=== PATIENT | female | born 1945 | race Caucasian/White ===

== ENCOUNTER 2016-12-27 14:18 | Inpatient (IN) | payer MEDICARE, MEDICAID ==
[~2016-12-27] VITALS: Ht 154.9 cm; Wt 100.0 kg
[2016-12-27 15:18] LABS: BASO % 0.3 % (0.0-1.0); EOS % 0.3 % (0.0-3.0); LYMPH # 0.9 10^3/uL (1.5-4.5); LYMPH % 8.1 % (24.0-44.0); MEAN CORPUSCULAR HGB CONC 29.2 g/dl (32.0-36.5); MEAN CORPUSCULAR VOLUME 82.2 fl (80.0-96.0); MONO # 0.7 10^3/uL (0.0-0.8); MONO % 6.1 % (0.0-5.0); NEUTROPHILS # 9.1 10^3/uL (1.8-7.7); NEUTROPHILS % 83.2 % (36.0-66.0); PLATELET COUNT, AUTOMATED 240 10^3/uL (150-450); RED CELL DISTRIBUTION WIDTH 17.3 % (11.5-14.5); WHITE BLOOD COUNT 10.9 10^3/uL (4.0-10.0)
[2016-12-27 15:44] LABS: ANION GAP 7 MEQ/L (8-16); BLOOD UREA NITROGEN 13 MG/DL (7-18); CALCIUM LEVEL 7.9 MG/DL (8.8-10.2); CARBON DIOXIDE LEVEL 33 MEQ/L (21-32); CHLORIDE LEVEL 103 MEQ/L (98-107); CREATININE FOR GFR 0.52 MG/DL (0.55-1.02); GLOMERULAR FILTRATION RATE > 60.0 (>39); GLUCOSE, FASTING 96 MG/DL (83-110); SODIUM LEVEL 143 MEQ/L (136-145)
[2016-12-27] MEDS ORDERED: XARE20TA PO (16:03)
[2016-12-27] MEDS ORDERED: NEXI40CA PO (16:03)
[2016-12-27] MEDS ORDERED: IPRASOL4 INH (16:03)
[2016-12-27] MEDS ORDERED: SERT-138 PO (16:03)
[2016-12-27] MEDS ORDERED: VENTAER INH (16:03)
[2016-12-27] MEDS ORDERED: PREG100CA PO (16:03)
[2016-12-27] MEDS ORDERED: PRED10TA2 PO (16:03)
[2016-12-27] MEDS ORDERED: METO5TA PO (16:03)
[2016-12-27] MEDS ORDERED: COMBAER6 INH (16:03)
[2016-12-27] MEDS ORDERED: CARV12.5 PO (16:03)
[2016-12-27] MEDS ORDERED: POTA20TA PO (16:03)
[2016-12-27] MEDS ORDERED: SYNT100T PO (16:03)
[2016-12-27] MEDS ORDERED: SIMV20TA2 PO (16:03)
[2016-12-27] MEDS ORDERED: FURO40TA2 PO (16:03)
[2016-12-27] MEDS ORDERED: VITA100C2 PO (16:03)
[2016-12-27] MEDS ORDERED: ASCO10003 PO (16:03)
--- NOTE | 2016-12-27 16:53 | REP ---
Chest one-view HISTORY: COPD. Comparison: None Increased density is present in the lower lobes consistent with bibasilar atelectasis or infiltrates. The cardiac silhouette is enlarged. The pulmonary vasculature is normal in appearance. A cardiac pacemaker is present. The pulmonary vasculature is normal in appearance. Impression: 1. Bibasilar atelectasis or infiltrates. 2. Cardiomegaly. Signed by Sal Marino MD 12/27/2016 04:44 P
[2016-12-27] MEDS: IPRATROPIUM 0.5MG/ALBUTEROL 2.5MG INH SOL UD 3ML (DUONEB)(J7620) INH SCH (18:36)
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
[2016-12-27] MEDS ORDERED: ISOVUE-370 76% 100ML VIAL (Q9967) As Ordered ONE (18:52)
[2016-12-27 19:00] VITALS: BP 144/92
--- NOTE | 2016-12-27 20:10 | REPUSA ---
CT of the right lower tibia and fibula with contrast Clinical statement: Pain. Necrotizing fasciitis. Technique: Multiple axial CT images were obtained with 5 mm cuts through the right tibia and fibula w ith administration of contrast. Coronal and sagittal reconstructions were also obtained. No comparison is available. Findings: The osseous structures do not demonstrate any fractures or dislocations. No destructive oss eous lesions are noted. The joint spaces are well-maintained. There is a large wound in the medial as pect of the lower leg, measuring 2.9 x 1.0 x 4.3 cm. Mild surrounding soft tissue density is noted. N o loculated fluid collection is identified. Impression: 1. Large open wound in the medial aspect of the ankle. Mild surrounding soft tissue density is noted, without significant inflammation or edema. Early cellulitis cannot be excluded. No evidence of absce ss. 2. No discrete osseous abnormality. 3. CT is suboptimal for evaluation of necrotizing fasciitis. If there is continued clinical concern, MRI would be recommended.
--- NOTE | 2016-12-27 20:10 | PHACANCOPD ---
PHARMACY VANCOMYCIN DOSING Pt Demographics Demographics Patient Age:71 , Weight: , Gender: female Adjusted Body Weight Date: 12/27/16, Adjusted Body Weight: [67.145] Kg Events Past 24 Hours Events Past 24 Hours: YES: Pending Diagnostics Vancomycin Vancomycin indication: MRSA COVERAGE Vancomycin Target Ranges: 15-20 mcg/ml Vancomycin Load Y/N: Yes Load Dose Date Time Vancomycin Load Dose: 1500mg Date: 12/27/16 Time:2100 Vancomycin Dose Date: 12/27/16. Current Vancomycin Dose: [1g IV Q12H] Intermittent Dosing?: No Labs Labs Item Value Date Time White Blood Count 10.9 10^3/uL H 12/27/16 1508 Erythrocyte Sedimentation Rate 29 mm/hr 12/27/16 1832 Creatinine 0.52 MG/DL L 12/27/16 1508 C-Reactive Protein, Quantitative 0.71 MG/DL H 12/27/16 1508 Micro Microbiology 12/27/16 Blood Culture, Received Pending 12/27/16 Blood Culture, Received Pending 12/27/16 Wound Culture, Received Pending Creatinine Clearance Date:12/27/16. Estimated Creatinine Clearance: [~40ml/min]. Pending Labs Vancomycin trough scheduled 12/29/16 @0800 Assessment and Plan Maintaining Current Dose?: Yes Reason for dose change: No Dose Change Pharmacist Note Pharmacist Note Date: 12/27/16. Pharmacist note: Day #1 empiric vancomycin tx initiated with a 1500mg loading dose, followed by a maintenance regimen of 1g IV Q12H for MRSA coverage for the treatment of possible necrotizing fasciitis - aiming for a goal trough of 15-20mcg/ml. The patient is s/p 10 days of cefdinir for her right leg open wound. WBC is currently slightly elevated at 10.9, and the patient is afebrile. CXR today showed bibasilar atelectasis or infiltrates. The patient has a PMH of COPD for which she is steroid dependent. No PMH of vanco use here at [facility], and MRSA hx is unknown at this time. Blood and wound cultures are pending. A vancomycin trough has been scheduled for 12/29/16 @0800. We will continue to monitor and adjust dosing if needed. [facility] Dec 27, 2016 20:10
[2016-12-27] MEDS: ASCORBIC ACID 500 MG TAB PO SCH (20:46)
[2016-12-27] MEDS: SERTRALINE 100 MG TAB PO SCH (20:46)
[2016-12-27] MEDS: MEROPENEM INJ 1 GM in D5W MINI-BAG PLUS 100 ML IV SCH (20:46)
[2016-12-27] MEDS: SIMVASTATIN 20 MG TAB PO SCH (20:46)
[2016-12-27] MEDS: PREGABALIN 100 MG CAP (LYRICA) PO SCH (20:46)
[2016-12-27] MEDS: CARVedilol 12.5 MG TAB PO SCH (20:47)
[2016-12-27] MEDS: VANCOMYCIN HCL 1,000 MG, VIAL MATE ADAPTER 1 EACH in D5W 250 ML IV SCH (21:32)
[2016-12-27] MEDS ORDERED: VANCOMYCIN HCL 500 MG in D5W MINI-BAG PLUS 100 ML IV ONE (22:00)
[2016-12-27] MEDS: IPRATROPIUM 0.5MG/ALBUTEROL 2.5MG INH SOL UD 3ML (DUONEB)(J7620) INH PRN (22:40)
[2016-12-28] VITALS (7 sets, daily range): BP systolic 105–146; BP diastolic 62–88
[2016-12-28] MEDS: MEROPENEM INJ 1 GM in D5W MINI-BAG PLUS 100 ML IV SCH ×3 (04:22→20:18)
[2016-12-28] MEDS: IPRATROPIUM 0.5MG/ALBUTEROL 2.5MG INH SOL UD 3ML (DUONEB)(J7620) INH PRN (04:27)
--- NOTE | 2016-12-28 05:29 | ECGEPIP ---
Stationary ECG Study [facility] - ED Test Date: 2016-12-27 Pat Name: DEMETRIUS MORGAN Department: Room: [place] [address] Gender: F Lead Generator: shon : 1945 Requested By: Rashaun Davis Order Number: [id number] Reading MD: Rashaun Up Measurements Intervals [place] Rate: 71 P: HI: 0 QRS: 257 QRSD: 164 T: 61 QT: 477 QTc: 520 Interpretive Statements ELECTRONIC VENTRICULAR PACEMAKER NO PRIORS Electronically Signed On 12-28-2016 5:29:03 EDT by Rashaun Up
[2016-12-28] MEDS: LEVOTHYROXINE 100MCG TABLET (0.1MG) PO SCH (06:05)
[2016-12-28] MEDS: ACETAMINOPHEN TAB 650MG DOSE (2X325MG) PO PRN (06:07)
[2016-12-28 06:47] LABS: BASO % 0.4 % (0.0-1.0); EOS # 0.1 10^3/uL (0.0-0.50); IMMATURE GRANULOCYTE % 1.2 % (0-0); LYMPH # 1.3 10^3/uL (1.5-4.5); LYMPH % 12.9 % (24.0-44.0); MEAN CORPUSCULAR HEMOGLOBIN 23.7 pg (27.0-33.0); MEAN CORPUSCULAR HGB CONC 28.9 g/dl (32.0-36.5); MONO # 1.2 10^3/uL (0.0-0.8); NEUTROPHILS # 7.5 10^3/uL (1.8-7.7); NEUTROPHILS % 72.5 % (36.0-66.0); PLATELET COUNT, AUTOMATED 206 10^3/uL (150-450); RED CELL DISTRIBUTION WIDTH 17.2 % (11.5-14.5); WHITE BLOOD COUNT 10.3 10^3/uL (4.0-10.0)
[2016-12-28] MEDS: IPRATROPIUM 0.5MG/ALBUTEROL 2.5MG INH SOL UD 3ML (DUONEB)(J7620) INH SCH ×4 (07:18→19:11)
[2016-12-28 07:21] LABS: ALBUMIN 2.6 GM/DL (3.2-5.2); ALKALINE PHOSPHATASE 86 U/L (45-117); ALT/SGPT 12 U/L (12-78); ANION GAP 4 MEQ/L (8-16); AST/SGOT 9 U/L (15-37); BILIRUBIN,TOTAL 0.5 MG/DL (0.2-1.0); BLOOD UREA NITROGEN 11 MG/DL (7-18); CALCIUM LEVEL 8.2 MG/DL (8.8-10.2); CARBON DIOXIDE LEVEL 37 MEQ/L (21-32); CHLORIDE LEVEL 101 MEQ/L (98-107); CREATININE FOR GFR 0.59 MG/DL (0.55-1.02); GLOMERULAR FILTRATION RATE > 60.0 (>39); GLUCOSE, FASTING 88 MG/DL (83-110); MAGNESIUM LEVEL 2.2 MG/DL (1.8-2.4); POTASSIUM SERUM 3.7 MEQ/L (3.5-5.1); SODIUM LEVEL 142 MEQ/L (136-145); TOTAL PROTEIN 5.5 GM/DL (6.4-8.2)
[2016-12-28] MEDS: PANTOPRAZOLE 40MG TAB (PROTONIX) PO SCH (07:44)
[2016-12-28] MEDS: CARVedilol 12.5 MG TAB PO SCH ×2 (07:44→20:19)
[2016-12-28] MEDS: PREGABALIN 100 MG CAP (LYRICA) PO SCH ×3 (07:44→20:19)
[2016-12-28] MEDS: predniSONE 10 MG TAB PO SCH (07:44)
[2016-12-28] MEDS: FUROSEMIDE 40 MG TAB PO SCH (07:45)
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
[2016-12-28] MEDS: RIVAROXABAN 20 MG TAB (XARELTO) PO SCH (08:48)
[2016-12-28] MEDS: VANCOMYCIN HCL 1,000 MG, VIAL MATE ADAPTER 1 EACH in D5W 250 ML IV SCH ×2 (09:42→21:30)
[2016-12-28] MEDS ORDERED: NS 1,000 ML IV SCH (13:00)
[2016-12-28] MEDS ORDERED: PROPOFOL 200 MG/20 ML VIAL As Ordered ONE (14:59)
[2016-12-28] MEDS ORDERED: MIDAZOLAM INJ 2 MG/2 ML VIAL (J2250) As Ordered ONE (14:59)
[2016-12-28] MEDS ORDERED: fentaNYL 100 MCG/2 ML INJECTION (J3010) As Ordered ONE (14:59)
[2016-12-28] MEDS ORDERED: NORCO, ANEXSIA 5/325MG TABLET (HYDROcodone/ACETAMINOPHEN) As Ordered ONE (15:44)
[2016-12-28] MEDS ORDERED: fentaNYL 100 MCG/2 ML INJECTION (J3010) IV PRN (15:45)
[2016-12-28] MEDS ORDERED: LR 1,000 ML IV SCH (15:45)
[2016-12-28] MEDS ORDERED: ONDANSETRON 4MG/2ML VIAL (J2405) IV PRN (15:45)
[2016-12-28] MEDS ORDERED: NORCO, ANEXSIA 5/325MG TABLET (HYDROcodone/ACETAMINOPHEN) PO PRN (15:45)
--- NOTE | 2016-12-28 18:30 | IPNPDOC ---
Text Note Date of Service The patient was seen on 12/28/16. NOTE Subjective: complains of pain in the region of the wound and also in the other leg, no fever or chills, no chest pain or sob, no cough or phlegm , no nausea or vomiting or abdominal pain Physical Exam: -Vitals as below. - General: Lying in bed, No acute distress, Speaking in full sentences, AAOx3 - HEENT: NC, AT, PERRLA, EOMI - CVS: RRR, +S1S2 - Lungs: Fair air entry bilaterally, Clear to auscultation, No wheezing / rales / rhonchi - Abdomen: Soft, Non-distended, Non-tender - Extremities: + PPx4, 1+ pitting edema bilaterally, No calf tenderness - Neuro: No focal motor or sensory deficit - Skin: Right leg with necrotic open wound, draining clear fluid, no significant erythema around wound, tenderness noted diffusely around wound Plan Right leg open wound after a traumatic injury with necrotic tissues. - had traumatic event 2 weeks ago - will go for wound debridement in OR today and possibly wound vac application after it. - also wound on the lower leg in similar position though less severe closed with necrotic skin. - Mild leukocytosis - blood cultures pending and wound cultures staph aureus - continue Merpenem and Vancomcyin Atrial fibrillation - s/p Ablation and PM placement - c/w Carvedilol and Xarelto COPD - Oxygen dependent at 4 liters - c/w Prednisone 10 - c/w Duoneb Chronic Respiratory failure with hypoxia -continue home oxygen JOJO -continue home BIPAP 02/18 HTN - c/w Carvedilol and Furosemide and Metolazone DLP - c/w Simvastatin Hypothyroidism - c/w Levothyroxine Depression - c/w Sertraline Hx of Diverticulosis Barretts Esophagus / Hiatal Hernia / GERD - Will start Protonix Morbid obesity -complicating care. DVT prophylaxis - c/w Xarelto VS,Fishbone, I+O VS, Fishbone, I+O Laboratory Tests 12/28/16 06:29 Red Blood Count 4.05, Mean Corpuscular Volume 82.0, Mean Corpuscular Hemoglobin 23.7 L, Mean Corpuscular Hemoglobin Concent 28.9 L, Red Cell Distribution Width 17.2 H, Neutrophils (%) (Auto) 72.5 H, Lymphocytes (%) (Auto) 12.9 L, Monocytes (%) (Auto) 12.0 H, Eosinophils (%) (Auto) 1.0, Basophils (%) (Auto) 0.4, Neutrophils # (Auto) 7.5, Lymphocytes # (Auto) 1.3 L, Monocytes # (Auto) 1.2 H, Eosinophils # (Auto) 0.1, Basophils # (Auto) 0.0, Calcium Level 8.2 L, Aspartate Amino Transf (AST/SGOT) 9 L, Alanine Aminotransferase (ALT/SGPT) 12, Alkaline Phosphatase 86, Total Bilirubin 0.5, Total Protein 5.5 L, Albumin 2.6 L Vital Signs Date Time Temp Pulse Resp B/P (MAP) Pulse Ox O2 Delivery O2 Flow Rate FiO2 12/28/16 17:45 97.2 70 20 113/62 (79) 98 NIPPV (BIPAP/CPAP) 12/28/16 16:15 4.0 I&O- Last 24 Hours up to 6 AM 12/29/16 06:00 Intake Total 1070 ml Output Total 1650 ml Balance -580 ml RAPHAEL COX MD Dec 28, 2016 18:30
[2016-12-28] MEDS: ASCORBIC ACID 500 MG TAB PO SCH (20:19)
[2016-12-28] MEDS: SIMVASTATIN 20 MG TAB PO SCH (20:19)
[2016-12-28] MEDS: SERTRALINE 100 MG TAB PO SCH (20:19)
[2016-12-28] MEDS: PERCOCET 5MG/325MG TAB PO PRN (21:32)
[2016-12-29] VITALS: BP 113/67
[2016-12-29] MEDS: MEROPENEM INJ 1 GM in D5W MINI-BAG PLUS 100 ML IV SCH ×3 (04:23→20:29)
[2016-12-29] MEDS: IPRATROPIUM 0.5MG/ALBUTEROL 2.5MG INH SOL UD 3ML (DUONEB)(J7620) INH PRN ×2 (04:25→10:46)
[2016-12-29] MEDS: LEVOTHYROXINE 100MCG TABLET (0.1MG) PO SCH (06:00)
[2016-12-29] MEDS: IPRATROPIUM 0.5MG/ALBUTEROL 2.5MG INH SOL UD 3ML (DUONEB)(J7620) INH SCH ×4 (07:14→19:40)
[2016-12-29 08:00] VITALS: BP 138/84
[2016-12-29 08:11] LABS: BASO % 0.3 % (0.0-1.0); EOS # 0.2 10^3/uL (0.0-0.50); EOS % 2.2 % (0.0-3.0); IMMATURE GRANULOCYTE % 1.3 % (0-0); LYMPH # 1.3 10^3/uL (1.5-4.5); LYMPH % 14.3 % (24.0-44.0); MEAN CORPUSCULAR HEMOGLOBIN 24.2 pg (27.0-33.0); MEAN CORPUSCULAR HGB CONC 29.4 g/dl (32.0-36.5); MEAN CORPUSCULAR VOLUME 82.3 fl (80.0-96.0); MONO # 0.9 10^3/uL (0.0-0.8); MONO % 10.1 % (0.0-5.0); NEUTROPHILS # 6.7 10^3/uL (1.8-7.7); NEUTROPHILS % 71.8 % (36.0-66.0); PLATELET COUNT, AUTOMATED 223 10^3/uL (150-450); WHITE BLOOD COUNT 9.3 10^3/uL (4.0-10.0)
[2016-12-29] MEDS: FUROSEMIDE 40 MG TAB PO SCH (08:27)
[2016-12-29] MEDS: PREGABALIN 100 MG CAP (LYRICA) PO SCH ×3 (08:27→21:44)
[2016-12-29] MEDS: RIVAROXABAN 20 MG TAB (XARELTO) PO SCH (08:27)
[2016-12-29] MEDS: PANTOPRAZOLE 40MG TAB (PROTONIX) PO SCH (08:27)
[2016-12-29] MEDS: predniSONE 10 MG TAB PO SCH (08:27)
[2016-12-29] MEDS: CARVedilol 12.5 MG TAB PO SCH ×2 (08:28→21:45)
[2016-12-29] MEDS: VANCOMYCIN HCL 1,000 MG, VIAL MATE ADAPTER 1 EACH in D5W 250 ML IV SCH ×2 (08:28→21:45)
[2016-12-29 08:41] LABS: ALBUMIN 2.8 GM/DL (3.2-5.2); ALBUMIN/GLOBULIN RATIO 0.93 (1.00-1.93); ALKALINE PHOSPHATASE 92 U/L (45-117); ALT/SGPT 12 U/L (12-78); ANION GAP 5 MEQ/L (8-16); AST/SGOT 9 U/L (15-37); BILIRUBIN,TOTAL 0.4 MG/DL (0.2-1.0); BLOOD UREA NITROGEN 10 MG/DL (7-18); CALCIUM LEVEL 8.2 MG/DL (8.8-10.2); CARBON DIOXIDE LEVEL 36 MEQ/L (21-32); CHLORIDE LEVEL 101 MEQ/L (98-107); CREATININE FOR GFR 0.51 MG/DL (0.55-1.02); GLOMERULAR FILTRATION RATE > 60.0 (>39); GLUCOSE, FASTING 95 MG/DL (83-110); MAGNESIUM LEVEL 2.3 MG/DL (1.8-2.4); POTASSIUM SERUM 4.3 MEQ/L (3.5-5.1); SODIUM LEVEL 142 MEQ/L (136-145); TOTAL PROTEIN 5.8 GM/DL (6.4-8.2)
[2016-12-29 11:00] VITALS: BP 114/62
[2016-12-29 14:00] VITALS: BP 126/67
--- NOTE | 2016-12-29 15:07 | IPNPDOC ---
Text Note Date of Service The patient was seen on 12/29/16. NOTE Subjective: complains of pain in the region of the wound and also in the other leg, no fever or chills, no chest pain or sob, no cough or phlegm , no nausea or vomiting or abdominal pain Physical Exam: -Vitals as below. - General: Lying in bed, No acute distress, Speaking in full sentences, AAOx3 - HEENT: NC, AT, PERRLA, EOMI - CVS: RRR, +S1S2 - Lungs: Fair air entry bilaterally, Clear to auscultation, No wheezing / rales / rhonchi - Abdomen: Soft, Non-distended, Non-tender - Extremities: + PPx4, 1+ pitting edema bilaterally, No calf tenderness - Neuro: No focal motor or sensory deficit - Skin: Right leg with open wound with clean base after debridement. Plan Right leg open wound after a traumatic injury with necrotic tissues now debrided in OR on 12/28 - had traumatic event 2 weeks ago - also wound on the lower leg in similar position though less severe closed with necrotic skin. - Mild leukocytosis - blood cultures pending and wound cultures MRSA - continue Merpenem and Vancomcyin Atrial fibrillation - s/p Ablation and PM placement - c/w Carvedilol and Xarelto COPD - Oxygen dependent at 4 liters - c/w Prednisone 10 - c/w Duoneb Chronic Respiratory failure with hypoxia -continue home oxygen JOJO -continue home BIPAP 02/18 HTN - c/w Carvedilol and Furosemide and Metolazone DLP - c/w Simvastatin Hypothyroidism - c/w Levothyroxine Depression - c/w Sertraline Hx of Diverticulosis Barretts Esophagus / Hiatal Hernia / GERD - Will start Protonix Morbid obesity -complicating care. DVT prophylaxis - c/w Xarelto VS,Fishbone, I+O VS, Fishbone, I+O Laboratory Tests 12/29/16 07:53 Red Blood Count 4.18, Mean Corpuscular Volume 82.3, Mean Corpuscular Hemoglobin 24.2 L, Mean Corpuscular Hemoglobin Concent 29.4 L, Red Cell Distribution Width 17.0 H, Neutrophils (%) (Auto) 71.8 H, Lymphocytes (%) (Auto) 14.3 L, Monocytes (%) (Auto) 10.1 H, Eosinophils (%) (Auto) 2.2, Basophils (%) (Auto) 0.3, Neutrophils # (Auto) 6.7, Lymphocytes # (Auto) 1.3 L, Monocytes # (Auto) 0.9 H, Eosinophils # (Auto) 0.2, Basophils # (Auto) 0.0, Calcium Level 8.2 L, Aspartate Amino Transf (AST/SGOT) 9 L, Alanine Aminotransferase (ALT/SGPT) 12, Alkaline Phosphatase 92, Total Bilirubin 0.4, Total Protein 5.8 L, Albumin 2.8 L Vital Signs Date Time Temp Pulse Resp B/P (MAP) Pulse Ox O2 Delivery O2 Flow Rate FiO2 12/29/16 11:15 18 12/29/16 11:15 Nasal Cannula 4.0 12/29/16 11:00 96.6 87 114/62 (79) 92 I&O- Last 24 Hours up to 6 AM 12/30/16 06:00 Intake Total 360 ml Output Total 700 ml Balance -340 ml RAPHAEL COX MD Dec 29, 2016 15:07
[2016-12-29 18:00] VITALS: BP 133/67
[2016-12-29] MEDS: ASCORBIC ACID 500 MG TAB PO SCH (21:44)
[2016-12-29] MEDS: SIMVASTATIN 20 MG TAB PO SCH (21:44)
[2016-12-29] MEDS: SERTRALINE 100 MG TAB PO SCH (21:44)
--- NOTE | 2016-12-29 21:49 | IPN ---
DATE: 12/29/2016 The patient is now 1 day postop from debridement of her open right lower medial leg wound. The patient reports that she has some soreness in the wound area and it was quite sore when they changed her dressing earlier today. Otherwise she feels pretty good. Vital signs show that she has remained afebrile with stable vital signs. Intake and output (I and O) show 1670 in, 2150 out yesterday and she is having bowel movements. PHYSICAL EXAMINATION: She has a dressing on the right lower leg wound with small amount of staining through of some serosanguineous fluid in the central part of her dressing. The hematoma on the left lower leg shows two small areas of skin necrosis but no drainage is noted. There is no sign of infection. Labs today show that her white count is 9.3 with 72% neutrophils, 14% lymphocytes and 10 monocytes. Chemistries are unchanged really from yesterday. Microbiology: Her original wound culture from the is growing heavy staphylococcus aureus, methicillin-resistant. IMPRESSION: Open wound right lower leg secondary to trauma, probably secondarily infected by Methicillin-resistant Staphylococcus aureus (MRSA). PLAN: As the patient has already had her wound changed today I will plan to inspect the wound tomorrow. It may be that she would do well with a wound vac rather than twice daily dressing changes. I will have a better impression after seeing her wounds tomorrow. TOM
[2016-12-29 22:00] VITALS: BP 123/72
[2016-12-29] MEDS: PERCOCET 5MG/325MG TAB PO PRN (22:39)
[2016-12-29] MEDS ORDERED: raNITIdine SYRUP 150 MG/10 ML UDC PO PRN (22:45)
[2016-12-30] MEDS: MEROPENEM INJ 1 GM in D5W MINI-BAG PLUS 100 ML IV SCH ×3 (03:39→23:10)
[2016-12-30] MEDS: IPRATROPIUM 0.5MG/ALBUTEROL 2.5MG INH SOL UD 3ML (DUONEB)(J7620) INH PRN ×2 (03:47→09:36)
[2016-12-30 06:00] VITALS: BP 106/65
[2016-12-30 06:09] LABS: BASO % 0.2 % (0.0-1.0); EOS # 0.2 10^3/uL (0.0-0.50); EOS % 2.3 % (0.0-3.0); IMMATURE GRANULOCYTE % 1.8 % (0-0); LYMPH # 1.5 10^3/uL (1.5-4.5); LYMPH % 16.2 % (24.0-44.0); MEAN CORPUSCULAR HGB CONC 29.3 g/dl (32.0-36.5); MEAN CORPUSCULAR VOLUME 81.7 fl (80.0-96.0); MONO # 1.1 10^3/uL (0.0-0.8); MONO % 11.7 % (0.0-5.0); NEUTROPHILS # 6.2 10^3/uL (1.8-7.7); NEUTROPHILS % 67.8 % (36.0-66.0); PLATELET COUNT, AUTOMATED 191 10^3/uL (150-450); RED CELL DISTRIBUTION WIDTH 17.1 % (11.5-14.5); WHITE BLOOD COUNT 9.1 10^3/uL (4.0-10.0)
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
[2016-12-30 06:37] LABS: ALBUMIN 2.6 GM/DL (3.2-5.2); ALBUMIN/GLOBULIN RATIO 0.93 (1.00-1.93); ALKALINE PHOSPHATASE 76 U/L (45-117); ALT/SGPT 12 U/L (12-78); ANION GAP 3 MEQ/L (8-16); AST/SGOT 6 U/L (15-37); BILIRUBIN,TOTAL 0.4 MG/DL (0.2-1.0); BLOOD UREA NITROGEN 9 MG/DL (7-18); CALCIUM LEVEL 7.8 MG/DL (8.8-10.2); CARBON DIOXIDE LEVEL 40 MEQ/L (21-32); CHLORIDE LEVEL 99 MEQ/L (98-107); CREATININE FOR GFR 0.47 MG/DL (0.55-1.02); GLOMERULAR FILTRATION RATE > 60.0 (>39); GLUCOSE, FASTING 97 MG/DL (83-110); POTASSIUM SERUM 2.9 MEQ/L (3.5-5.1); SODIUM LEVEL 142 MEQ/L (136-145); TOTAL PROTEIN 5.4 GM/DL (6.4-8.2)
[2016-12-30] MEDS: LEVOTHYROXINE 100MCG TABLET (0.1MG) PO SCH (06:52)
[2016-12-30] MEDS: ACETAMINOPHEN TAB 650MG DOSE (2X325MG) PO PRN (06:54)
[2016-12-30] MEDS: IPRATROPIUM 0.5MG/ALBUTEROL 2.5MG INH SOL UD 3ML (DUONEB)(J7620) INH SCH ×4 (07:07→19:16)
[2016-12-30] MEDS ORDERED: POTASSIUM CHLORIDE 10 MEQ SR TABLET PO ONE (07:15)
[2016-12-30] MEDS: FUROSEMIDE 40 MG TAB PO SCH (07:54)
[2016-12-30] MEDS: RIVAROXABAN 20 MG TAB (XARELTO) PO SCH (08:03)
[2016-12-30] MEDS: predniSONE 10 MG TAB PO SCH (08:03)
[2016-12-30] MEDS: PREGABALIN 100 MG CAP (LYRICA) PO SCH ×3 (08:04→21:25)
[2016-12-30] MEDS: PANTOPRAZOLE 40MG TAB (PROTONIX) PO SCH (08:04)
[2016-12-30] MEDS: CARVedilol 12.5 MG TAB PO SCH ×2 (08:04→21:25)
[2016-12-30] MEDS: VANCOMYCIN HCL 1,000 MG, VIAL MATE ADAPTER 1 EACH in D5W 250 ML IV SCH ×2 (08:57→21:41)
[2016-12-30] MEDS: metOLazone 5 MG TAB PO SCH (09:00)
[2016-12-30] MEDS ORDERED: CALCIUM CARBONATE 500 MG CHEW U/D PO PRN (10:00)
[2016-12-30] MEDS: POTASSIUM CHLORIDE 10 MEQ SR TABLET PO SCH ×2 (10:21→15:20)
--- NOTE | 2016-12-30 13:47 | IPNPDOC ---
Text Note Date of Service The patient was seen on 12/30/16. NOTE Subjective: complains of pain in the region of the wound and also in the other leg, no fever or chills, no chest pain or sob, no cough or phlegm , no nausea or vomiting or abdominal pain Physical Exam: -Vitals as below. - General: Lying in bed, No acute distress, Speaking in full sentences, AAOx3 - HEENT: NC, AT, PERRLA, EOMI - CVS: RRR, +S1S2 - Lungs: Fair air entry bilaterally, Clear to auscultation, No wheezing / rales / rhonchi - Abdomen: Soft, Non-distended, Non-tender - Extremities: + PPx4, 1+ pitting edema bilaterally, No calf tenderness - Neuro: No focal motor or sensory deficit - Skin: Right leg with open wound with clean base after debridement. Plan Right leg open wound after a traumatic injury with necrotic tissues now debrided in OR on 12/28 - had traumatic event 2 weeks ago - also wound on the lower leg in similar position though less severe closed with necrotic skin. - blood cultures pending and wound cultures MRSA - continue Merpenem and Vancomcyin - will get PICC line Atrial fibrillation - s/p Ablation and PM placement - c/w Carvedilol and Xarelto COPD - Oxygen dependent at 4 liters - c/w Prednisone 10 - c/w Duoneb Chronic Respiratory failure with hypoxia -continue home oxygen JOJO -continue home BIPAP 02/18 HTN - c/w Carvedilol and Furosemide and Metolazone -will hold diuretics today due to hypokalemia. will restart when potassium replaced. DLP - c/w Simvastatin Hypothyroidism - c/w Levothyroxine Depression - c/w Sertraline Hx of Diverticulosis Barretts Esophagus / Hiatal Hernia / GERD - Will start Protonix Morbid obesity -complicating care. DVT prophylaxis - c/w Xarelto VS,Fishbone, I+O VS, Fishbone, I+O Laboratory Tests 12/30/16 05:29 Red Blood Count 3.88 L, Mean Corpuscular Volume 81.7, Mean Corpuscular Hemoglobin 24.0 L, Mean Corpuscular Hemoglobin Concent 29.3 L, Red Cell Distribution Width 17.1 H, Neutrophils (%) (Auto) 67.8 H, Lymphocytes (%) (Auto ) 16.2 L, Monocytes (%) (Auto) 11.7 H, Eosinophils (%) (Auto) 2.3, Basophils (% ) (Auto) 0.2, Neutrophils # (Auto) 6.2, Lymphocytes # (Auto) 1.5, Monocytes # ( Auto) 1.1 H, Eosinophils # (Auto) 0.2, Basophils # (Auto) 0.0, Calcium Level 7.8 L, Aspartate Amino Transf (AST/SGOT) 6 L, Alanine Aminotransferase (ALT/SGPT ) 12, Alkaline Phosphatase 76, Total Bilirubin 0.4, Total Protein 5.4 L, Albumin 2.6 L Vital Signs Date Time Temp Pulse Resp B/P (MAP) Pulse Ox O2 Delivery O2 Flow Rate FiO2 12/30/16 08:04 73 119/76 12/30/16 08:00 18 12/30/16 06:00 97.0 96 NIPPV (BIPAP/CPAP) 12/29/16 23:09 3.0 I&O- Last 24 Hours up to 6 AM 12/31/16 05:59 Intake Total 310 ml Output Total 400 ml Balance -90 ml RAPHAEL COX MD Dec 30, 2016 13:47
[2016-12-30 14:00] VITALS: BP 156/89
[2016-12-30] MEDS ORDERED: SODIUM CHLORIDE 0.9% INJ 10 ML SYR IV PRN (15:00)
[2016-12-30] MEDS: PERCOCET 5MG/325MG TAB PO PRN ×2 (15:57→23:12)
[2016-12-30] MEDS: SODIUM CHLORIDE 0.9% INJ 10 ML SYR IV SCH (17:36)
--- NOTE | 2016-12-30 17:39 | REP ---
Procedure: PICC line insertion with Galindo-Marie The procedure was performed under the direct supervision of Dr. Hagen. The risks and benefits of the procedure were explained to the patient and informed consent was obtained. The right basilic vein was localized using ultrasound guidance. The skin was prepped and draped in a sterile fashion. 2% lidocaine was used as a local anesthetic. Using ultrasound guidance the basilic vein was cannulated and a 0.018 guidewire was inserted and advanced to the SVC using fluoroscopic guidance. The needle was removed and a 5.5 Macanese dilator and peel-away sheath was inserted over the guide wire. A 5.5 Macanese dual lumen catheter was cut to length of 44 cm. The dilator was removed and the catheter was inserted over the guide wire with the tip ending in the SVC. The peel-away sheath was removed and the catheter was flushed with heparinized saline as per Hospital protocol. The catheter was affixed to the skin and a sterile dressing was applied. The the patient tolerated the procedure well and there were no immediate complications. 0.4 minutes of fluoro time was utilized for this procedure. Reviewed by ALEX Cheek 12/30/2016 04:52 PSigned by Tim Hagen MD 12/30/2016 05:31 P
--- NOTE | 2016-12-30 18:24 | IPN ---
DATE: 12/30/2016 HISTORY: Patient was admitted on December 27 for treatment of an open wound of the right leg, which followed a trauma to the leg two weeks earlier. She had developed a hematoma on the medial distal lower leg which opened. She underwent debridement on 12/28 and has grown Methicillin-resistant Staphylococcus aureus (MRSA) from the wound, which I suspect is secondary colonization of the wound. Vital signs show that the patient is afebrile and her vitals are stable. Intake and output shows adequate intake with a good urine output. She remains on meropenem and vancomycin per the hospitalist. PHYSICAL EXAMINATION: Patient is in good spirits, sitting up in a chair, having finished her dinner. She has a bandage on the right lower leg, which was changed by her report about an hour ago. LABORATORIES: Show white count of 9, hemoglobin 9, hematocrit of 32. Her potassium was low today. Cultures from the OR have grown staph aureus methicillin-resistant. IMPRESSION: Open wound right lower leg with MRSA positive cultures. PLAN: As the wound was changed recently, I will defer my exam of the wound until tomorrow morning. I will see her in the a.m. and reassess the wound and see if we wish to proceed with a wound VAC or if we can continue with local wound care with saline gauze dressings. TOM
[2016-12-30 18:26] LABS: ANION GAP 3 MEQ/L (8-16); BLOOD UREA NITROGEN 9 MG/DL (7-18); CALCIUM LEVEL 8.1 MG/DL (8.8-10.2); CARBON DIOXIDE LEVEL 37 MEQ/L (21-32); CHLORIDE LEVEL 103 MEQ/L (98-107); CREATININE FOR GFR 0.47 MG/DL (0.55-1.02); GLOMERULAR FILTRATION RATE > 60.0 (>39); GLUCOSE, FASTING 116 MG/DL (83-110); POTASSIUM SERUM 4.3 MEQ/L (3.5-5.1); SODIUM LEVEL 143 MEQ/L (136-145)
[2016-12-30] MEDS: SIMVASTATIN 20 MG TAB PO SCH (21:25)
[2016-12-30] MEDS: ASCORBIC ACID 500 MG TAB PO SCH (21:25)
[2016-12-30] MEDS: SERTRALINE 100 MG TAB PO SCH (21:25)
[2016-12-30 22:00] VITALS: BP 143/79
[2016-12-31 04:00] VITALS: BP 143/79
[2016-12-31] MEDS: SODIUM CHLORIDE 0.9% INJ 10 ML SYR IV SCH ×2 (05:26→17:23)
[2016-12-31] MEDS: LEVOTHYROXINE 100MCG TABLET (0.1MG) PO SCH (05:41)
[2016-12-31 05:51] LABS: BASO % 0.4 % (0.0-1.0); EOS # 0.1 10^3/uL (0.0-0.50); EOS % 0.9 % (0.0-3.0); IMMATURE GRANULOCYTE % 1.2 % (0-0); LYMPH # 1.6 10^3/uL (1.5-4.5); LYMPH % 16.1 % (24.0-44.0); MEAN CORPUSCULAR HEMOGLOBIN 23.7 pg (27.0-33.0); MEAN CORPUSCULAR HGB CONC 28.7 g/dl (32.0-36.5); MEAN CORPUSCULAR VOLUME 82.4 fl (80.0-96.0); MONO # 1.1 10^3/uL (0.0-0.8); MONO % 10.5 % (0.0-5.0); NEUTROPHILS # 7.2 10^3/uL (1.8-7.7); NEUTROPHILS % 70.9 % (36.0-66.0); PLATELET COUNT, AUTOMATED 201 10^3/uL (150-450); RED CELL DISTRIBUTION WIDTH 16.8 % (11.5-14.5); WHITE BLOOD COUNT 10.2 10^3/uL (4.0-10.0)
[2016-12-31 06:00] VITALS: BP 137/72
[2016-12-31] MEDS: IPRATROPIUM 0.5MG/ALBUTEROL 2.5MG INH SOL UD 3ML (DUONEB)(J7620) INH SCH ×4 (06:58→19:24)
[2016-12-31 07:14] LABS: ALBUMIN 2.7 GM/DL (3.2-5.2); ALBUMIN/GLOBULIN RATIO 1.08 (1.00-1.93); ALKALINE PHOSPHATASE 78 U/L (45-117); ALT/SGPT 12 U/L (12-78); ANION GAP 4 MEQ/L (8-16); AST/SGOT 7 U/L (15-37); BILIRUBIN,TOTAL 0.4 MG/DL (0.2-1.0); BLOOD UREA NITROGEN 10 MG/DL (7-18); CALCIUM LEVEL 8.3 MG/DL (8.8-10.2); CARBON DIOXIDE LEVEL 37 MEQ/L (21-32); CHLORIDE LEVEL 105 MEQ/L (98-107); CREATININE FOR GFR 0.38 MG/DL (0.55-1.02); GLOMERULAR FILTRATION RATE > 60.0 (>39); GLUCOSE, FASTING 99 MG/DL (83-110); MAGNESIUM LEVEL 2.3 MG/DL (1.8-2.4); POTASSIUM SERUM 4.3 MEQ/L (3.5-5.1); SODIUM LEVEL 146 MEQ/L (136-145); TOTAL PROTEIN 5.2 GM/DL (6.4-8.2)
[2016-12-31] MEDS: LINEZOLID 600MG TABLET (ZYVOX) PO SCH ×2 (09:00→21:30)
[2016-12-31] MEDS ORDERED: POTASSIUM CHLORIDE 10 MEQ SR TABLET PO SCH (09:00)
[2016-12-31] MEDS: RIVAROXABAN 20 MG TAB (XARELTO) PO SCH (09:15)
[2016-12-31] MEDS: POTASSIUM CHLORIDE 10 MEQ SR TABLET PO SCH (09:15)
[2016-12-31] MEDS: predniSONE 10 MG TAB PO SCH (09:16)
[2016-12-31] MEDS: PREGABALIN 100 MG CAP (LYRICA) PO SCH ×3 (09:16→21:30)
[2016-12-31] MEDS: PANTOPRAZOLE 40MG TAB (PROTONIX) PO SCH (09:16)
[2016-12-31] MEDS: FUROSEMIDE 40 MG TAB PO SCH (09:17)
[2016-12-31] MEDS: VANCOMYCIN HCL 1,000 MG, VIAL MATE ADAPTER 1 EACH in D5W 250 ML IV SCH (09:18)
[2016-12-31] MEDS: CARVedilol 12.5 MG TAB PO SCH ×2 (09:18→21:31)
[2016-12-31] MEDS: MEROPENEM INJ 1 GM in D5W MINI-BAG PLUS 100 ML IV SCH (11:29)
--- NOTE | 2016-12-31 13:14 | IPNPDOC ---
Text Note Date of Service The patient was seen on 12/31/16. NOTE Subjective: complains of pain in the region of the wound and also in the other leg, no fever or chills, no chest pain or sob, no cough or phlegm , no nausea or vomiting or abdominal pain Physical Exam: -Vitals as below. - General: Lying in bed, No acute distress, Speaking in full sentences, AAOx3 - HEENT: NC, AT, PERRLA, EOMI - CVS: RRR, +S1S2 - Lungs: Fair air entry bilaterally, Clear to auscultation, No wheezing / rales / rhonchi - Abdomen: Soft, Non-distended, Non-tender - Extremities: + PPx4, 1+ pitting edema bilaterally, No calf tenderness - Neuro: No focal motor or sensory deficit - Skin: Right leg with open wound with clean base after debridement. Plan Right leg open wound after a traumatic injury with necrotic tissues now debrided in OR on 12/28 - had traumatic event 2 weeks ago - also wound on the lower leg in similar position though less severe closed with necrotic skin. - blood cultures negative till date and wound cultures MRSA - will switch to linezolid. Atrial fibrillation - s/p Ablation and PM placement - c/w Carvedilol and Xarelto COPD - Oxygen dependent at 4 liters - c/w Prednisone 10 - c/w Duoneb Chronic Respiratory failure with hypoxia -continue home oxygen JOJO -continue home BIPAP 02/18 HTN - c/w Carvedilol and Furosemide and Metolazone DLP - c/w Simvastatin Hypothyroidism - c/w Levothyroxine Depression - c/w Sertraline Hx of Diverticulosis Barretts Esophagus / Hiatal Hernia / GERD - Will start Protonix Morbid obesity -complicating care. DVT prophylaxis - c/w Xarelto VS,Fishbone, I+O VS, Fishbone, I+O Laboratory Tests 12/30/16 17:35 Calcium Level 8.1 L 12/31/16 05:30 Calcium Level 8.3 L, Red Blood Count 3.97 L, Mean Corpuscular Volume 82.4, Mean Corpuscular Hemoglobin 23.7 L, Mean Corpuscular Hemoglobin Concent 28.7 L, Red Cell Distribution Width 16.8 H, Neutrophils (%) (Auto) 70.9 H, Lymphocytes (%) ( Auto) 16.1 L, Monocytes (%) (Auto) 10.5 H, Eosinophils (%) (Auto) 0.9, Basophils (%) (Auto) 0.4, Neutrophils # (Auto) 7.2, Lymphocytes # (Auto) 1.6, Monocytes # (Auto) 1.1 H, Eosinophils # (Auto) 0.1, Basophils # (Auto) 0.0, Aspartate Amino Transf (AST/SGOT) 7 L, Alanine Aminotransferase (ALT/SGPT) 12, Alkaline Phosphatase 78, Total Bilirubin 0.4, Total Protein 5.2 L, Albumin 2.7 L Vital Signs Date Time Temp Pulse Resp B/P (MAP) Pulse Ox O2 Delivery O2 Flow Rate FiO2 12/31/16 09:18 74 119/68 12/31/16 06:00 97.5 18 97 NIPPV (BIPAP/CPAP) 4.0 I&O- Last 24 Hours up to 6 AM 01/01/17 06:00 Intake Total 620 ml Output Total 500 ml Balance 120 ml RAPHAEL COX MD Dec 31, 2016 13:14
[2016-12-31 14:00] VITALS: BP 118/73
--- NOTE | 2016-12-31 15:14 | IPN ---
DATE: 12/31/2016 HISTORY: The patient is now 3 days postoperative from debridement of an open right distal lower leg wound secondary to a hematoma that opened. She grew methicillin-resistant Staphylococcus aureus from the wound and the hospitalist service has been managing her antibiotics. She has multiple other underlying medical issues. VITAL SIGNS: She is afebrile with stable vitals. Intake and output: Yesterday she had 1700 in and 1200 out. Physical examination today is limited to her lower extremities. I note that the hematoma on the left lower leg laterally, which has had a of couple of small necrotic appearing areas of the skin, has started to ooze a small amount of serosanguineous fluid at two points and we will need to keep an eye on this wound as well. The wound on the right lower leg looks excellent. I removed her dressing and the base of the wound is completely viable with no apparent residual necrotic tissue. The anterior portion of the wound has actually closed in a bit. IMPRESSION 1. Healthy wound right lower leg. 2. Hematoma left lower leg with development of some small areas of drainage. PLAN: We will continue with the local wound care to the right lower leg. For now we will continue with saline moistened gauze twice daily. I think she will probably do just as well with saline gauze dressings at home as with a wound VAC which will give her one more thing to trip over as it would be attached to her leg. We will need to monitor the left lower leg wound and this may require additional treatment at some point as well. TOM
[2016-12-31 20:10] VITALS: BP 130/78
[2016-12-31] MEDS: SERTRALINE 100 MG TAB PO SCH (21:30)
[2016-12-31] MEDS: ASCORBIC ACID 500 MG TAB PO SCH (21:30)
[2016-12-31] MEDS: SIMVASTATIN 20 MG TAB PO SCH (21:30)
[2017-01-01 04:52] VITALS: BP 119/79
[2017-01-01] MEDS: SODIUM CHLORIDE 0.9% INJ 10 ML SYR IV SCH ×2 (05:08→18:22)
[2017-01-01] MEDS: IPRATROPIUM 0.5MG/ALBUTEROL 2.5MG INH SOL UD 3ML (DUONEB)(J7620) INH PRN (05:15)
[2017-01-01 05:32] LABS: BASO % 0.3 % (0.0-1.0); EOS # 0.1 10^3/uL (0.0-0.50); EOS % 1.2 % (0.0-3.0); IMMATURE GRANULOCYTE % 1.2 % (0-0); LYMPH # 1.4 10^3/uL (1.5-4.5); LYMPH % 13.7 % (24.0-44.0); MEAN CORPUSCULAR HEMOGLOBIN 23.9 pg (27.0-33.0); MEAN CORPUSCULAR HGB CONC 29.5 g/dl (32.0-36.5); MEAN CORPUSCULAR VOLUME 81.1 fl (80.0-96.0); MONO % 9.5 % (0.0-5.0); NEUTROPHILS # 7.7 10^3/uL (1.8-7.7); NEUTROPHILS % 74.1 % (36.0-66.0); PLATELET COUNT, AUTOMATED 195 10^3/uL (150-450); RED CELL DISTRIBUTION WIDTH 16.8 % (11.5-14.5); WHITE BLOOD COUNT 10.4 10^3/uL (4.0-10.0)
[2017-01-01 05:56] LABS: ALBUMIN 2.8 GM/DL (3.2-5.2); ALBUMIN/GLOBULIN RATIO 0.97 (1.00-1.93); ALKALINE PHOSPHATASE 83 U/L (45-117); ALT/SGPT 15 U/L (12-78); ANION GAP 4 MEQ/L (8-16); AST/SGOT 6 U/L (15-37); BILIRUBIN,TOTAL 0.4 MG/DL (0.2-1.0); BLOOD UREA NITROGEN 10 MG/DL (7-18); CALCIUM LEVEL 8.4 MG/DL (8.8-10.2); CARBON DIOXIDE LEVEL 39 MEQ/L (21-32); CHLORIDE LEVEL 100 MEQ/L (98-107); CREATININE FOR GFR 0.33 MG/DL (0.55-1.02); GLOMERULAR FILTRATION RATE > 60.0 (>39); GLUCOSE, FASTING 92 MG/DL (83-110); MAGNESIUM LEVEL 2.2 MG/DL (1.8-2.4); SODIUM LEVEL 143 MEQ/L (136-145); TOTAL PROTEIN 5.7 GM/DL (6.4-8.2)
[2017-01-01] MEDS: LEVOTHYROXINE 100MCG TABLET (0.1MG) PO SCH (06:11)
[2017-01-01] MEDS: IPRATROPIUM 0.5MG/ALBUTEROL 2.5MG INH SOL UD 3ML (DUONEB)(J7620) INH SCH ×4 (07:05→19:24)
[2017-01-01] MEDS: CARVedilol 12.5 MG TAB PO SCH ×2 (09:00→21:45)
[2017-01-01] MEDS: PREGABALIN 100 MG CAP (LYRICA) PO SCH ×3 (09:15→21:44)
[2017-01-01] MEDS: predniSONE 10 MG TAB PO SCH (09:15)
[2017-01-01] MEDS: RIVAROXABAN 20 MG TAB (XARELTO) PO SCH (09:16)
[2017-01-01] MEDS: POTASSIUM CHLORIDE 10 MEQ SR TABLET PO SCH (09:16)
[2017-01-01] MEDS: LINEZOLID 600MG TABLET (ZYVOX) PO SCH ×2 (09:16→21:44)
[2017-01-01] MEDS: PANTOPRAZOLE 40MG TAB (PROTONIX) PO SCH (09:16)
[2017-01-01] MEDS: FUROSEMIDE 40 MG TAB PO SCH (09:17)
[2017-01-01] MEDS: ACETAMINOPHEN TAB 650MG DOSE (2X325MG) PO PRN (09:21)
[2017-01-01] MEDS ORDERED: predniSONE 10 MG TAB PO ONE (09:45)
[2017-01-01] MEDS: predniSONE 20 MG TAB PO SCH (11:33)
[2017-01-01] MEDS ORDERED: FUROSEMIDE 40 MG/4 ML VIAL (J1940) IV ONE (12:00)
[2017-01-01] MEDS: PERCOCET 5MG/325MG TAB PO PRN ×2 (12:20→23:24)
--- NOTE | 2017-01-01 12:25 | IPNPDOC ---
Text Note Date of Service The patient was seen on 01/01/17. NOTE Subjective: complains of increased shortness of breath today, left leg wound has some necrotic areas on it and has opened up a little with some serosanguinous discharge. no fever or chills, no nausea or vomiting or abdominal pain Physical Exam: -Vitals as below. - General: Lying in bed, No acute distress, Speaking in full sentences, AAOx3 - HEENT: NC, AT, PERRLA, EOMI - CVS: RRR, +S1S2 - Lungs: Fair air entry bilaterally, Clear to auscultation, No wheezing / rales / rhonchi - Abdomen: Soft, Non-distended, Non-tender - Extremities: + PPx4, 1+ pitting edema bilaterally, No calf tenderness - Neuro: No focal motor or sensory deficit - Skin: Right leg with open wound with clean base after debridement. Plan Bilateral traumatic leg wound with underlying hematoma and necrotic skin over them -Right leg wound debrided in OR on 12/28 - had traumatic event abut 3 weeks ago - blood cultures negative till date and wound cultures MRSA - switched to linezolid. -Wound dressing as per Dr das. Atrial fibrillation - s/p Ablation and PM placement - c/w Carvedilol and Xarelto COPD -SOb worse today may be having some exacerbation -Will increase prednisone to 40 mg daily -Will give one extra dose of lasix. - Oxygen dependent at 4 liters - c/w Duoneb Chronic Respiratory failure with hypoxia -continue home oxygen JOJO -continue home BIPAP 02/18 HTN - c/w Carvedilol and Furosemide and Metolazone DLP - c/w Simvastatin Hypothyroidism - c/w Levothyroxine Depression - c/w Sertraline Hx of Diverticulosis Barretts Esophagus / Hiatal Hernia / GERD - Will start Protonix Morbid obesity -complicating care. DVT prophylaxis - c/w Xarelto VS,Fishbone, I+O VS, Fishbone, I+O Laboratory Tests 01/01/17 05:13 Red Blood Count 3.97 L, Mean Corpuscular Volume 81.1, Mean Corpuscular Hemoglobin 23.9 L, Mean Corpuscular Hemoglobin Concent 29.5 L, Red Cell Distribution Width 16.8 H, Neutrophils (%) (Auto) 74.1 H, Lymphocytes (%) (Auto ) 13.7 L, Monocytes (%) (Auto) 9.5 H, Eosinophils (%) (Auto) 1.2, Basophils (%) (Auto) 0.3, Neutrophils # (Auto) 7.7, Lymphocytes # (Auto) 1.4 L, Monocytes # ( Auto) 1.0 H, Eosinophils # (Auto) 0.1, Basophils # (Auto) 0.0, Calcium Level 8.4 L, Aspartate Amino Transf (AST/SGOT) 6 L, Alanine Aminotransferase (ALT/SGPT ) 15, Alkaline Phosphatase 83, Total Bilirubin 0.4, Total Protein 5.7 L, Albumin 2.8 L Vital Signs Date Time Temp Pulse Resp B/P (MAP) Pulse Ox O2 Delivery O2 Flow Rate FiO2 01/01/17 09:00 81 104/85 01/01/17 04:52 97.3 18 95 Nasal Cannula 4.0 I&O- Last 24 Hours up to 6 AM 01/02/17 06:00 Intake Total 600 ml Output Total 0 ml Balance 600 ml RAPHAEL COX MD Jan 01, 2017 12:25
[2017-01-01 14:00] VITALS: BP 121/69
[2017-01-01] MEDS: SERTRALINE 100 MG TAB PO SCH (21:44)
[2017-01-01] MEDS: ASCORBIC ACID 500 MG TAB PO SCH (21:44)
[2017-01-01] MEDS: SIMVASTATIN 20 MG TAB PO SCH (21:44)
[2017-01-01 22:00] VITALS: BP 123/81
[2017-01-01] MEDS: RAMELTEON 8 MG TAB (ROZEREM) PO SCH (23:23)
[2017-01-02] MEDS: SODIUM CHLORIDE 0.9% INJ 10 ML SYR IV SCH ×2 (05:07→17:36)
[2017-01-02] MEDS: LEVOTHYROXINE 100MCG TABLET (0.1MG) PO SCH (05:07)
[2017-01-02 05:21] LABS: BASO % 0.1 % (0.0-1.0); EOS % 0.2 % (0.0-3.0); IMMATURE GRANULOCYTE % 0.8 % (0-0); LYMPH % 9.9 % (24.0-44.0); MEAN CORPUSCULAR VOLUME 80.1 fl (80.0-96.0); MONO % 10.5 % (0.0-5.0); NEUTROPHILS # 7.5 10^3/uL (1.8-7.7); NEUTROPHILS % 78.5 % (36.0-66.0); PLATELET COUNT, AUTOMATED 171 10^3/uL (150-450); RED CELL DISTRIBUTION WIDTH 16.7 % (11.5-14.5); WHITE BLOOD COUNT 9.6 10^3/uL (4.0-10.0)
[2017-01-02 06:00] VITALS: BP 127/76
[2017-01-02 06:36] LABS: ALBUMIN 2.6 GM/DL (3.2-5.2); ALBUMIN/GLOBULIN RATIO 1.08 (1.00-1.93); ALKALINE PHOSPHATASE 70 U/L (45-117); ALT/SGPT 13 U/L (12-78); ANION GAP 4 MEQ/L (8-16); AST/SGOT 8 U/L (15-37); BILIRUBIN,TOTAL 0.4 MG/DL (0.2-1.0); BLOOD UREA NITROGEN 12 MG/DL (7-18); CARBON DIOXIDE LEVEL 40 MEQ/L (21-32); CHLORIDE LEVEL 100 MEQ/L (98-107); GLOMERULAR FILTRATION RATE > 60.0 (>39); GLUCOSE, FASTING 106 MG/DL (83-110); MAGNESIUM LEVEL 2.3 MG/DL (1.8-2.4); POTASSIUM SERUM 3.8 MEQ/L (3.5-5.1); SODIUM LEVEL 144 MEQ/L (136-145)
[2017-01-02] MEDS: IPRATROPIUM 0.5MG/ALBUTEROL 2.5MG INH SOL UD 3ML (DUONEB)(J7620) INH SCH ×4 (07:13→19:35)
[2017-01-02] MEDS ORDERED: SALINE NOSE DROPS 30 ML PRN (09:00)
[2017-01-02] MEDS ORDERED: SODIUM CHLORIDE NASAL 0.65% SPRAY BTL (OCEAN) PRN (09:15)
[2017-01-02] MEDS: PREGABALIN 100 MG CAP (LYRICA) PO SCH ×3 (09:29→21:56)
[2017-01-02] MEDS: PANTOPRAZOLE 40MG TAB (PROTONIX) PO SCH (09:30)
[2017-01-02] MEDS: RIVAROXABAN 20 MG TAB (XARELTO) PO SCH (09:30)
[2017-01-02] MEDS: FUROSEMIDE 40 MG TAB PO SCH (09:30)
[2017-01-02] MEDS: POTASSIUM CHLORIDE 10 MEQ SR TABLET PO SCH (09:31)
[2017-01-02] MEDS: LINEZOLID 600MG TABLET (ZYVOX) PO SCH ×2 (09:31→21:55)
[2017-01-02] MEDS: predniSONE 20 MG TAB PO SCH (09:31)
[2017-01-02] MEDS: CARVedilol 12.5 MG TAB PO SCH ×2 (09:32→21:56)
--- NOTE | 2017-01-02 10:15 | IPNPDOC ---
Text Note Date of Service The patient was seen on 01/02/17. NOTE Subjective: shortness of breath improved this morning. no fever or chills, no nausea or vomiting or abdominal pain Physical Exam: -Vitals as below. - General: Lying in bed, No acute distress, Speaking in full sentences, AAOx3 - HEENT: NC, AT, PERRLA, EOMI - CVS: RRR, +S1S2 - Lungs: Fair air entry bilaterally, Clear to auscultation, No wheezing / rales / rhonchi - Abdomen: Soft, Non-distended, Non-tender - Extremities: + PPx4, 1+ pitting edema bilaterally, No calf tenderness - Neuro: No focal motor or sensory deficit - Skin: Right leg with open wound with clean base after debridement. Plan Bilateral traumatic leg wound with underlying hematoma and necrotic skin over them -Right leg wound debrided in OR on 12/28 - had traumatic event abut 3 weeks ago - blood cultures negative till date and wound cultures MRSA - switched to linezolid. -Wound dressing as per Dr das. Atrial fibrillation - s/p Ablation and PM placement - c/w Carvedilol and Xarelto COPD -with exacerbation -continue prednisone to 40 mg daily - Oxygen dependent at 4 liters - c/w Duoneb Chronic Respiratory failure with hypoxia -continue home oxygen JOJO -continue home BIPAP 02/18 HTN - c/w Carvedilol and Furosemide and Metolazone DLP - c/w Simvastatin Hypothyroidism - c/w Levothyroxine Depression - c/w Sertraline Hx of Diverticulosis Barretts Esophagus / Hiatal Hernia / GERD - Will start Protonix Morbid obesity -complicating care. DVT prophylaxis - c/w Xarelto VS,Fishbone, I+O VS, Fishbone, I+O Laboratory Tests 01/02/17 05:06 Red Blood Count 3.66 L, Mean Corpuscular Volume 80.1, Mean Corpuscular Hemoglobin 24.0 L, Mean Corpuscular Hemoglobin Concent 30.0 L, Red Cell Distribution Width 16.7 H, Neutrophils (%) (Auto) 78.5 H, Lymphocytes (%) (Auto ) 9.9 L, Monocytes (%) (Auto) 10.5 H, Eosinophils (%) (Auto) 0.2, Basophils (%) (Auto) 0.1, Neutrophils # (Auto) 7.5, Lymphocytes # (Auto) 1.0 L, Monocytes # ( Auto) 1.0 H, Eosinophils # (Auto) 0.0, Basophils # (Auto) 0.0, Calcium Level 8.0 L, Aspartate Amino Transf (AST/SGOT) 8 L, Alanine Aminotransferase (ALT/SGPT ) 13, Alkaline Phosphatase 70, Total Bilirubin 0.4, Total Protein 5.0 L, Albumin 2.6 L Vital Signs Date Time Temp Pulse Resp B/P (MAP) Pulse Ox O2 Delivery O2 Flow Rate FiO2 01/02/17 09:32 76 119/65 01/02/17 06:00 97.2 20 95 Nasal Cannula 4.0 RAPHAEL COX MD Jan 02, 2017 10:15
[2017-01-02] MEDS: PERCOCET 5MG/325MG TAB PO PRN (13:20)
[2017-01-02 14:00] VITALS: BP 122/67
[2017-01-02] MEDS: RAMELTEON 8 MG TAB (ROZEREM) PO SCH (21:56)
[2017-01-02] MEDS: SIMVASTATIN 20 MG TAB PO SCH (21:56)
[2017-01-02] MEDS: SERTRALINE 100 MG TAB PO SCH (21:56)
[2017-01-02] MEDS: ASCORBIC ACID 500 MG TAB PO SCH (21:56)
[2017-01-02 22:00] VITALS: BP 132/69
[2017-01-03] MEDS: SODIUM CHLORIDE 0.9% INJ 10 ML SYR IV SCH (05:28)
[2017-01-03] MEDS: LEVOTHYROXINE 100MCG TABLET (0.1MG) PO SCH (05:28)
[2017-01-03 06:00] VITALS: BP 148/76
[2017-01-03 06:12] LABS: BASO % 0.2 % (0.0-1.0); EOS % 0.3 % (0.0-3.0); IMMATURE GRANULOCYTE % 1.3 % (0-0); LYMPH # 1.3 10^3/uL (1.5-4.5); LYMPH % 13.4 % (24.0-44.0); MEAN CORPUSCULAR HEMOGLOBIN 23.5 pg (27.0-33.0); MEAN CORPUSCULAR HGB CONC 28.8 g/dl (32.0-36.5); MEAN CORPUSCULAR VOLUME 81.7 fl (80.0-96.0); MONO % 10.4 % (0.0-5.0); NEUTROPHILS # 7.3 10^3/uL (1.8-7.7); NEUTROPHILS % 74.4 % (36.0-66.0); PLATELET COUNT, AUTOMATED 169 10^3/uL (150-450); WHITE BLOOD COUNT 9.8 10^3/uL (4.0-10.0)
[2017-01-03 06:26] LABS: ALBUMIN 2.7 GM/DL (3.2-5.2); ALBUMIN/GLOBULIN RATIO 0.93 (1.00-1.93); ALKALINE PHOSPHATASE 76 U/L (45-117); ALT/SGPT 14 U/L (12-78); ANION GAP 2 MEQ/L (8-16); AST/SGOT 8 U/L (15-37); BILIRUBIN,TOTAL 0.4 MG/DL (0.2-1.0); BLOOD UREA NITROGEN 13 MG/DL (7-18); CALCIUM LEVEL 8.5 MG/DL (8.8-10.2); CARBON DIOXIDE LEVEL 41 MEQ/L (21-32); CHLORIDE LEVEL 100 MEQ/L (98-107); CREATININE FOR GFR 0.44 MG/DL (0.55-1.02); GLOMERULAR FILTRATION RATE > 60.0 (>39); GLUCOSE, FASTING 86 MG/DL (83-110); MAGNESIUM LEVEL 2.4 MG/DL (1.8-2.4); SODIUM LEVEL 143 MEQ/L (136-145); TOTAL PROTEIN 5.6 GM/DL (6.4-8.2)
[2017-01-03] MEDS: IPRATROPIUM 0.5MG/ALBUTEROL 2.5MG INH SOL UD 3ML (DUONEB)(J7620) INH SCH ×3 (07:08→15:38)
[2017-01-03] MEDS: RIVAROXABAN 20 MG TAB (XARELTO) PO SCH (08:05)
[2017-01-03] MEDS: PANTOPRAZOLE 40MG TAB (PROTONIX) PO SCH (08:05)
[2017-01-03 08:06] VITALS: BP 148/76
[2017-01-03] MEDS: POTASSIUM CHLORIDE 10 MEQ SR TABLET PO SCH (08:06)
[2017-01-03] MEDS: PREGABALIN 100 MG CAP (LYRICA) PO SCH (08:06)
[2017-01-03] MEDS: metOLazone 5 MG TAB PO SCH (08:06)
[2017-01-03] MEDS: predniSONE 20 MG TAB PO SCH (08:06)
[2017-01-03] MEDS: CARVedilol 12.5 MG TAB PO SCH (08:06)
[2017-01-03] MEDS: FUROSEMIDE 40 MG TAB PO SCH (08:06)
[2017-01-03] MEDS: LINEZOLID 600MG TABLET (ZYVOX) PO SCH (08:11)
[2017-01-03] MEDS ORDERED: LINE60TAB PO (09:39)
[2017-01-03] MEDS: PERCOCET 5MG/325MG TAB PO PRN (12:45)
[2017-01-03] MEDS ORDERED: PRED10TA2 PO (13:04)
[2017-01-03 14:00] VITALS: BP 127/63
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
== END 2017-01-03 15:46 | disposition home health service (06) | DRG 571 ==
LOC: EDBD 14:18 → M ED 14:18 → EEVIPCON 17:16 → M ED INP 17:16 → M MS4PR 18:50 → M MSPAV 12-29 11:01
PROVIDERS: ADMIT Internal Medicine; ATTEND Internal Medicine Nephrology
PROC: 0JBN0ZZ Excision of Right Lower Leg Subcutaneous Tissue and Fascia, Open Approach (ICD-10-PCS; principal; 2016-12-28 17:00)
PROC: 02HV33Z Insertion of Infusion Device into Superior Vena Cava, Percutaneous Approach (ICD-10-PCS; 2016-12-30)
DX: S81.801A Unspecified open wound, right lower leg, initial encounter (principal); J44.1 Chronic obstructive pulmonary disease with (acute) exacerbation; I96 Gangrene, not elsewhere classified; J96.11 Chronic respiratory failure with hypoxia; Z68.41 Body mass index [BMI] 40.0-44.9, adult; E66.01 Morbid (severe) obesity due to excess calories; I48.91 Unspecified atrial fibrillation; I10 Essential (primary) hypertension; E03.9 Hypothyroidism, unspecified; F32.9 Major depressive disorder, single episode, unspecified; K21.9 Gastro-esophageal reflux disease without esophagitis; Z79.52 Long term (current) use of systemic steroids; Z99.81 Dependence on supplemental oxygen; Z79.899 Other long term (current) drug therapy; K22.70 Barrett's esophagus without dysplasia; K44.9 Diaphragmatic hernia without obstruction or gangrene; Z88.8 Allergy status to other drugs, medicaments and biological substances; K57.30 Diverticulosis of large intestine without perforation or abscess without bleeding; Z95.0 Presence of cardiac pacemaker; G47.33 Obstructive sleep apnea (adult) (pediatric); E78.5 Hyperlipidemia, unspecified; B95.62 Methicillin resistant Staphylococcus aureus infection as the cause of diseases classified elsewhere; S80.12XA Contusion of left lower leg, initial encounter; Y92.009 Unspecified place in unspecified non-institutional (private) residence as the place of occurrence of the external cause; V00.148A Other scooter (nonmotorized) accident, initial encounter

== ENCOUNTER 2017-08-01 19:49 | Inpatient (IN) | payer MEDICARE, MEDICAID ==
[2017-08-01] MEDS: ADVAIR HFA 230/21MCG INHALER INH (21:00)
[2017-08-01 21:09] LABS: BASO % 0.3 % (0.0-1.0); EOS % 0.1 % (0.0-3.0); HEMATOCRIT 36.9 % (36.0-47.0); HEMOGLOBIN 10.5 g/dl (12.0-15.5); IMMATURE GRANULOCYTE % 1.7 % (0-3.0); LYMPH % 8.1 % (24.0-44.0); MEAN CORPUSCULAR HEMOGLOBIN 21.2 pg (27.0-33.0); MEAN CORPUSCULAR HGB CONC 28.5 g/dl (32.0-36.5); MEAN CORPUSCULAR VOLUME 74.4 fl (80.0-96.0); MONO # 1.1 10^3/uL (0.0-0.8); MONO % 8.3 % (0.0-5.0); NEUTROPHILS # 10.3 10^3/uL (1.8-7.7); NEUTROPHILS % 81.5 % (36.0-66.0); PLATELET COUNT, AUTOMATED 231 10^3/uL (150-450); RED BLOOD COUNT 4.96 10^6/uL (4.00-5.40); RED CELL DISTRIBUTION WIDTH 19.1 % (11.5-14.5); WHITE BLOOD COUNT 12.7 10^3/uL (4.0-10.0)
[2017-08-01 21:24] LABS: ALBUMIN 3.3 GM/DL (3.2-5.2); ALBUMIN/GLOBULIN RATIO 1.18 (1.00-1.93); ALKALINE PHOSPHATASE 65 U/L (45-117); ALT/SGPT 21 U/L (12-78); ANION GAP 5 MEQ/L (8-16); AST/SGOT 13 U/L (7-37); BILIRUBIN,DIRECT 0.2 MG/DL (0.0-0.2); BILIRUBIN,TOTAL 0.5 MG/DL (0.2-1.0); BLOOD UREA NITROGEN 14 MG/DL (7-18); CALCIUM LEVEL 8.1 MG/DL (8.8-10.2); CARBON DIOXIDE LEVEL 34 MEQ/L (21-32); CHLORIDE LEVEL 107 MEQ/L (98-107); CPK CREATINE PHOSPHOKINASE 25 U/L (26-192); CREATININE FOR GFR 0.58 MG/DL (0.55-1.30); GLOMERULAR FILTRATION RATE > 60.0 (>39); GLUCOSE, FASTING 130 MG/DL (70-100); SODIUM LEVEL 146 MEQ/L (136-145); TOTAL PROTEIN 6.1 GM/DL (6.4-8.2); TROPONIN I < 0.02 NG/ML (< 0.10)
[2017-08-01 21:29] LABS: CK-MB VALUE MASS 1.3 NG/ML (<3.6); NT-PRO BNP 1312 PG/ML (<125)
[2017-08-01] MEDS: IPRATROPIUM 0.5MG/ALBUTEROL 2.5MG INH SOL UD 3ML (DUONEB)(J7620) NEB ×3 (21:38→23:07)
[2017-08-01] MEDS ORDERED: ISOVUE-370 76% 100ML VIAL (Q9967) As Ordered (21:46)
[2017-08-01] MEDS: LevoFLOXacin IV 750 MG in APPROPRIATE DILUENT 1 EA IV (23:26)
[2017-08-02] MEDS ORDERED: METOCLOPRAMIDE INJ 10MG/2ML VIAL (J2765) IV (00:15)
[2017-08-02] MEDS ORDERED: POLYVINYL ALCOHOL OPHTH SOLN 15 ML(LIQUITEARS) OU (00:15)
[2017-08-02] MEDS ORDERED: ACETAMINOPHEN TAB 650MG DOSE (2X325MG) PO (00:15)
[2017-08-02] MEDS: IPRATROPIUM 0.5MG/ALBUTEROL 2.5MG INH SOL UD 3ML (DUONEB)(J7620) NEB ×5 (01:04→19:54)
[2017-08-02 01:08] LABS: FERRITIN 19 NG/ML (8-252); IRON (FE) 21 UG/DL (50-170); PERCENT SATURATION 4.7 % (13.2-45.0); TOTAL IRON BINDING CAPACITY 444 UG/DL (250-450)
[2017-08-02] MEDS: methylPREDNISolone INJ 125 MG/2 ML VIAL (J2930) IV ×3 (02:34→16:48)
[2017-08-02] MEDS: DOCUSATE SODIUM 100 MG CAP PO ×3 (02:35→20:42)
[2017-08-02] MEDS: traZODone 50 MG TAB PO ×2 (02:35→20:42)
[2017-08-02] MEDS: PREGABALIN 100 MG CAP (LYRICA) PO ×4 (02:35→20:41)
[2017-08-02] MEDS: VITAMIN D 1,000 INTERNATIONAL UNITS TABLET PO ×2 (02:35→20:42)
[2017-08-02] MEDS: CYANOCOBALAMIN 500 MCG TAB PO ×2 (02:35→20:42)
[2017-08-02] MEDS: ASCORBIC ACID 500 MG TAB PO ×2 (02:35→20:42)
[2017-08-02] MEDS: SIMVASTATIN 40 MG TAB PO ×2 (02:36→20:40)
[2017-08-02] MEDS: CARVedilol 6.25 MG TAB PO ×3 (02:36→20:42)
[2017-08-02] MEDS: FLUTICASONE PROP 0.05% NASAL SPRAY 16 GM (FLONASE) ×3 (02:36→20:41)
[2017-08-02 05:25] LABS: BASO % 0.3 % (0.0-1.0); EOS % 0.1 % (0.0-3.0); HEMATOCRIT 35.1 % (36.0-47.0); IMMATURE GRANULOCYTE % 2.5 % (0-3.0); LYMPH # 0.4 10^3/uL (1.5-4.5); LYMPH % 3.1 % (24.0-44.0); MEAN CORPUSCULAR HEMOGLOBIN 21.3 pg (27.0-33.0); MEAN CORPUSCULAR HGB CONC 28.5 g/dl (32.0-36.5); MEAN CORPUSCULAR VOLUME 74.8 fl (80.0-96.0); MONO # 0.5 10^3/uL (0.0-0.8); MONO % 4.5 % (0.0-5.0); NEUTROPHILS # 10.4 10^3/uL (1.8-7.7); NEUTROPHILS % 89.5 % (36.0-66.0); PLATELET COUNT, AUTOMATED 200 10^3/uL (150-450); RED BLOOD COUNT 4.69 10^6/uL (4.00-5.40); RED CELL DISTRIBUTION WIDTH 18.7 % (11.5-14.5); WHITE BLOOD COUNT 11.6 10^3/uL (4.0-10.0)
[2017-08-02 05:56] LABS: ANION GAP 5 MEQ/L (8-16); BLOOD UREA NITROGEN 14 MG/DL (7-18); CALCIUM LEVEL 8.3 MG/DL (8.8-10.2); CARBON DIOXIDE LEVEL 33 MEQ/L (21-32); CHLORIDE LEVEL 108 MEQ/L (98-107); CK-MB VALUE MASS 1.1 NG/ML (<3.6); CPK CREATINE PHOSPHOKINASE 20 U/L (26-192); CREATININE FOR GFR 0.59 MG/DL (0.55-1.30); GLOMERULAR FILTRATION RATE > 60.0 (>39); GLUCOSE, FASTING 155 MG/DL (70-100); MAGNESIUM LEVEL 2.5 MG/DL (1.8-2.4); POTASSIUM SERUM 4.1 MEQ/L (3.5-5.1); SODIUM LEVEL 146 MEQ/L (136-145); TROPONIN I 0.02 NG/ML (< 0.10)
[2017-08-02] MEDS ORDERED: HEPARIN SOD (PORCINE) 5000 UNITS/ML VIAL SC (06:00)
[2017-08-02] MEDS: LEVOTHYROXINE 100MCG TABLET (0.1MG) PO (06:01)
[2017-08-02] MEDS: ADVAIR HFA 230/21MCG INHALER INH ×2 (07:08→19:54)
[2017-08-02 07:36] LABS: ABG BASE EXCESS 4.5 (-2.0-2.0); ABG HCO3 29.7 MEQ/L (22.0-26.0); ABG O2 SATURATION 94.9 % (95.0-99.0); ABG PARTIAL PRESSURE CO2 46.7 mmHg (35.0-45.0); ABG PARTIAL PRESSURE O2 83.7 mmHg (75.0-100.0); ABG STANDARD HCO3 28.5 MEQ/L (22.0-26.0); ABG TOTAL CO2 31.1 MEQ/L (23.0-31.0); ABG pH (ARTERIAL) 7.421 UNITS (7.350-7.450)
[2017-08-02 08:48] LABS: FOLATE 13.2 NG/ML (>5.4); VITAMIN B12 LEVEL 803 PG/ML (247-911)
[2017-08-02] MEDS: FERROUS SULFATE 325MG TAB PO ×2 (09:00→20:42)
[2017-08-02] MEDS: FUROSEMIDE 20 MG TAB PO (09:04)
[2017-08-02] MEDS: PANTOPRAZOLE 40MG TAB (PROTONIX) PO (09:04)
[2017-08-02] MEDS: RIVAROXABAN 20 MG TAB (XARELTO) PO (09:04)
[2017-08-02] MEDS: DULoxetine 30 MG CAP (CYMBALTA) PO (09:05)
[2017-08-02] MEDS: PILL CRUSHER/CUTTER 1 EACH XX (20:42)
[2017-08-03] MEDS: LevoFLOXacin IV 750 MG in APPROPRIATE DILUENT 1 EA IV
[2017-08-03] MEDS: methylPREDNISolone INJ 125 MG/2 ML VIAL (J2930) IV ×2 (01:26→09:16)
[2017-08-03] MEDS: IPRATROPIUM 0.5MG/ALBUTEROL 2.5MG INH SOL UD 3ML (DUONEB)(J7620) NEB ×5 (01:32→19:55)
[2017-08-03] MEDS: LEVOTHYROXINE 100MCG TABLET (0.1MG) PO (05:30)
[2017-08-03 06:25] LABS: BASO % 0.2 % (0.0-1.0); HEMATOCRIT 37.5 % (36.0-47.0); HEMOGLOBIN 10.6 g/dl (12.0-15.5); IMMATURE GRANULOCYTE % 2.6 % (0-3.0); LYMPH # 0.5 10^3/uL (1.5-4.5); LYMPH % 3.4 % (24.0-44.0); MEAN CORPUSCULAR HEMOGLOBIN 21.2 pg (27.0-33.0); MEAN CORPUSCULAR HGB CONC 28.3 g/dl (32.0-36.5); MONO # 0.5 10^3/uL (0.0-0.8); MONO % 3.6 % (0.0-5.0); NEUTROPHILS # 13.3 10^3/uL (1.8-7.7); NEUTROPHILS % 90.2 % (36.0-66.0); PLATELET COUNT, AUTOMATED 254 10^3/uL (150-450); RED CELL DISTRIBUTION WIDTH 18.8 % (11.5-14.5); WHITE BLOOD COUNT 14.8 10^3/uL (4.0-10.0)
[2017-08-03 06:40] LABS: ANION GAP 4 MEQ/L (8-16); BLOOD UREA NITROGEN 18 MG/DL (7-18); CALCIUM LEVEL 8.8 MG/DL (8.8-10.2); CARBON DIOXIDE LEVEL 33 MEQ/L (21-32); CHLORIDE LEVEL 105 MEQ/L (98-107); CREATININE FOR GFR 0.64 MG/DL (0.55-1.30); GLOMERULAR FILTRATION RATE > 60.0 (>39); GLUCOSE, FASTING 131 MG/DL (70-100); POTASSIUM SERUM 4.3 MEQ/L (3.5-5.1); SODIUM LEVEL 142 MEQ/L (136-145)
[2017-08-03] MEDS: RIVAROXABAN 20 MG TAB (XARELTO) PO (09:16)
[2017-08-03] MEDS: DULoxetine 30 MG CAP (CYMBALTA) PO (09:16)
[2017-08-03] MEDS: CARVedilol 6.25 MG TAB PO ×2 (09:16→21:45)
[2017-08-03] MEDS: FUROSEMIDE 20 MG TAB PO (09:16)
[2017-08-03] MEDS: FERROUS SULFATE 325MG TAB PO ×2 (09:16→21:45)
[2017-08-03] MEDS: DOCUSATE SODIUM 100 MG CAP PO ×2 (09:16→21:44)
[2017-08-03] MEDS: PANTOPRAZOLE 40MG TAB (PROTONIX) PO (09:16)
[2017-08-03] MEDS: PREGABALIN 100 MG CAP (LYRICA) PO ×3 (09:16→21:45)
[2017-08-03] MEDS: FLUTICASONE PROP 0.05% NASAL SPRAY 16 GM (FLONASE) ×2 (09:17→21:45)
[2017-08-03] MEDS: ADVAIR HFA 230/21MCG INHALER INH ×2 (10:25→19:54)
[2017-08-03] MEDS: LevoFLOXacin 750 MG TABLET PO (18:00)
[2017-08-03] MEDS: SIMVASTATIN 40 MG TAB PO (21:44)
[2017-08-03] MEDS: CYANOCOBALAMIN 500 MCG TAB PO (21:45)
[2017-08-03] MEDS: ASCORBIC ACID 500 MG TAB PO (21:45)
[2017-08-03] MEDS: VITAMIN D 1,000 INTERNATIONAL UNITS TABLET PO (21:45)
[2017-08-03] MEDS: traZODone 50 MG TAB PO (21:45)
[2017-08-03] MEDS: methylPREDNISolone INJ 40 MG/1 ML VIAL (J2920) IV (21:46)
[2017-08-03] MEDS: ACETAMINOPH W/CODEINE #3 TAB UD PO (22:35)
[2017-08-04] MEDS: IPRATROPIUM 0.5MG/ALBUTEROL 2.5MG INH SOL UD 3ML (DUONEB)(J7620) NEB ×2 (02:26→07:48)
[2017-08-04] MEDS: LEVOTHYROXINE 100MCG TABLET (0.1MG) PO (06:31)
[2017-08-04 06:45] LABS: BASO # 0.1 10^3/uL (0.0-0.2); BASO % 0.5 % (0.0-1.0); HEMATOCRIT 38.7 % (36.0-47.0); IMMATURE GRANULOCYTE % 4.2 % (0-3.0); LYMPH # 0.6 10^3/uL (1.5-4.5); LYMPH % 3.7 % (24.0-44.0); MEAN CORPUSCULAR HEMOGLOBIN 21.2 pg (27.0-33.0); MEAN CORPUSCULAR HGB CONC 28.4 g/dl (32.0-36.5); MEAN CORPUSCULAR VOLUME 74.4 fl (80.0-96.0); MONO % 5.8 % (0.0-5.0); NEUTROPHILS # 14.4 10^3/uL (1.8-7.7); NEUTROPHILS % 85.8 % (36.0-66.0); PLATELET COUNT, AUTOMATED 241 10^3/uL (150-450); RED CELL DISTRIBUTION WIDTH 18.9 % (11.5-14.5); WHITE BLOOD COUNT 16.7 10^3/uL (4.0-10.0)
[2017-08-04 07:07] LABS: ANION GAP 7 MEQ/L (8-16); BLOOD UREA NITROGEN 20 MG/DL (7-18); CALCIUM LEVEL 8.3 MG/DL (8.8-10.2); CARBON DIOXIDE LEVEL 32 MEQ/L (21-32); CHLORIDE LEVEL 103 MEQ/L (98-107); CREATININE FOR GFR 0.61 MG/DL (0.55-1.30); GLOMERULAR FILTRATION RATE > 60.0 (>39); GLUCOSE, FASTING 142 MG/DL (70-100); POTASSIUM SERUM 3.4 MEQ/L (3.5-5.1); SODIUM LEVEL 142 MEQ/L (136-145)
[2017-08-04] MEDS: ADVAIR HFA 230/21MCG INHALER INH (07:49)
[2017-08-04] MEDS: PANTOPRAZOLE 40MG TAB (PROTONIX) PO (09:14)
[2017-08-04] MEDS: PREGABALIN 100 MG CAP (LYRICA) PO (09:14)
[2017-08-04] MEDS: DULoxetine 30 MG CAP (CYMBALTA) PO (09:14)
[2017-08-04] MEDS: RIVAROXABAN 20 MG TAB (XARELTO) PO (09:14)
[2017-08-04] MEDS: FERROUS SULFATE 325MG TAB PO (09:14)
[2017-08-04] MEDS: FUROSEMIDE 20 MG TAB PO (09:14)
[2017-08-04] MEDS: CARVedilol 6.25 MG TAB PO (09:14)
[2017-08-04] MEDS: DOCUSATE SODIUM 100 MG CAP PO (09:14)
[2017-08-04] MEDS: POTASSIUM CHLORIDE 10 MEQ SR TABLET PO (09:14)
[2017-08-04] MEDS: methylPREDNISolone INJ 40 MG/1 ML VIAL (J2920) IV (09:15)
[2017-08-04] MEDS: FLUTICASONE PROP 0.05% NASAL SPRAY 16 GM (FLONASE) (09:16)
== END 2017-08-04 12:38 | disposition home or self-care (01) | DRG 189 ==
LOC: M MS4PR 08-02 01:10 → M ED 19:49 → M ED INP 22:52
DX: J96.02 Acute respiratory failure with hypercapnia (principal); J18.9 Pneumonia, unspecified organism; J44.1 Chronic obstructive pulmonary disease with (acute) exacerbation; E87.0 Hyperosmolality and hypernatremia; E66.9 Obesity, unspecified; I48.0 Paroxysmal atrial fibrillation; I10 Essential (primary) hypertension; E78.5 Hyperlipidemia, unspecified; E03.9 Hypothyroidism, unspecified; Z79.52 Long term (current) use of systemic steroids; K21.9 Gastro-esophageal reflux disease without esophagitis; K57.30 Diverticulosis of large intestine without perforation or abscess without bleeding; F32.9 Major depressive disorder, single episode, unspecified; K22.70 Barrett's esophagus without dysplasia; D64.9 Anemia, unspecified; G62.9 Polyneuropathy, unspecified; Z79.01 Long term (current) use of anticoagulants; Z79.899 Other long term (current) drug therapy; Z88.8 Allergy status to other drugs, medicaments and biological substances; Z95.0 Presence of cardiac pacemaker; K44.9 Diaphragmatic hernia without obstruction or gangrene; Z87.891 Personal history of nicotine dependence

== ENCOUNTER 2018-07-20 18:39 | Inpatient (IN) | payer MEDICARE, MEDICAID ==
[~2018-07-20] VITALS: Ht 154.9 cm; Wt 103.9 kg
[~2018-07-20 18:39] MED LIST: ACET-716 PO; ADVA230A INH; ARTI99.0 OU; ASCO10003 PO; ATIV1TAB10 PO; CARV12.5 PO; CARV6.25 PO; COMBAER6 INH; DULO1CAP2 PO; FURO40TA2 PO; IPRA0.00 INH; KLOR20TA42 PO; LASI20TA3 PO; LEVO750T13 PO; LINE1TAB PO; METO5TA PO; NEXI40CA PO; PRED10TA2 PO; PREG100CA PO; SERT-138 PO; SIMV20TA2 PO; SYNT100T PO; TRAZ-160 PO; VENTAER INH; VITA100066 PO; VITA100C2 PO; VITA500T3 PO; XANA0.25 PO; XARE20TA PO; ZOCO40TA PO
[2018-07-20] MEDS ORDERED: IPRATROPIUM 0.5MG/ALBUTEROL 2.5MG INH SOL UD 3ML (DUONEB)(J7620) NEB ONE (19:00)
[2018-07-20 19:02] LABS: BASO # 0.1 10^3/uL (0.0-0.2); BASO % 0.3 % (0.0-1.0); EOS % 0.1 % (0.0-3.0); HEMATOCRIT 32.8 % (36.0-47.0); HEMOGLOBIN 8.6 g/dl (12.0-15.5); LYMPH # 0.6 10^3/uL (1.5-4.5); LYMPH % 3.2 % (24.0-44.0); MEAN CORPUSCULAR HEMOGLOBIN 19.1 pg (27.0-33.0); MEAN CORPUSCULAR HGB CONC 26.2 g/dl (32.0-36.5); MEAN CORPUSCULAR VOLUME 72.9 fl (80.0-96.0); MONO # 0.5 10^3/uL (0.0-0.8); MONO % 2.3 % (0.0-5.0); NEUTROPHILS # 17.7 10^3/uL (1.8-7.7); NEUTROPHILS % 91.4 % (36.0-66.0); PLATELET COUNT, AUTOMATED 237 10^3/uL (150-450); WHITE BLOOD COUNT 19.3 10^3/uL (4.0-10.0)
[2018-07-20 19:18] LABS: ABG BASE EXCESS 6.2 (-2.0-2.0); ABG HCO3 31.3 MEQ/L (22.0-26.0); ABG O2 SATURATION 85.9 % (95.0-99.0); ABG PARTIAL PRESSURE CO2 48.2 mmHg (35.0-45.0); ABG PARTIAL PRESSURE O2 56.2 mmHg (75.0-100.0); ABG STANDARD HCO3 29.9 MEQ/L (22.0-26.0); ABG TOTAL CO2 32.8 MEQ/L (23.0-31.0)
[2018-07-20 19:41] LABS: BLOOD UREA NITROGEN 17 MG/DL (7-18); CARBON DIOXIDE LEVEL 33 MEQ/L (21-32); CHLORIDE LEVEL 106 MEQ/L (98-107); CREATININE FOR GFR 0.52 MG/DL (0.55-1.30); GLOMERULAR FILTRATION RATE > 60.0 (>39); GLUCOSE, FASTING 120 MG/DL (70-100); SODIUM LEVEL 143 MEQ/L (136-145)
[2018-07-20] MEDS: ADVAIR HFA 230/21MCG INHALER INH SCH (20:00)
[2018-07-20 20:16] LABS: ALBUMIN 3.1 GM/DL (3.2-5.2); ALT/SGPT 19 U/L (12-78); BILIRUBIN,DIRECT 0.2 MG/DL (0.0-0.2); BILIRUBIN,TOTAL 0.9 MG/DL (0.2-1.0); NT-PRO BNP 1218 PG/ML (<125); TOTAL PROTEIN 5.7 GM/DL (6.4-8.2)
[2018-07-20] MEDS ORDERED: FUROSEMIDE 40 MG/4 ML VIAL (J1940) IV ONE (20:30)
--- NOTE | 2018-07-20 20:31 | REP ---
CHEST, PORTABLE: AP portable view of the chest is performed and compared to prior study of 10/20/2017. Chronic bibasilar parenchymal opacities are unchanged. I do not see definite acute superimposed infiltrate. Heart and mediastinum are unchanged. Left pacemaker is again noted. IMPRESSION: Stable chronic changes but no definite superimposed acute infiltrate. Unreviewed
[2018-07-20] MEDS ORDERED: ACETAMINOPHEN TAB 650MG DOSE (2X325MG) PO PRN (21:45)
[2018-07-20] MEDS ORDERED: methylPREDNISolone INJ 125 MG/2 ML VIAL (J2930) IV STA (21:45)
[2018-07-20] MEDS ORDERED: VITA100C8 PO (21:57)
[2018-07-20] MEDS ORDERED: ASCO100013 PO (21:57)
[2018-07-20] MEDS ORDERED: TYLETAB14 PO (21:57)
[2018-07-20] MEDS ORDERED: SERT-138 PO (21:57)
[2018-07-20] MEDS ORDERED: AMLO5TAB6 PO (21:57)
[2018-07-20] MEDS ORDERED: FLON1SPR (21:57)
[2018-07-20] MEDS ORDERED: IPRA0.00 INH (21:57)
[2018-07-20] MEDS ORDERED: CARV12.5 PO (21:57)
[2018-07-20] MEDS ORDERED: [UNRECOGNIZED DRUG - OTHER] OU (21:57)
[2018-07-20] MEDS ORDERED: PRED10TA2 PO (21:57)
[2018-07-20] MEDS ORDERED: LEVAINH INH (21:57)
[2018-07-20] MEDS ORDERED: FUROSEMIDE 20 MG/2 ML VIAL (J1940) IV ONE (22:00)
[2018-07-20 22:13] LABS: FERRITIN 19 NG/ML (8-252); IRON (FE) 34 UG/DL (50-170); PERCENT SATURATION 7.5 % (13.2-45.0); TOTAL IRON BINDING CAPACITY 451 UG/DL (250-450)
--- NOTE | 2018-07-20 22:22 | HPEPDOC ---
General Date of Admission July 20, 2018 at 21:35 Chief Complaint The patient is a 72-year-old female admitted with a reason for visit of Acute Ex acerbation Of Chf;Copd With Acute Exacerba. History of Present Illness 72 yo female with PMH of endstage lung disease with emphysema on 4L ox 04/10 for more than 10 years, CKD, unstable PE and DVT, and diverticulosis presented at [facility] ER d/t gradually worsening SOB for about 2 weeks. She also reported increased swelling in her legs compared to baseline and orthopena requiring more elevation of her hospital bed at home for about 2 weeks as well. SOB worsened when laying down and better when sitting up; reported that she thinks her legs are more swollen than usual. About 2 weeks ago, she received a steroid injection at her PCP's office and was d/c home with PO steroid. Denies any fever, chest pain, palpitation, abdominal pain, urinary urgency/frequency/dysuria. Home Medications Scheduled Amlodipine Besylate (Amlodipine Besylate) 5 Mg Tablet, 5 MG PO DAILY, (Reported) Ascorbic Acid (Vitamin C) 1,000 Mg Tablet, 1,000 MG PO QHS, (Reported) Carvedilol (Carvedilol) 12.5 Mg Tablet, 12.5 MG PO BID, (Reported) Cholecalciferol (Vitamin D3) (Vitamin D3) 1,000 Unit Tab, 1,000 UNIT PO QHS, (Reported) Cyanocobalamin (Vitamin B-12) (Vitamin B-12) 500 Mcg Tab, 500 MCG PO QHS, (Reported) Duloxetine Hcl (Duloxetine HCl) 30 Mg Cap, 60 MG PO QHS, (Reported) Esomeprazole Magnesium (Nexium) 40 Mg Cap, 40 MG PO DAILY, (Reported) Fluticasone Propion/Salmeterol (Advair Hfa 230-21 Mcg Inhaler) 1 Aer Aer, 2 PUFF INH BID, (Reported) Furosemide (Lasix) 20 Mg Tab, 20 MG PO DAILY, (Reported) Ipratropium/Albuterol Sulfate (Iprat-Albut 0.5-3(2.5) mg/3 ml) 3 Ml Ampul.neb, 3 ML INH QID, (Reported) Levothyroxine Sodium (Synthroid) 100 Mcg Tab, 100 MCG PO DAILY, (Reported) Potassium Chloride (Klor-Con M20) 20 Meq Tabcr, 40 MEQ PO DAILY, (Reported) Prednisone (Prednisone) 10 Mg Tablet, 10 MG PO Q2D, (Reported) Prednisone (Prednisone) 10 Mg Tablet, 15 MG PO Q2D, (Reported) Pregabalin (Lyrica) 100 Mg Cap, 100 MG PO TID, (Reported) Rivaroxaban (Xarelto) 20 Mg Tab, 20 MG PO DAILY, (Reported) Sertraline HCl (Sertraline HCl) 100 Mg Tablet, 100 MG PO QHS, (Reported) Simvastatin (Zocor) 40 Mg Tab, 20 MG PO QHS, (Reported) Vitamin E (Vitamin E) 100 Unit Capsule, 100 UNIT PO QHS, (Reported) Scheduled PRN Acetaminophen with Codeine (Tylenol with Codeine #3 Tablet) 1 Each Tablet, 1 TAB PO QID PRN for PAIN, (Reported) Fluticasone Propionate (Flonase Allergy Relief) 9.9 Ml [place].susp, 2 SPRAYS NA DAILY PRN for NASAL CONGESTION, (Reported) Ipratropium/Albuterol Sulfate (Combivent Respimat 20-100 Mcg) 1 Aer Aer, 1 PUFF INH QID PRN for SHORTNESS OF BREATH, (Reported) Levalbuterol Hydrochloride (Xopenex Hfa) 15 Gm Hfa.aer.ad, 2 PUFF INH Q4H PRN for SHORTNESS OF BREATH, (Reported) Trazodone HCl (Trazodone HCl) 50 Mg Tab, 50 MG PO QHS PRN for SLEEP, (Reported) [Blur Relief] , 1 DROP OU QID PRN for BLURRY VISION, (Reported) Allergies Coded Allergies: milk (Unverified Allergy, Severe, DIFFICULTY BREATHING, 07/20/18) tiotropium (Unverified Allergy, Severe, DIFFICULTY BREATHING, 07/20/18) celecoxib (Verified Allergy, Intermediate, DIFFICULTY BREATHING, 07/20/18) ciprofloxacin (Verified Allergy, Intermediate, DIFFICULTY BREATHING, 07/20/18) guaifenesin (Verified Allergy, Intermediate, DIFFICULTY BREATHING, 07/20/18) moxifloxacin (Verified Allergy, Intermediate, DIFFICULTY BREATHING, ) hydroxyzine (Unverified Allergy, Unknown, 07/20/18) naproxen (Unverified Allergy, Unknown, 07/20/18) atorvastatin (Verified Adverse Reaction, Intermediate, JOINT PAIN SWELLING, 07/20/18) amiodarone (Verified Adverse Reaction, Unknown, HEART RACING, DIFFICULTY BREATHING, 07/20/18) cephalexin (Unverified Adverse Reaction, Unknown, STOMACHE PAIN, 07/20/18) Past Medical History Medical History 1. Paroxysmal atrial fibrillation status post ablation and pacemaker placement, on Xarelto. 2. Hypertension. 3. Hyperlipidemia. 4. Endstage lung disease with emphysema on 4 liters of oxygen 24 hours a day at home for at least 10 years and was also steroid dependent for at least two years. Does not follow with the independent beauty consultant any more due to per patient the independent beauty consultant stated that there is nothing they can do for her. 5. Hypothyroidism. 6. Depression. 7. GERD and Zhou's esophageus 8. Obesity. 9. Chronic steroid dependence. 10. History of methicillin resistant Staphylococcus aureus (MRSA) from a leg wound. 11. The patient has venous stasis ulcers bilaterally. 12. 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 Hiatal hernia 15. Diverticulosis Surgical History 1. Surgical debridement of bilateral lower extremity. 2. Hysterectomy. 3. Bilateral cataract surgery. 4. Pacemaker placement August 2014 fully dependent 5. Appendectomy 1977 Social History * Smoker: former Smoker (1pk/day X15 years) Alcohol: Denies Drugs: denies A-FIB/CHADSVASC A-FIB History Current/History of A-Fib/PAF?: Yes Current Oral Anticoagulant The: Yes Review of Systems Constitutional: Denies: Chills, Fever Pulmonary: Reports: Dyspnea; Denies: Cough Cardiovascular: Reports: Orthopnea, Edema (bilateral legs); Denies: Chest Pain, Palpitations Gastrointestinal: Reports: Other Symptoms (pt unsure if melena or hematochezia); Denies: Nausea, Vomiting, Abdominal Pain, Diarrhea, Constipation Physical Examination General Exam: Positive: Alert, Cooperative, Mild Distress Eye Exam: Positive: Conjunctiva & lids normal; Negative: Ptosis ENT Exam: Positive: Atraumatic, Mucous membr. moist/pink Neck Exam: Positive: Supple Chest Exam: Positive: Normal air movement, Diminished (b/l decreased breath sounds); Negative: Rales, Rhonchi, Wheezing Heart Exam: Positive: Rate Normal, Normal S1, Normal S2; Negative: Murmurs Abdomen Exam: Positive: Normal bowel sounds, Soft; Negative: Tenderness Extremity Exam: Positive: Edema (2+ pitting edema in left calf, 1+ pitting edema in right calf), Normal pulses Skin Exam: Positive: Other skin issue (ecchymosis noted in right upper extremity; stasis dermatitis ntoed in b/l lower extremities) Neuro Exam: Positive: Normal Speech Psych Exam: Positive: Mental status NL, Mood NL, Memory Intact, Oriented x 3 Vital Signs Vital Signs Date Time Temp Pulse Resp B/P (MAP) Pulse Ox O2 Delivery O2 Flow Rate FiO2 07/20/18 21:01 70 30 148/65 (92) 90 Nasal Cannula 6.0 07/20/18 19:45 98.2 Laboratory Data Labs 24H Laboratory Tests 2 07/20/18 18:53: Immature Granulocyte % (Auto) 2.7, White Blood Count 19.3H, Red Blood Count 4.50, Hemoglobin 8.6L, Hematocrit 32.8L, Mean Corpuscular Volume 72.9L, Mean Corpuscular Hemoglobin 19.1L, Mean Corpuscular Hemoglobin Concent 26.2L, Red C ell Distribution Width 20.1H, Platelet Count 237, Neutrophils (%) (Auto) 91.4H, Lymphocytes (%) (Auto) 3.2L, Monocytes (%) (Auto) 2.3, Eosinophils (%) (Auto) 0.1, Basophils (%) (Auto) 0.3, Neutrophils # (Auto) 17.7H, Lymphocytes # (Auto) 0.6L, Monocytes # (Auto) 0.5, Eosinophils # (Auto) 0.0, Basophils # (Auto) 0.1, Nucleated Red Blood Cells % (auto) 0.3H, D-Dimer, Quantitative 493.36, Blood Gas Bicarbonate Standard 29.9H, Arterial Blood pH 7.430, Arterial Blood Partial Pressure CO2 48.2H, Arterial Blood Partial Pressure O2 56.2L, Arterial Blood Total CO2 32.8H, Arterial Blood HCO3 31.3H, Arterial Blood Base Excess 6.2H, Arterial Blood Oxygen Saturation 85.9L, Anion Gap 4L, Glomerular Filtration Rate > 60.0, Calcium Level 8.0L, Iron Level 34L, Total Iron Binding Capacity 451H, Transferrin % Saturation 7.5L, Ferritin 19, Aspartate Amino Transf (AST/SGOT) 41H, Alanine Aminotransferase (ALT/SGPT) 19, Alkaline Phosphatase 46, Total Bilirubin 0.9, Direct Bilirubin 0.2, SC-Okt-V-Type Natriuretic Peptide 1218H, Total Protein 5.7L, Albumin 3.1L, Albumin/Globulin Ratio 1.19 CBC/BMP Laboratory Tests 07/20/18 18:53 Red Blood Count 4.50, Mean Corpuscular Volume 72.9 L, Mean Corpuscular Hemoglobin 19.1 L, Mean Corpuscular Hemoglobin Concent 26.2 L, Red Cell Distribution Width 20.1 H, Neutrophils (%) (Auto) 91.4 H, Lymphocytes (%) (Auto) 3.2 L, Monocytes (%) (Auto) 2.3, Eosinophils (%) (Auto) 0.1, Basophils (%) (Auto) 0.3, Neutrophils # (Auto) 17.7 H, Lymphocytes # (Auto) 0.6 L, Monocytes # (Auto) 0.5, Eosinophils # (Auto) 0.0, Basophils # (Auto) 0.1 Problems (1) COPD with acute exacerbation Status: Acute Problem Text: 2 weeks of gradual SOB without cough. Pt reported IV steroid with PO prednisone prescription; reported improvement after the IV steroid injection but dyspnea gradually worsens again. CXR showed stable chronic changes. 1 time dose of IV 80mg Solumedrol given followed by PO prednisone 40mg QD. Resp treatment. Cont pulse ox with oxy therapy. (2) Iron deficiency anemia Problem Text: Pt presents with dyspnea although it may be also d/t COPD exacerbation. Hg 8.6 with baseline at 11. Pt reported that she was told that her stool sample showed blood but is not aware of she has melena or hematochezia. Protonix IV 40mg QD ordered. Cont to f/u with CBC and H&H. Pt has PMG of diverticulosis but denies ever having blood in stool PO ferrous sulfate orderd. Hemoccult ordered. (3) Paroxysmal A-fib Problem Text: sinus rhythm at time of examination. Pt did report she was told there is blood in stool sample with anemia but she is not sure if there's melena or hematochezia. Cont Xalreto at this time. Pt has pacemaker placement August 2014. tele ordered. Cont to monitor the patient (4) Hypertension Status: Acute Problem Text: Pt's BP roughly stable. Continue home BP meds and vital signs as scheduled. Cont to monitor the pt (5) Generalized anxiety disorder Status: Acute Response to Treatment: Stable (6) Hypothyroidism Status: Chronic Problem Text: Cont home med Levothyroxine. Cont to monitor the pt Plan / VTE VTE Prophylaxis Ordered?: Yes Plan Diagnostics: Check Labs, Repeat Labs in AM GME ATTESTATION GME ATTESTATION My faculty preceptor for this patient encounter was physically present during the encounter and was fully available. All aspects of the patient interview, examination, medical decision making process, and medical care plan development were reviewed and approved by the faculty preceptor. The faculty preceptor is aware and concurs with the plan as stated in the body of this note and will attest to such by his/her cosignature. KENNY KEYS DO July 20, 2018 22:22
[2018-07-20] MEDS ORDERED: LEVALBUTEROL HFA 45MCG/ACT 15 GM INHALER INH PRN (22:30)
[2018-07-20] MEDS ORDERED: traZODone 50 MG TAB PO PRN (22:30)
[2018-07-20] MEDS ORDERED: FLUTICASONE PROP 0.05% NASAL SPRAY 16 GM (FLONASE) PRN (22:30)
[2018-07-20 23:06] LABS: HEMATOCRIT 31.9 % (36.0-47.0); HEMOGLOBIN 8.4 g/dl (12.0-15.5)
[2018-07-21 00:08] LABS: MEAN CORPUSCULAR HEMOGLOBIN 18.8 pg (27.0-33.0); MEAN CORPUSCULAR HGB CONC 26.2 g/dl (32.0-36.5); PLATELET COUNT, AUTOMATED 239 10^3/uL (150-450); RED BLOOD COUNT 4.46 10^6/uL (4.00-5.40); WHITE BLOOD COUNT 15.4 10^3/uL (4.0-10.0)
[2018-07-21] MEDS: SERTRALINE 100 MG TAB PO SCH ×2 (00:33→20:38)
[2018-07-21] MEDS: PREGABALIN 100 MG CAP (LYRICA) PO SCH ×4 (00:33→20:38)
[2018-07-21] MEDS: CYANOCOBALAMIN 500 MCG TAB PO SCH ×2 (00:33→20:38)
[2018-07-21] MEDS: DULoxetine 30 MG CAP (CYMBALTA) PO SCH ×2 (00:33→20:38)
[2018-07-21] MEDS: CARVedilol 12.5 MG TAB PO SCH ×3 (00:34→20:38)
[2018-07-21] MEDS: SIMVASTATIN 40 MG TAB PO SCH ×2 (00:34→20:42)
[2018-07-21] MEDS: VITAMIN D 1,000 INTERNATIONAL UNITS TABLET PO SCH ×2 (00:35→20:38)
[2018-07-21] MEDS: IPRATROPIUM 0.5MG/ALBUTEROL 2.5MG INH SOL UD 3ML (DUONEB)(J7620) INH PRN ×3 (00:47→22:06)
[2018-07-21 01:04] VITALS: BP 159/79
[2018-07-21] MEDS ORDERED: amLODIPine 5 MG TAB PO SCH ×3 (02:45→09:00)
[2018-07-21] MEDS ORDERED: ACETAMINOPH W/CODEINE #3 TAB UD PO PRN (03:00)
[2018-07-21] MEDS ORDERED: amLODIPine 5 MG TAB PO ONE (04:30)
[2018-07-21] MEDS: LEVOTHYROXINE 100MCG TABLET (0.1MG) PO SCH (05:39)
[2018-07-21 06:00] VITALS: BP 132/79
[2018-07-21] MEDS: IPRATROPIUM 0.5MG/ALBUTEROL 2.5MG INH SOL UD 3ML (DUONEB)(J7620) INH SCH ×5 (07:14→19:55)
[2018-07-21] MEDS: ADVAIR HFA 230/21MCG INHALER INH SCH ×2 (07:15→19:56)
--- NOTE | 2018-07-21 07:50 | ECGEPIP ---
Stationary ECG Study [facility] - ED Test Date: 2018-07-20 Pat Name: DEMETRIUS MORGAN Department: Room: [place] [address] Gender: F Licensed Mental Health Professional: maria isabel : 1945 Requested By: ALISON Frank Order Number: [id number] Reading MD: Rashaun Up Measurements Intervals [place] Rate: 72 P: GA: 0 QRS: 239 QRSD: 142 T: 49 QT: 436 QTc: 478 Interpretive Statements ELECTRONIC VENTRICULAR PACEMAKER SIMILAR TO 10/20/17 Electronically Signed On 07-21-2018 7:50:06 EDT by Rashaun Up
--- NOTE | 2018-07-21 08:13 | REP ---
Duplex extremity venous ultrasound: Bilateral lower extremities. History: Elevated D-dimer. Right calf tenderness. Question DVT. Findings: The deep veins are anechoic and fully compressible from the groin to the popliteal fossa in the left and right lower extremity. Color flow imaging is homogeneous. Spectral Doppler interrogation demonstrates intact respiratory variation in flow and normal manual augmentation of flow. There is no evidence of deep vein thrombosis. Impression: Negative bilateral lower extremity duplex venous ultrasound. No evidence of deep vein thrombosis. Electronically Signed by Connor Meredith MD 07/21/2018 08:05 A
[2018-07-21 08:29] LABS: HEMOGLOBIN 8.5 g/dl (12.0-15.5); MEAN CORPUSCULAR HEMOGLOBIN 18.8 pg (27.0-33.0); MEAN CORPUSCULAR HGB CONC 26.6 g/dl (32.0-36.5); PLATELET COUNT, AUTOMATED 232 10^3/uL (150-450); RED BLOOD COUNT 4.51 10^6/uL (4.00-5.40); WHITE BLOOD COUNT 12.3 10^3/uL (4.0-10.0)
[2018-07-21 08:54] LABS: BLOOD UREA NITROGEN 18 MG/DL (7-18); CALCIUM LEVEL 8.1 MG/DL (8.8-10.2); CARBON DIOXIDE LEVEL 34 MEQ/L (21-32); CHLORIDE LEVEL 101 MEQ/L (98-107); CREATININE FOR GFR 0.59 MG/DL (0.55-1.30); GLOMERULAR FILTRATION RATE > 60.0 (>39); GLUCOSE, FASTING 147 MG/DL (70-100); POTASSIUM SERUM 3.7 MEQ/L (3.5-5.1); SODIUM LEVEL 141 MEQ/L (136-145)
[2018-07-21] MEDS: RIVAROXABAN 20 MG TAB (XARELTO) PO SCH (09:02)
[2018-07-21] MEDS: PANTOPRAZOLE 40MG INJ (PROTONIX) (C9113) IV SCH (09:02)
[2018-07-21] MEDS: FERROUS SULFATE 325MG TAB PO SCH (09:03)
[2018-07-21] MEDS: FUROSEMIDE 20 MG TAB PO SCH (09:03)
[2018-07-21] MEDS: PANTOPRAZOLE 40MG TAB (PROTONIX) PO SCH (09:03)
[2018-07-21] MEDS: predniSONE 20 MG TAB PO SCH (09:03)
[2018-07-21] MEDS: ACETAMINOPH W/CODEINE #3 TAB UD PO PRN ×2 (10:46→20:42)
[2018-07-21 14:00] VITALS: BP 140/80
--- NOTE | 2018-07-21 14:18 | IPNPDOC ---
Date Seen The patient was seen on 07/21/18. Progress Note SUBJECTIVE: Patient was seen and examined this morning. She states that she does have continued shortness of breath and is not quite at her baseline yet. She states that two weeks ago she had some changes in her diuretics OBJECTIVE PHYSICAL EXAMINATION: VITAL SIGNS: Please see below. GENERAL: Awake, alert, and oriented. Appears in no acute distress. Sitting comfortably in chair. HEENT: Atraumatic, normocephalic. Eyes are nonicteric. Trachea is midline. Dodson neck CARDIOVASCULAR: Distant heart sounds. Regular rate and rhythm. No clicks, rubs, or murmurs RESPIRATORY: Clear vesicular lung sounds bilaterally. Increased expiratory phase. No wheezing. No crackles. No rhonci or rales ABDOMINAL: Obese, soft, nontender to palpation in all 4 quadrants quadrants. No rebound tenderness or guarding. Positive bowel sounds EXTREMITIES: No edema. Full and equal pulses in bilateral upper and lower extremities. NEUROLOGICAL: No focal neurological deficits PSYCHOLOGICAL: Mood and affect appear appropriate LABORATORY DATA, IMAGING STUDIES, MICROBIOLOGY: Please see below. DVT prophylaxis ordered?: YES ASSESSMENT AND PLAN: Patient is a 72 year old female with a past medical history significant for emphysema on 4L oxygen, CKD, history of PE, DVT, JOJO on BiPAP who presented to the [facility] ER eith complaint of worsening SOB over the past 2 weeks with increased swelling in her lower extremities. She had some changes to her lasix dose two weeks ago and was also given steroids PROBLEMS: 1. History of Congestive heart failure w/ increased lower extremity edema and shortness of breath -Patient has received chest-ray which was rather unrevealing. She does not appear to be in an acute exacerbation. Her diuretics were changed two weeks ago however were increased back to their normal dose by her PCP. In the ER she received a total of 60mg IV lasix. -She is continued on her home dose of lasix PO -Cardiac Rehab 2. History of COPD -Patient has COPD, her blood gas shows chronic hypercarbia. She is not having increased sputum production or signs of a COPD exacerbation -Patient received Solumedrol in ER. -Prednisone 40 mg. -Will continue patients home medications -Respiratory therapy 3. JOJO -Patient has home BiPAP 4. CKD with chronic anemia -Patients hemoglobin is 8.5. She denies chest pain or lightheadedness. She is short of breath but this does not appear to be symptomatic anemia -Will monitor CBC daily -Patient did have a positive FoBT however, denies any bloody stools. Patient is on protonix 5. Paroxysmal A-fib -Currently in sinus. -Xarelto 6. Hypertension -CoReg 7. Hypothyroidism -Synthroid 7. DVT prophylaxis -Xarelto A-FIB/CHADSVASC A-FIB History Current/History of A-Fib/PAF?: Yes Current Oral Anticoagulant The: Yes VS, I&O, 24H, Fishbone Vital Signs/I&O Vital Signs Date Time Temp Pulse Resp B/P (MAP) Pulse Ox O2 Delivery O2 Flow Rate FiO2 07/21/18 11:16 18 07/21/18 09:37 4.0 07/21/18 09:03 68 132/79 07/21/18 06:00 97.7 86 07/21/18 00:45 Nasal Cannula I&O- Last 24 Hours up to 6 AM 07/21/18 06:00 Intake Total 0 ml Output Total 325 ml Balance -325 ml Laboratory Data 24H LABS Laboratory Tests 2 07/20/18 18:53: Immature Granulocyte % (Auto) 2.7, White Blood Count 19.3H, Red Blood Count 4.50, Hemoglobin 8.6L, Hematocrit 32.8L, Mean Corpuscular Volume 72.9L, Mean Corpuscular Hemoglobin 19.1L, Mean Corpuscular Hemoglobin Concent 26.2L, Red Cell Distribution Width 20.1H, Platelet Count 237, Neutrophils (%) (Auto) 91.4H, Lymphocytes (%) (Auto) 3.2L, Monocytes (%) (Auto) 2.3, Eosinophils (%) (Auto) 0.1, Basophils (%) (Auto) 0.3, Neutrophils # (Auto) 17.7H, Lymphocytes # (Auto) 0.6L, Monocytes # (Auto) 0.5, Eosinophils # (Auto) 0.0, Basophils # (Auto) 0.1, Nucleated Red Blood Cells % (auto) 0.3H, D-Dimer, Quantitative 493.36, Blood Gas Bicarbonate Standard 29.9H, Arterial Blood pH 7.430, Arterial Blood Partial Pressure CO2 48.2H, Arterial Blood Partial Pressure O2 56.2L, Arterial Blood Total CO2 32.8H, Arterial Blood HCO3 31.3H, Arterial Blood Base Excess 6.2H, Arterial Blood Oxygen Saturation 85.9L, Anion Gap 4L, Glomerular Filtration Rate > 60.0, Calcium Level 8.0L, Iron Level 34L, Total Iron Binding Capacity 451H, Transferrin % Saturation 7.5L, Ferritin 19, Aspartate Amino Transf (AST/SGOT) 41H, Alanine Aminotransferase (ALT/SGPT) 19, Alkaline Phosphatase 46, Total Bilirubin 0.9, Direct Bilirubin 0.2, VC-Pfu-X-Type Natriuretic Peptide 1218H, Total Protein 5.7L, Albumin 3.1L, Albumin/Globulin Ratio 1.19 07/20/18 22:29: Urine Color STRAW, Urine Appearance CLEAR, Urine pH 6.0, Urine Specific [place] 1.005, Urine Protein NEGATIVE, Urine Glucose (UA) NEGATIVE, Urine Ketones NEGATIVE, Urine Blood 3+H, Urine Nitrite NEGATIVE, Urine Bilirubin NEGATIVE, Urine Urobilinogen 0.2, Urine Leukocyte Esterase NEGATIVE, Urine WBC (Auto) 0, Urine RBC (Auto) 86H, Urine Hyaline Casts (Auto) 2, Urine Bacteria (Auto) NEGATIVE, Urine Squamous Epithelial Cells 1, Urine Sperm (Auto) 07/20/18 22:58: Nucleated Red Blood Cells % (auto) 0.3H 07/21/18 08:16: Nucleated Red Blood Cells % (auto) 0.4H, Anion Gap 6L, Glomerular Filtration Rate > 60.0, Calcium Level 8.1L, Blood Urea Nitrogen 18, Creatinine 0.59, Sodium Level 141, Potassium Level 3.7#, Chloride Level 101, Carbon Dioxide Level 34H CBC/BMP Laboratory Tests 07/20/18 18:53 Red Blood Count 4.50, Mean Corpuscular Volume 72.9 L, Mean Corpuscular Hemoglobin 19.1 L, Mean Corpuscular Hemoglobin Concent 26.2 L, Red Cell Distribution Width 20.1 H, Neutrophils (%) (Auto) 91.4 H, Lymphocytes (%) (Auto) 3.2 L, Monocytes (%) (Auto) 2.3, Eosinophils (%) (Auto) 0.1, Basophils (%) (Auto) 0.3, Neutrophils # (Auto) 17.7 H, Lymphocytes # (Auto) 0.6 L, Monocytes # (Auto) 0.5, Eosinophils # (Auto) 0.0, Basophils # (Auto) 0.1 07/20/18 22:58 Red Blood Count 4.46, Mean Corpuscular Volume 72.0 L, Mean Corpuscular Hemoglobin 18.8 L, Mean Corpuscular Hemoglobin Concent 26.2 L, Red Cell Distribution Width 20.6 H 07/21/18 08:16 Red Blood Count 4.51, Mean Corpuscular Volume 71.0 L, Mean Corpuscular Hemoglobin 18.8 L, Mean Corpuscular Hemoglobin Concent 26.6 L, Red Cell Distribution Width 20.6 H, Calcium Level 8.1 L GME ATTESTATION GME ATTESTATION My faculty preceptor for this patient encounter was physically present during the encounter and was fully available. All aspects of the patient interview, examination, medical decision making process, and medical care plan development were reviewed and approved by the faculty preceptor. The faculty preceptor is aware and concurs with the plan as stated in the body of this note and will attest to such by his/her cosignature. ATTENDING NOTE I, Iwona Hoover, have both independently examined this patient as well as reviewed the documentation. I have discussed in detail with the resident the findings and plan of treatment as documented by the resident. I agree with their findings and treatment plan. I will continue to follow the patient and offer further guidance to the patients care as necessary during this hospital stay. LASHAWN MULLER DO July 21, 2018 14:18 IWONA HOOVER MD July 21, 2018 16:42
--- NOTE | 2018-07-21 18:42 | ECHO ---
DATE OF PROCEDURE: 07/21/2018 REFERRING PHYSICIAN: Dr. Petit INDICATION: Congestive heart failure. HEIGHT: 154 cm WEIGHT: 97 kg. DIMENSIONS: IVS: 1.3 LV: 4.6 LVPW: 1.3 LA: 5.2 Aorta: 3.1 FINDINGS Study is a very poor technical quality with limited visualization corresponding to patient's body habitus. It appears that the patient is in atrial fibrillation with ventricular paced rhythm. Left ventricle is of normal size. I assume overall preserved LV systolic function even though visualization was limited. There is septal wall motion abnormality most likely consistent with underlying ventricular pacing. Right ventricle was poorly visualized. It does not appear grossly enlarged. There is severe biatrial enlargement. Aortic valve was very poorly seen and I cannot comment on its anatomy. Same applies for mitral, tricuspid and pulmonic valves. No pericardial effusion is noted. Inferior vena cava was not well seen. Aortic root is normal. Aortic arch and abdominal aorta were not visualized. Doppler interrogation reveals no significant aortic stenosis and trace insufficiency. There is functionally competent mitral valve. There is approximately [id number] tricuspid insufficiency. Calculated pulmonary artery pressure is at least 40 mmHg corresponding to moderate pulmonary hypertension. Evaluation of diastolic function is inconclusive due to underlying atrial fibrillation. CONCLUSION 1. Study is of markedly limited technical quality. 2. Normal LV size with mild LVH and probably normal LV systolic function. 3. Pacemaker electrode artifacts in right-sided heart chambers. 4. Severe biatrial enlargement. 5. Unable to estimate central venous pressure but at least moderate pulmonary hypertension. COMMENT Subacute bacterial endocarditis (SBE) prophylaxis is not recommended. Study is consistent with hypertensive heart disease and most likely chronic atrial fibrillation. MTDD
[2018-07-21 22:00] VITALS: BP 128/69
[2018-07-22 05:49] LABS: HEMATOCRIT 31.2 % (36.0-47.0); HEMOGLOBIN 8.3 g/dl (12.0-15.5); MEAN CORPUSCULAR HEMOGLOBIN 19.3 pg (27.0-33.0); MEAN CORPUSCULAR HGB CONC 26.6 g/dl (32.0-36.5); MEAN CORPUSCULAR VOLUME 72.4 fl (80.0-96.0); PLATELET COUNT, AUTOMATED 258 10^3/uL (150-450); RED BLOOD COUNT 4.31 10^6/uL (4.00-5.40); WHITE BLOOD COUNT 17.8 10^3/uL (4.0-10.0)
[2018-07-22 06:00] VITALS: BP 124/73
[2018-07-22] MEDS: LEVOTHYROXINE 100MCG TABLET (0.1MG) PO SCH (06:11)
[2018-07-22 06:14] LABS: BLOOD UREA NITROGEN 26 MG/DL (7-18); CALCIUM LEVEL 8.4 MG/DL (8.8-10.2); CARBON DIOXIDE LEVEL 34 MEQ/L (21-32); CHLORIDE LEVEL 101 MEQ/L (98-107); CREATININE FOR GFR 0.69 MG/DL (0.55-1.30); GLOMERULAR FILTRATION RATE > 60.0 (>39); GLUCOSE, FASTING 129 MG/DL (70-100); POTASSIUM SERUM 3.3 MEQ/L (3.5-5.1); SODIUM LEVEL 140 MEQ/L (136-145)
[2018-07-22] MEDS ORDERED: POTASSIUM CHLORIDE 10 MEQ SR TABLET PO ONE (07:45)
[2018-07-22] MEDS: ADVAIR HFA 230/21MCG INHALER INH SCH ×2 (08:23→20:15)
[2018-07-22] MEDS: IPRATROPIUM 0.5MG/ALBUTEROL 2.5MG INH SOL UD 3ML (DUONEB)(J7620) INH SCH ×4 (08:25→21:38)
[2018-07-22] MEDS ORDERED: MIRALAX *UNIT DOSE* 17GM PACKET PO PRN (08:30)
[2018-07-22] MEDS ORDERED: SENNA 8.6 MG TAB (SENOKOT) PO SCH (09:00)
[2018-07-22] MEDS: PANTOPRAZOLE 40MG TAB (PROTONIX) PO SCH (09:03)
[2018-07-22] MEDS: PREGABALIN 100 MG CAP (LYRICA) PO SCH ×3 (09:03→21:50)
[2018-07-22] MEDS: predniSONE 20 MG TAB PO SCH (09:03)
[2018-07-22] MEDS: MOM 30ML SUSPENSION UDC PO PRN (09:03)
[2018-07-22] MEDS: PANTOPRAZOLE 40MG INJ (PROTONIX) (C9113) IV SCH (09:03)
[2018-07-22] MEDS: FUROSEMIDE 20 MG TAB PO SCH (09:04)
[2018-07-22] MEDS: RIVAROXABAN 20 MG TAB (XARELTO) PO SCH (09:04)
[2018-07-22] MEDS: FERROUS SULFATE 325MG TAB PO SCH (09:04)
[2018-07-22] MEDS: SENOKOT S TAB PO SCH ×2 (09:04→21:50)
[2018-07-22] MEDS: amLODIPine 5 MG TAB PO SCH (09:07)
[2018-07-22] MEDS: CARVedilol 12.5 MG TAB PO SCH ×2 (09:07→21:51)
--- NOTE | 2018-07-22 11:51 | IPNPDOC ---
Date Seen The patient was seen on 07/22/18. Progress Note SUBJECTIVE: Patient was seen and examined this morning. She currently states that her breathing is improving however she does not feel at her baseline. She had worked with PT yesterday and was noted not to be safe for discharge. Patient states that she has been having a runny nose. She denies any bloody stools. She denies any cough. She denies any chest pain. She states that currently one of h er biggest problems is her balance. She states that she is afraid of falling. She stated that she used to have physical therapy come to her house where they would have her stand on a balance dome. Her biggest fear is falling on it and she had fired physical therapy from coming to her house. She states that she is willing to work with physical therapy inpatient but will not use the balance dome OBJECTIVE PHYSICAL EXAMINATION: VITAL SIGNS: Please see below. GENERAL: Awake, alert, and oriented. Appears in no acute distress. Sitting comfortably in chair crocheting HEENT: Atrumatic normocephalic. Eyes are nonicteric. Trachea is midline. Mucous membranes are pink and moist CARDIOVASCULAR: Normal S1, S2. Distant heart sounds. Regular rate and rhythm. No clicks rubs or murmurs RESPIRATORY: Clear vesicular breath sounds bilaterally. Good respiratory effort. Increased expiratory phase. No wheezes, rhonci, or rales. No crackles ABDOMINAL: Obese, soft, nondistended. Nontender to palpation. No rebound tenderness or guarding. Positive bowel sounds EXTREMITIES: No edema. Pulses full and equal in upper and lower extremities bilaterally NEUROLOGICAL: No focal neurological deficits noted PSYCHOLOGICAL: Mood and affect appropriate LABORATORY DATA, IMAGING STUDIES, MICROBIOLOGY: Please see below. Echocardiogram: DATE OF PROCEDURE: 07/21/2018 REFERRING PHYSICIAN: Dr. Petit INDICATION: Congestive heart failure. HEIGHT: 154 cm WEIGHT: 97 kg. DIMENSIONS: IVS: 1.3 LV: 4.6 LVPW: 1.3 LA: 5.2 Aorta: 3.1 FINDINGS Study is a very poor technical quality with limited visualization corresponding to patient's body habitus. It appears that the patient is in atrial fibrillation with ventricular paced rhythm. Left ventricle is of normal size. I assume overall preserved LV systolic function even though visualization was limited. There is septal wall motion abnormality most likely consistent with underlying ventricular pacing. Right ventricle was poorly visualized. It does not appear grossly enlarged. There is severe biatrial enlargement. Aortic valve was very poorly seen and I cannot comment on its anatomy. Same applies for mitral, tricuspid and pulmonic valves. No pericardial effusion is noted. Inferior vena cava was not well seen. Aortic root is normal. Aortic arch and abdominal aorta were not visualized. Doppler interrogation reveals no significant aortic stenosis and trace insufficiency. There is functionally competent mitral valve. There is approximately [id number] tricuspid insufficiency. Calculated pulmonary artery pressure is at least 40 mmHg corresponding to moderate pulmonary hypertension. Evaluation of diastolic function is inconclusive due to underlying atrial fibrillation. CONCLUSION 1. Study is of markedly limited technical quality. 2. Normal LV size with mild LVH and probably normal LV systolic function. 3. Evidence for pacemaker electrode artifacts in right-sided heart chambers. 4. Severe biatrial enlargement. 5. Unable to estimate central venous pressure but at least moderate pulmonary hypertension. COMMENT Subacute bacterial endocarditis (SBE) prophylaxis is not recommended. Study is consistent with hypertensive heart disease and most likely chronic atrial fibrillation. DVT prophylaxis ordered?: YES ASSESSMENT AND PLAN: Patient is a 72 year old female with a past medical history significant for emphysema on 4L oxygen, CKD, history of PE, DVT, JOJO on BiPAP who presented to the [facility] ER eith complaint of worsening SOB over the past 2 weeks with increased swelling in her lower extremities. She had some changes to her lasix dose two weeks ago and was also given steroids PROBLEMS: 1. History of Congestive heart failure w/ increased lower extremity edema and shortness of breath -Patient has received chest-ray which was rather unrevealing. She does not appear to be in an acute exacerbation. Her diuretics were changed two weeks ago however were increased back to their normal dose by her PCP. In the ER she received a total of 60mg IV lasix. -She is continued on her home dose of Lasix PO -Cardiac Rehab 2. History of COPD -Patient has COPD, her blood gas shows chronic hypercarbia. She is not having increased sputum production or signs of a COPD exacerbation -Patient received Solumedrol in ER. -Prednisone 40 mg; will reduce dose today -Will continue patients home medications -Respiratory therapy 3. JOJO -Patient has home BiPAP 4. CKD with chronic anemia -Patients hemoglobin is 8.5. She denies chest pain or lightheadedness. She is short of breath but this does not appear to be symptomatic anemia -Will monitor CBC daily - has remained stable -Patient did have a positive FoBT however, denies any bloody stools. Patient is on protonix 5. Paroxysmal A-fib -Currently in sinus. -Xarelto 6. Hypertension -CoReg 7. Hypothyroidism -Synthroid 7. DVT prophylaxis -Xarelto DISPOSITION: Patient is pending PT clearance. Likely discharge in 48 hours. A-FIB/CHADSVASC A-FIB History Current/History of A-Fib/PAF?: Yes Current Oral Anticoagulant The: Yes VS, I&O, 24H, Fishbone Vital Signs/I&O Vital Signs Date Time Temp Pulse Resp B/P (MAP) Pulse Ox O2 Delivery O2 Flow Rate FiO2 07/22/18 09:07 74 121/73 07/22/18 06:00 96.3 18 93 4.0 07/21/18 00:45 Nasal Cannula I&O- Last 24 Hours up to 6 AM 07/22/18 06:00 Intake Total 1570 ml Balance 1570 ml Laboratory Data 24H LABS Laboratory Tests 2 07/22/18 05:35: Nucleated Red Blood Cells % (auto) 0.6H, Anion Gap 5L, Glomerular Filtration Rate > 60.0, Blood Urea Nitrogen 26H, Creatinine 0.69, Sodium Level 140, Potassium Level 3.3L, Chloride Level 101, Carbon Dioxide Level 34H, Calcium Level 8.4L CBC/BMP Laboratory Tests 07/22/18 05:35 Red Blood Count 4.31, Mean Corpuscular Volume 72.4 L, Mean Corpuscular Hemoglobin 19.3 L, Mean Corpuscular Hemoglobin Concent 26.6 L, Red Cell Distribution Width 20.5 H, Calcium Level 8.4 L GME ATTESTATION GME ATTESTATION My faculty preceptor for this patient encounter was physically present during the encounter and was fully available. All aspects of the patient interview, examination, medical decision making process, and medical care plan development were reviewed and approved by the faculty preceptor. The faculty preceptor is aware and concurs with the plan as stated in the body of this note and will attest to such by his/her cosignature. ATTENDING NOTE I, Iwona Hoover, have both independently examined this patient as well as reviewed the documentation. I have discussed in detail with the resident the findings and plan of treatment as documented by the resident. I agree with their findings and treatment plan. I will continue to follow the patient and offer further guidance to the patients care as necessary during this hospital stay. LASHAWN MULLER DO July 22, 2018 11:51 IWONA HOOVER MD July 22, 2018 14:49
[2018-07-22 14:00] VITALS: BP 142/81
[2018-07-22] MEDS: DULoxetine 30 MG CAP (CYMBALTA) PO SCH (21:50)
[2018-07-22] MEDS: VITAMIN D 1,000 INTERNATIONAL UNITS TABLET PO SCH (21:51)
[2018-07-22] MEDS: CYANOCOBALAMIN 500 MCG TAB PO SCH (21:51)
[2018-07-22] MEDS: SIMVASTATIN 40 MG TAB PO SCH (21:51)
[2018-07-22] MEDS: SERTRALINE 100 MG TAB PO SCH (21:51)
[2018-07-22 22:00] VITALS: BP 116/78
[2018-07-23] MEDS: LEVOTHYROXINE 100MCG TABLET (0.1MG) PO SCH (05:42)
[2018-07-23 06:00] VITALS: BP 154/86
[2018-07-23 06:29] LABS: HEMATOCRIT 29.9 % (36.0-47.0); HEMOGLOBIN 7.9 g/dl (12.0-15.5); MEAN CORPUSCULAR HGB CONC 26.4 g/dl (32.0-36.5); PLATELET COUNT, AUTOMATED 238 10^3/uL (150-450); RED BLOOD COUNT 4.15 10^6/uL (4.00-5.40); WHITE BLOOD COUNT 13.3 10^3/uL (4.0-10.0)
[2018-07-23 06:50] LABS: BLOOD UREA NITROGEN 26 MG/DL (7-18); CALCIUM LEVEL 8.3 MG/DL (8.8-10.2); CARBON DIOXIDE LEVEL 37 MEQ/L (21-32); CHLORIDE LEVEL 102 MEQ/L (98-107); CREATININE FOR GFR 0.61 MG/DL (0.55-1.30); GLOMERULAR FILTRATION RATE > 60.0 (>39); GLUCOSE, FASTING 105 MG/DL (70-100); POTASSIUM SERUM 3.7 MEQ/L (3.5-5.1); SODIUM LEVEL 140 MEQ/L (136-145)
[2018-07-23] MEDS: IPRATROPIUM 0.5MG/ALBUTEROL 2.5MG INH SOL UD 3ML (DUONEB)(J7620) INH SCH ×3 (07:20→16:02)
[2018-07-23] MEDS: ADVAIR HFA 230/21MCG INHALER INH SCH (07:20)
[2018-07-23] MEDS: MOM 30ML SUSPENSION UDC PO PRN (07:36)
[2018-07-23] MEDS: PANTOPRAZOLE 40MG TAB (PROTONIX) PO SCH (07:36)
[2018-07-23] MEDS: PANTOPRAZOLE 40MG INJ (PROTONIX) (C9113) IV SCH (07:36)
[2018-07-23] MEDS: SENOKOT S TAB PO SCH (07:37)
[2018-07-23] MEDS: RIVAROXABAN 20 MG TAB (XARELTO) PO SCH (07:37)
[2018-07-23] MEDS: FUROSEMIDE 20 MG TAB PO SCH (07:37)
[2018-07-23] MEDS: FERROUS SULFATE 325MG TAB PO SCH (07:37)
[2018-07-23] MEDS: PREGABALIN 100 MG CAP (LYRICA) PO SCH ×2 (07:38→16:18)
[2018-07-23 07:39] VITALS: BP 127/61
[2018-07-23] MEDS: CARVedilol 12.5 MG TAB PO SCH (07:39)
[2018-07-23] MEDS: amLODIPine 5 MG TAB PO SCH (07:39)
[2018-07-23] MEDS ORDERED: OMEP-218 PO (07:58)
[2018-07-23] MEDS ORDERED: PRED10TA2 PO (07:58)
[2018-07-23] MEDS ORDERED: FERR325T18 PO (07:58)
[2018-07-23] MEDS ORDERED: predniSONE 20 MG TAB PO SCH (09:00)
--- NOTE | 2018-07-23 10:49 | DS.PDOC ---
Discharge Summary General Date of Admission July 20, 2018 at 21:35 Date of Discharge 07/23/2018 Discharge Summary PROCEDURES PERFORMED DURING STAY: [None]. ADMITTING DIAGNOSES / DISCHARGE DIAGNOSES: Shortness of breath - likely 2/2 multifactorial etiology; possibly 2/2 Acute COPD exacerbation and 2/2 Decompensated Diastolic CHF Anemia - possibly 2/2 iron deficiency anemia Paroxysmal A. fib HTN Hx of PE/DVT JOJO on BIPAP Hypothyroidism CKD3 DVT prophylaxis COMPLICATIONS/CHIEF COMPLAINT: Shortness of breath HISTORY OF PRESENT ILLNESS: Patient is a 72-year-old female with a past medical history of Paroxysmal A. fib, HTN, COPD / Emphysema (on 4 L O2 at home), Hx of PE/DVT (on Xarelto), JOJO on BIPAP, Hypothyroidism, CKD3, who presented to the ER at the direction of her PCP because of anemia and positive occult stool. Patient is also indicated that she is expressing subjective Ms. of breath, worsening over the past 2 weeks. She noticed some lower extremity swelling. Patient was admi tted to the hospital service for further evaluation and treatment. HOSPITAL COURSE: Shortness of breath - likely 2/2 multifactorial etiology - Currently has had significant resolution of her breathing - Physical without any adventitious lung sounds or evidence of fluid overload - Remains afebrile and hemodynamically stable - CXR 07/20: Stable chronic changes but no definite superimposed acute infiltrate. - Leukocytosis noted - likely 2/2 corticosteroids - s/p Acute COPD exacerbation - c/w Prednisone; will continue with taper as an outpatient - c/w inhaled therapy as ordered - s/p Decompensated Diastolic CHF - s/p Furosemide IV in ER - c/w home dose of diuretics - Has cleared PT for discharge home Anemia - possibly 2/2 iron deficiency anemia - Patient does not express any symptoms of anemia; denies lightheadedness, dizziness, chest pain or palpitations - Hg appears to be slightly lower than baseline - Hg has remained stable while inpatient; has not required transfusion - Patient has had a positive occult blood - Patient has strongly refused colonoscopy; patient is aware of risks and benefits - I advised her that if she changes her mind, we will give her referral for gastroenterology - She has been advised that the reason as to why she has a positive occult blood test cannot be ascertained if colonoscopy is not acquired. Patient has verbalized understanding of this - c/w Iron supplementation - Has cleared PT for discharge home Paroxysmal A. fib - Remains in sinus - c/w rate control with carvedilol - On full anticoagulation with Xarelto HTN - BP well controlled - c/w carvedilol Hx of PE/DVT - c/w full anticoagulation with Xarelto JOJO on BIPAP - c/w BIPAP based on home settings Hypothyroidism - c/w Levothyroxine CKD3 - Cr appears to be at baseline DVT prophylaxis - c/w full anticoagulation with Xarelto DISCHARGE MEDICATIONS: Please see below. ALLERGIES: Please see below. PHYSICAL EXAMINATION ON DISCHARGE: Vitals (See below) General: Lying in bed, no acute distress, comfortable, AAOx3 HEENT: NC, AT, Cuney hair CVS: RRR, +S1S2 Lungs: Fair air entry b/l, no appreciable wheezing, rales or rhonchi Abdomen: Soft, ND, NT, Obese Extremities: no significant pitting edema, - Calf tenderness LABORATORY DATA: Please see below. ACTIVITY: [As tolerated]. DISCHARGE PLAN: Follow up with Dr. Eduarda Rodríguez Referral to Pulmonology and Gastroenterology Remain compliant with treatment plan and medications Return to the ER if you experience any problems DISPOSITION: Home DISCHARGE CONDITION: [Stable]. TIME SPENT ON DISCHARGE: Greater than [35] minutes. Vital Signs/I&Os Vital Signs Date Time Temp Pulse Resp B/P (MAP) Pulse Ox O2 Delivery O2 Flow Rate FiO2 07/23/18 07:39 80 127/61 07/23/18 06:00 97.0 20 95 4.0 07/21/18 00:45 Nasal Cannula I&O- Last 24 Hours up to 6 AM 07/23/18 06:00 Intake Total 870 ml Balance 870 ml Laboratory Data Labs 24H Laboratory Tests 2 07/23/18 05:54: Nucleated Red Blood Cells % (auto) 0.7H, Anion Gap 1L, Glomerular Filtration Rate > 60.0, Blood Urea Nitrogen 26H, Creatinine 0.61, Sodium Level 140, Potassium Level 3.7, Chloride Level 102, Carbon Dioxide Level 37H, Calcium Level 8.3L CBC/BMP Laboratory Tests 07/23/18 05:54 Red Blood Count 4.15, Mean Corpuscular Volume 72.0 L, Mean Corpuscular Hemoglobin 19.0 L, Mean Corpuscular Hemoglobin Concent 26.4 L, Red Cell Distribution Width 20.5 H, Calcium Level 8.3 L Discharge Medications Scheduled Amlodipine Besylate (Amlodipine Besylate) 5 Mg Tablet, 5 MG PO DAILY, (Reported) Ascorbic Acid (Vitamin C) 1,000 Mg Tablet, 1,000 MG PO QHS, (Reported) Carvedilol (Carvedilol) 12.5 Mg Tablet, 12.5 MG PO BID, (Reported) Cholecalciferol (Vitamin D3) (Vitamin D3) 1,000 Unit Tab, 1,000 UNIT PO QHS, (Reported) Cyanocobalamin (Vitamin B-12) (Vitamin B-12) 500 Mcg Tab, 500 MCG PO QHS, (Reported) Duloxetine Hcl (Duloxetine HCl) 30 Mg Cap, 60 MG PO QHS, (Reported) Esomeprazole Magnesium (Nexium) 40 Mg Cap, 40 MG PO DAILY, (Reported) Ferrous Sulfate (Ferrous Sulfate) 325 Mg Tablet, 325 MG PO DAILY Fluticasone Propion/Salmeterol (Advair Hfa 230-21 Mcg Inhaler) 1 Aer Aer, 2 PUFF INH BID, (Reported) Furosemide (Lasix) 20 Mg Tab, 20 MG PO DAILY, (Reported) Ipratropium/Albuterol Sulfate (Iprat-Albut 0.5-3(2.5) mg/3 ml) 3 Ml Ampul.neb, 3 ML INH QID, (Reported) Levothyroxine Sodium (Synthroid) 100 Mcg Tab, 100 MCG PO DAILY, (Reported) Omeprazole (Omeprazole) 20 Mg Capsule.dr, 1 CAP PO DAILY Potassium Chloride (Klor-Con M20) 20 Meq Tabcr, 40 MEQ PO DAILY, (Reported) Prednisone (Prednisone) 10 Mg Tablet, 10 MG PO TAPER Take 3 tabs daily x 3 days, then 2 tabs daily Pregabalin (Lyrica) 100 Mg Cap, 100 MG PO TID, (Reported) Rivaroxaban (Xarelto) 20 Mg Tab, 20 MG PO DAILY, (Reported) Sertraline HCl (Sertraline HCl) 100 Mg Tablet, 100 MG PO QHS, (Reported) Simvastatin (Zocor) 40 Mg Tab, 20 MG PO QHS, (Reported) Vitamin E (Vitamin E) 100 Unit Capsule, 100 UNIT PO QHS, (Reported) Scheduled PRN Acetaminophen with Codeine (Tylenol with Codeine #3 Tablet) 1 Each Tablet, 1 TAB PO QID PRN for PAIN, (Reported) Fluticasone Propionate (Flonase Allergy Relief) 9.9 Ml [place].susp, 2 SPRAYS NA DAILY PRN for NASAL CONGESTION, (Reported) Ipratropium/Albuterol Sulfate (Combivent Respimat 20-100 Mcg) 1 Aer Aer, 1 PUFF INH QID PRN for SHORTNESS OF BREATH, (Reported) Levalbuterol Hydrochloride (Xopenex Hfa) 15 Gm Hfa.aer.ad, 2 PUFF INH Q4H PRN for SHORTNESS OF BREATH, (Reported) Trazodone HCl (Trazodone HCl) 50 Mg Tab, 50 MG PO QHS PRN for SLEEP, (Reported) [Blur Relief] , 1 DROP OU QID PRN for BLURRY VISION, (Reported) Allergies Coded Allergies: milk (Unverified Allergy, Severe, DIFFICULTY BREATHING, 07/20/18) tiotropium (Unverified Allergy, Severe, DIFFICULTY BREATHING, 07/20/18) celecoxib (Verified Allergy, Intermediate, DIFFICULTY BREATHING, 07/20/18) ciprofloxacin (Verified Allergy, Intermediate, DIFFICULTY BREATHING, 07/20/18) guaifenesin (Verified Allergy, Intermediate, DIFFICULTY BREATHING, 07/20/18) moxifloxacin (Verified Allergy, Intermediate, DIFFICULTY BREATHING, 07/20/18) hydroxyzine (Unverified Allergy, Unknown, 07/20/18) naproxen (Unverified Allergy, Unknown, 07/20/18) atorvastatin (Verified Adverse Reaction, Intermediate, JOINT PAIN SWELLING, 07/20/18) amiodarone (Verified Adverse Reaction, Unknown, HEART RACING, DIFFICULTY BREATHING, 07/20/18) cephalexin (Unverified Adverse Reaction, Unknown, STOMACHE PAIN, 07/20/18) ALAN HOOVER MD July 23, 2018 10:49
[2018-07-23 11:01] LABS: HEMATOCRIT 31.6 % (36.0-47.0)
[2018-07-23 14:00] VITALS: BP 117/58
== END 2018-07-23 16:11 | disposition home health service (06) | DRG 291 ==
LOC: M ED 18:39 → EDBD 18:39 → M ED INP 21:35 → M MSPAV 07-21 01:04
PROVIDERS: ADMIT Internal Medicine; ATTEND Internal Medicine
DX: I13.0 Hypertensive heart and chronic kidney disease with heart failure and stage 1 through stage 4 chronic kidney disease, or unspecified chronic kidney disease (principal); I50.33 Acute on chronic diastolic (congestive) heart failure; J44.1 Chronic obstructive pulmonary disease with (acute) exacerbation; G47.33 Obstructive sleep apnea (adult) (pediatric); N18.3 Chronic kidney disease, stage 3 (moderate); I48.0 Paroxysmal atrial fibrillation; E03.9 Hypothyroidism, unspecified; Z86.718 Personal history of other venous thrombosis and embolism; Z86.711 Personal history of pulmonary embolism; D50.9 Iron deficiency anemia, unspecified; D72.829 Elevated white blood cell count, unspecified; Z79.899 Other long term (current) drug therapy; Z88.8 Allergy status to other drugs, medicaments and biological substances; Z91.011 Allergy to milk products; Z79.52 Long term (current) use of systemic steroids; E78.5 Hyperlipidemia, unspecified; K21.9 Gastro-esophageal reflux disease without esophagitis; K22.70 Barrett's esophagus without dysplasia; K44.9 Diaphragmatic hernia without obstruction or gangrene; K57.30 Diverticulosis of large intestine without perforation or abscess without bleeding; Z95.0 Presence of cardiac pacemaker; I87.2 Venous insufficiency (chronic) (peripheral); Z87.891 Personal history of nicotine dependence

== ENCOUNTER 2018-09-28 15:12 | Inpatient (IN) | payer MEDICARE, MEDICAID ==
[~2018-09-28] VITALS: Ht 154.9 cm; Wt 98.8 kg
[~2018-09-28 15:12] MED LIST changes: +AMLO5TAB6 PO; -ARTI99.0 OU; +ARTIDRO2 OU; +ASCO100013 PO; +CYAN500T8 PO; -DULO1CAP2 PO; +DULO1CAP5 PO; +FERR325T18 PO; +FLON1SPR; +LEVAINH INH; +OMEP-218 PO; -SIMV20TA2 PO; +SIMV20TA22 PO; -TRAZ-160 PO; +TRAZ-252 PO; +TYLETAB14 PO; +VITA100C8 PO; -VITA500T3 PO; +[UNRECOGNIZED DRUG - OTHER] OU
[2018-09-28 15:57] LABS: BASO # 0.1 10^3/uL (0.0-0.2); BASO % 0.7 % (0.0-1.0); HEMATOCRIT 41.5 % (36.0-47.0); HEMOGLOBIN 11.6 g/dl (12.0-15.5); LYMPH # 0.6 10^3/uL (1.5-4.5); LYMPH % 4.8 % (24.0-44.0); MEAN CORPUSCULAR HEMOGLOBIN 23.6 pg (27.0-33.0); MEAN CORPUSCULAR VOLUME 84.3 fl (80.0-96.0); MONO # 0.5 10^3/uL (0.0-0.8); MONO % 4.5 % (0.0-5.0); NEUTROPHILS # 9.9 10^3/uL (1.8-7.7); NEUTROPHILS % 86.4 % (36.0-66.0); PLATELET COUNT, AUTOMATED 214 10^3/uL (150-450); RED BLOOD COUNT 4.92 10^6/uL (4.00-5.40); WHITE BLOOD COUNT 11.5 10^3/uL (4.0-10.0)
[2018-09-28 16:05] LABS: INR 1.57; PROTHROMBIN TIME 18.5 SECONDS (11.8-14.0)
[2018-09-28 16:06] LABS: PARTIAL THROMBOPLASTIN TIME 32.1 SECONDS (25.0-38.4)
[2018-09-28] MEDS ORDERED: FUROSEMIDE 100 MG/10 ML VIAL (J1940) IV ONE (16:15)
[2018-09-28] MEDS ORDERED: ISOVUE-370 76% 100ML VIAL (Q9967) As Ordered ONE (16:20)
[2018-09-28 16:29] LABS: BLOOD UREA NITROGEN 24 MG/DL (7-18); CALCIUM LEVEL 8.5 MG/DL (8.8-10.2); CARBON DIOXIDE LEVEL 35 MEQ/L (21-32); CHLORIDE LEVEL 104 MEQ/L (98-107); CREATININE FOR GFR 0.65 MG/DL (0.55-1.30); GLOMERULAR FILTRATION RATE > 60.0 (>39); GLUCOSE, FASTING 148 MG/DL (70-100); SODIUM LEVEL 145 MEQ/L (136-145); THYROID STIMULATING HORMONE 0.387 uIU/ML (0.358-3.740)
--- NOTE | 2018-09-28 16:45 | REP ---
CHEST, SINGLE VIEW: Single view of the chest is performed and compared to prior study of as well as other prior exams. Stable bibasilar parenchymal opacities are noted but there is a new superimposed small right pleural effusion. Cardiomediastinal silhouette is unchanged. Left single lead pacemaker is again noted. Electronically Signed by Tim Hagen MD 10/01/2018 07:18 P
[2018-09-28 17:05] LABS: NT-PRO BNP 935 PG/ML (<125)
[2018-09-28] MEDS ORDERED: ALBUTEROL SULFATE 2.5 MG/0.5 ML INH NEB SOLN NEB ONE (17:30)
[2018-09-28] MEDS ORDERED: methylPREDNISolone INJ 125 MG/2 ML VIAL (J2930) IV ONE (17:30)
[2018-09-28] MEDS ORDERED: IPRATROPIUM 0.02% SOLN 0.5MG/2.5 ML NEB NEB ONE (17:30)
--- NOTE | 2018-09-28 17:38 | REPVR ---
EXAM: US Duplex Left Lower Extremity Veins, Limited EXAM DATE/TIME: 09/28/2018 5:08 PM CLINICAL HISTORY: 72 years old, female; Swelling (edema) of limb; Lower extremity, left; Additional info: Left lower leg swelling TECHNIQUE: Imaging protocol: Real-time Duplex ultrasound of the Left Lower Extremity with 2-D lebron scale, color Doppler flow and spectral waveform analysis with image documentation. Limited exam focused on the left lower extremity veins. COMPARISON: US Duplex, Ext LOWER veins, bilat BILATERAL 07/20/2018 10:35 PM FINDINGS: Left deep veins: Unremarkable. The common femoral, femoral, proximal profunda femoral and popliteal veins are patent without thrombus. Normal Doppler waveforms. Normal compressibility and/or augmentation response. Left superficial veins: Unremarkable. Saphenofemoral junction is patent without thrombus. Soft tissues: Unremarkable. IMPRESSION: No acute findings. No evidence of deep vein thrombosis. Electronically signed by: Theodora Rizzo On 09/28/2018 17:38:14 PM
[2018-09-28] MEDS ORDERED: IPRATROPIUM 0.5MG/ALBUTEROL 2.5MG INH SOL UD 3ML (DUONEB)(J7620) NEB ONE (20:45)
--- NOTE | 2018-09-28 21:15 | REPVR ---
EXAM: CT Angiography Chest With Contrast EXAM DATE/TIME: 09/28/2018 5:25 PM CLINICAL HISTORY: 72 years old, female; Shortness of breath; Additional info: SOB; Blood in sputum; R/O pe TECHNIQUE: Imaging protocol: Axial computed tomographic angiography images of the chest with intravenous contrast using CT angiography protocol. Coronal and sagittal reformatted images were created and reviewed. 3D rendering: MIP reconstructed images were created and reviewed. Radiation optimization: All CT scans at this facility use at least one of these dose optimization techniques: automated exposure control; mA and/or kV adjustment per patient size (includes targeted exams where dose is matched to clinical indication); or iterative reconstruction. Contrast material: ISOVUE 370; Contrast volume: 100 ml; Contrast route: IV; COMPARISON: CT ANGIO CHEST 08/01/2017 10:02 PM FINDINGS: Pulmonary arteries: . No pulmonary emboli. Relative decreased perfusion noted to the right upper lobe are related to severe emphysema. Aorta: Unremarkable. No aortic aneurysm. No aortic dissection. Inferior vena cava: There is reflux of contrast material into the inferior vena cava. Lungs: There is a severe paraseptal type and crowley lobular and centrilobular type emphysema noted bilaterally most severe involvement in the mid and upper lung wylie, right side greater than left. There is mass effect upon the adjacent right lower lobe. In the right lower lobe. 1 cm pulmonary nodule anterior segment right upper lobe (series 402 image 4) has increased in size. There is an adjacent linear thickening of a bulla septation. 5 mm groundglass nodule in the right middle lobe (series 402 image 47) that is unchanged Pleural space: There is a small right pleural effusion with compression atelectasis in the right lower lobe Heart: There is mild biatrial enlargement . RV LV ratio less than 1 Kidneys and ureters: There is a diaphragmatic hernia containing fat in the superior pole of the right kidney. Lymph nodes: Unremarkable. No enlarged lymph nodes. Bones/joints: There are compression fractures of T10, T11 and L1 unchanged from previous. There are bilateral cervical ribs. Underlying rotatory levoscoliosis of the lumbar spine Soft tissues: Single chamber pacemaker via left subclavian approach. Small sliding hiatal hernia. Spleen: Multiple (at least 7 low density lesions is seen within the spleen unchanged from previous Other findings: There is a relative decrease in perfusion of the right upper lobe particularly the anterior segment. This is not significantly changed from previous. IMPRESSION: 1. No acute pulmonary embolism. 2. Small right pleural effusion which has increased in size since previous. There remains segmental atelectasis in the right lower lobe likely related to compression from the adjacent diaphragmatic hernia on the right. 3. Biatrial enlargement with reflux of contrast into the inferior vena cava. The RV LV ratio is less than 1. 4. Pulmonary nodules on the right. One has enlarged since previous. This could be inflammatory. Short term followup within 3 months after resolution of acute symptoms recommended. 5. Severe emphysema without change. 6. Right diaphragmatic hernia with 7. Multiple low density splenic lesions not characterized fully. No change from previous. Electronically signed by: Theodora Rizzo On 09/28/2018 21:15:08 PM
[2018-09-28] MEDS ORDERED: FERR1TAB8 PO (22:41)
[2018-09-28] MEDS ORDERED: PRED20TA PO (22:41)
[2018-09-28] MEDS ORDERED: LEVO500T3 PO (22:41)
[2018-09-28] MEDS ORDERED: DULO60CA35 PO (22:41)
[2018-09-28] MEDS ORDERED: ALBUTEROL SULFATE 2.5 MG/0.5 ML INH NEB SOLN NEB PRN (22:45)
[2018-09-28] MEDS ORDERED: ACETAMINOPHEN TAB 650MG DOSE (2X325MG) PO PRN (22:45)
[2018-09-28] MEDS ORDERED: MAALOX 30 ML SUSP *UDC PO PRN (22:45)
[2018-09-28] MEDS ORDERED: MOM 30ML SUSPENSION UDC PO PRN (22:45)
--- NOTE | 2018-09-28 22:55 | HPEPDOC ---
General Date of Admission 09/28/18 Date of Service: Sep 28, 2018 Primary Care Physician: A Attending Physician: BOBO SARABIA MD Chief Complaint The patient is a 72-year-old female admitted with a reason for visit of Leg Pain. Source: Patient Exam Limitations: No limitations Timing/Duration: Day(s) Severity: Moderate Associated Symptoms: Shortness of breath History of Present Illness 72 years old white female with past medical history of extensive emphysema, hypertension, hypothyroid, anemia, was recently seen by her primary care Dr. Marcos gay on 09/25/2018 with a chief complaint of shortness of breath, sputum with blood and she was diagnosed with pneumonia and exacerbation of COPD and was started on prednisone, Levaquin and her home medications, but patient did not felt relief with the bone metastases and decided come to ER. They she is being admitted with exacerbation of COPD and community-acquired pneumonia. has a multiple allergies to multiple antibiotics but with cephalosporins. She only gets stomach upset, not a true allergy. Home Medications Scheduled Amlodipine Besylate (Amlodipine Besylate) 5 Mg Tablet, 5 MG PO DAILY, (Reported) Ascorbic Acid (Vitamin C) 1,000 Mg Tablet, 1,000 MG PO QHS, (Reported) Carvedilol (Carvedilol) 12.5 Mg Tablet, 12.5 MG PO BID, (Reported) Cholecalciferol (Vitamin D3) (Vitamin D3) 1,000 Unit Tab, 1,000 UNIT PO QHS, (Reported) Cyanocobalamin (Vitamin B-12) (Vitamin B-12) 500 Mcg Tab, 500 MCG PO QHS, (Reported) Duloxetine HCl (Duloxetine HCl) 60 Mg Capsule.dr, 60 MG PO QHS, (Reported) Esomeprazole Magnesium (Nexium) 40 Mg Cap, 40 MG PO DAILY, (Reported) Ferrous Sulfate (Ferrous Sulfate) 325 Mg Tablet, 325 MG PO DAILY, (Reported) Fluticasone Propion/Salmeterol (Advair Hfa 230-21 Mcg Inhaler) 1 Aer Aer, 2 PUFF INH BID, (Reported) Furosemide (Lasix) 20 Mg Tab, 20 MG PO DAILY, (Reported) Ipratropium/Albuterol Sulfate (Iprat-Albut 0.5-3(2.5) mg/3 ml) 3 Ml Ampul.neb, 3 ML INH QID, (Reported) Levofloxacin (Levofloxacin) 500 Mg Tablet, 500 MG PO QPM, (Reported) TAKES AT 1600 Levothyroxine Sodium (Synthroid) 100 Mcg Tab, 100 MCG PO DAILY, (Reported) Potassium Chloride (Klor-Con M20) 20 Meq Tabcr, 40 MEQ PO DAILY, (Reported) Prednisone (Prednisone) 20 Mg Tablet, 20 MG PO DAILY, (Reported) NORMALLY ON PREDNISONE DOSE OF 10MG AND 15MG ALTERNATING DAYS, BUT PUT ON A 7 DAY SUPPLY OF THIS DOSE Pregabalin (Lyrica) 100 Mg Cap, 100 MG PO TID, (Reported) Rivaroxaban (Xarelto) 20 Mg Tab, 20 MG PO DAILY, (Reported) Sertraline HCl (Sertraline HCl) 100 Mg Tablet, 100 MG PO QHS, (Reported) Simvastatin (Zocor) 40 Mg Tab, 20 MG PO QHS, (Reported) Trazodone HCl (Trazodone HCl) 50 Mg Tab, 50 MG PO QHS, (Reported) Vitamin E (Vitamin E) 100 Unit Capsule, 100 UNIT PO QHS, (Reported) Scheduled PRN Fluticasone Propionate (Flonase Allergy Relief) 9.9 Ml [place].susp, 2 SPRAYS NA DAILY PRN for NASAL CONGESTION, (Reported) Ipratropium/Albuterol Sulfate (Combivent Respimat 20-100 Mcg) 1 Aer Aer, 1 PUFF INH QID PRN for SHORTNESS OF BREATH, (Reported) Levalbuterol Hydrochloride (Xopenex Hfa) 15 Gm Hfa.aer.ad, 2 PUFF INH Q4H PRN for SHORTNESS OF BREATH, (Reported) [Blur Relief] , 1 DROP OU QID PRN for BLURRY VISION, (Reported) Allergies Coded Allergies: celecoxib (Verified Allergy, Severe, DIFFICULTY BREATHING, 09/28/18) ciprofloxacin (Verified Allergy, Severe, DIFFICULTY BREATHING, 09/28/18) guaifenesin (Verified Allergy, Severe, DIFFICULTY BREATHING, 09/28/18) milk (Unverified Allergy, Severe, DIFFICULTY BREATHING, 07/20/18) moxifloxacin (Verified Allergy, Severe, DIFFICULTY BREATHING, 09/28/18) tiotropium (Unverified Allergy, Severe, DIFFICULTY BREATHING, 07/20/18) hydroxyzine (Unverified Allergy, Unknown, 07/20/18) naproxen (Unverified Allergy, Unknown, 07/20/18) atorvastatin (Verified Adverse Reaction, Intermediate, JOINT PAIN SWELLING, 07/20/18) amiodarone (Verified Adverse Reaction, Unknown, HEART RACING, DIFFICULTY BREATHING, 07/20/18) cephalexin (Unverified Adverse Reaction, Unknown, STOMACHE PAIN, 07/20/18) Past Medical History Medical History A. fib status post pacemaker placement, COPD, pneumonia, hypothyroidism, anemia, anxiety Family History Significant Family History: No pertinent family hx Social History * Smoker: former Smoker Alcohol: Denies A-FIB/CHADSVASC A-FIB History Current/History of A-Fib/PAF?: Yes Current PO Anticoag Therapy: Yes Review of Systems Constitutional: Denies: Chills, Fever, Malaise, Night Sweats, Weakness, Fatigue, Weight Loss, Lethargy, Other Eyes: Denies: Pain, Vision change, Conjunctivae inflammation, Eyelid inflammation, Redness, Other ENT: Denies: Head Aches, Ear Pain, Dysphagia, Sinus Congestion, Post Nasal D rip, Sore Throat, Epistaxis, Other Symptoms Skin: Denies: Rash, Lesions, Breakdown Pulmonary: Reports: Dyspnea, Cough Cardiovascular: Denies: Chest Pain, Palpitations, Orthopnea, Paroxysmal Noc. Dyspnea, Edema, Lt Headedness, Other Symptoms Gastrointestinal: Denies: Nausea, Vomiting, Abdominal Pain, Diarrhea, C onstipation, Melena, Hematochezia, Other Symptoms Genitourinary: Denies: Dysuria, Frequency, Incontinence, Hematuria, Retention, Other Symptoms Hematologic: Denies: Bruising, Bleeding Excessively, Petecchia, Purpura, Enlarged Lymph Nodes, Other Hematologic Endocrine: Denies: Polydipsia, Polyphagia, Polyuria, Heat Intolerance, Cold I ntolerance, Other Endocrine Sx Musculoskeletal: Denies: Neck Pain, Back Pain, Shoulder Pain, Arm Pain, Hand Pain, Leg Pain, Foot Pain, Joint Pain, Muscle Pain, Spasms, Other Symptoms Neurological: Denies: Weakness, Numbness, Incoordination, Change in speech, Confusion, Seizures, Other Symptoms Psych: Denies: Mood Normal, Anxiety, Depression, Memory Issues, Thoughts of Self Harm, Anger, Thoughts of Harming Other, Other Psych Physical Examination General Exam: Positive: Alert, Cooperative Eye Exam: Positive: PERRLA ENT Exam: Positive: Atraumatic, Mucous membr. moist/pink Neck Exam: Positive: Supple Chest Exam: Positive: Diminished, Other (decreased breath sounds bilaterally. Unable to hear wheezing or rales) Heart Exam: Positive: Irregular Rhythm Abdomen Exam: Positive: Normal bowel sounds Extremity Exam: Positive: Normal pulses Skin Exam: Positive: Nl turgor and temperature Neuro Exam: Positive: Normal Gait Psych Exam: Positive: Mental status NL, Mood NL Vital Signs Vital Signs Date Time Temp Pulse Resp B/P (MAP) Pulse Ox O2 Delivery O2 Flow Rate FiO2 09/28/18 21:01 69 20 134/80 (98) 96 Nasal Cannula 4.0 09/28/18 15:28 97.5 Laboratory Data Labs 24H Laboratory Tests 2 09/28/18 15:46: Immature Granulocyte % (Auto) 3.6H, White Blood Count 11.5H, Red Blood Count 4.92, Hemoglobin 11.6L, Hematocrit 41.5, Mean Corpuscular Volume 84.3, Mean Corpuscular Hemoglobin 23.6L, Mean Corpuscular Hemoglobin Concent 28.0L, Red Cell Distribution Width 20.2H, Platelet Count 214, Neutrophils (%) (Auto) 86.4H, Lymphocytes (%) (Auto) 4.8L, Monocytes (%) (Auto) 4.5, Eosinophils (%) (Auto) 0.0, Basophils (%) (Auto) 0.7, Neutrophils # (Auto) 9.9H, Lymphocytes # (Auto) 0.6L, Monocytes # (Auto) 0.5, Eosinophils # (Auto) 0.0, Basophils # (Auto) 0.1, Nucleated Red Blood Cells % (auto) 0.2H, Prothrombin Time 18.5H, Prothromb Time International Ratio 1.57, Activated Partial Thromboplast Time 32.1, Lactic Acid Level 1.9 09/28/18 15:47: Anion Gap 6L, Glomerular Filtration Rate > 60.0, Blood Urea Nitrogen 24H, Creatinine 0.65, Sodium Level 145, Potassium Level 4.0, Chloride Level 104, Carbon Dioxide Level 35H, Calcium Level 8.5L, EQ-Nqi-W-Type Natriuretic Peptide 935H, Thyroid Stimulating Hormone (TSH) 0.387 09/28/18 15:54: POC Glucose (Misc Panel) 147H, POC Sodium (Misc Panel) 143, POC Potassium (Misc Panel) 3.9, POC Chloride (Misc Panel) 99, POC Total CO2 (Misc Panel) 33.0H, POC Blood Urea Nitrogen (Misc Panel 23, POC Ionized Calcium (Misc Panel) 4.5, POC Creatinine (Misc Panel) 0.6, POC Hematocrit (Misc Panel) 39.0 09/28/18 16:18: POC Total CO2 (Misc Panel) 35.0H, POC pH (Misc Panel) 7.365, POC Base Excess (Misc Panel) 8.0H, POC Saturated Percent O2 (Misc) 92L, POC pO2 (Misc Panel) 66.0L, POC pCO2 (Misc Panel) 57.7H, POC HCO3 (Misc Panel) 33.0H CBC/BMP Laboratory Tests 09/28/18 15:46 Red Blood Count 4.92, Mean Corpuscular Volume 84.3, Mean Corpuscular Hemoglobin 23.6 L, Mean Corpuscular Hemoglobin Concent 28.0 L, Red Cell Distribution Width 20.2 H, Neutrophils (%) (Auto) 86.4 H, Lymphocytes (%) (Auto) 4.8 L, Monocytes (%) (Auto) 4.5, Eosinophils (%) (Auto) 0.0, Basophils (%) (Auto) 0.7, Neutrophils # (Auto) 9.9 H, Lymphocytes # (Auto) 0.6 L, Monocytes # (Auto) 0.5, Eosinophils # (Auto) 0.0, Basophils # (Auto) 0.1 09/28/18 15:47 Calcium Level 8.5 L Microbiology Microbiology 09/28/18 Blood Culture, Received Pending 09/28/18 Blood Culture, Received Pending Problems (1) COPD (chronic obstructive pulmonary disease) Status: Acute Problem Text: Admit to PCU with telemetry for continuous pulse ox Saline lock IV steroids, Solu-Medrol 80 mg IV every 8 hours DuoNeb every 4 hours scheduled , Proventil neb every hour when necessary Continue home meds Oxygen support Bed rest except going to commode , Elevate head of bed 45 DVT prophylaxis, patient is already on by mouth anticoagulation for A. 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 Serum magnesium in a.m. Repeat chest x-ray in a day or 2 All PE workup was negative as well as DVT workup was negative Plan / VTE VTE Prophylaxis Ordered?: Yes BOBO SARABIA MD Sep 28, 2018 22:55
[2018-09-28] MEDS ORDERED: FLUTICASONE PROP 0.05% NASAL SPRAY 16 GM (FLONASE) PRN (23:00)
[2018-09-28] MEDS: CARVedilol 12.5 MG TAB PO SCH (23:24)
[2018-09-28] MEDS: cefTRIAXone SOD 1 GM in D5W 50 ML IV SCH (23:25)
[2018-09-28] MEDS: SIMVASTATIN 40 MG TAB PO SCH (23:25)
[2018-09-28] MEDS: PREGABALIN 100 MG CAP (LYRICA) PO SCH (23:25)
[2018-09-28] MEDS: SERTRALINE 100 MG TAB PO SCH (23:25)
[2018-09-28] MEDS: traZODone 50 MG TAB PO SCH (23:25)
[2018-09-29] VITALS (7 sets, daily range): BP systolic 114–139; BP diastolic 56–84
[2018-09-29] MEDS: AZITHROMYCIN INJ 500 MG, VIAL MATE ADAPTER 1 EACH in D5W 250 ML IV SCH (00:45)
[2018-09-29] MEDS: ADVAIR HFA 230/21MCG INHALER INH SCH ×3 (01:57→20:36)
[2018-09-29] MEDS: methylPREDNISolone INJ 125 MG/2 ML VIAL (J2930) IV SCH ×3 (02:06→20:19)
[2018-09-29] MEDS: IPRATROPIUM 0.5MG/ALBUTEROL 2.5MG INH SOL UD 3ML (DUONEB)(J7620) NEB SCH ×5 (02:06→20:00)
[2018-09-29 05:26] LABS: HEMATOCRIT 37.7 % (36.0-47.0); HEMOGLOBIN 10.7 g/dl (12.0-15.5); MEAN CORPUSCULAR HEMOGLOBIN 23.7 pg (27.0-33.0); MEAN CORPUSCULAR HGB CONC 28.4 g/dl (32.0-36.5); MEAN CORPUSCULAR VOLUME 83.6 fl (80.0-96.0); PLATELET COUNT, AUTOMATED 189 10^3/uL (150-450); RED BLOOD COUNT 4.51 10^6/uL (4.00-5.40); WHITE BLOOD COUNT 8.8 10^3/uL (4.0-10.0)
--- NOTE | 2018-09-29 05:46 | ECGEPIP ---
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
[2018-09-29 05:50] LABS: ALBUMIN 2.9 GM/DL (3.2-5.2); ALT/SGPT 12 U/L (12-78); BILIRUBIN,TOTAL 0.5 MG/DL (0.2-1.0); BLOOD UREA NITROGEN 16 MG/DL (7-18); CALCIUM LEVEL 8.1 MG/DL (8.8-10.2); CARBON DIOXIDE LEVEL 37 MEQ/L (21-32); CHLORIDE LEVEL 101 MEQ/L (98-107); CREATININE FOR GFR 0.61 MG/DL (0.55-1.30); GLOMERULAR FILTRATION RATE > 60.0 (>39); GLUCOSE, FASTING 174 MG/DL (70-100); MAGNESIUM LEVEL 2.5 MG/DL (1.8-2.4); POTASSIUM SERUM 3.4 MEQ/L (3.5-5.1); SODIUM LEVEL 143 MEQ/L (136-145); TOTAL PROTEIN 5.7 GM/DL (6.4-8.2)
[2018-09-29] MEDS: LEVOTHYROXINE 100MCG TABLET (0.1MG) PO SCH (06:37)
[2018-09-29] MEDS ORDERED: POTASSIUM CHLORIDE 10 MEQ SR TABLET PO ONE (07:45)
[2018-09-29] MEDS: DOCUSATE SODIUM 100 MG CAP PO SCH ×2 (09:29→20:19)
[2018-09-29] MEDS: CARVedilol 12.5 MG TAB PO SCH ×2 (09:30→20:20)
[2018-09-29] MEDS: PANTOPRAZOLE 40MG TAB (PROTONIX) PO SCH (09:30)
[2018-09-29] MEDS: RIVAROXABAN 20 MG TAB (XARELTO) PO SCH (09:30)
[2018-09-29] MEDS: PREGABALIN 100 MG CAP (LYRICA) PO SCH ×3 (09:30→20:18)
[2018-09-29] MEDS: amLODIPine 5 MG TAB PO SCH (09:31)
[2018-09-29] MEDS: FERROUS SULFATE 325MG TAB PO SCH (09:31)
[2018-09-29] MEDS: FUROSEMIDE 20 MG TAB PO SCH (09:31)
[2018-09-29] MEDS ORDERED: SLF 3 ML SYR IV PRN (10:45)
--- NOTE | 2018-09-29 15:01 | IPNPDOC ---
Text Note Date of Service The patient was seen on 09/29/18. NOTE Subjective: Patient is a 72-year-old female with a past medical history of Paroxysmal A. 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 Patient had initially seen her primary care provider, Dr. Rodríguez on 09/25/2018 and was prescribed prednisone and Levaquin. She failed to improve and came to the ER for further evaluation. Patient was admitted to the hospitalist service for COPD exacerbation and suspected pneumonia. Patient was seen and examined at the bedside. Patient reports that she's feeling slightly better. She still reports some shortness of breath but denies any significant cough. She denies chest pain or palpitations. Denies nausea, vomiting, abdominal pain, constipation or dysuria. Objective: Vitals (See below) General: Lying in bed, no acute distress, comfortable, AAOx3 HEENT: NC, AT CVS: RRR, +S1S2 Lungs: Fair air entry b/l, no significant wheezing, no rhonchi, rales Abdomen: Soft, ND, NT Extremities: Trace lower extremity edema, - Calf tenderness Assessment and plan: Shortness of breath - likely 2/2 acute COPD exacerbation, less likely 2/2 community acquired pneumonia - Patient presented to the emergency room after she failed antibiotic therapy and prednisone that she received as an outpatient - Had reported shortness of breath and was found to have significant wheezing bilaterally - Physical currently does not reveal any significant wheezing - CTA Chest 09/28: 1. No acute pulmonary embolism. 2. Small right pleural effusion which has increased in size since previous. There remains segmental atelectasis in the right lower lobe likely related to compression from the adjacent diaphragmatic hernia on the right. 3. Biatrial enlargement with reflux of contrast into the inferior vena cava. The RV LV ratio is less than 1. 4. Pulmonary nodules on the right. One has enlarged since previous. This could be inflammatory. Short term followup within 3 months after resolution of acute symptoms recommended. 5. Severe emphysema without change. 6. Right diaphragmatic hernia with 7. Multiple low density splenic lesions not characterized fully. No change from previous. - c/w Solumedrol; will reduce dose - Will c/w Antibiotics; awaiting sputum culture - c/w inhaled therapy as ordered Paroxysmal A. fib - Remains in sinus - c/w rate control with carvedilol - On full anticoagulation with Xarelto HTN - BP well controlled - c/w carvedilol Hx of PE/DVT - c/w full anticoagulation with Xarelto JOJO on BIPAP - c/w BIPAP based on home settings - Allow home BIPAP use while inpatient; but will get settings from [facility] [place] Hypothyroidism - c/w Levothyroxine Anemia - Hg appears to be better than baseline Hypokalemia - Will supplement CKD3 - Cr appears to be at baseline DVT prophylaxis - c/w full anticoagulation with Xarelto VS,Fishbone, I+O VS, Fishbone, I+O Laboratory Tests 09/28/18 15:46 Red Blood Count 4.92, Mean Corpuscular Volume 84.3, Mean Corpuscular Hemoglobin 23.6 L, Mean Corpuscular Hemoglobin Concent 28.0 L, Red Cell Distribution Width 20.2 H, Neutrophils (%) (Auto) 86.4 H, Lymphocytes (%) (Auto) 4.8 L, Monocytes (%) (Auto) 4.5, Eosinophils (%) (Auto) 0.0, Basophils (%) (Auto) 0.7, Neutrophils # (Auto) 9.9 H, Lymphocytes # (Auto) 0.6 L, Monocytes # (Auto) 0.5, Eosinophils # (Auto) 0.0, Basophils # (Auto) 0.1 09/28/18 15:47 Calcium Level 8.5 L 09/29/18 05:08 Red Blood Count 4.51, Mean Corpuscular Volume 83.6, Mean Corpuscular Hemoglobin 23.7 L, Mean Corpuscular Hemoglobin Concent 28.4 L, Red Cell Distribution Width 19.9 H, Calcium Level 8.1 L, Aspartate Amino Transf (AST/SGOT) 5 L, Alanine Am inotransferase (ALT/SGPT) 12, Alkaline Phosphatase 44 L, Total Bilirubin 0.5, Total Protein 5.7 L, Albumin 2.9 L Vital Signs Date Time Temp Pulse Resp B/P (MAP) Pulse Ox O2 Delivery O2 Flow Rate FiO2 09/29/18 12:00 97.3 80 18 118/71 (87) 93 09/29/18 08:00 5.0 09/29/18 02:00 Nasal Cannula I&O- Last 24 Hours up to 6 AM 09/29/18 06:00 Intake Total 305 ml Balance 305 ml ALAN HOOVER MD Sep 29, 2018 15:01
[2018-09-29] MEDS: SLF 3 ML SYR IV SCH ×2 (18:09→20:20)
[2018-09-29] MEDS: SIMVASTATIN 40 MG TAB PO SCH (20:18)
[2018-09-29] MEDS: SERTRALINE 100 MG TAB PO SCH (20:18)
[2018-09-29] MEDS: traZODone 50 MG TAB PO SCH (20:18)
[2018-09-30] VITALS (7 sets, daily range): BP systolic 102–148; BP diastolic 58–80
[2018-09-30] MEDS: AZITHROMYCIN INJ 500 MG, VIAL MATE ADAPTER 1 EACH in D5W 250 ML IV SCH ×3
[2018-09-30] MEDS: IPRATROPIUM 0.5MG/ALBUTEROL 2.5MG INH SOL UD 3ML (DUONEB)(J7620) NEB SCH ×4 (02:00→21:23)
[2018-09-30] MEDS: LEVOTHYROXINE 100MCG TABLET (0.1MG) PO SCH (06:16)
[2018-09-30] MEDS: SLF 3 ML SYR IV SCH ×2 (06:17→14:08)
[2018-09-30] MEDS: ADVAIR HFA 230/21MCG INHALER INH SCH ×2 (07:29→21:23)
[2018-09-30 07:54] LABS: BASO % 0.1 % (0.0-1.0); HEMATOCRIT 38.2 % (36.0-47.0); HEMOGLOBIN 10.7 g/dl (12.0-15.5); LYMPH # 0.5 10^3/uL (1.5-4.5); LYMPH % 4.1 % (24.0-44.0); MEAN CORPUSCULAR HEMOGLOBIN 23.2 pg (27.0-33.0); MEAN CORPUSCULAR VOLUME 82.7 fl (80.0-96.0); MONO # 0.9 10^3/uL (0.0-0.8); MONO % 6.8 % (0.0-5.0); NEUTROPHILS # 11.4 10^3/uL (1.8-7.7); NEUTROPHILS % 87.5 % (36.0-66.0); PLATELET COUNT, AUTOMATED 206 10^3/uL (150-450); RED BLOOD COUNT 4.62 10^6/uL (4.00-5.40)
[2018-09-30 08:45] LABS: BLOOD UREA NITROGEN 30 MG/DL (7-18); CALCIUM LEVEL 8.9 MG/DL (8.8-10.2); CARBON DIOXIDE LEVEL 38 MEQ/L (21-32); CHLORIDE LEVEL 105 MEQ/L (98-107); CREATININE FOR GFR 0.66 MG/DL (0.55-1.30); GLOMERULAR FILTRATION RATE > 60.0 (>39); GLUCOSE, FASTING 130 MG/DL (70-100); MAGNESIUM LEVEL 2.7 MG/DL (1.8-2.4); POTASSIUM SERUM 4.1 MEQ/L (3.5-5.1); SODIUM LEVEL 146 MEQ/L (136-145)
[2018-09-30] MEDS: PANTOPRAZOLE 40MG TAB (PROTONIX) PO SCH (09:11)
[2018-09-30] MEDS: FERROUS SULFATE 325MG TAB PO SCH (09:11)
[2018-09-30] MEDS: RIVAROXABAN 20 MG TAB (XARELTO) PO SCH (09:11)
[2018-09-30] MEDS: amLODIPine 5 MG TAB PO SCH (09:13)
[2018-09-30] MEDS: CARVedilol 12.5 MG TAB PO SCH ×2 (09:13→21:14)
[2018-09-30] MEDS: PREGABALIN 100 MG CAP (LYRICA) PO SCH ×3 (09:13→21:13)
[2018-09-30] MEDS: methylPREDNISolone INJ 125 MG/2 ML VIAL (J2930) IV SCH ×2 (09:14→21:14)
[2018-09-30] MEDS: FUROSEMIDE 20 MG TAB PO SCH (09:14)
[2018-09-30] MEDS: DOCUSATE SODIUM 100 MG CAP PO SCH ×2 (09:16→21:13)
--- NOTE | 2018-09-30 11:41 | IPNPDOC ---
Text Note Date of Service The patient was seen on 09/30/18. NOTE Subjective: Patient is a 72-year-old female with a past medical history of Paroxysmal A. 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 Patient had initially seen her primary care provider, Dr. Rodríguez on 09/25/2018 and was prescribed prednisone and Levaquin. She failed to improve and came to the ER for further evaluation. Patient was admitted to the hospitalist service for COPD exacerbation and suspected pneumonia. Patient was seen and examined at the bedside. Patient reports that she's feeling slightly better. She still reports some shortness of breath but denies any significant cough. She denies chest pain or palpitations. Denies nausea, vomiting, abdominal pain, constipation or dysuria. Objective: Vitals (See below) General: Lying in bed, no acute distress, comfortable, AAOx3 HEENT: NC, AT CVS: RRR, +S1S2 Lungs: Fair air entry b/l, no appreciable rhonchi / rales / wheezing Abdomen: Soft, non-distended and non-tender Extremities: 1+ pitting edema bilaterally, - Calf tenderness Assessment and plan: Shortness of breath - likely 2/2 acute COPD exacerbation, less likely 2/2 community acquired pneumonia - Patient presented to the emergency room after she failed antibiotic therapy and prednisone that she received as an outpatient - Had reported shortness of breath and was found to have significant wheezing bilaterally - Physical currently does not reveal any significant wheezing - CTA Chest 09/28: 1. No acute pulmonary embolism. 2. Small right pleural effusion which has increased in size since previous. There remains segmental atelectasis in the right lower lobe likely related to compression from the adjacent diaphragmatic hernia on the right. 3. Biatrial enlargement with reflux of contrast into the inferior vena cava. The RV LV ratio is less than 1. 4. Pulmonary nodules on the right. One has enlarged since previous. This could be inflammatory. Short term followup within 3 months after resolution of acute symptoms recommended. 5. Severe emphysema without change. 6. Right diaphragmatic hernia with 7. Multiple low density splenic lesions not characterized fully. No change from previous. - c/w Solumedrol; will reduce dose - c/w Ceftriaxone and Azithromycin (Day #2); awaiting sputum culture - c/w inhaled therapy as ordered LE edema - Possibly 2/2 decompensated CHF - LE reveal edema - Will check ECHO - Will change from PO to IV Furosemide Paroxysmal A. fib - Remains in sinus - c/w rate control with carvedilol - On full anticoagulation with Xarelto HTN - BP well controlled - c/w carvedilol Hx of PE/DVT - c/w full anticoagulation with Xarelto JOJO on BIPAP - c/w BIPAP based on home settings - Allow home BIPAP use while inpatient; but will get settings from [facility] Hypothyroidism - c/w Levothyroxine Anemia - Hg appears to be better than baseline Hypokalemia - Will supplement CKD3 - Cr appears to be at baseline DVT prophylaxis - c/w full anticoagulation with Xarelto Disposition: - Will start PT VS,Fishbone, I+O VS, Fishbone, I+O Laboratory Tests 09/30/18 07:28 Red Blood Count 4.62, Mean Corpuscular Volume 82.7, Mean Corpuscular Hemoglobin 23.2 L, Mean Corpuscular Hemoglobin Concent 28.0 L, Red Cell Distribution Width 19.9 H, Neutrophils (%) (Auto) 87.5 H, Lymphocytes (%) (Auto) 4.1 L, Monocytes (%) (Auto) 6.8 H, Eosinophils (%) (Auto) 0.0, Basophils (%) (Auto) 0.1, Neutrophils # (Auto) 11.4 H, Lymphocytes # (Auto) 0.5 L, Monocytes # (Auto) 0.9 H, Eosinophils # (Auto) 0.0, Basophils # (Auto) 0.0, Calcium Level 8.9 Vital Signs Date Time Temp Pulse Resp B/P (MAP) Pulse Ox O2 Delivery O2 Flow Rate FiO2 09/30/18 09:21 4.0 09/30/18 09:13 76 143/70 09/30/18 08:00 96.7 18 93 09/29/18 02:00 Nasal Cannula I&O- Last 24 Hours up to 6 AM0 09/30/18 05:59 Intake Total 1365 ml Output Total 500 ml Balance 865 ml ALAN HOOVER MD Sep 30, 2018 11:41
[2018-09-30] MEDS ORDERED: FUROSEMIDE 40 MG/4 ML VIAL (J1940) IV ONE (12:00)
[2018-09-30] MEDS ORDERED: SIMVASTATIN 20 MG TAB PO SCH (20:59)
[2018-09-30] MEDS ORDERED: PILL CUTTER 1 EACH XX PRN (21:00)
[2018-09-30] MEDS: SIMVASTATIN 20 MG TAB PO SCH (21:13)
[2018-09-30] MEDS: SERTRALINE 100 MG TAB PO SCH (21:14)
[2018-09-30] MEDS: traZODone 50 MG TAB PO SCH (21:14)
[2018-09-30] MEDS: cefTRIAXone SOD 1 GM in D5W 50 ML IV SCH ×3 (23:43)
[2018-10-01] MEDS: AZITHROMYCIN INJ 500 MG, VIAL MATE ADAPTER 1 EACH in D5W 250 ML IV SCH ×2 (00:43→23:46)
[2018-10-01] MEDS: SLF 3 ML SYR IV SCH ×3 (00:59→13:13)
[2018-10-01] MEDS: IPRATROPIUM 0.5MG/ALBUTEROL 2.5MG INH SOL UD 3ML (DUONEB)(J7620) NEB SCH ×4 (01:39→20:00)
[2018-10-01] MEDS: LEVOTHYROXINE 100MCG TABLET (0.1MG) PO SCH (05:45)
[2018-10-01 06:00] VITALS: BP 127/89
[2018-10-01 06:51] LABS: BASO % 0.3 % (0.0-1.0); HEMATOCRIT 37.5 % (36.0-47.0); HEMOGLOBIN 10.6 g/dl (12.0-15.5); LYMPH # 0.4 10^3/uL (1.5-4.5); LYMPH % 3.7 % (24.0-44.0); MEAN CORPUSCULAR HEMOGLOBIN 23.7 pg (27.0-33.0); MEAN CORPUSCULAR HGB CONC 28.3 g/dl (32.0-36.5); MEAN CORPUSCULAR VOLUME 83.7 fl (80.0-96.0); MONO # 0.9 10^3/uL (0.0-0.8); MONO % 7.6 % (0.0-5.0); NEUTROPHILS # 10.3 10^3/uL (1.8-7.7); NEUTROPHILS % 85.6 % (36.0-66.0); PLATELET COUNT, AUTOMATED 188 10^3/uL (150-450); RED BLOOD COUNT 4.48 10^6/uL (4.00-5.40); WHITE BLOOD COUNT 12.1 10^3/uL (4.0-10.0)
[2018-10-01 07:13] LABS: BLOOD UREA NITROGEN 32 MG/DL (7-18); CALCIUM LEVEL 8.2 MG/DL (8.8-10.2); CARBON DIOXIDE LEVEL 36 MEQ/L (21-32); CHLORIDE LEVEL 101 MEQ/L (98-107); CREATININE FOR GFR 0.69 MG/DL (0.55-1.30); GLOMERULAR FILTRATION RATE > 60.0 (>39); GLUCOSE, FASTING 127 MG/DL (70-100); MAGNESIUM LEVEL 2.6 MG/DL (1.8-2.4); POTASSIUM SERUM 3.4 MEQ/L (3.5-5.1); SODIUM LEVEL 142 MEQ/L (136-145)
[2018-10-01] MEDS ORDERED: POTASSIUM CHLORIDE 10 MEQ SR TABLET PO ONE (07:30)
[2018-10-01] MEDS: ADVAIR HFA 230/21MCG INHALER INH SCH ×2 (08:30→23:36)
[2018-10-01] MEDS ORDERED: FUROSEMIDE 40 MG/4 ML VIAL (J1940) IV SCH (09:00)
[2018-10-01] MEDS: PREGABALIN 100 MG CAP (LYRICA) PO SCH ×3 (09:33→21:19)
[2018-10-01] MEDS: PANTOPRAZOLE 40MG TAB (PROTONIX) PO SCH (09:33)
[2018-10-01] MEDS: DOCUSATE SODIUM 100 MG CAP PO SCH ×2 (09:33→21:19)
[2018-10-01] MEDS: FERROUS SULFATE 325MG TAB PO SCH (09:34)
[2018-10-01] MEDS: methylPREDNISolone INJ 125 MG/2 ML VIAL (J2930) IV SCH (09:34)
[2018-10-01] MEDS: RIVAROXABAN 20 MG TAB (XARELTO) PO SCH (09:34)
[2018-10-01] MEDS: CARVedilol 12.5 MG TAB PO SCH ×2 (09:36→21:19)
[2018-10-01] MEDS: amLODIPine 5 MG TAB PO SCH (09:36)
--- NOTE | 2018-10-01 12:15 | IPNPDOC ---
Text Note Date of Service The patient was seen on 10/01/18. NOTE Subjective: Patient is a 72-year-old female with a past medical history of Paroxysmal A. 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 Patient had initially seen her primary care provider, Dr. Rodríguez on 09/25/2018 and was prescribed prednisone and Levaquin. She failed to improve and came to the ER for further evaluation. Patient was admitted to the hospitalist service for COPD exacerbation and suspected pneumonia. Patient was seen and examined at the bedside. Patient reports her breathing is doing significantly better today. She denies chest pain or palpitations. Patient denies any abdominal pain, constipation, or discomfort with urination. . She did report that despite receiving IV based diuresis, she does not urinate more frequently. Objective: Vitals (See below) General: Lying in bed, no acute distress, comfortable, AAOx3 HEENT: NC, AT CVS: RRR, +S1S2 Lungs: Fair air entry b/l, auscultation is free of rhonchi, rales or wheezing Abdomen: Soft without any evidence of distention or tenderness Extremities: Lower extremities again reveal 1+ pitting edema bilaterally, - Calf tenderness Assessment and plan: Shortness of breath - likely 2/2 acute COPD exacerbation, less likely 2/2 community acquired pneumonia - Patient presented to the emergency room after she failed antibiotic therapy and prednisone that she received as an outpatient - Had reported shortness of breath and was found to have significant wheezing bilaterally - Physical currently does not reveal any significant wheezing - Sputum culture 09/29: Yeast like organisms - few - CTA Chest 09/28: 1. No acute pulmonary embolism. 2. Small right pleural effusion which has increased in size since previous. There remains segmental atelectasis in the right lower lobe likely related to compression from the adjacent diaphragmatic hernia on the right. 3. Biatrial enlargement with reflux of contrast into the inferior vena cava. The RV LV ratio is less than 1. 4. Pulmonary nodules on the right. One has enlarged since previous. This could be inflammatory. Short term followup within 3 months after resolution of acute symptoms recommended. 5. Severe emphysema without change. 6. Right diaphragmatic hernia with 7. Multiple low density splenic lesions not characterized fully. No change from previous. - Will start prednisone; Will DC Solumedrol - c/w Ceftriaxone and Azithromycin (Day #3) - c/w inhaled therapy as ordered LE edema - Possibly 2/2 decompensated CHF - LE reveal edema - ECHO complete; report pending - c/w Furosemide; will increase to BID dosing today Paroxysmal A. fib - Remains in sinus - c/w rate control with carvedilol - On full anticoagulation with Xarelto HTN - BP well controlled - c/w carvedilol Hx of PE/DVT - c/w full anticoagulation with Xarelto JOJO on BIPAP - c/w BIPAP based on home settings - Allow home BIPAP use while inpatient; but will get settings from [facility] Hypothyroidism - c/w Levothyroxine Anemia - Hg appears to be better than baseline Hypokalemia - Will again supplement CKD3 - Cr appears to be at baseline DVT prophylaxis - c/w full anticoagulation with Xarelto Disposition: - c/w PT - Anticipate discharge tomorrow VS,Ankit, I+O VS, Ankit, I+O Laboratory Tests 10/01/18 06:11 Red Blood Count 4.48, Mean Corpuscular Volume 83.7, Mean Corpuscular Hemoglobin 23.7 L, Mean Corpuscular Hemoglobin Concent 28.3 L, Red Cell Distribution Width 19.4 H, Neutrophils (%) (Auto) 85.6 H, Lymphocytes (%) (Auto) 3.7 L, Monocytes (%) (Auto) 7.6 H, Eosinophils (%) (Auto) 0.0, Basophils (%) (Auto) 0.3, Neutrophils # (Auto) 10.3 H, Lymphocytes # (Auto) 0.4 L, Monocytes # (Auto) 0.9 H, Eosinophils # (Auto) 0.0, Basophils # (Auto) 0.0, Calcium Level 8.2 L Vital Signs Date Time Temp Pulse Resp B/P (MAP) Pulse Ox O2 Delivery O2 Flow Rate FiO2 10/01/18 09:36 74 116/75 10/01/18 06:00 97.8 17 97 09/30/18 22:00 4.0 09/29/18 02:00 Nasal Cannula I&O- Last 24 Hours up to 6 AM 10/01/18 05:59 Intake Total 1805 ml Output Total 650 ml Balance 1155 ml ALAN HOOVER MD Oct 01, 2018 12:15
[2018-10-01] MEDS ORDERED: predniSONE 20 MG TAB PO ONE (13:00)
[2018-10-01 14:00] VITALS: BP 123/71
[2018-10-01] MEDS: FUROSEMIDE 40 MG/4 ML VIAL (J1940) IV SCH (16:21)
[2018-10-01] MEDS: SIMVASTATIN 20 MG TAB PO SCH (21:18)
[2018-10-01] MEDS: SERTRALINE 100 MG TAB PO SCH (21:18)
[2018-10-01] MEDS: traZODone 50 MG TAB PO SCH (21:18)
[2018-10-01 22:00] VITALS: BP 143/70
[2018-10-01] MEDS: cefTRIAXone SOD 1 GM in D5W 50 ML IV SCH (22:47)
[2018-10-02] MEDS: SLF 3 ML SYR IV SCH ×2 (00:27→07:26)
[2018-10-02] MEDS: IPRATROPIUM 0.5MG/ALBUTEROL 2.5MG INH SOL UD 3ML (DUONEB)(J7620) NEB SCH ×3 (02:00→10:56)
[2018-10-02] MEDS: LEVOTHYROXINE 100MCG TABLET (0.1MG) PO SCH (05:35)
[2018-10-02 06:00] VITALS: BP 120/77
[2018-10-02 06:44] LABS: BASO # 0.1 10^3/uL (0.0-0.2); BASO % 0.7 % (0.0-1.0); EOS % 0.1 % (0.0-3.0); HEMATOCRIT 40.1 % (36.0-47.0); HEMOGLOBIN 11.1 g/dl (12.0-15.5); LYMPH # 0.9 10^3/uL (1.5-4.5); LYMPH % 6.1 % (24.0-44.0); MEAN CORPUSCULAR HEMOGLOBIN 23.3 pg (27.0-33.0); MEAN CORPUSCULAR HGB CONC 27.7 g/dl (32.0-36.5); MEAN CORPUSCULAR VOLUME 84.2 fl (80.0-96.0); MONO % 14.8 % (0.0-5.0); NEUTROPHILS # 10.7 10^3/uL (1.8-7.7); NEUTROPHILS % 73.9 % (36.0-66.0); PLATELET COUNT, AUTOMATED 210 10^3/uL (150-450); RED BLOOD COUNT 4.76 10^6/uL (4.00-5.40); WHITE BLOOD COUNT 14.5 10^3/uL (4.0-10.0)
--- NOTE | 2018-10-02 06:48 | ECHO ---
DATE OF PROCEDURE: 09/29/2018 DATE OF : 1945 AGE: 72 REFERRING PROVIDER: Dr. Iwona Simeon PATIENT LOCATION: Room 4225 REASON FOR THE ECHOCARDIOGRAM: Shortness of breath. 2-D MEASUREMENTS: IVS: 1.1 cm LV: 4.9 cm LVPW: 1.1 cm LA: 4.6 cm Aorta: 3.0 cm RV: 3.6 cm DOPPLER MEASUREMENTS: Peak velocity across the aortic valve: 1.4 m/s Peak velocity across the LVOT: 0.87 m/s Mitral E: 1.5 Maximum tricuspid valve velocity: 3.1 m/s 2-D COMMENTS: 1. Normal left ventricular size, wall thickness, and normal global left ventricular systolic function. The estimated ventricular systolic inversion is 60-65%. 2. Mildly enlarged left atrium and the right atrium. The right ventricle also appear to be mildly enlarged but was benito well. 3. The atrial septum appeared to be normal without evidence of defect or shunt. 4. Normal aortic root. 5. A small pericardial effusion was noted, no evidence cardiac tamponade. 6. Mildly calcified aortic valve with normal leaflet excursion. Mildly calcified mitral annulus with normal anterior mitral leaflet motion. Normal tricuspid valve. The pulmonic valve and proximal pulmonary artery branches were not well visualized. 7. The inferior vena cava was dilated at 2.4 cm, central venous pressure might be elevated. DOPPLER: It detects trace aortic radiation, mild mitral regurgitation, and mild tricuspid regurgitation. The calculated pulmonary artery systolic pressure varies between 40-50 mmHg. Assessment of the left ventricular diastolic function was limited. IMPRESSION: 1. Normal global left ventricular systolic function. Assessment of the left ventricular diastolic function was limited. 2. Aortic valve sclerosis with trace aortic radiation but no aortic stenosis. 3. Mitral annulus calcification with mild mitral regurgitation and mildly enlarged left atrium. 4. Mild tricuspid regurgitation with dilated right atrium and moderate pulmonary hypertension. 5. A small pericardial effusion was noted, no evidence of cardiac tamponade. 6. There are features of elevated central venous pressure, the inferior vena cava was mildly enlarged. MTDD
[2018-10-02 07:08] LABS: BLOOD UREA NITROGEN 30 MG/DL (7-18); CALCIUM LEVEL 7.8 MG/DL (8.8-10.2); CARBON DIOXIDE LEVEL 41 MEQ/L (21-32); CHLORIDE LEVEL 101 MEQ/L (98-107); CREATININE FOR GFR 0.67 MG/DL (0.55-1.30); GLOMERULAR FILTRATION RATE > 60.0 (>39); GLUCOSE, FASTING 93 MG/DL (70-100); MAGNESIUM LEVEL 2.6 MG/DL (1.8-2.4); POTASSIUM SERUM 3.6 MEQ/L (3.5-5.1); SODIUM LEVEL 145 MEQ/L (136-145)
[2018-10-02 07:17] LABS: MONO # 2.1 10^3/uL (0.0-0.8)
[2018-10-02] MEDS: ADVAIR HFA 230/21MCG INHALER INH SCH (08:06)
[2018-10-02] MEDS: FUROSEMIDE 40 MG/4 ML VIAL (J1940) IV SCH (08:58)
[2018-10-02] MEDS: PREGABALIN 100 MG CAP (LYRICA) PO SCH (08:59)
[2018-10-02] MEDS: amLODIPine 5 MG TAB PO SCH (08:59)
[2018-10-02 09:00] VITALS: BP 120/77
[2018-10-02] MEDS: CARVedilol 12.5 MG TAB PO SCH (09:00)
[2018-10-02] MEDS: PANTOPRAZOLE 40MG TAB (PROTONIX) PO SCH (09:00)
[2018-10-02] MEDS: DOCUSATE SODIUM 100 MG CAP PO SCH (09:00)
[2018-10-02] MEDS: RIVAROXABAN 20 MG TAB (XARELTO) PO SCH (09:00)
[2018-10-02] MEDS: FERROUS SULFATE 325MG TAB PO SCH (09:00)
[2018-10-02] MEDS ORDERED: predniSONE 20 MG TAB PO SCH (09:00)
[2018-10-02] MEDS ORDERED: AZIT500T5 PO (10:04)
[2018-10-02] MEDS ORDERED: PRED10TA2 PO (10:04)
[2018-10-02] MEDS ORDERED: CEFD300CAP PO (10:04)
--- NOTE | 2018-10-02 15:01 | DS.PDOC ---
Discharge Summary General Date of Admission Sep 28, 2018 at 22:33 Date of Discharge 10/02/2018 Discharge Summary PROCEDURES PERFORMED DURING STAY: [None]. ADMITTING DIAGNOSES / DISCHARGE DIAGNOSES: Shortness of breath - likely 2/2 acute COPD exacerbation, less likely 2/2 community acquired pneumonia LE edema - Possibly 2/2 decompensated CHF Paroxysmal A. fib HTN Hx of PE/DVT JOJO on BIPAP Hypothyroidism Anemia Hypokalemia CKD3 DVT prophylaxis COMPLICATIONS/CHIEF COMPLAINT: Shortness of breath HISTORY OF PRESENT ILLNESS: Patient is a 72-year-old female with a past medical history of Pa roxysmal A. 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 Patient had initially seen her primary care provider, Dr. Rodríguez on 09/25/2018 and was prescribed prednisone and Levaquin. She failed to improve and came to the ER for further evaluation. Patient was admitted to the hospitalist service for COPD exacerbation and suspected pneumonia. HOSPITAL COURSE: Shortness of breath - likely 2/2 acute COPD exacerbation, less likely 2/2 community acquired pneumonia - Patient presented to the emergency room after she failed antibiotic therapy and prednisone that she received as an outpatient - Had reported shortness of breath and was found to have significant wheezing bilaterally - Physical currently does not reveal any significant wheezing - Sputum culture 09/29: Yeast like organisms - few - CTA Chest 09/28: 1. No acute pulmonary embolism. 2. Small right pleural effusion which has increased in size since previous. There remains segmental atelectasis in the right lower lobe likely related to compression from the adjacent diaphragmatic hernia on the right. 3. Biatrial enlargement with reflux of contrast into the inferior vena cava. The RV LV ratio is less than 1. 4. Pulmonary nodules on the right. One has enlarged since previous. This could be inflammatory. Short term followup within 3 months after resolution of acute symptoms recommended. 5. Severe emphysema without change. 6. Right diaphragmatic hernia with 7. Multiple low density splenic lesions not characterized fully. No change from previous. - c/w prednisone - will complete taper as an outpatient; s/p Solumedrol - c/w Ceftriaxone and Azithromycin (Day #4); will complete, antibody course as an outpatient - c/w inhaled therapy as ordered LE edema - Possibly 2/2 decompensated CHF - LE reveal edema - ECHO: EF of 60-65%, small pericardial effusion without cardiac tamponade, limited evaluation of diastolic function, mild TR, moderate Pulmonary HTN, - c/w Furosemide; will return to outpatient dosing Paroxysmal A. fib - Remains in sinus - c/w rate control with carvedilol - On full anticoagulation with Xarelto HTN - BP well controlled - c/w carvedilol Hx of PE/DVT - c/w full anticoagulation with Xarelto JOJO on BIPAP - c/w BIPAP based on home settings - Allow home BIPAP use while inpatient; but will get settings from [facility] Hypothyroidism - c/w Levothyroxine Anemia - Hg appears to be better than baseline s/p Hypokalemia CKD3 - Cr appears to be at baseline DVT prophylaxis - c/w full anticoagulation with Xarelto DISCHARGE MEDICATIONS: Please see below. ALLERGIES: Please see below. PHYSICAL EXAMINATION ON DISCHARGE: Vitals (See below) General: Lying in bed, no acute distress, comfortable, AAOx3 HEENT: NC, AT CVS: +S1S2 Lungs: Fair air entry b/l, no appreciable rhonchi, rales or wheezing Abdomen: Remains soft without distention or tenderness Extremities: Thickened improvement in lower extremity edema, - Calf tenderness LABORATORY DATA: Please see below. ACTIVITY: [As tolerated]. DISCHARGE PLAN: Will have outpatient follow up with Dr. Rodríguez within 7 days Remain compliant with treatment plan and medications Return to the ER if you experience any problems DISPOSITION: Home, Self-Care. DISCHARGE CONDITION: [Stable]. TIME SPENT ON DISCHARGE: 35 minutes Vital Signs/I&Os Vital Signs Date Time Temp Pulse Resp B/P (MAP) Pulse Ox O2 Delivery O2 Flow Rate FiO2 10/02/18 09:00 4.0 10/02/18 09:00 77 120/77 10/02/18 06:00 96.8 20 96 09/29/18 02:00 Nasal Cannula I&O- Last 24 Hours up to 6 AM 10/02/18 06:00 Intake Total 1975 ml Balance 1975 ml Laboratory Data Labs 24H Laboratory Tests 2 10/02/18 06:17: Immature Granulocyte % (Auto) 4.4H, White Blood Count 14.5H, Red Blood Count 4.76, Hemoglobin 11.1L, Hematocrit 40.1, Mean Corpuscular Volume 84.2, Mean Corpuscular Hemoglobin 23.3L, Mean Corpuscular Hemoglobin Concent 27.7L, Red Cell Distribution Width 19.3H, Platelet Count 210, Neutrophils (%) (Auto) 73.9H, Lymphocytes (%) (Auto) 6.1L, Monocytes (%) (Auto) 14.8H, Eosinophils (%) (Auto) 0.1, Basophils (%) (Auto) 0.7, Neutrophils # (Auto) 10.7H, Lymphocytes # (Auto) 0.9L, Monocytes # (Auto) 2.1H, Eosinophils # (Auto) 0.0, Basophils # (Auto) 0.1, Nucleated Red Blood Cells % (auto) 0.2H, Anion Gap 3L, Glomerular Filtration Rate > 60.0, Blood Urea Nitrogen 30H, Creatinine 0.67, Sodium Level 145, Potassium Level 3.6, Chloride Level 101, Carbon Dioxide Level 41H, Calcium Level 7.8L, Magnesium Level 2.6H CBC/BMP Laboratory Tests 10/02/18 06:17 Red Blood Count 4.76, Mean Corpuscular Volume 84.2, Mean Corpuscular Hemoglobin 23.3 L, Mean Corpuscular Hemoglobin Concent 27.7 L, Red Cell Distribution Width 19.3 H, Neutrophils (%) (Auto) 73.9 H, Lymphocytes (%) (Auto) 6.1 L, Monocytes (%) (Auto) 14.8 H, Eosinophils (%) (Auto) 0.1, Basophils (%) (Auto) 0.7, Neutrophils # (Auto) 10.7 H, Lymphocytes # (Auto) 0.9 L, Monocytes # (Auto) 2.1 H, Eosinophils # (Auto) 0.0, Basophils # (Auto) 0.1, Calcium Level 7.8 L Microbiology Microbiology 09/28/18 Blood Culture - Preliminary, Resulted No Growth after 72 hours. All specime... 09/28/18 Blood Culture - Preliminary, Resulted No Growth after 72 hours. All specime... 09/29/18 Gram Stain - Final, Resulted 09/29/18 Sputum Culture - Preliminary, Resulted Staphylococcus Aureus Yeast Like Organism Discharge Medications Scheduled Amlodipine Besylate (Amlodipine Besylate) 5 Mg Tablet, 5 MG PO DAILY, (Reported) Ascorbic Acid (Vitamin C) 1,000 Mg Tablet, 1,000 MG PO QHS, (Reported) Azithromycin (Azithromycin) 500 Mg Tablet, 1 TAB PO DAILY Carvedilol (Carvedilol) 12.5 Mg Tablet, 12.5 MG PO BID, (Reported) Cefdinir (Cefdinir) 300 Mg Capsule, 1 CAP PO BID Cholecalciferol (Vitamin D3) (Vitamin D3) 1,000 Unit Tab, 1,000 UNIT PO QHS, (Reported) Cyanocobalamin (Vitamin B-12) (Vitamin B-12) 500 Mcg Tab, 500 MCG PO QHS, (Reported) Duloxetine HCl (Duloxetine HCl) 60 Mg Capsule.dr, 60 MG PO QHS, (Reported) Esomeprazole Magnesium (Nexium) 40 Mg Cap, 40 MG PO DAILY, (Reported) Ferrous Sulfate (Ferrous Sulfate) 325 Mg Tablet, 325 MG PO DAILY, (Reported) Fluticasone Propion/Salmeterol (Advair Hfa 230-21 Mcg Inhaler) 1 Aer Aer, 2 PUFF INH BID, (Reported) Furosemide (Lasix) 20 Mg Tab, 20 MG PO DAILY, (Reported) Ipratropium/Albuterol Sulfate (Iprat-Albut 0.5-3(2.5) mg/3 ml) 3 Ml Ampul.neb, 3 ML INH QID, (Reported) Levofloxacin (Levofloxacin) 500 Mg Tablet, 500 MG PO QPM, (Reported) TAKES AT 1600 Levothyroxine Sodium (Synthroid) 100 Mcg Tab, 100 MCG PO DAILY, (Reported) Potassium Chloride (Klor-Con M20) 20 Meq Tabcr, 40 MEQ PO DAILY, (Reported) Prednisone (Prednisone) 20 Mg Tablet, 20 MG PO DAILY, (Reported) NORMALLY ON PREDNISONE DOSE OF 10MG AND 15MG ALTERNATING DAYS, BUT PUT ON A 7 DAY SUPPLY OF THIS DOSE Prednisone (Prednisone) 10 Mg Tablet, 10 MG PO TAPER Take 4 tabs daily x 3 days, then 3 tabs daily x 3 days, then 2 tabs daily Pregabalin (Lyrica) 100 Mg Cap, 100 MG PO TID, (Reported) Rivaroxaban (Xarelto) 20 Mg Tab, 20 MG PO DAILY, (Reported) Sertraline HCl (Sertraline HCl) 100 Mg Tablet, 100 MG PO QHS, (Reported) Simvastatin (Zocor) 40 Mg Tab, 20 MG PO QHS, (Reported) Trazodone HCl (Trazodone HCl) 50 Mg Tab, 50 MG PO QHS, (Reported) Vitamin E (Vitamin E) 100 Unit Capsule, 100 UNIT PO QHS, (Reported) Scheduled PRN Fluticasone Propionate (Flonase Allergy Relief) 9.9 Ml [place].susp, 2 SPRAYS NA DAILY PRN for NASAL CONGESTION, (Reported) Ipratropium/Albuterol Sulfate (Combivent Respimat 20-100 Mcg) 1 Aer Aer, 1 PUFF INH QID PRN for SHORTNESS OF BREATH, (Reported) Levalbuterol Hydrochloride (Xopenex Hfa) 15 Gm Hfa.aer.ad, 2 PUFF INH Q4H PRN for SHORTNESS OF BREATH, (Reported) [Blur Relief] , 1 DROP OU QID PRN for BLURRY VISION, (Reported) Allergies Coded Allergies: celecoxib (Verified Allergy, Severe, DIFFICULTY BREATHING, 09/28/18) ciprofloxacin (Verified Allergy, Severe, DIFFICULTY BREATHING, 09/28/18) guaifenesin (Verified Allergy, Severe, DIFFICULTY BREATHING, 09/28/18) moxifloxacin (Verified Allergy, Severe, DIFFICULTY BREATHING, 09/28/18) tiotropium (Unverified Allergy, Severe, DIFFICULTY BREATHING, 07/20/18) hydroxyzine (Unverified Allergy, Unknown, 07/20/18) naproxen (Unverified Allergy, Unknown, 07/20/18) atorvastatin (Verified Adverse Reaction, Intermediate, JOINT PAIN SWELLING, 07/20/18) amiodarone (Verified Adverse Reaction, Unknown, HEART RACING, DIFFICULTY BREATHING, 07/20/18) cephalexin (Unverified Adverse Reaction, Unknown, STOMACHE PAIN, 07/20/18) ALAN HOOVER MD Oct 02, 2018 15:01
== END 2018-10-02 12:29 | disposition home health service (06) | DRG 190 ==
LOC: M ED 15:12 → EDBD 15:12 → M ED INP 22:33 → M PCU 09-29 03:40 → M MSPAV 09-30 15:35
PROVIDERS: ADMIT Internal Medicine; ATTEND Internal Medicine
DX: J43.9 Emphysema, unspecified (principal); J18.9 Pneumonia, unspecified organism; I13.0 Hypertensive heart and chronic kidney disease with heart failure and stage 1 through stage 4 chronic kidney disease, or unspecified chronic kidney disease; G47.33 Obstructive sleep apnea (adult) (pediatric); E03.9 Hypothyroidism, unspecified; D64.9 Anemia, unspecified; E87.6 Hypokalemia; N18.3 Chronic kidney disease, stage 3 (moderate); I50.9 Heart failure, unspecified; I48.0 Paroxysmal atrial fibrillation; Z86.711 Personal history of pulmonary embolism; Z86.718 Personal history of other venous thrombosis and embolism; Z79.01 Long term (current) use of anticoagulants; Z79.899 Other long term (current) drug therapy; Z88.8 Allergy status to other drugs, medicaments and biological substances

== ENCOUNTER 2018-12-08 16:46 | Inpatient (IN) | payer MEDICARE, MEDICAID ==
[~2018-12-08] VITALS: Ht 154.9 cm; Wt 102.0 kg
[~2018-12-08 16:46] MED LIST changes: +AZIT500T2 PO; +CEFD300CAP PO; +DULO60CA35 PO; +FERR1TAB8 PO; +LEVO500T3 PO; +PRED20TA PO; +SIMV20TA2 PO; -SIMV20TA22 PO
[2018-12-08] MEDS ORDERED: PULM0.5S NEB (17:44)
[2018-12-08] MEDS ORDERED: PROAAER10 INH (17:44)
[2018-12-08] MEDS ORDERED: ALBU8.5H INH (17:44)
[2018-12-08] MEDS ORDERED: ACET-716 PO (17:44)
[2018-12-08] MEDS ORDERED: HYDR0.2O4 TOP (17:44)
[2018-12-08] MEDS ORDERED: XANA0.25 PO (17:44)
[2018-12-08] MEDS ORDERED: AMOX875T PO (17:44)
[2018-12-08 18:08] LABS: BASO # 0.1 10^3/uL (0.0-0.2); BASO % 0.6 % (0.0-1.0); HEMATOCRIT 39.6 % (36.0-47.0); HEMOGLOBIN 10.9 g/dl (12.0-15.5); LYMPH # 0.5 10^3/uL (1.5-5.0); LYMPH % 4.8 % (24.0-44.0); MEAN CORPUSCULAR HEMOGLOBIN 24.8 pg (27.0-33.0); MEAN CORPUSCULAR HGB CONC 27.5 g/dl (32.0-36.5); MEAN CORPUSCULAR VOLUME 90.2 fl (80.0-96.0); MONO # 0.1 10^3/uL (0.0-0.8); MONO % 0.9 % (0.0-5.0); NEUTROPHILS # 9.8 10^3/uL (1.5-8.5); NEUTROPHILS % 90.7 % (36.0-66.0); PLATELET COUNT, AUTOMATED 199 10^3/uL (150-450); RED BLOOD COUNT 4.39 10^6/uL (4.00-5.40); WHITE BLOOD COUNT 10.8 10^3/uL (4.0-10.0)
[2018-12-08 18:17] LABS: BLOOD UREA NITROGEN 16 MG/DL (7-18); CALCIUM LEVEL 8.5 MG/DL (8.8-10.2); CARBON DIOXIDE LEVEL 36 MEQ/L (21-32); CHLORIDE LEVEL 103 MEQ/L (98-107); GLOMERULAR FILTRATION RATE > 60.0 (>39); GLUCOSE, FASTING 140 MG/DL (70-100); POTASSIUM SERUM 3.6 MEQ/L (3.5-5.1); SODIUM LEVEL 145 MEQ/L (136-145)
[2018-12-08] MEDS ORDERED: ALBUTEROL SULFATE 2.5 MG/0.5 ML INH NEB SOLN As Ordered ONE (18:48)
[2018-12-08] MEDS ORDERED: ALBUTEROL SULFATE 2.5 MG/0.5 ML INH NEB SOLN INH ONE (19:00)
[2018-12-08] MEDS ORDERED: FUROSEMIDE 40 MG/4 ML VIAL (J1940) IV ONE (19:00)
[2018-12-08] MEDS ORDERED: methylPREDNISolone INJ 125 MG/2 ML VIAL (J2930) IV ONE (19:00)
[2018-12-08 19:20] LABS: CK-MB VALUE MASS < 1.0 NG/ML (<3.6); CPK CREATINE PHOSPHOKINASE 21 U/L (26-192); MB/CK RELATIVE INDEX 4.76 (< OR =4); NT-PRO BNP 914 PG/ML (<450); TROPONIN I < 0.02 NG/ML (< 0.10)
--- NOTE | 2018-12-08 19:31 | REP ---
AP PORTABLE CHEST: 12/08/2018. Clinical history: Dyspnea. Comparison: AP portable chest and CT angio chest 09/28/2018. Findings: Single lead pacer over the left upper chest with lead terminating in the right ventricle. There is cardiomegaly with left atrial enlargement and right heart enlargement as well. Volume loss in the right hemithorax. Bullous emphysematous changes in the mid and upper lung zones as before. Increased density in the right base above the diaphragm consistent with a patchy infiltrate or atelectasis superimposed. There is basilar fibrotic change and atelectatic change in the left base. Chronic blunting of right CP angle is noted. Some venous hypertension noted. No brigida edema. The aorta is calcified and tortuous. Airway intact. Impression: 1. Cardiomegaly with left and right heart enlargement and some venous hypertension. No brigida edema. Effusions difficult to exclude. 2. Some underlying chronic fibrotic changes, bullous emphysematous changes in the mid and upper lung zones and superimposed new patchy atelectasis or infiltrate right base since the 09/28/2018 priors. Electronically Signed by Seth Chapin MD 12/08/2018 08:28 P
--- NOTE | 2018-12-08 20:22 | ECGEPIP ---
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
[2018-12-08 20:33] LABS: ABG BASE EXCESS 8.2 (-2.0-2.0); ABG HCO3 34.9 MEQ/L (22.0-26.0); ABG PARTIAL PRESSURE CO2 59.3 mmHg (35.0-45.0); ABG PARTIAL PRESSURE O2 61.2 mmHg (75.0-100.0); ABG STANDARD HCO3 31.8 MEQ/L (22.0-26.0); ABG TOTAL CO2 36.8 MEQ/L (23.0-31.0); ABG pH (ARTERIAL) 7.388 UNITS (7.350-7.450)
[2018-12-08] MEDS: DULoxetine 30 MG CAP (CYMBALTA) PO SCH (21:00)
[2018-12-08] MEDS: VITAMIN D 1,000 INTERNATIONAL UNITS TABLET PO SCH (21:00)
[2018-12-08] MEDS: traZODone 50 MG TAB PO SCH (21:00)
[2018-12-08] MEDS: SIMVASTATIN 40 MG TAB PO SCH (21:00)
[2018-12-08] MEDS: CYANOCOBALAMIN 500 MCG TAB PO SCH (21:00)
[2018-12-08] MEDS ORDERED: ISOVUE-370 76% 100ML VIAL (Q9967) As Ordered ONE (21:10)
[2018-12-08] MEDS ORDERED: ACETAMINOPHEN TAB 650MG DOSE (2X325MG) PO ONE (23:15)
[2018-12-09] VITALS (7 sets, daily range): BP systolic 114–144; BP diastolic 63–81; O2SAT 92–98
[2018-12-09] MEDS ORDERED: TREL1AER PO (02:39)
[2018-12-09] MEDS ORDERED: LEVAINH INH (02:39)
[2018-12-09] MEDS ORDERED: ACETAMINOPHEN TAB 650MG DOSE (2X325MG) PO PRN (03:00)
[2018-12-09] MEDS ORDERED: ALBUTEROL SULFATE 2.5 MG/0.5 ML INH NEB SOLN NEB PRN (03:00)
[2018-12-09] MEDS ORDERED: FLUTICASONE PROP 0.05% NASAL SPRAY 16 GM (FLONASE) PRN (03:15)
--- NOTE | 2018-12-09 03:15 | HPEPDOC ---
[facility] Medical History & Physical Date of Admission Dec 09, 2018 Date of Service: Dec 09, 2018 Other Provider Seth Rodríguez DO Attending Physician: MARK LEROY MD History and Physical CHIEF COMPLAINT: Shortness of breath HISTORY OF PRESENT ILLNESS: Patient is a 73-year-old female with a past medical history significant for emphysema, hypertension, hypothyroid, atrial fibrillation status post pacemaker who was seen today by her primary care provider, , complaining of shortness of breath with increasing sputum production. In the office, patient was found to be satting at 78% on 5 L via nasal cannula.. Afebr ile, aspirations of 20, pulse of 72. Patient was given a nebulizer treatment and a single dose of by mouth steroids and told to present to the emergency department. Patient declined EMS transport. Upon presentation to the emergency department, patient was found to be maintaining oxygen saturation of 87% on 5 L of O2. Patient's oxygen was increased to 7 L and her saturations improved to the low 90s. CBC demonstrated a white count of 10.8, slight anemia with a hemoglobin/hematocrit of 10.9/39.6. Cardiac markers were negative. ProBNP of 914. Imaging studies revealed a slight increase in patient's pleural effusion noted on prior imaging. Question of right base atelectasis versus infiltrate. Hospitalist team was contacted for admission and further management. PAST MEDICAL HISTORY: Congestive heart failure COPD, emphysema Essential hypertension Hyperlipidemia Hypothyroid Atrial fibrillation, status post pacemaker placement. Anxiety Left foot fracture PAST SURGICAL HISTORY: Appendectomy Hysterectomy Tubal ligation Cataract removal from right eye with lens implant, 2012 SOCIAL HISTORY: Marital status: Single Resides in: Alone in apartment Employment: Retired Tobacco use: Patient is a former smoker. ETOH: She denies any recent alcohol use or intoxication. Illicit drug use: Patient denies any illicit or IV drug use Other relevant social factors: Patient states she is on a baseline 5 L of oxygen at home throughout the day Patient utilizes a motorized chair for ambulation Patient sleeps in a hospital bed FAMILY HISTORY: Father: , history of unknown cancer Mother: , history of unknown cancer Siblings: 2 brothers with heart disease, depression, drug abuse. Sister, diabetes ALLERGIES: Please see below. REVIEW OF SYSTEMS: CONSTITUTIONAL: Patient denies any recent fevers, chills, night sweats, changes in weight. She does admit to increasing fatigue secondary to exertional and nonexertional dyspnea. HEENT: Patient denies any headaches, she denies any recent changes to her hearing or vision. No difficulty swallowing, no sore throat. CARDIOVASCULAR: Patient denies any chest pain, palpitations, inappropriate tachycardia RESPIRATORY: Patient is reporting a 1 week history of increasing dyspnea at rest. She reports one week of increased cough with occasional blood-tinged sputum. Patient's blood tinged sputum had previously received full workup during her last admission and was found to be related to underlying epistaxis. GASTROINTESTINAL: Patient denies any nausea, vomiting, reflux, abdominal pain, constipation or diarrhea GENITOURINARY: Patient reports urinating per usual. She denies any oliguria, in creased frequency, urgency, hesitancy or dysuria SKIN: No new or changing lesions, no new skin rashes MUSCULOSKELETAL: Patient states that she broke the top of her left foot approximate 6 weeks ago. She utilizes a motorized chair for ambulation. NEUROLOGICAL: Patient denies any changes in her mental status. No focal neurologic deficits. She denies any numbness, tingling, paresthesias in her hands feet or extremities. She denies any aphasia PSYCHIATRIC: Patient reports a history of depression, currently on medication. HOME MEDICATIONS: Please see below. PHYSICAL EXAMINATION: VITAL SIGNS: Temperature 97.7 F, pulse 71, respiratory rate 22, blood pressure 125/66 (85), pulse oximetry 92 % on 7 L via nasal cannula. GENERAL APPEARANCE: Patient is interviewed and examined in the emergency department. Patient was found to be sitting upright in her hospital bed in no acute distress. Patient is alert and oriented 3. Patient is pleasant, coope rative and quite conversant despite her chief complaint of dyspnea. Patient is able to answer questions appropriately and actively participate in her care. HEENT: Normocephalic, atraumatic. EOMI, PERRLA, mucous membranes pink though dry. Poor oral hygiene. Increased neck circumference. No nasal discharge. CARDIOVASCULAR: LUNGS: Rales/crackles were heard in the lung bases bilaterally. Adequate air movement. No wheezing or rhonchi. No conversational dyspnea ABDOMEN: Obese, soft, nontender, nondistended. No masses palpated. EXTREMITIES: Patient's left lower leg in an orthopedic boot. Right lower leg positive for previously healed ulceration medial aspect of the ankle. Patient does demonstrate 2+ pitting edema. No calf tenderness. NEUROLOGICAL: Patient is alert and oriented to time place and person. PSYCH: Mood and affect are appropriate LABORATORY DATA: See below. IMAGING: Chest x-ray (12/08/18): Currently medically with left and right heart enlargement and some venous hypertension. No brigida edema. Effusions difficult to exclude. Some underlying chronic fibrotic changes, bullous emphysema changes in the mid and upper lung zones and superimposed new patchy atelectasis or infiltrate in the right base since the os 09/28/[address] angiogram (12/08/18): Increasing size of right pleural effusion. Stable right basilar opacities and elevation of the right hemidiaphragm. Advanced emphysema. No pulmonary embolism. Cardiomegaly. MICROBIOLOGY: Blood cultures (12/09/18): Pending ASSESSMENT: Patient is a 73-year-old female, past medical history significant for emphysema, CHF, hypertension, hyperlipidemia, hypothyroid, who presents to the emergency department on 12/08/18 with a chief complaint of increasing dyspnea. Patient admitted to the hospital for COPD exacerbation evaluation and management. PLAN: Shortness of breath likely secondary to COPD exacerbation, possibly resultant of viral/bacterial infection. -Hypoxic hypercarbia on ABG -Admission to PCU with telemetry monitoring. Continuous pulse oximetry with oxygen titration to maintain saturation to 88-92%. -Workup for exacerbation triggers include respiratory panel, influenza, sputum cultures, blood cultures, pro-calcitonin for de-escalation -Albuterol nebulizers every hour when necessary and albuterol nebulizers scheduled every 6 hours (patient has an allergy to tiotropium). -Methylprednisolone 80 mg IV every 8 hours. -Azithromycin ordered, consider Rocephin given patient's history of pneumonia. -Pt will require pulmonary rehabilitation GI prophylaxis -Patient is currently taking prednisone, IV Protonix for prophylaxis Hypothyroid: -Continue home dose of levothyroxine Paroxysmal Atrial fibrillation, status post pacemaker placement -Paced at 70 bpm -Patient currently on Xarelto for anticoagulation JOJO on BiPAP -BiPAP on home settings -Allow home BiPAP while inpatient Suspected obesity hypoventilation syndrome -CO2 chronically elevated Anemia -H&H appears at baseline Continue with home iron supplementation. Morbid Obesity -BMI of 42.5 -Patient does not have a documented A1c, will order. -Highly suspect insulin insensitivity DVT prophylaxis: -TEDs and Sequentials -Anticoagulated for atrial fibrillation. Vital Signs Vital Signs Date Time Temp Pulse Resp B/P (MAP) Pulse Ox O2 Delivery O2 Flow Rate FiO2 12/09/18 01:00 71 134/69 (90) 92 12/08/18 22:00 Nasal Cannula 7.0 12/08/18 19:43 22 12/08/18 17:03 97.7 Laboratory Data Labs 24H Laboratory Tests 2 12/08/18 17:08: Immature Granulocyte % (Auto) 3.0, White Blood Count 10.8H, Red Blood Count 4.39, Hemoglobin 10.9L, Hematocrit 39.6, Mean Corpuscular Volume 90.2, Mean Corpuscular Hemoglobin 24.8L, Mean Corpuscular Hemoglobin Concent 27.5L, Red Cell Distribution Width 18.7H, Platelet Count 199, Neutrophils (%) (Auto) 90.7H, Lymphocytes (%) (Auto) 4.8L, Monocytes (%) (Auto) 0.9, Eosinophils (%) (Auto) 0.0, Basophils (%) (Auto) 0.6, Neutrophils # (Auto) 9.8H, Lymphocytes # (Auto) 0.5L, Monocytes # (Auto) 0.1, Eosinophils # (Auto) 0.0, Basophils # (Auto) 0.1, Nucleated Red Blood Cells % (auto) 0.0, Anion Gap 6L, Glomerular Filtration Rate > 60.0, Blood Urea Nitrogen 16, Creatinine 0.50L, Sodium Level 145, Potassium Level 3.6, Chloride Level 103, Carbon Dioxide Level 36H, Calcium Level 8.5L, Total Creatine Kinase 21L, Creatine Kinase MB < 1.0, Creatine Kinase MB Relative Index 4.76H, Troponin I < 0.02, QT-Rqk-R-Type Natriuretic Peptide 914H 12/08/18 20:27: Blood Gas Bicarbonate Standard 31.8H, Arterial Blood pH 7.388, Arterial Blood Partial Pressure CO2 59.3H, Arterial Blood Partial Pressure O2 61.2L, Arterial Blood Total CO2 36.8H, Arterial Blood HCO3 34.9H, Arterial Blood Base Excess 8.2H, Arterial Blood Oxygen Saturation 89.0L CBC/BMP Laboratory Tests 12/08/18 17:08 Red Blood Count 4.39, Mean Corpuscular Volume 90.2, Mean Corpuscular Hemoglobin 24.8 L, Mean Corpuscular Hemoglobin Concent 27.5 L, Red Cell Distribution Width 18.7 H, Neutrophils (%) (Auto) 90.7 H, Lymphocytes (%) (Auto) 4.8 L, Monocytes (%) (Auto) 0.9, Eosinophils (%) (Auto) 0.0, Basophils (%) (Auto) 0.6, Neutr ophils # (Auto) 9.8 H, Lymphocytes # (Auto) 0.5 L, Monocytes # (Auto) 0.1, Eosinophils # (Auto) 0.0, Basophils # (Auto) 0.1, Calcium Level 8.5 L Home Medications Scheduled Alprazolam (Xanax) 0.25 Mg Tablet, 0.25 MG PO BID Amlodipine Besylate (Amlodipine Besylate) 5 Mg Tablet, 5 MG PO DAILY Amoxicillin (Amoxicillin) 875 Mg Tablet, 875 MG PO BID Ascorbic Acid (Vitamin C) 1,000 Mg Tablet, 1,000 MG PO QHS Budesonide (Pulmicort) 0.5 Mg/2 Ml Ampul.neb, 1 VIAL NEB BID Carvedilol (Carvedilol) 12.5 Mg Tablet, 12.5 MG PO BID Cholecalciferol (Vitamin D3) (Vitamin D3) 1,000 Unit Tab, 1,000 UNIT PO QHS Cyanocobalamin (Vitamin B-12) (Vitamin B-12) 500 Mcg Tab, 500 MCG PO QHS Duloxetine HCl (Duloxetine HCl) 60 Mg Capsule.dr, 60 MG PO QHS Esomeprazole Magnesium (Nexium) 40 Mg Cap, 40 MG PO DAILY Ferrous Sulfate (Ferrous Sulfate) 325 Mg Tablet, 325 MG PO DAILY Fluticasone Propion/Salmeterol (Advair Hfa 230-21 Mcg Inhaler) 1 Aer Aer, 2 PUFF INH BID Furosemide (Lasix) 20 Mg Tab, 20 MG PO DAILY Hydrocortisone Valerate (Hydrocortisone Valerate) 60 Gm Oint...g., 1 APPLIC TOP BID APPLY TO RASH ON ELBOWS Levothyroxine Sodium (Synthroid) 100 Mcg Tab, 100 MCG PO DAILY Potassium Chloride (Klor-Con M20) 20 Meq Tabcr, 20 MEQ PO BID Prednisone (Prednisone) 20 Mg Tablet, 20 MG PO DAILY Pregabalin (Lyrica) 100 Mg Cap, 100 MG PO TID Rivaroxaban (Xarelto) 20 Mg Tab, 20 MG PO DAILY Simvastatin (Zocor) 40 Mg Tab, 20 MG PO QHS Trazodone HCl (Trazodone HCl) 50 Mg Tab, 50 MG PO QHS Vitamin E (Vitamin E) 100 Unit Capsule, 100 UNIT PO QHS Scheduled PRN Acetaminophen with Codeine (Acetaminophen-Cod #3 Tablet) 1 Each Tablet, 1 TAB PO TID PRN for pain Albuterol Sulfate (Proair Hfa) 8.5 Gm Hfa.aer.ad, 2 PUFFS INH Q4-6HP PRN for WHEEZING Albuterol Sulfate (Albuterol Sulfate Hfa) 8.5 Gm Hfa.aer.ad, 2 PUFF INH QIDP PRN for WHEEZING Fluticasone Propionate (Flonase Allergy Relief) 9.9 Ml Girard.susp, 2 SPRAYS NA DAILY PRN for NASAL CONGESTION Fluticasone/Umeclidin/Vilanter (Trelegy Ellipta 100-62.5-25) 1 Each Blst.w.dev, 1 PUFF PO DAILY PRN for SHORTNESS OF BREATH Ipratropium/Albuterol Sulfate (Combivent Respimat 20-100 Mcg) 1 Aer Aer, 1 PUFF INH QID PRN for SHORTNESS OF BREATH Levalbuterol Hydrochloride (Xopenex Hfa) 15 Gm Hfa.aer.ad, 2 PUFF INH Q4-6HP PRN for wheezing Allergies Coded Allergies: celecoxib (Verified Allergy, Severe, DIFFICULTY BREATHING, 09/28/18) ciprofloxacin (Verified Allergy, Severe, DIFFICULTY BREATHING, 09/28/18) guaifenesin (Verified Allergy, Severe, DIFFICULTY BREATHING, 09/28/18) moxifloxacin (Verified Allergy, Severe, DIFFICULTY BREATHING, 09/28/18) tiotropium (Unverified Allergy, Severe, DIFFICULTY BREATHING, 07/20/18) hydroxyzine (Unverified Allergy, Unknown, 07/20/18) naproxen (Unverified Allergy, Unknown, 07/20/18) atorvastatin (Verified Adverse Reaction, Intermediate, JOINT PAIN SWELLING, 07/20/18) amiodarone (Verified Adverse Reaction, Unknown, HEART RACING, DIFFICULTY BREATHING, 07/20/18) cephalexin (Unverified Adverse Reaction, Unknown, STOMACHE PAIN, 07/20/18) A-FIB/CHADSVASC A-FIB History Current/History of A-Fib/PAF?: Yes Current PO Anticoag Therapy: Yes GME ATTESTATION My faculty preceptor for this patient encounter was physically present during the encounter and was fully available. All aspects of the patient interview, e xamination, medical decision making process, and medical care plan development were reviewed and approved by the faculty preceptor. The faculty preceptor is aware and concurs with the plan as stated in the body of this note and will attest to such by his/her cosignature. ATTENDING NOTE I personally examined the patient, discussed the case with and agree with the findings and plan as documented above. ALEJANDRO HAYES DO Dec 09, 2018 03:14 MAKR LEROY MD Dec 11, 2018 05:59
[2018-12-09] MEDS: AZITHROMYCIN INJ 500 MG, VIAL MATE ADAPTER 1 EACH in D5W 250 ML IV SCH (04:32)
[2018-12-09] MEDS ORDERED: ADVAIR HFA 230/21MCG INHALER INH SCH (08:00)
[2018-12-09] MEDS ORDERED: ALBUTEROL SULFATE 2.5 MG/0.5 ML INH NEB SOLN NEB SCH (08:00)
[2018-12-09] MEDS ORDERED: methylPREDNISolone INJ 125 MG/2 ML VIAL (J2930) IV SCH (08:00)
[2018-12-09] MEDS: BUDESONIDE 0.5 MG/2 ML INHALATION SUSPENSION NEB SCH ×2 (08:04→20:19)
[2018-12-09 08:56] LABS: HEMOGLOBIN A1c 4.9 %
[2018-12-09] MEDS ORDERED: ALPRAZolam 0.25 MG TAB PO SCH ×2 (09:00)
[2018-12-09] MEDS ORDERED: predniSONE 20 MG TAB PO SCH (09:00)
[2018-12-09] MEDS ORDERED: FUROSEMIDE 20 MG TAB PO SCH (09:00)
[2018-12-09] MEDS ORDERED: PANTOPRAZOLE 40MG INJ (PROTONIX) (C9113) IV SCH (09:00)
[2018-12-09] MEDS: PREGABALIN 100 MG CAP (LYRICA) PO SCH ×3 (09:28→21:22)
[2018-12-09] MEDS: FERROUS SULFATE 325MG TAB PO SCH (09:29)
[2018-12-09] MEDS: LEVOTHYROXINE 100MCG TABLET (0.1MG) PO SCH (09:29)
[2018-12-09] MEDS: CARVedilol 12.5 MG TAB PO SCH ×2 (09:29→21:23)
[2018-12-09] MEDS: amLODIPine 5 MG TAB PO SCH (09:29)
[2018-12-09] MEDS: RIVAROXABAN 20 MG TAB (XARELTO) PO SCH (09:29)
--- NOTE | 2018-12-09 10:05 | REPVR ---
PROCEDURE INFORMATION: Exam: CT Angiography Chest With Contrast Exam date and time: 12/08/2018 9:46 PM Clinical history: 73 years old, female; Dyspnea; Additional info: Dysp TECHNIQUE: Imaging protocol: Computed tomographic angiography of the chest with intravenous contrast. 3D rendering: MIP reconstructed images were created and reviewed. Radiation optimization: All CT scans at this facility use at least one of these dose optimization techniques: automated exposure control; mA and/or kV adjustment per patient size (includes targeted exams where dose is matched to clinical indication); or iterative reconstruction. Contrast material: ISOVUE 370; Contrast volume: 75 ml; Contrast route: IV; COMPARISON: CT ANGIO CHEST 09/28/2018 5:24 PM FINDINGS: Tubes, catheters and devices: Pacemaker in expected location. Pulmonary arteries: Normal. No pulmonary emboli. Aorta: Unremarkable. No aortic aneurysm. No aortic dissection. Lungs: Advanced emphysema. Bullous changes with interstitial fibrosis are noted throughout the lungs. Airspace consolidation is present in the right posterior lower lobe will, similar to prior exam. No other infiltrates are seen. No masses. Pleural space: Right pleural effusion has increased in size. Heart: Mild cardiomegaly. Diaphragm: Persistent elevation of the right hemidiaphragm. Lymph nodes: Unremarkable. No enlarged lymph nodes. Bones/joints: Skeletal degenerative changes are noted. Lower thoracic compression deformities are unchanged. Soft tissues: Unremarkable. IMPRESSION: Increasing size of right pleural effusion. Stable right basilar opacities and elevation of the right hemidiaphragm. Advanced emphysema. No pulmonary embolism. Cardiomegaly. Electronically signed by: Molina Dumont On 12/08/2018 23:02:30 PM
[2018-12-09 11:13] LABS: VENOUS BASE EXCESS 7.2 (-2.0-2.0); VENOUS HCO3 33.9 MEQ/L (23.0-27.0); VENOUS O2 SATURATION 81.4 % (60.0-80.0); VENOUS PARTIAL PRESSURE CO2 59.4 mmHg (38.0-50.0); VENOUS PARTIAL PRESSURE O2 50.8 mmHg (30.0-50.0); VENOUS PH 7.374 UNITS (7.330-7.430); VENOUS STANDARD HCO3 30.7 MEQ/L; VENOUS TOTAL CO2 35.7 MEQ/L (24.0-28.0)
--- NOTE | 2018-12-09 11:26 | IPNPDOC ---
Text Note Date of Service The patient was seen on 12/09/18. NOTE Subjective: Patient continues to have shortness of breath, increased oxygen r equirements of 7 L. Objective: General: Obese female with labored breathing HEENT: Positive JVD, PERRLA, EOMI Lungs: Diminished lung sounds, mild crackles bilaterally, no wheezes CV: S1-S2, irregularly irregular Abdomen: Obese, nontender nondistended Extremity: +2 edema of LE, no cyanosis Neuro: Nonfocal PROCEDURE INFORMATION: Exam: CT Angiography Chest With Contrast Exam date and time: 12/08/2018 9:46 PM Clinical history: 73 years old, female; Dyspnea; Additional info: Dysp TECHNIQUE: Imaging protocol: Computed tomographic angiography of the chest with intravenous contrast. 3D rendering: MIP reconstructed images were created and reviewed. Radiation optimization: All CT scans at this facility use at least one of these dose optimization techniques: automated exposure control; mA and/or kV adjustment per patient size (includes targeted exams where dose is matched to clinical indication); or iterative reconstruction. Contrast material: ISOVUE 370; Contrast volume: 75 ml; Contrast route: IV; COMPARISON: CT ANGIO CHEST 09/28/2018 5:24 PM FINDINGS: Tubes, catheters and devices: Pacemaker in expected location. Pulmonary arteries: Normal. No pulmonary emboli. Aorta: Unremarkable. No aortic aneurysm. No aortic dissection. Lungs: Advanced emphysema. Bullous changes with interstitial fibrosis are noted throughout the lungs. Airspace consolidation is present in the right posterior lower lobe will, similar to prior exam. No other infiltrates are seen. No masses. Pleural space: Right pleural effusion has increased in size. Heart: Mild cardiomegaly. Diaphragm: Persistent elevation of the right hemidiaphragm. Lymph nodes: Unremarkable. No enlarged lymph nodes. Bones/joints: Skeletal degenerative changes are noted. Lower thoracic compression deformities are unchanged. Soft tissues: Unremarkable. IMPRESSION: Increasing size of right pleural effusion. Stable right basilar opacities and elevation of the right hemidiaphragm. Advanced emphysema. No pulmonary embolism. Cardiomegaly. Electronically signed by: Molina Dumont On 12/08/2018 23:02:30 PM Assessment and plan Patient 73 years old female with past history of emphysema, hypertension, hypo thyroid, formal smoker, atrial fibrillation, status post pacemaker presented hospital with acute hypoxemic respiratory failure secondary to COPD and CHF exacerbation. Acute on chronic hypoxemic hypercarbic respiratory failure Most likely secondary to CHF exacerbation Continue inhalers, monitor blood gas Acute CHF BNP elevated to 914, chest x-ray shows cardiomegaly with bilateral pleural effusion more on the right side CTA was done and showed: No PE, right pleural effusion and bilateral opacities. I's and O's, Lasix 40 mg IV twice a day Cardiac diet COPD exacerbation Patient has emphysema, however she doesn't have increased cough or sputum. She doesn't have leukocytosis Right-sided pleural effusion most likely associated with CHF exacerbation I will check pro calcitonin, lactic acid was negative Continue treatment with inhalers and steroid. If pro calcitonin negative I'll discontinue antibiotic Atrial fibrillation Continue anticoagulation with xarelto Rate control by pacemaker Hypothyroidism Continue home med Obstructive sleep apnea on BiPAP Patient is on BiPAP at home settings Morbid obesity Follow-up with solar electric installer in the outpatient settings VS,Ankit, I+O VS, Ankit, I+O Laboratory Tests 12/08/18 17:08 Red Blood Count 4.39, Mean Corpuscular Volume 90.2, Mean Corpuscular Hemoglobin 24.8 L, Mean Corpuscular Hemoglobin Concent 27.5 L, Red Cell Distribution Width 18.7 H, Neutrophils (%) (Auto) 90.7 H, Lymphocytes (%) (Auto) 4.8 L, Monocytes (%) (Auto) 0.9, Eosinophils (%) (Auto) 0.0, Basophils (%) (Auto) 0.6, Neut rophils # (Auto) 9.8 H, Lymphocytes # (Auto) 0.5 L, Monocytes # (Auto) 0.1, Eosinophils # (Auto) 0.0, Basophils # (Auto) 0.1, Calcium Level 8.5 L Vital Signs Date Time Temp Pulse Resp B/P (MAP) Pulse Ox O2 Delivery O2 Flow Rate FiO2 12/09/18 09:29 70 133/69 12/09/18 06:00 98.6 24 91 7.0 12/08/18 22:00 Nasal Cannula I&O- Last 24 Hours up to 6 AM 12/09/18 06:00 Intake Total 275 ml Output Total 1750 ml Balance -1475 ml JOSEPH LAZARO DO Dec 09, 2018 11:26
[2018-12-09] MEDS: FUROSEMIDE 40 MG/4 ML VIAL (J1940) IV SCH ×2 (12:14→21:22)
[2018-12-09] MEDS: IPRATROPIUM 0.5MG/ALBUTEROL 2.5MG INH SOL UD 3ML (DUONEB)(J7620) NEB SCH ×3 (12:32→20:18)
[2018-12-09] MEDS: VITAMIN D 1,000 INTERNATIONAL UNITS TABLET PO SCH (21:22)
[2018-12-09] MEDS: traZODone 50 MG TAB PO SCH (21:22)
[2018-12-09] MEDS: SIMVASTATIN 40 MG TAB PO SCH (21:22)
[2018-12-09] MEDS: DULoxetine 30 MG CAP (CYMBALTA) PO SCH (21:22)
[2018-12-09] MEDS: CYANOCOBALAMIN 500 MCG TAB PO SCH (21:23)
[2018-12-10 00:13] VITALS: O2SAT 98
[2018-12-10] MEDS: IPRATROPIUM 0.5MG/ALBUTEROL 2.5MG INH SOL UD 3ML (DUONEB)(J7620) NEB SCH ×7 (00:13→23:35)
[2018-12-10 00:20] VITALS: O2SAT 100
[2018-12-10] MEDS: AZITHROMYCIN INJ 500 MG, VIAL MATE ADAPTER 1 EACH in D5W 250 ML IV SCH (04:03)
[2018-12-10 06:00] VITALS: BP 122/71
--- NOTE | 2018-12-10 06:26 | ECHO ---
DATE OF STUDY: 12/09/2018 REFERRING PHYSICIAN: Dr. Alexander Smith INDICATION: Edema. 2-D MEASUREMENTS: Left atrium: 4.3 cm Aortic root: 2.8 cm LVOT: 2.0 cm Ventricular septum: 1.19 cm Posterior wall 1.66 cm Left ventricle diastole: 4.5 cm Inferior vena cava: 2.3 cm DOPPLER MEASUREMENTS: Aortic valve velocity: 120 cm/s LVOT velocity: 80.5 cm/s Trace mitral regurgitation. Very mild tricuspid regurgitation. Estimated right ventricle systolic pressure 49 mm Hg assuming an atrial pressure of 10 mmHg. Very mild pulmonic regurgitation. Pulmonary artery systolic pressure: 48 mmHg DESCRIPTION: This was a moderately, technically difficult echocardiogram. Underlying atrial fibrillation. Ventricular paced rhythm. No pericardial effusion. This is a 2-D, M-mode, color flow Doppler and pulse waved Doppler examination and included mitral annular tissue Doppler. CONCLUSIONS: 1. Mild concentric left ventricular hypertrophy. Normal regional LV wall motion and wall thickening. Normal LV systolic function. Left ventricular ejection fraction (LVEF) 65% by visual estimate. 2. Mild left atrial dilatation. 3. Suggestive of moderate elevation of pulmonary artery systolic pressure and estimated right ventricle systolic pressure. At least moderate right atrial dilatation. Inferior vena cava dilatation. Suggestive of central venous pressure of at least 10 mmHg. 4. Mild aortic valve sclerosis. 5. Presence of a ventricular pacemaker lead coursing towards the right ventricle apex position. 6. Moderately technically difficult echocardiogram.
[2018-12-10 06:37] LABS: HEMATOCRIT 30.4 % (36.0-47.0); MEAN CORPUSCULAR HEMOGLOBIN 24.7 pg (27.0-33.0); MEAN CORPUSCULAR HGB CONC 27.6 g/dl (32.0-36.5); MEAN CORPUSCULAR VOLUME 89.4 fl (80.0-96.0); PLATELET COUNT, AUTOMATED 179 10^3/uL (150-450); WHITE BLOOD COUNT 11.2 10^3/uL (4.0-10.0)
[2018-12-10 06:42] LABS: HEMOGLOBIN 8.4 g/dl (12.0-15.5)
[2018-12-10 07:00] LABS: ALBUMIN 2.4 GM/DL (3.2-5.2); ALT/SGPT 10 U/L (12-78); BILIRUBIN,TOTAL 0.4 MG/DL (0.2-1.0); BLOOD UREA NITROGEN 23 MG/DL (7-18); CALCIUM LEVEL 8.4 MG/DL (8.8-10.2); CARBON DIOXIDE LEVEL 40 MEQ/L (21-32); CHLORIDE LEVEL 100 MEQ/L (98-107); CREATININE FOR GFR 0.66 MG/DL (0.55-1.30); GLOMERULAR FILTRATION RATE > 60.0 (>39); GLUCOSE, FASTING 129 MG/DL (70-100); MAGNESIUM LEVEL 2.3 MG/DL (1.8-2.4); SODIUM LEVEL 145 MEQ/L (136-145); TOTAL PROTEIN 4.5 GM/DL (6.4-8.2)
[2018-12-10] MEDS: BUDESONIDE 0.5 MG/2 ML INHALATION SUSPENSION NEB SCH ×2 (07:27→20:32)
[2018-12-10] MEDS ORDERED: predniSONE 20 MG TAB PO SCH (09:00)
[2018-12-10] MEDS ORDERED: FLUBLOK(EGG FREE)(QUAD)INFLUENZA VACC 0.5ML SYRINGE (90682)18YRS&OLDER IM ONE (09:00)
[2018-12-10] MEDS ORDERED: FUROSEMIDE 40 MG/4 ML VIAL (J1940) IV SCH (09:00)
[2018-12-10] MEDS: FUROSEMIDE 40 MG/4 ML VIAL (J1940) IV SCH ×3 (09:23→21:08)
[2018-12-10] MEDS: FERROUS SULFATE 325MG TAB PO SCH (09:26)
[2018-12-10] MEDS: LEVOTHYROXINE 100MCG TABLET (0.1MG) PO SCH (09:26)
[2018-12-10] MEDS: RIVAROXABAN 20 MG TAB (XARELTO) PO SCH (09:26)
[2018-12-10] MEDS: PREGABALIN 100 MG CAP (LYRICA) PO SCH ×3 (09:26→21:11)
[2018-12-10] MEDS: amLODIPine 5 MG TAB PO SCH (09:30)
[2018-12-10] MEDS: CARVedilol 12.5 MG TAB PO SCH ×2 (09:30→21:00)
[2018-12-10] MEDS ORDERED: POTASSIUM CHLORIDE 10 MEQ SR TABLET PO ONE (11:00)
[2018-12-10 12:20] VITALS: O2SAT 92
--- NOTE | 2018-12-10 16:03 | IPNPDOC ---
Text Note Date of Service The patient was seen on 12/10/18. NOTE Subjective: Patient shortness of breath markedly improved. Objective: General: Obese female breathing via BiPAP HEENT: Positive JVD, PERRLA, EOMI Lungs: Diminished lung sounds, mild crackles bilaterally, no wheezes CV: S1-S2, irregularly irregular Abdomen: Obese, nontender nondistended Extremity: +2 edema of LE, no cyanosis Neuro: Nonfocal Assessment and plan Patient 73 years old female with past history of emphysema, hypertension, hypothyroid, formal smoker, atrial fibrillation, status post pacemaker presented hospital with acute hypoxemic respiratory failure secondary to COPD and CHF exacerbation. Acute on chronic hypoxemic hypercarbic respiratory failure Improved Most likely secondary to CHF exacerbation Continue inhalers, monitor blood gas Acute CHF Improved today Continue diuresis BNP elevated to 914, chest x-ray shows cardiomegaly with bilateral pleural effusion more on the right side CTA was done and showed: No PE, right pleural effusion and bilateral opacities. I's and O's, Lasix 40 mg IV twice a day Cardiac diet COPD exacerbation Patient has emphysema, however she doesn't have increased cough or sputum. She doesn't have leukocytosis Right-sided pleural effusion most likely associated with CHF exacerbation pro calcitonin negative, lactic acid was negative Continue treatment with inhalers and steroid. I DC antibiotics Atrial fibrillation Continue anticoagulation with xarelto Rate control by pacemaker Hypothyroidism Continue home med Obstructive sleep apnea on BiPAP Patient is on BiPAP at home settings Morbid obesity Follow-up with shading painter in the outpatient settings VS,Fishbone, I+O VS, Fishbone, I+O Laboratory Tests 12/10/18 05:59 Red Blood Count 3.40 L, Mean Corpuscular Volume 89.4, Mean Corpuscular Hemoglobin 24.7 L, Mean Corpuscular Hemoglobin Concent 27.6 L, Red Cell Distr ibution Width 18.6 H, Calcium Level 8.4 L, Aspartate Amino Transf (AST/SGOT) < 3 L, Alanine Aminotransferase (ALT/SGPT) 10 L, Alkaline Phosphatase 41 L, Total Bilirubin 0.4, Total Protein 4.5 L, Albumin 2.4 L Vital Signs Date Time Temp Pulse Resp B/P (MAP) Pulse Ox O2 Delivery O2 Flow Rate FiO2 12/10/18 12:20 92 Nasal Cannula 4.0 12/10/18 09:30 82 135/83 9/29/19 06:00 98.2 20 I&O- Last 24 Hours up to 6 AM 12/10/18 05:59 Intake Total 390 ml Balance 390 ml JOSEPH LAZARO DO Dec 10, 2018 16:03
[2018-12-10] MEDS: traZODone 50 MG TAB PO SCH (21:09)
[2018-12-10] MEDS: SIMVASTATIN 40 MG TAB PO SCH (21:10)
[2018-12-10] MEDS: VITAMIN D 1,000 INTERNATIONAL UNITS TABLET PO SCH (21:11)
[2018-12-10] MEDS: CYANOCOBALAMIN 500 MCG TAB PO SCH (21:11)
[2018-12-10] MEDS: DULoxetine 30 MG CAP (CYMBALTA) PO SCH (21:11)
[2018-12-10 22:00] VITALS: BP 104/49; O2SAT 96
[2018-12-11] MEDS: IPRATROPIUM 0.5MG/ALBUTEROL 2.5MG INH SOL UD 3ML (DUONEB)(J7620) NEB SCH ×4 (04:22→15:11)
[2018-12-11 06:00] VITALS: BP 147/78
[2018-12-11 06:31] LABS: BLOOD UREA NITROGEN 22 MG/DL (7-18); CALCIUM LEVEL 8.4 MG/DL (8.8-10.2); CARBON DIOXIDE LEVEL 42 MEQ/L (21-32); CHLORIDE LEVEL 101 MEQ/L (98-107); CREATININE FOR GFR 0.58 MG/DL (0.55-1.30); GLOMERULAR FILTRATION RATE > 60.0 (>39); GLUCOSE, FASTING 91 MG/DL (70-100); POTASSIUM SERUM 3.5 MEQ/L (3.5-5.1); SODIUM LEVEL 146 MEQ/L (136-145)
[2018-12-11] MEDS: BUDESONIDE 0.5 MG/2 ML INHALATION SUSPENSION NEB SCH (07:22)
[2018-12-11] MEDS: LEVOTHYROXINE 100MCG TABLET (0.1MG) PO SCH (08:18)
[2018-12-11] MEDS: PREGABALIN 100 MG CAP (LYRICA) PO SCH ×2 (08:18→15:41)
[2018-12-11 08:19] VITALS: BP 126/74
[2018-12-11] MEDS: amLODIPine 5 MG TAB PO SCH (08:19)
[2018-12-11] MEDS: FUROSEMIDE 40 MG/4 ML VIAL (J1940) IV SCH (08:19)
[2018-12-11] MEDS: RIVAROXABAN 20 MG TAB (XARELTO) PO SCH (08:19)
[2018-12-11] MEDS: CARVedilol 12.5 MG TAB PO SCH (08:19)
[2018-12-11] MEDS: FERROUS SULFATE 325MG TAB PO SCH (08:19)
[2018-12-11] MEDS ORDERED: predniSONE 20 MG TAB PO SCH (09:00)
[2018-12-11] MEDS ORDERED: FURO40TA2 PO (11:44)
[2018-12-11] MEDS ORDERED: POTASSIUM CHLORIDE 10 MEQ SR TABLET PO ONE (12:00)
[2018-12-11 14:00] VITALS: BP 117/69
--- NOTE | 2018-12-11 16:34 | DS.PDOC ---
Discharge Summary General Date of Admission Dec 09, 2018 at 01:57 Date of Discharge 12/11/18 Discharge Summary PROCEDURES PERFORMED DURING STAY: None ADMITTING DIAGNOSES: 1. Acute on chronic hypoxemic hypercarbic respiratory failure Acute CHF COPD exacerbation Atrial fibrillation Hypothyroidism Obstructive sleep apnea on BiPAP Morbid obesity DISCHARGE DIAGNOSES: 1.Acute on chronic hypoxemic hypercarbic respiratory failure Acute CHF COPD exacerbation Atrial fibrillation Hypothyroidism Obstructive sleep apnea on BiPAP Morbid obesity COMPLICATIONS/CHIEF COMPLAINT: Dyspnea. HISTORY OF PRESENT ILLNESS: Patient is a 73-year-old female with a past medical history significant for emphysema, hypertension, hypothyroid, atrial fibrillation status post pacemaker who was seen today by her primary care provider, , complaining of shortness of breath with increasing sputum production. In the office, patient was found to be satting at 78% on 5 L via nasal cannula.. Afebrile, aspirations of 20, pulse of 72. Patient was given a nebulizer treatment and a single dose of by mouth steroids and told to present to the emergency department. Patient declined EMS transport. Upon presentation to the emergency department, patient was found to be maintaining oxygen saturation of 87% on 5 L of O2. Patient's oxygen was increased to 7 L and her saturations improved to the low 90s. CBC demonstrated a white count of 10.8, slight anemia with a hemoglobin/hematocrit of 10.9/39.6. Cardiac markers were negative. ProBNP of 914. Imaging studies revealed a slight increase in patient's pleural effusion noted on prior imaging. Question of right base atelectasis versus infiltrate. Hospitalist team was contacted for admission and further management. HOSPITAL COURSE: During hospital stay following issue addressed Acute on chronic hypoxemic hypercarbic respiratory failure Most likely secondary to CHF exacerbation Patient received diuresis with Lasix, inhalers Acute CHF Improved with diuresis BNP elevated to 914, chest x-ray shows cardiomegaly with bilateral pleural effusion more on the right side CTA was done and showed: No PE, right pleural effusion and bilateral opacities. I's and O's, Lasix 40 mg IV twice a day Cardiac diet COPD exacerbation Patient has emphysema, however she doesn't have increased cough or sputum. She doesn't have leukocytosis Right-sided pleural effusion most likely associated with CHF exacerbation pro calcitonin negative, lactic acid was negative I DC antibiotics Atrial fibrillation Continue anticoagulation with xarelto Rate control by pacemaker Hypothyroidism Continue home med Obstructive sleep apnea on BiPAP Patient is on BiPAP at home settings Morbid obesity Follow-up with radio sales account executive in the outpatient settings DISCHARGE MEDICATIONS: Please see below. ALLERGIES: Please see below. PHYSICAL EXAMINATION ON DISCHARGE: VITAL SIGNS: Please see below. General: Obese female breathing via BiPAP HEENT: Positive JVD, PERRLA, EOMI Lungs: Diminished lung sounds, mild crackles bilaterally, no wheezes CV: S1-S2, irregularly irregular Abdomen: Obese, nontender nondistended Extremity: +2 edema of LE, no cyanosis Neuro: Nonfocal LABORATORY DATA: Please see below. IMAGING:PROCEDURE INFORMATION: Exam: CT Angiography Chest With Contrast Exam date and time: 12/08/2018 9:46 PM Clinical history: 73 years old, female; Dyspnea; Additional info: Dysp TECHNIQUE: Imaging protocol: Computed tomographic angiography of the chest with intravenous contrast. 3D rendering: MIP reconstructed images were created and reviewed. Radiation optimization: All CT scans at this facility use at least one of these dose optimization techniques: automated exposure control; mA and/or kV adjustment per patient size (includes targeted exams where dose is matched to clinical indication); or iterative reconstruction. Contrast material: ISOVUE 370; Contrast volume: 75 ml; Contrast route: IV; COMPARISON: CT ANGIO CHEST 09/28/2018 5:24 PM FINDINGS: Tubes, catheters and devices: Pacemaker in expected location. Pulmonary arteries: Normal. No pulmonary emboli. Aorta: Unremarkable. No aortic aneurysm. No aortic dissection. Lungs: Advanced emphysema. Bullous changes with interstitial fibrosis are noted throughout the lungs. Airspace consolidation is present in the right posterior lower lobe will, similar to prior exam. No other infiltrates are seen. No masses. Pleural space: Right pleural effusion has increased in size. Heart: Mild cardiomegaly. Diaphragm: Persistent elevation of the right hemidiaphragm. Lymph nodes: Unremarkable. No enlarged lymph nodes. Bones/joints: Skeletal degenerative changes are noted. Lower thoracic compression deformities are unchanged. Soft tissues: Unremarkable. IMPRESSION: Increasing size of right pleural effusion. Stable right basilar opacities and elevation of the right hemidiaphragm. Advanced emphysema. No pulmonary embolism. Cardiomegaly. PROGNOSIS: Favorable ACTIVITY: As tolerated DIET: Cardiac DISCHARGE PLAN: Home DISPOSITION: Home with home health DISCHARGE INSTRUCTIONS: Take increased dose of furosemide 40 mg daily ITEMS TO FOLLOWUP ON ON OUTPATIENT: PCP and correctional corporal within the week DISCHARGE CONDITION: Stable TIME SPENT ON DISCHARGE: Greater than 20 minutes. Vital Signs/I&Os Vital Signs Date Time Temp Pulse Resp B/P (MAP) Pulse Ox O2 Delivery O2 Flow Rate FiO2 12/11/18 14:00 97.8 68 17 117/69 (85) 99 4.0 12/11/18 04:22 BIPAP/CPAP I&O- Last 24 Hours up to 6 AM 12/11/18 06:00 Intake Total 1155 ml Output Total 750 ml Balance 405 ml Laboratory Data Labs 24H Laboratory Tests 2 12/11/18 05:37: Anion Gap 3L, Glomerular Filtration Rate > 60.0, Blood Urea Nitrogen 22H, Creatinine 0.58, Sodium Level 146H, Potassium Level 3.5, Chloride Level 101, Carbon Dioxide Level 42H, Calcium Level 8.4L CBC/BMP Laboratory Tests 12/11/18 05:37 Calcium Level 8.4 L Microbiology Microbiology 12/09/18 Blood Culture - Preliminary, Resulted No Growth after 48 hours. All Specime... 12/09/18 Blood Culture - Preliminary, Resulted No Growth after 48 hours. All Specime... Discharge Medications Scheduled Alprazolam (Xanax) 0.25 Mg Tablet, 0.25 MG PO BID, (Reported) Amlodipine Besylate (Amlodipine Besylate) 5 Mg Tablet, 5 MG PO DAILY, (Reported) Ascorbic Acid (Vitamin C) 1,000 Mg Tablet, 1,000 MG PO QHS, (Reported) Budesonide (Pulmicort) 0.5 Mg/2 Ml Ampul.neb, 1 VIAL NEB BID, (Reported) Carvedilol (Carvedilol) 12.5 Mg Tablet, 12.5 MG PO BID, (Reported) Cholecalciferol (Vitamin D3) (Vitamin D3) 1,000 Unit Tab, 1,000 UNIT PO QHS, (Reported) Cyanocobalamin (Vitamin B-12) (Vitamin B-12) 500 Mcg Tab, 500 MCG PO QHS, (Reported) Duloxetine HCl (Duloxetine HCl) 60 Mg Capsule.dr, 60 MG PO QHS, (Reported) Esomeprazole Magnesium (Nexium) 40 Mg Cap, 40 MG PO DAILY, (Reported) Ferrous Sulfate (Ferrous Sulfate) 325 Mg Tablet, 325 MG PO DAILY, (Reported) Fluticasone Propion/Salmeterol (Advair Hfa 230-21 Mcg Inhaler) 1 Aer Aer, 2 PUFF INH BID, (Reported) Furosemide (Furosemide) 40 Mg Tablet, 1 TAB PO DAILY Hydrocortisone Valerate (Hydrocortisone Valerate) 60 Gm Oint...g., 1 APPLIC TOP BID, (Reported) APPLY TO RASH ON ELBOWS Levothyroxine Sodium (Synthroid) 100 Mcg Tab, 100 MCG PO DAILY, (Reported) Potassium Chloride (Klor-Con M20) 20 Meq Tabcr, 20 MEQ PO BID, (Reported) Prednisone (Prednisone) 20 Mg Tablet, 20 MG PO DAILY, (Reported) Pregabalin (Lyrica) 100 Mg Cap, 100 MG PO TID, (Reported) Rivaroxaban (Xarelto) 20 Mg Tab, 20 MG PO DAILY, (Reported) Simvastatin (Zocor) 40 Mg Tab, 20 MG PO QHS, (Reported) Trazodone HCl (Trazodone HCl) 50 Mg Tab, 50 MG PO QHS, (Reported) Vitamin E (Vitamin E) 100 Unit Capsule, 100 UNIT PO QHS, (Reported) Scheduled PRN Acetaminophen with Codeine (Acetaminophen-Cod #3 Tablet) 1 Each Tablet, 1 TAB PO TID PRN for pain, (Reported) Albuterol Sulfate (Proair Hfa) 8.5 Gm Hfa.aer.ad, 2 PUFFS INH Q4-6HP PRN for WHEEZING, (Reported) Albuterol Sulfate (Albuterol Sulfate Hfa) 8.5 Gm Hfa.aer.ad, 2 PUFF INH QIDP PRN for WHEEZING, (Reported) Fluticasone Propionate (Flonase Allergy Relief) 9.9 Ml [place].susp, 2 SPRAYS NA DAILY PRN for NASAL CONGESTION, (Reported) Fluticasone/Umeclidin/Vilanter (Trelegy Ellipta 100-62.5-25) 1 Each Blst.w.dev, 1 PUFF PO DAILY PRN for SHORTNESS OF BREATH, (Reported) Ipratropium/Albuterol Sulfate (Combivent Respimat 20-100 Mcg) 1 Aer Aer, 1 PUFF INH QID PRN for SHORTNESS OF BREATH, (Reported) Levalbuterol Hydrochloride (Xopenex Hfa) 15 Gm Hfa.aer.ad, 2 PUFF INH Q4-6HP PRN for wheezing, (Reported) Allergies Coded Allergies: celecoxib (Verified Allergy, Severe, DIFFICULTY BREATHING, 09/28/18) ciprofloxacin (Verified Allergy, Severe, DIFFICULTY BREATHING, 09/28/18) guaifenesin (Verified Allergy, Severe, DIFFICULTY BREATHING, 09/28/18) moxifloxacin (Verified Allergy, Severe, DIFFICULTY BREATHING, 09/28/18) tiotropium (Unverified Allergy, Severe, DIFFICULTY BREATHING, 07/20/18) hydroxyzine (Unverified Allergy, Unknown, 07/20/18) naproxen (Unverified Allergy, Unknown, 07/20/18) atorvastatin (Verified Adverse Reaction, Intermediate, JOINT PAIN SWELLING, 07/20/18) amiodarone (Verified Adverse Reaction, Unknown, HEART RACING, DIFFICULTY BREATHING, 07/20/18) cephalexin (Unverified Adverse Reaction, Unknown, STOMACHE PAIN, 07/20/18) JOSEPH LAZARO DO Dec 11, 2018 16:34
== END 2018-12-11 17:00 | disposition home or self-care (01) | DRG 291 ==
LOC: M ED 16:46 → M ED INP 12-09 01:57 → M MSPAV 12-09 03:45
PROVIDERS: ADMIT Internal Medicine; ATTEND Internal Medicine
DX: I11.0 Hypertensive heart disease with heart failure (principal); J96.21 Acute and chronic respiratory failure with hypoxia; J96.22 Acute and chronic respiratory failure with hypercapnia; Z68.41 Body mass index [BMI] 40.0-44.9, adult; E66.2 Morbid (severe) obesity with alveolar hypoventilation; J43.9 Emphysema, unspecified; I50.33 Acute on chronic diastolic (congestive) heart failure; E03.9 Hypothyroidism, unspecified; G47.33 Obstructive sleep apnea (adult) (pediatric); I48.0 Paroxysmal atrial fibrillation; Z95.0 Presence of cardiac pacemaker; Z79.899 Other long term (current) drug therapy; Z88.8 Allergy status to other drugs, medicaments and biological substances; F41.1 Generalized anxiety disorder; Z87.891 Personal history of nicotine dependence; D64.9 Anemia, unspecified; K21.9 Gastro-esophageal reflux disease without esophagitis; K22.70 Barrett's esophagus without dysplasia

== ENCOUNTER → 2019-02-06 | Outpatient (CLI) | payer MEDICARE, MEDICAID ==
[~2019-02-06] MED LIST changes: +ALBU8.5H INH; +AMOX875T PO; -AZIT500T2 PO; +AZIT500T5 PO; +HYDR0.2O4 TOP; +PROAAER10 INH; +PULM0.5S NEB; +TREL1AER PO
--- NOTE | 2019-02-07 15:05 | REP ---
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 Comparisons: Comparison chest CT study December 08, 2018 and September 28, 2018. There is also a comparison [facility] chest CT study from January 2019. The report of this latter study recommended PET/CT scanning. Images from that most recent prior study are not available at this juncture. TECHNIQUE: 67 minutes following the intravenous injection of a 9.02 mCi dose of F-18 FDG, three-dimensional PET scintigraphy is acquired from the skull base to the proximal thighs. Triplanar noncontrast CT scanning is acquired through the same anatomic range for attenuation correction, and image registration with scan parameters optimized to minimize radiation exposure to the patient. PET scintigraphy and CT datasets were fused and displayed on a workstation with multiplanar and projection display capability. PET/CT Findings: There is a posterior eventration or hernia in the right diaphragm transmitting abdominal fat and elevating the right lung base. There is atelectatic change in the right lower lobe although it is less prominent than on the December 08, 2018 study today. There are some discoid atelectatic changes in the right lower lobe. There is no abnormal hypermetabolic pulmonary parenchymal focus in either lung. There are advanced emphysematous changes with bullous changes and some fibrosis bilaterally. No abnormal hypermetabolic uptake is seen in the mediastinum or in either hilar region. There is a right heart pacemaker and cardiomegaly is observed. Head and neck soft tissues are unremarkable. In the abdomen and pelvis, normal hepatic, splenic, gastrointestinal, and genitourinary FDG accumulation is seen. No abnormal adrenal uptake is seen. There is a large heterogeneous presacral soft tissue mass which contains varying density components including macroscopic fat. This displaces the rectum anteriorly. There are areas along the posterior aspect of this mass which display minimally hypermetabolic uptake, maximum standard uptake value within the lesion is 2.86. The lesion measures 7.8 cm anterior to posterior by 8.4 cm right to left. It is visible over a craniocaudal imaging span of 6.5 cm. There is no evidence of hypermetabolic abdominal or pelvic adenopathy. No hypermetabolic skeletal change. There is no evidence of cortical erosive change in the adjacent sacrum or coccyx. In the far lateral superficial subcutaneous fat of the greater trochanteric region of the left hip, there is a linear irregularly shaped soft tissue density with low density areas within it and some scattered minimal uptake. Maximum standard uptake value 2.17. This lesion is not hypermetabolic. Question, hematoma seroma from prior trauma. This should be correlated clinically. Impression: 1. There is no abnormal hypermetabolic uptake in the right lower lobe of the lung or elsewhere in the thorax. There is a posterior eventration of the right hemidiaphragm and there is associated atelectasis in the right lower lobe of the lung. 2. 8.4 cm mass noted incidentally in the presacral pelvis. The mass contains soft tissue elements and some macroscopic fat components. 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 A teratoma in the presacral soft tissues could conceivably have this appearance as well. Electronically Signed by Connor Meredith MD 02/07/2019 04:43 P
== END ==
LOC: M PLARAD 12:06
PROVIDERS: ATTEND Family Medicine
DX: D38.1 Neoplasm of uncertain behavior of trachea, bronchus and lung (principal)
CPT/HCPCS: 78815; A9552

== ENCOUNTER 2019-04-23 12:05 | Inpatient (IN) | payer MEDICARE, MEDICAID ==
[~2019-04-23] VITALS: Ht 154.9 cm; Wt 103.5 kg
[2019-04-23] MEDS: POTASSIUM CHLORIDE 10 MEQ SR TABLET PO SCH ×2 (09:00→23:45)
[~2019-04-23 12:05] MED LIST changes: -ARTIDRO2 OU; -FLON1SPR; +FLON1SPR NARES; +POLYOPD OU; +PULM0.5S INH; -PULM0.5S NEB; -SIMV20TA2 PO; +SIMV20TA22 PO
--- NOTE | 2019-04-23 13:03 | REP ---
CT study of the cervical spine without contrast: History: Injury in a fall. Technique: Helical scanning is acquired and overlapping 2 mm high resolution axial images were generated and reviewed at bone and soft tissue window settings. Coronal and sagittal multiplanar re-formations images are generated. CT findings: There is no evidence of cervical spine element fracture. No skull base fracture is seen. Cervical vertebral body heights are preserved. There is straightening. A dextroconvex curvature is noted as well. Alignment is otherwise normal. Facet joints are normally aligned bilaterally at each cervical level on multiplanar re-formations images. There is no evidence of intraspinal or paraspinal hematoma. No extra vertebral abnormality is seen. There are mild degenerative disc changes. Impression: Mild degenerative spondylosis changes. Dextroconvex curvature in the cervical spine. Otherwise negative CT study of the cervical spine without contrast. No fracture seen. Electronically Signed by Connor Meredith MD 04/23/2019 12:55 P
--- NOTE | 2019-04-23 13:32 | REP ---
CT brain without contrast: History: Injury in a fall. Patient on blood thinners. Comparison head CT study October 20, 2017. CT findings: Digital preliminary facs teacher radiograph is unremarkable. Bone window settings demonstrate no evidence of skull fracture. There is opacification of most of the air cells in the right mastoid sinus. Other visualized paranasal sinuses are clear. There is a mucous retention cyst in the right ethmoid air cells. There is vascular calcification in the distal carotid arteries bilaterally. No intraorbital abnormality is seen. There is no evidence of intracranial hemorrhage on soft-tissue window settings. Mild small vessel atherosclerotic changes are seen along with mild generalized volume loss. No mass, infarct, extra-axial fluid collection or midline shift is seen. Impression: No acute intracranial abnormality. Vascular calcification and mild small vessel changes. There is paranasal sinus filling affecting the right mastoid sinus. No skull base fracture is seen. Electronically Signed by Connor Meredith MD 04/23/2019 05:25 P
--- NOTE | 2019-04-23 13:56 | REP ---
Right TIB-fib series: Two views. History: Injury in a fall. Findings: AP and lateral views of the right tibia and fibula demonstrate an obliquely oriented fracture through the distal fibular diaphysis and an impacted fracture in the proximal fibular metaphysis. No tibial fracture is appreciated. There is diffuse osteopenia and diffuse soft tissue swelling is seen. There is dystrophic and vascular calcification in the calf soft tissues. The skeletal muscle compartment appears relatively radiolucent in this patient question denervation myopathy. Impression: Proximal and distal fibular fractures are noted. No tibial fracture is seen. Question denervation myopathy. Diffuse subcutaneous soft tissue swelling. Vascular calcification. Electronically Signed by Connor Meredith MD 04/23/2019 05:26 P
[2019-04-23] MEDS ORDERED: MORPHINE 4 MG/ML 1ML VIAL/SYRINGE (J2270) IV ONE (14:45)
--- NOTE | 2019-04-23 15:49 | REP ---
Clinical: Trauma. Technique: AP and lateral views of the left ankle. Findings: Comminuted bilateral fracture dislocation noted. Impression: Comminuted bilateral fracture dislocation. Electronically Signed by Anton Walker MD 04/23/2019 03:39 P
[2019-04-23] MEDS ORDERED: IPRA0.00 NEB (17:06)
[2019-04-23] MEDS ORDERED: VITA400C56 PO (17:06)
[2019-04-23] MEDS ORDERED: VITA100054 PO (17:06)
[2019-04-23] MEDS ORDERED: FURO40TA2 PO (17:06)
[2019-04-23] MEDS ORDERED: ACET-683 PO (17:06)
[2019-04-23 17:08] LABS: BASO # 0.1 10^3/uL (0.0-0.2); BASO % 0.4 % (0.0-1.0); HEMATOCRIT 36.8 % (36.0-47.0); HEMOGLOBIN 10.8 g/dl (12.0-15.5); LYMPH # 0.5 10^3/uL (1.5-5.0); LYMPH % 3.4 % (24.0-44.0); MEAN CORPUSCULAR HEMOGLOBIN 27.3 pg (27.0-33.0); MEAN CORPUSCULAR HGB CONC 29.3 g/dl (32.0-36.5); MEAN CORPUSCULAR VOLUME 92.9 fl (80.0-96.0); MONO % 6.3 % (0.0-5.0); NEUTROPHILS # 13.4 10^3/uL (1.5-8.5); NEUTROPHILS % 86.1 % (36.0-66.0); PLATELET COUNT, AUTOMATED 186 10^3/uL (150-450); RED BLOOD COUNT 3.96 10^6/uL (4.00-5.40); WHITE BLOOD COUNT 15.5 10^3/uL (4.0-10.0)
[2019-04-23] MEDS ORDERED: ceFAZolin 1GM INJ (J0690 PER 500MG) As Ordered ONE (17:29)
--- NOTE | 2019-04-23 17:29 | REP ---
Clinical: Trauma. Technique: AP and lateral views of the right tibia / fibula. Findings: Age-related osteopenia and degenerative changes are noted. No obvious acute fracture or dislocation. Impression: No obvious acute fracture or dislocation. Electronically Signed by Anton Walker MD 04/23/2019 05:21 P
[2019-04-23 17:30] LABS: INR 2.15; PROTHROMBIN TIME 23.8 SECONDS (11.8-14.0)
[2019-04-23 17:31] LABS: PARTIAL THROMBOPLASTIN TIME 34.6 SECONDS (25.0-38.4)
--- NOTE | 2019-04-23 17:32 | REP ---
Clinical: Trauma. Comparison: 12/08/2018 Findings: Significant cardiomegaly is again appreciated. Underlying pericardial effusion cannot be excluded. The lung wylie demonstrate perihilar and lower lobe opacities suggesting elements of atelectasis/infiltrate and layering right pleural effusion. No pneumothorax. Skeletal structures are intact. Impression: Cardiomegaly (cannot exclude pericardial effusion) Bibasilar opacities suggesting infiltrates/atelectasis and layering right effusion. Electronically Signed by Anton Walker MD 04/23/2019 05:23 P
[2019-04-23 17:40] LABS: BLOOD UREA NITROGEN 15 MG/DL (7-18); CALCIUM LEVEL 7.8 MG/DL (8.8-10.2); CARBON DIOXIDE LEVEL 36 MEQ/L (21-32); CHLORIDE LEVEL 108 MEQ/L (98-107); CREATININE FOR GFR 0.46 MG/DL (0.55-1.30); GLOMERULAR FILTRATION RATE > 60.0 (>39); GLUCOSE, FASTING 130 MG/DL (70-100); POTASSIUM SERUM 4.6 MEQ/L (3.5-5.1); SODIUM LEVEL 147 MEQ/L (136-145)
--- NOTE | 2019-04-23 18:13 | HPEPDOC ---
General Date of Admission Apr 23, 2019 at 17:17 Date of Service: Apr 23, 2019 Attending Physician: LAZARO GILLESPIE MD Chief Complaint The patient is a 73-year-old female admitted with a reason for visit of Ankle Fracture, Left. History of Present Illness HPI: This is 73-year-old female with extensive past medical history including likely diastolic CHF with EF 65%, severe COPD chronically on prednisone and 5 L nasal cannula, persistent A. fib chronically on Xarelto, S/P cardioversion x2 and unsuccessful cardiac ablation, with pacemaker in place. She presents to the ER after sustaining a mechanical fall around 10 AM this morning when she stood up to reach her wheelchair and felt her left leg gave out, leading to her falling on that left leg. Imaging in the ER reveals fractures of distal fibula and ankle. She denies any syncope or prodrome prior to her fall. Denies lightheadedness, dizziness, chest pain or shortness of breath, nausea, vomiting, neurologic changes. She has no other complaints besides pain in the left lower leg and ankle. She reports she lives alone at home and has had similar falls in the past, including also a similar right ankle fracture also repaired years ago. Spoke with orthopedics in the ER, who plans to take her urgently to the operating room tonight. Patient is aware of the high risks of surgery for her, and would like to proceed with operation. She reports she did take her Xarelto this morning, and last full meal was yesterday evening. Medically speaking, she is otherwise doing well and compensated clinically. PMH: Diastolic CHF with EF 65% in 11/2018 Severe COPD on chronic prednisone at 5 L nasal cannula at baseline Hypertension Anxiety/depression/insomnia GERD Morbid obesity Iron deficiency anemia Hypothyroidism TMJ with nerve entrapment Chronic A. fib on Xarelto and pacemaker Past Surgical Hx: Hysterectomy Appendectomy Pacemaker around 6 years ago Right ankle repair Family Hx: Multiple cancers she believes are all lung cancers Social Hx: Lives alone at home. Smoked 2 packs per day for 40 years, quit in 2001. Drinks alcohol rarely only on special occasions. Denies any other illicit substances. 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 admits frequent bruising from Xarelto Pulmonary: Denies dyspnea, cough, wheezing Cardiac: Denies chest pain, palpitations, orthopnea, PND, edema, lightheadedness GI: Denies nausea, vomiting, abdominal pain, diarrhea, constipation, melena, hematochezia : Denies dysuria, hematuria, retention MSK: Denies muscle aches or joint locking or effusions. Admits to left lower leg and ankle pain from fall. Admits to lower leg giving out when ambulating Neurologic: Denies new numbness/tingling PHYSICAL: General exam: A&Ox3, good historian, NAD, resting comfortably HEENT: NCAT, EOMI, anicteric sclera, dry mucous membranes, neck supple without JVD or carotid bruits, almost edentulous Cardiac: distant sounds given body habitus, normal S1 & S2, no murmurs, rate controlled, regular rhythm Respiratory: Diminished lung sounds throughout all wylie, no excessive muscle use, on her chronic 5 L nasal cannula, no appreciable wheezing rhonchi or rales Abdomen: soft, NT, ND, hypoactive bowel sounds Extremity: 2+ radial and dorsalis pedis pulses, no edema Skin: [place], warm, dry. Good warm well-perfused extremities x4, ecchymosis throughout especially on bilateral arms and legs and left hand 2/2 chronic anticoagulation and recent fall Msk: strength 5/5 x4, painful upon moving left LLE, but able to give resistance, normal tone Neuro: normal speech, no focal deficits, motor & sensation intact throughout Psych: Normal mood and affect LABORATORY DATA, MICROBIOLOGY: Please see below. IMAGING STUDIES: please see below ASSESSMENT AND PLAN: This is 73-year-old female with extensive past medical history including cardiac and pulmonary disease, presenting for a mechanical fall after she felt her left leg gave out. She normally ambulates wheelchair and was trying to get to this wheelchair when this fall occurred. She has history of frequent falls, with a similar fracture in the right ankle that was repaired years ago. She is now presenting with a fracture in the left ankle. Left ankle fracture s/p mechanical fall - Patient has a history of frequent falls with similar fracture of the right ankle years ago. She lives alone at home and ambulates with a wheelchair. Will likely require assistance vs rehab. PFS consulted - Discussed with [facility] in the ER. Patient reports her last meal was yesterday evening, and she took Xarelto this morning. Orthostatic complaints to proceed to the OR for urgent repair - Hospitalist was asked for pre-op evaluation: Patient is a high risk given her extensive cardiac and pulmonary disease. This was discussed in depth with patient and rest of the care team, including that she will likely not be a candidate for general anesthesia, and hopefully alternative antiseizure can be found. Initial handwritten note was left in the chart detailing this. Per patient's request, may go ahead with surgery. She is otherwise clinically doing well. Although chest x-ray reports cardiomegaly and bilateral atelectasis versus effusion, it appears she had similar findings back in November 2018. She is otherwise doing well and on her baseline 5 L nasal cannula, without any cardiac or pulmonary complaints. Per NSQIP, she is above average risk of serious complication, including cardiac complications, VTE, , and discharge to rehab facility. Pt is aware, with the risks, benefits, alternatives discussed with her and all questions answered. Chronic Diastolic CHF with EF 65% in 11/2018 - compensated on exam. Negative cardiopulmonary assessment and pt reports no subjective complaints - portable CXR notes cardiomegaly & effusions, but she is clinically at her baseline, and these findings were also noted months ago on imaging - no signs of decompesation clinically, and actually appears dry on exam. Monitor post-op Chronic A. fib on Xarelto and pacemaker - Reports she follows with cardiology in [place] and with [facility] - S/P unsuccessful cardiac ablation & cardioversion x2 - s/p PPM, ventricularly paced on EKG - no cardiac complaints Severe COPD - on chronic prednisone & 5L nasal cannula at baseline - no exacerbation. Is at baseline Morbid obesity - Complicates care with BMI 40 Hypertension - Borderline soft blood pressures with no po intake since last night - Withhold antihypertensives and consider gentle fluids if needed Anxiety/depression/insomnia - controlled on home meds GERD - on PPI Iron deficiency anemia - at her baseline Hgb 10-11. No overt bleeding - monitor. Continue po iron supplement when able to tolerate po Hypothyroidism - Continue Synthroid with able to tolerate by mouth TMJ with nerve entrapment - Continue Lyrica when able to tolerate by mouth. Monitor for mentation and a postoperative delerium DVT prophylaxis: chronically on Xarelto DISPOSITION: admit to Hospitalist service. Ortho plans for OR tonight. Resume home meds post-op. Possible d/c to rehab when clinically improved. Home Medications Scheduled Amlodipine Besylate (Amlodipine Besylate) 5 Mg Tablet, 5 MG PO DAILY, (Reported) Ascorbic Acid (Vitamin C) 1,000 Mg Tablet, 1,000 MG PO QHS, (Reported) Budesonide (Pulmicort) 0.5 Mg/2 Ml Ampul.neb, 1 VIAL INH BID, (Reported) Carvedilol (Carvedilol) 12.5 Mg Tablet, 12.5 MG PO BID, (Reported) Cholecalciferol (Vitamin D3) (Vitamin D3) 1,000 Unit Capsule, 1,000 UNIT PO QHS, (Reported) Cyanocobalamin (Vitamin B-12) (Vitamin B-12) 500 Mcg Tab, 500 MCG PO QHS, ( Reported) Duloxetine HCl (Duloxetine HCl) 60 Mg Capsule.dr, 60 MG PO QHS, (Reported) Esomeprazole Magnesium (Nexium) 40 Mg Cap, 40 MG PO DAILY, (Reported) Ferrous Sulfate (Ferrous Sulfate) 325 Mg Tablet, 325 MG PO DAILY, (Reported) Fluticasone Propion/Salmeterol (Advair Hfa 230-21 Mcg Inhaler) 1 Aer Aer, 2 PUFF INH BID, (Reported) Fluticasone Propionate (Flonase Allergy Relief) 9.9 Ml [place].susp, 1 SPRAY NARES BID, (Reported) Furosemide (Furosemide) 40 Mg Tablet, 40 MG PO DAILY, (Reported) Hydrocortisone Valerate (Hydrocortisone Valerate) 60 Gm Oint...g., 1 APPLIC TOP QHS, (Reported) APPLY TO RASH ON ELBOWS Levothyroxine Sodium (Synthroid) 100 Mcg Tab, 100 MCG PO DAILY, (Reported) Potassium Chloride (Klor-Con M20) 20 Meq Tabcr, 20 MEQ PO BID, (Reported) Prednisone (Prednisone) 20 Mg Tablet, 20 MG PO DAILY, (Reported) Pregabalin (Lyrica) 100 Mg Cap, 100 MG PO TID, (Reported) Rivaroxaban (Xarelto) 20 Mg Tab, 20 MG PO DAILY, (Reported) Simvastatin (Zocor) 40 Mg Tab, 20 MG PO QHS, (Reported) Trazodone HCl (Trazodone HCl) 50 Mg Tab, 50 MG PO QHS, (Reported) Vitamin E (Vitamin E) 400 Unit Capsule, 400 UNIT PO QHS, (Reported) Scheduled PRN Acetaminophen (Acetaminophen) 500 Mg Tablet, 500 MG PO Q6H PRN for PAIN, (Reported) Albuterol Sulfate (Proair Hfa) 8.5 Gm Hfa.aer.ad, 2 PUFFS INH Q4-6HP PRN for WHEEZING, (Reported) Alprazolam (Xanax) 0.25 Mg Tablet, 0.25 MG PO BID PRN for ANXIETY, (Reported) Ipratropium/Albuterol Sulfate (Combivent Respimat 20-100 Mcg) 1 Aer Aer, 1 PUFF INH QID PRN for SHORTNESS OF BREATH, (Reported) Ipratropium/Albuterol Sulfate (Iprat-Albut 0.5-3(2.5) mg/3 ml) 3 Ml Ampul.neb, 1 VIAL NEB Q6H PRN for SHORTNESS OF BREATH, (Reported) Levalbuterol Hydrochloride (Xopenex Hfa) 15 Gm Hfa.aer.ad, 2 PUFF INH Q4-6HP PRN for wheezing, (Reported) Allergies Coded Allergies: amiodarone (Verified Allergy, Severe, HEART RACING, DIFFICULTY BREATHING, 04/23/19) celecoxib (Verified Allergy, Severe, DIFFICULTY BREATHING, 04/23/19) ciprofloxacin (Verified Allergy, Severe, DIFFICULTY BREATHING, 04/23/19) fluticasone furoate (Verified Allergy, Severe, POWDER CAUSED DIFFICULTY BREATHING, 04/23/19) guaifenesin (Verified Allergy, Severe, DIFFICULTY BREATHING, 04/23/19) moxifloxacin (Verified Allergy, Severe, DIFFICULTY BREATHING, 04/23/19) naproxen (Unverified Allergy, Severe, DIFFICULTY BREATHING, 04/23/19) tiotropium (Unverified Allergy, Severe, DIFFICULTY BREATHING, 04/23/19) umeclidinium (Verified Allergy, Severe, POWDER CAUSED DIFFICULTY BREATHING, 04/23/19) vilanterol (Verified Allergy, Severe, POWDER CAUSED DIFFICULTY BREATHING, 04/23/19) hydroxyzine (Verified Allergy, Mild, ITCHING, 04/23/19) atorvastatin (Verified Adverse Reaction, Intermediate, JOINT PAIN SWELLING, 04/23/19) cephalexin (Unverified Adverse Reaction, Mild, STOMACHE PAIN, 04/23/19) Uncoded Allergies: PURELL (Allergy, Severe, DIFFICULTY BREATHING, 04/23/19) UDA A-FIB/CHADSVASC A-FIB History Current/History of A-Fib/PAF?: Yes Current PO Anticoag Therapy: Yes Vital Signs Vital Signs Date Time Temp Pulse Resp B/P (MAP) Pulse Ox O2 Delivery O2 Flow Rate FiO2 04/23/19 15:01 119/58 (78) 04/23/19 14:56 18 04/23/19 14:50 72 94 04/23/19 13:16 Nasal Cannula 3.0 04/23/19 12:20 99.5 Laboratory Data Labs 24H Laboratory Tests 2 04/23/19 16:02: Immature Granulocyte % (Auto) 3.8H, Neutrophils (%) (Auto) 86.1H, Lymphocytes (%) (Auto) 3.4L, Monocytes (%) (Auto) 6.3H, Eosinophils (%) (Auto) 0.0, Basophils (%) (Auto) 0.4, Neutrophils # (Auto) 13.4H, Lymphocytes # (Auto) 0.5L, Monocytes # (Auto) 1.0H, Eosinophils # (Auto) 0.0, Basophils # (Auto) 0.1, Nucleated Red Blood Cells % (auto) 0.1H, Prothrombin Time 23.8H, Prothromb Time International Ratio 2.15, Activated Partial Thromboplast Time 34.6, Anion Gap 3L, Glomerular Filtration Rate > 60.0, Calcium Level 7.8L CBC/BMP Laboratory Tests 04/23/19 16:02 Plan / VTE VTE Prophylaxis Ordered?: Yes GME ATTESTATION GME ATTESTATION My faculty preceptor for this patient encounter was physically present during the encounter and was fully available. All aspects of the patient interview, examination, medical decision making process, and medical care plan development were reviewed and approved by the faculty preceptor. The faculty preceptor is aware and concurs with the plan as stated in the body of this note and will attest to such by his/her cosignature. ATTENDING NOTE 73 yo W with diastolic CHF, EF 65%, severe COPD chronically on prednisone 20 and 5 L nasal canula, A. fib on Xarelto, s/p unsuccessful cardioversion, s/p PPM, hx of DVT/PE, JOJO on QHS trilogy, hx of back fractures with likely radicular s equale per history and left leg weakness with frequent falls who suffered a mechanical fall this morning and presented to the ED where she was found to have R proximal and distal fibular fracture and left bilateral comminuted fracture who is now admitted to medicine with orthopedics consultation for surgical evaluation with surgery tentatively being planned for 04/26. Ms. Harding is DNR/DNI and understands that her surgery would be high risk given her medical history but would like to proceed with surgery and outside of the fracture appears to be at her clinical baseline. Workup was notable for elevated INR >2, cardiomegaly with bilateral pleural effusions that were previously noted, while saturating well on her baseline 5L. At this time, we will manage her pain her orthopedics recommendations, switch her from xarelto to therapeutic lovenox in anticipation of surgery. In the meantime, given significant cardiomegaly, pleural effusions and coagulopathy will continue medical investigations and management. BLANKA BASILIO DO Apr 23, 2019 18:13 LAZARO GILLESPIE MD Apr 23, 2019 22:20
[2019-04-23 19:23] LABS: ALBUMIN 2.8 GM/DL (3.2-5.2); ALT/SGPT 20 U/L (12-78); BILIRUBIN,DIRECT 0.2 MG/DL (0.0-0.2); BILIRUBIN,TOTAL 0.9 MG/DL (0.2-1.0); TOTAL PROTEIN 5.3 GM/DL (6.4-8.2)
--- NOTE | 2019-04-23 20:02 | ECGEPIP ---
[facility] - ED Test Date: 2019-04-23 Pat Name: DEMETRIUS MORGAN Department: Room: - Gender: Female Oncology Specialist: wandy : 1945 Requested By: RAJAN Ceballos Order Number: [id number] Reading MD: Minh Bolanos Measurements Intervals [place] Rate: 73 P: ME: 0 QRS: 252 QRSD: 160 T: 62 QT: 467 QTc: 515 Interpretive Statements ELECTRONIC VENTRICULAR PACEMAKER ABNORMAL RHYTHM ECG CW 12/08/18 SIMILAR Electronically Signed on 04-23-2019 20:02:13 EST by Minh Bolanos
[2019-04-23] MEDS: CARVedilol 12.5 MG TAB PO SCH (21:00)
[2019-04-23] MEDS: NORCO, ANEXSIA 5/325MG TABLET (HYDROcodone/ACETAMINOPHEN) PO PRN (21:18)
[2019-04-23] MEDS: ENOXAPARIN 100MG/1ML SYRINGE (J1650) SC SCH (21:30)
[2019-04-23 22:00] VITALS: BP 114/80
[2019-04-23] MEDS: DULoxetine 30 MG CAP (CYMBALTA) PO SCH (23:45)
[2019-04-23] MEDS: traZODone 50 MG TAB PO SCH (23:46)
[2019-04-23] MEDS: SIMVASTATIN 20 MG TAB PO SCH (23:48)
[2019-04-24] MEDS: IPRATROPIUM 0.5MG/ALBUTEROL 2.5MG INH SOL UD 3ML (DUONEB)(J7620) NEB SCH ×4 (02:00→19:35)
[2019-04-24] MEDS: LEVALBUTEROL 1.25 MG/0.5 ML CONCENTRATE NEB INH PRN ×2 (05:40→15:08)
[2019-04-24 05:41] LABS: HEMATOCRIT 33.1 % (36.0-47.0); HEMOGLOBIN 9.4 g/dl (12.0-15.5); MEAN CORPUSCULAR HEMOGLOBIN 27.1 pg (27.0-33.0); MEAN CORPUSCULAR HGB CONC 28.4 g/dl (32.0-36.5); MEAN CORPUSCULAR VOLUME 95.4 fl (80.0-96.0); PLATELET COUNT, AUTOMATED 154 10^3/uL (150-450); RED BLOOD COUNT 3.47 10^6/uL (4.00-5.40); WHITE BLOOD COUNT 12.3 10^3/uL (4.0-10.0)
[2019-04-24 06:00] VITALS: BP 119/82
[2019-04-24 06:00] LABS: BLOOD UREA NITROGEN 17 MG/DL (7-18); CALCIUM LEVEL 7.5 MG/DL (8.8-10.2); CARBON DIOXIDE LEVEL 40 MEQ/L (21-32); CHLORIDE LEVEL 105 MEQ/L (98-107); CREATININE FOR GFR 0.46 MG/DL (0.55-1.30); GLOMERULAR FILTRATION RATE > 60.0 (>39); GLUCOSE, FASTING 89 MG/DL (70-100); SODIUM LEVEL 146 MEQ/L (136-145)
[2019-04-24 06:01] LABS: INR 1.5; PROTHROMBIN TIME 17.8 SECONDS (11.8-14.0)
[2019-04-24] MEDS: LEVOTHYROXINE 100MCG TABLET (0.1MG) PO SCH (06:07)
[2019-04-24] MEDS ORDERED: CLINDAMYCIN 900 MG in IV 1 EA IV SCH (06:30)
[2019-04-24] MEDS: NORCO, ANEXSIA 5/325MG TABLET (HYDROcodone/ACETAMINOPHEN) PO PRN ×3 (06:46→15:07)
--- NOTE | 2019-04-24 07:38 | REP ---
Clinical: Trauma. Technique: AP and frog lateral views of the right and left femur. Findings: Examination is limited by positioning. No obvious acute fracture dislocation is appreciated. Lateral view demonstrates soft tissue swelling and effusion at the left knee and possible fracture involving the proximal fibula. Impression: No obvious acute fracture. Left knee swelling and possible effusion. Cannot exclude proximal left fibular fracture. Electronically Signed by Anton Walker MD 04/23/2019 05:20 P
[2019-04-24] MEDS: ADVAIR HFA 230/21MCG INHALER INH SCH ×2 (07:52→19:42)
[2019-04-24] MEDS: BUDESONIDE 0.5 MG/2 ML INHALATION SUSPENSION INH SCH ×2 (07:52→19:35)
[2019-04-24] MEDS: PANTOPRAZOLE 40MG TAB (PROTONIX) PO SCH (08:19)
[2019-04-24] MEDS: POTASSIUM CHLORIDE 10 MEQ SR TABLET PO SCH ×2 (08:19→20:08)
[2019-04-24] MEDS: FERROUS SULFATE 325MG TAB PO SCH (08:19)
[2019-04-24] MEDS: predniSONE 20 MG TAB PO SCH (08:19)
[2019-04-24] MEDS: amLODIPine 5 MG TAB PO SCH (08:20)
[2019-04-24] MEDS: CARVedilol 12.5 MG TAB PO SCH ×2 (08:20→17:13)
[2019-04-24] MEDS: ASCORBIC ACID 500 MG TAB PO SCH (08:20)
[2019-04-24] MEDS: ENOXAPARIN 100MG/1ML SYRINGE (J1650) SC SCH ×2 (08:20→20:08)
--- NOTE | 2019-04-24 08:53 | CR ---
DATE OF CONSULTATION: 04/23/2019 REASON FOR ADMISSION: Left ankle fracture after a fall at home. HISTORY OF PRESENT ILLNESS: This is a 73-year-old female who has significant medical comorbidities, who lives alone and is on 5 liters of nasal cannula oxygen chronically for chronic obstructive pulmonary disease (COPD). She uses a scooter for ambulation, electric scooter around the home. Nonetheless, she has a history of back pain and her leg would buckle on her occasionally on the left side and that happened again today after going to the bathroom around 10:00 o'clock in the morning. She fell and twisted her left ankle. She did not complain of any other pain other than her left ankle. She did not lose consciousness. She does not have any unusual amount of back pain more than usual for her. She does not complain of numbness or tingling in her lower extremities or upper extremities. No neck pain or other complaints of pain or soreness from this fall, but nonetheless had pain and swelling about the ankle and was taken to [facility], evaluated by the emergency room staff, Dr. Hawk, who called me to evaluate her after her x-ray showed a displaced bimalleolar left ankle fracture. I was called to see her. PAST MEDICAL HISTORY: 1. Atrial fibrillation, status post pacemaker placement. 2. Congestive heart failure (CHF). 3. Oxygen dependent chronic obstructive pulmonary disease (COPD). 4. Hypertension. 5. Hypercholesterolemia. 6. Hypothyroidism. 7. Anxiety. PAST SURGICAL HISTORY: 1. Right lower leg fracture surgery. 2. Appendectomy. 3. Hysterectomy. 4. Tubal ligation. 5. Cataract on the right side with a lens implant. 6. Pacemaker placement. MEDICATIONS: At home: - amlodipine - alprazolam - carvedilol - duloxetine - esomeprazole - fluticasone - ferrous sulfate - levothyroxine - prednisone 20 mg daily - Lyrica - Xarelto - Zocor - trazodone - vitamin E - vitamin D - vitamin B12 - Pulmicort - vitamin C ALLERGIES: Multiple, including: CELEBREX CIPROFLOXACIN GUAIFENESIN MOXIFLOXACIN TIOTROPIUM HYDROXYZINE NAPROXEN ATORVASTATIN AMIODARONE CEPHALEXIN SOCIAL HISTORY: She quit smoking many years ago. Does not drink alcohol excessively. She is apparently . She has a supportive family. He lives in [place]. 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 She does live alone in her own apartment and has a motorized scooter and takes 5 liters of oxygen volunteer services specialist while at home. She gets her care with Dr. Marcos bowden in [place]. She also has a history of morbid obesity. PHYSICAL EXAMINATION: She is a pleasant, elderly female who is alert, oriented. She is complaining of isolated soreness and pain to her left ankle only. She has a blood pressure of 119/58, pulse 78, oxygen saturation on 5 liters nasal cannula, according to Dr. Petit from anesthesia, was around 91%, respirations 18. HEENT: Generally benign. There is no evidence of trauma. Her neck was nontender. She could elevate it off the bed, rotate left and right without pain or soreness. She could elevate her arms up over her head. There was no obvious crepitance, tenderness, pain, soreness or swelling of the shoulders, elbows, wrists or hands, although she had extensive ecchymotic purplish discolored areas of the skin that are chronic, likely related to her anticoagulation and her chronic prednisone use. ABDOMEN: Obese. CHEST: Chest wall was nontender at the ribs. She had some generalized wheezes on my auscultation. HIPS: Nontender to log roll on either side. EXTREMITIES: Her right lower extremity she could elevate, flex and extend her knee without troubles, without obvious crepitance, deformity or injury. She had a good strong, palpable pulse on the right foot at the dorsalis pedis and posterior tibialis. There was a swollen area over the anterior tibial tubercle, which she says is chronic and it has been there. It is nontender, not fluctuant, hot, red or indurated. On her left lower extremity she had extensive ecchymosis, as she did on the right side, but her left ankle was tender with some mild to moderate swelling along the medial side of the ankle, minimal swelling laterally, but both sides were tender. She had a strong dorsalis pedis pulse. Her knee was nontender, especially over the proximal fibula laterally. Her hip was nontender to log roll. IMAGING STUDIES: Left ankle x-rays revealed a bimalleolar displaced ankle fracture. The tib-fib films show a question of a proximal fibula fracture; however, again she is nontender in that area and I wonder whether or not that is acute or chronic, she does not remember a specific injury there. Chest x-ray showed cardiomegaly, bibasilar opacities possibly suggesting infiltrates, atelectasis or layering on the right side. Pericardial effusion could not be ruled out. Cervical spine CT scan did not show any acute fractures. There are some degenerative changes noted. Head CT showed no acute abnormality. Some paranasal sinus filling the right mastoid. Tib-fib x-ray on the left side showed the fractures distally and question proximally. Diffuse subcutaneous soft tissue swelling, vascular calcifications were noted. Ankle fracture as described. She had a femur x-ray that did not show any obvious fractures. IMPRESSION: This is a 73-year-old female with multiple medical comorbidities, oxygen dependent and on steroids, Xarelto for atrial fibrillation, who has suffered a bimalleolar fracture of the left ankle. This seems to be an isolated injury. I discussed this at length with Dr. Petit from anesthesia in terms of how to coordinate care. Clearly, operative intervention would be beneficial for her ankle fracture; however, the timing of this is difficult because of her anticoagulation. There is a chance that if we delay surgery that the swelling may set in significantly, causing us to have to delay surgery for many days. Alternative would be to go right away now, such that we do not have to take her anticoagulation; however, that does also require the use of a general anesthetic because we could not safely do a spinal and that puts her in jeopardy given her significant lung troubles. We felt it best to delay the surgery in hopes that we can do this under a spinal anesthetic in a few days, if the swelling allows. That was our discussion. I discussed it at length with the patient, as well as Dr. Petit from anesthesia. In the emergency room, I applied a very well padded, loose fitting plaster ankle cast that will allow for swelling and keep her comfortable with instructions to keep it elevated, toes above the nose, until such time that we feel that we can safely proceed to the operating room. I discussed this also with the hospitalist, Dr. Vieyar, and we plan to hold the Xarelto and cover her with Lovenox once a day and we will anticipate a morning surgery if the swelling allows. If that is the case, we will hold the Lovenox on morning. In terms of antibiotics, given her allergies, she says that her throat closed up and she had troubles with cephalexin, probably benefit by using clindamycin for her. LABORATORY STUDIES: Reviewed. She had a sodium of 147, chloride 108, bicarbonate 36, BUN 15, creatinine 0.46, GFR greater than 60, glucose 130, calcium 7.8. Her white count was 15.5, hematocrit 36.8, platelets 186. Coagulation studies showed an INR of 2.15 with a PT of 23.8.
[2019-04-24] MEDS ORDERED: FUROSEMIDE 40 MG TAB PO SCH (09:00)
[2019-04-24] MEDS: FLUTICASONE PROP 0.05% NASAL SPRAY 16 GM (FLONASE) NARES SCH ×2 (10:47→20:09)
[2019-04-24] MEDS: ALPRAZolam 0.25 MG TAB PO PRN (12:31)
--- NOTE | 2019-04-24 13:31 | IPNPDOC ---
Text Note Date of Service The patient was seen on 04/24/19. NOTE Subjective: -Doing ok this morning, L ankle is painful when touched but otherwise pain is well controlled. -No chest pain, palpitations, had nasal canula overnight though she has the trilogy at home [facility] Interim events: -Surgery held off ankle surgery until likely -CXR with massive cardiomegaly though clinically at baseline -INR elevated -Rivaroxaban held and placed on therapeutic lovenox PHYSICAL: General exam: A&Ox3, NAD, resting comfortably HEENT: NCAT, EOMI, anicteric sclera, dry mucous membranes, neck supple without JVD or carotid bruits, poor dentition with mostly missing teeth Cardiac: Heart sounds remain distant, normal S1 & S2, no murmurs heard, paced, regular rhythm Respiratory: Diminished lung sounds at the bases with scattered bibasilar crackles, upper wylie with good air movement, no accessory muscle use, on her chronic 5 L nasal cannula, no appreciable wheezing rhonchi Abdomen: soft, NT, ND, hypoactive bowel sounds Extremity: 2+ radial and dorsalis pedis pulses, no edema, WWP, has bump over R molina Skin: [place], warm, dry. ecchymosis throughout especially on bilateral arms and legs and left Msk: strength 5/5 x4, painful upon moving left foot, FROM at hip, normal tone Neuro: normal speech, no focal deficits, motor & sensation intact throughout Psych: Normal mood and affect LABORATORY DATA, MICROBIOLOGY: Please see below. Reviewed. WBC now 12.3, Hgb 9.4, Hct 33.1, platelets 154, Na 146, K4, Cr 0.46, INR 1.5 IMAGING STUDIES: please see below ASSESSMENT AND PLAN: 73 yo W with diastolic CHF, EF 65%, severe COPD chronically on prednisone 20 and 5 L nasal canula, A. fib on Xarelto, s/p unsuccessful cardioversion, s/p PPM, hx of DVT/PE, JOJO on [facility] trilogy, hx of back fractures with likely radicular sequale per history and left leg weakness with frequent falls who suffered a mechanical fall and presented to the ED where she was found to have R proximal and distal fibular fracture and left ankle bilateral comminuted fracture who is now admitted to medicine with orthopedics consultation for surgical evaluation with surgery tentatively being planned for 04/26. Ms. Harding is DNR/DNI and understands that her surgery would be high risk given her medical history but would like to proceed with surgery and outside of the fractures appears to be at her clinical baseline. Initial investigations was notable for elevated INR >2, cardiomegaly with bilateral pleural effusions that were previously noted, while saturating well on her baseline 5L. At this time, am managing her pain her orthopedics recommendations and switched her from xarelto to therapeutic lovenox in anticipation of surgery. In the meantime, given significant cardiomegaly, pleural effusions and coagulopathy will continue medical investigations and man agement. Left ankle fracture s/p mechanical fall, as well as R proximal and distal fibular fracture - Patient has a history of frequent falls with similar fracture of the right ankle years ago. She lives alone at home and ambulates with a wheelchair. Will likely require assistance vs rehab. PFS consulted - Discussed with David barajas in the ER. Patient reports her last meal was yesterday evening, and she took Xarelto this morning. Orthostatic complaints to proceed to the OR for urgent repair - Hospitalist was asked for pre-op evaluation: Patient is a high risk given her extensive cardiac and pulmonary disease. This was discussed in depth with patient and surgeon, including that she will likely not be a candidate for general anesthesia, and hopefully alternative anesthesia can be used. She is otherwise clinically at her baseline. Although chest x-ray reports cardiomegaly and bilateral atelectasis versus effusion, it appears she had similar findings back in November 2018. She is otherwise doing well and on her baseline 5 L nasal cannula, without any cardiac or pulmonary complaints. Per NSQIP, she is above average risk of serious complication, including cardiac complications, VTE, , and discharge to rehab facility. Pt is aware, with the risks, benefits, alternatives discussed with her and all questions answered. Chronic Diastolic CHF with EF 65% in 11/2018 - compensated on exam. Negative cardiopulmonary assessment and pt reports no subjective complaints - portable CXR notes cardiomegaly & effusions, but she is clinically at her baseline, and these findings were also noted months ago on imaging - no signs of decompensation clinically, and actually appears dry on exam. - Since surgery is not until will obtain TTE for evaluation of her massive cardiomegaly for significant pericardial effusion - Increased her lasix for 40QD to 40 BID with strict 1&Os Chronic A. fib on Xarelto and pacemaker - Reports she follows with cardiology in [place] and with [facility] - S/P unsuccessful cardiac ablation & cardioversion x2 - s/p PPM, ventricularly paced on EKG - no cardiac complaints Chronic severe COPD - on chronic prednisone 20mg daily & 5L nasal cannula at baseline, continuing - no evidence of exacerbation at this time - continue COPD meds and nebs Coagulopathy: with elevated INR -Unclear etiology, likely dietary, improving, continue to monitor daily Morbid obesity - Complicates care with BMI 40 Hypertension - Borderline soft blood pressures with no po intake since last night - Withhold antihypertensives and consider gentle fluids if needed Anxiety/depression/insomnia - continue home meds GERD - continue home PPI Iron deficiency anemia - at her baseline Hgb 10-11. No overt bleeding - Monitor daily CBC, continue po iron supplement Hypothyroidism - Continue home synthroid TMJ with nerve entrapment - Continue home Lyrica DVT prophylaxis: chronically on Xarelto, switched to therapeutic lovenox periop DISPOSITION: Medsurg pending surgery VSAnkit, I+O VSAnkit, I+O Laboratory Tests 04/23/19 16:02 04/24/19 05:28 Vital Signs Date Time Temp Pulse Resp B/P (MAP) Pulse Ox O2 Delivery O2 Flow Rate FiO2 04/24/19 06:46 20 Nasal Cannula 5.0 04/24/19 06:00 98.0 70 119/82 (94) 88 I&O- Last 24 Hours up to 6 AM 04/24/19 05:59 Intake Total 240 ml Output Total 100 ml Balance 140 ml LAZARO GILLESPIE MD Apr 24, 2019 07:46
[2019-04-24 14:00] VITALS: BP 95/57
[2019-04-24] MEDS ORDERED: LIDOCAINE 1% MDV 20ML VIAL As Ordered ONE (14:15)
[2019-04-24] MEDS ORDERED: SODIUM CHLORIDE 0.9% INJ 10 ML SYR IV PRN (15:00)
[2019-04-24] MEDS: SODIUM CHLORIDE 0.9% INJ 10 ML SYR IV SCH (15:00)
[2019-04-24] MEDS: FUROSEMIDE 40 MG TAB PO SCH (17:00)
[2019-04-24 19:50] VITALS: O2SAT 87
--- NOTE | 2019-04-24 20:02 | REP ---
MIDLINE CATHETER INSERTION WITH SITE ADANAdriana The procedure was performed under the direct supervision of Dr. Meredith. The risks and benefits of the procedure were explained to the patient and informed consent was obtained. The right basilic vein was localized using ultrasound guidance. The skin was prepped and draped in a sterile fashion. 1% lidocaine was used as a local anesthetic. Using ultrasound guidance the basilic vein was cannulated and a 0.018 guidewire was inserted. The needle was removed and a 4.5 Mongolian dilator and peel-away sheath was inserted over the guide wire. A 4.5 Mongolian single-lumen catheter was left at a length of 16.5 cm. The dilator was removed and the catheter was inserted over the guide wire. The peel-away sheath was removed and the catheter was flushed with heparinized saline as per Hospital protocol. The catheter was affixed to the skin and a sterile dressing was applied. The patient tolerated the procedure well and there were no immediate complications. Electronically Signed by ALEX Cheek 04/24/2019 04:44 P Electronically Signed by Connor Meredith MD 04/24/2019 07:53 P
[2019-04-24] MEDS: DULoxetine 30 MG CAP (CYMBALTA) PO SCH (20:08)
[2019-04-24] MEDS: SIMVASTATIN 20 MG TAB PO SCH (20:08)
[2019-04-24] MEDS: CYANOCOBALAMIN 500 MCG TAB PO SCH (20:08)
[2019-04-24] MEDS: VITAMIN E 400 INTERNATIONAL UNITS CAP PO SCH (20:08)
[2019-04-24] MEDS: traZODone 50 MG TAB PO SCH (20:08)
[2019-04-24] MEDS: VITAMIN D 1,000 INTERNATIONAL UNITS TABLET PO SCH (20:08)
[2019-04-24 22:00] VITALS: BP 124/78
[2019-04-25] MEDS: IPRATROPIUM 0.5MG/ALBUTEROL 2.5MG INH SOL UD 3ML (DUONEB)(J7620) NEB SCH ×5 (00:40→20:00)
[2019-04-25] MEDS: NORCO, ANEXSIA 5/325MG TABLET (HYDROcodone/ACETAMINOPHEN) PO PRN ×4 (02:40→16:29)
[2019-04-25 03:15] VITALS: O2SAT 94
[2019-04-25] MEDS: LEVALBUTEROL 1.25 MG/0.5 ML CONCENTRATE NEB INH PRN ×2 (03:16→10:39)
[2019-04-25] MEDS: LEVOTHYROXINE 100MCG TABLET (0.1MG) PO SCH (05:20)
[2019-04-25 06:00] VITALS: BP 128/81
[2019-04-25 06:25] LABS: HEMATOCRIT 31.4 % (36.0-47.0); MEAN CORPUSCULAR HEMOGLOBIN 27.2 pg (27.0-33.0); MEAN CORPUSCULAR HGB CONC 28.7 g/dl (32.0-36.5); MEAN CORPUSCULAR VOLUME 94.9 fl (80.0-96.0); PLATELET COUNT, AUTOMATED 157 10^3/uL (150-450); RED BLOOD COUNT 3.31 10^6/uL (4.00-5.40); WHITE BLOOD COUNT 11.9 10^3/uL (4.0-10.0)
[2019-04-25 06:33] LABS: INR 1.21
[2019-04-25 06:54] LABS: BLOOD UREA NITROGEN 18 MG/DL (7-18); CALCIUM LEVEL 8.4 MG/DL (8.8-10.2); CARBON DIOXIDE LEVEL 37 MEQ/L (21-32); CHLORIDE LEVEL 100 MEQ/L (98-107); GLOMERULAR FILTRATION RATE > 60.0 (>39); GLUCOSE, FASTING 83 MG/DL (70-100); POTASSIUM SERUM 3.9 MEQ/L (3.5-5.1); SODIUM LEVEL 141 MEQ/L (136-145)
[2019-04-25] MEDS: BUDESONIDE 0.5 MG/2 ML INHALATION SUSPENSION INH SCH ×2 (07:10→20:35)
[2019-04-25] MEDS: ADVAIR HFA 230/21MCG INHALER INH SCH ×2 (07:11→20:35)
[2019-04-25] MEDS: ALPRAZolam 0.25 MG TAB PO PRN (07:37)
[2019-04-25] MEDS: FERROUS SULFATE 325MG TAB PO SCH (08:57)
[2019-04-25] MEDS: PANTOPRAZOLE 40MG TAB (PROTONIX) PO SCH (08:57)
[2019-04-25] MEDS: POTASSIUM CHLORIDE 10 MEQ SR TABLET PO SCH ×2 (08:57→20:52)
[2019-04-25] MEDS: predniSONE 20 MG TAB PO SCH (08:57)
[2019-04-25] MEDS: ENOXAPARIN 100MG/1ML SYRINGE (J1650) SC SCH (08:57)
[2019-04-25] MEDS: FLUTICASONE PROP 0.05% NASAL SPRAY 16 GM (FLONASE) NARES SCH ×2 (08:58→21:00)
[2019-04-25] MEDS: ASCORBIC ACID 500 MG TAB PO SCH (08:58)
[2019-04-25] MEDS ORDERED: ENOXAPARIN 100MG/1ML SYRINGE (J1650) SC SCH (09:00)
[2019-04-25] MEDS: CARVedilol 12.5 MG TAB PO SCH ×2 (09:00→20:52)
[2019-04-25] MEDS: amLODIPine 5 MG TAB PO SCH (09:00)
--- NOTE | 2019-04-25 10:40 | ECHO ---
DATE OF PROCEDURE: 04/24/2019 AGE: 73 GENDER: Female HEIGHT: 61 inches WEIGHT: 213 pounds BODY SURFACE AREA: 1.94 meters squared INPATIENT 4 PAVILION: Room 4201 REFERRING PHYSICIAN: Dr. Bonny Pascal INDICATION: Cardiomegaly. MEASUREMENTS: 2-D measurements: RV - 4.4 cm LV - 5.2 cm Septum 1.2 cm Posterior wall 1.2 cm Aortic root 3.1 cm LA - 5.4 cm LVEF 65% Doppler measurements: AV - 1.4 meters per second LVOT - 0.8 meters per second LVOT diameter 1.9 cm MV - E 119 Early mitral deceleration time 387 milliseconds E prime medial 7.7, E prime lateral 7 Average E/E prime ratio 16.2 /PCWP - 22 mmHg PV - 0.9 meters per second Pulmonary artery acceleration time 77 milliseconds RVSP 59 mmHg IVC - 2.3 cm COMMENTS: Underlying atrial fibrillation with consistent ventricular paced rhythm. Paced QRS complexes with LBBB configuration. Challenging study in light of the patient's body habitus but diagnostically useful. M-mode and two-dimensional echocardiography was performed with pulsed, continuous wave, color flow and tissue Doppler studies. Normal left ventricular size with symmetrical borderline LV hypertrophy. Distal septal and apical hypokinesis related to right ventricular pacing versus right ventricular pressure overload. Preserved global resting left ventricular systolic function. Prominently dilated left atrium with Doppler evidence of an elevated mean left atrial pressure. At least mildly dilated right ventricle with slight right ventricular free wall hypokinesis and Doppler evidence of severe pulmonary hypertension. Prominently dilated right atrium and at least mildly dilated inferior vena cava with reduced respiratory collapse in keeping with an elevated central venous pressure/ right heart failure. Mild aortic valvular sclerosis without stenosis and only very mild insufficiency. Normal aortic root and ascending aortic diameters. Degenerative changes of the mitral valvular apparatus without evidence of LV inflow tract obstruction and only mild insufficiency. Normal appearing tricuspid valve with severe tricuspid insufficiency. Pacing lead could be visualized traversing right heart structures but no separate intracardiac mass. No pericardial effusion.
[2019-04-25] MEDS: FUROSEMIDE 40 MG TAB PO SCH ×2 (11:30→16:29)
[2019-04-25 14:00] VITALS: BP 116/63
[2019-04-25 14:19] LABS: ABG BASE EXCESS 8.1 (-2.0-2.0); ABG HCO3 34.4 MEQ/L (22.0-26.0); ABG O2 SATURATION 92.5 % (95.0-99.0); ABG PARTIAL PRESSURE CO2 58.6 mmHg (35.0-45.0); ABG PARTIAL PRESSURE O2 67.6 mmHg (75.0-100.0); ABG STANDARD HCO3 31.8 MEQ/L (22.0-26.0); ABG TOTAL CO2 36.2 MEQ/L (23.0-31.0); ABG pH (ARTERIAL) 7.387 UNITS (7.350-7.450)
[2019-04-25] MEDS: SODIUM CHLORIDE 0.9% INJ 10 ML SYR IV SCH (16:30)
--- NOTE | 2019-04-25 17:12 | IPNPDOC ---
Text Note Date of Service The patient was seen on 04/25/19. NOTE Subjective: -[place] short of breath this morning and was increased from her baseline 5L to 6L -BP normal this morning in 110s, to give lasix and hold ACEi and BB, asymptomatic otherwise without chest pain, palpitations, had nasal canula overnight with respiratory working on placed her on mask per home script. -L ankle is painful when touched but otherwise pain is well controlled. Interim events: -had midline placed for difficult access while on therapeutic lovenox and had s ignificant post line bleeding requiring hemostasis with katerina bandage with redressing 3 times, now stable. PHYSICAL: General exam: A&Ox3, NAD, resting comfortably HEENT: NCAT, EOMI, anicteric sclera, dry mucous membranes, neck supple without JVD or carotid bruits, poor dentition with mostly missing teeth Cardiac: Heart sounds remain distant, normal S1 & S2, no murmurs heard, paced, regular rhythm Respiratory: Diminished lung sounds at the bases with scattered bibasilar crackles, upper wylie with good air movement, no accessory muscle use, on 6 L, no appreciable wheezing rhonchi Abdomen: soft, NT, ND, hypoactive bowel sounds Extremity: 2+ radial and dorsalis pedis pulses, no edema, WWP, has bump over R molina Skin: [place], warm, dry. ecchymosis throughout especially on bilateral arms and legs and left Msk: strength 5/5 x4, painful upon moving left foot in cast, FROM at hip, normal tone Neuro: normal speech, no focal deficits, motor & sensation intact throughout Psych: Normal mood and affect LABORATORY DATA, MICROBIOLOGY: Please see below. Reviewed. stable Hgb at 9.3, INR now 1.27 IMAGING STUDIES: please see below. pending TTE ASSESSMENT AND PLAN: 73 yo W with diastolic CHF, EF 65%, severe COPD chronically on prednisone 20 and 5 L nasal canula, A. fib on Xarelto, s/p unsuccessful cardioversion, s/p PPM, hx of DVT/PE, JOJO on [facility] trilogy, hx of back fractures with likely radicular sequale per history and left leg weakness with frequent falls who suffered a mechanical fall and presented to the ED where she was found to have R proximal and distal fibular fracture and left ankle bilateral comminuted fracture who is now admitted to medicine with orthopedics consultation for surgical evaluation with surgery tentatively being planned for 04/26. Ms. Harding is DNR/DNI and understands that her surgery would be high risk given her medical history but would like to proceed with surgery and outside of the fractures appears to be at her clinical baseline. Initial investigations was notable for elevated INR >2, cardiomegaly with bilateral pleural effusions that were previously noted, while saturating well on her baseline 5L. At this time, am managing her pain her orthopedics recommendations and switched her from xarelto to therapeutic lovenox in anticipation of surgery. In the meantime, given significant cardiomegaly, pleural effusions and coagulopathy will continue medical investigations and management. Left ankle fracture s/p mechanical fall, as well as R proximal and distal fibular fracture - Patient has a history of frequent falls with similar fracture of the right ankle years ago. She lives alone at home and ambulates with a wheelchair. Will likely require assistance vs rehab. PFS consulted - for now distal LLE in cast, with pain well controlled er ortho pain plan, with plan for tentative surgery tomorrow - Hospitalist was asked for pre-op evaluation: Patient is a high risk given her extensive cardiac and pulmonary disease. This was discussed in depth with patient and surgeon, including that she will likely not be a candidate for general anesthesia, and hopefully alternative anesthesia can be used. She is otherwise clinically at her baseline. Although chest x-ray reports cardiomegaly and bilateral atelectasis versus effusion, it appears she had similar findings back in November 2018. She is otherwise doing well and on her baseline 5 L nasal cannula, without any cardiac or pulmonary complaints. Per NSQIP, she is above average risk of serious complication, including cardiac complications, VTE, , and discharge to rehab facility. Pt is aware, with the risks, benefits, alternatives discussed with her and all questions answered. Chronic Diastolic CHF with EF 65% in 11/2018 - compensated on exam. Negative cardiopulmonary assessment and pt reports no subjective complaints - portable CXR notes cardiomegaly & effusions, but she is clinically at her baseline, and these findings were also noted months ago on imaging - no signs of decompensation clinically, and actually appears dry on exam. - Since surgery is not until obtained TTE for evaluation of her massive cardiomegaly for significant pericardial effusion, pending read - Increased her lasix for 40QD to 40 BID with strict 1&Os, however BPs became soft, will de-escalate back to daily Chronic A. fib on Xarelto and pacemaker - Reports she follows with cardiology in [place] and with [facility] - S/P unsuccessful cardiac ablation & cardioversion x2 - s/p PPM, ventricularly paced on EKG - no cardiac complaints Chronic severe COPD on 5L with PRN trilogy - on chronic prednisone 20mg daily & 5L nasal cannula at baseline, continuing - no evidence of exacerbation at this time - continue COPD meds and nebs - Was hypoxemic on 6L O2 today and respiratory placed her on BiPAP at her home settings at 20/10 for O2 sat >88% Coagulopathy: with elevated INR -Unclear etiology, likely dietary, improving, continue to monitor daily Morbid obesity - Complicates care with BMI 40 Hypertension - Borderline soft blood pressures with no po intake since last night - Withhold antihypertensives and consider gentle fluids if needed Anxiety/depression/insomnia - continue home meds GERD - continue home PPI Iron deficiency anemia - at her baseline Hgb 10-11. No overt bleeding - Monitor daily CBC, continue po iron supplement Hypothyroidism - Continue home synthroid TMJ with nerve entrapment - Continue home Lyrica DVT prophylaxis: chronically on Xarelto, switched to therapeutic lovenox periop, lovenox dc'd today after morning dose in preparation for surgery tomorrow DISPOSITION: Medsurg with telemetry with VS,Fishbone, I+O VS, Fishbone, I+O Laboratory Tests 04/25/19 05:06 Vital Signs Date Time Temp Pulse Resp B/P (MAP) Pulse Ox O2 Delivery O2 Flow Rate FiO2 04/25/19 08:08 20 Nasal Cannula 6.0 04/25/19 06:00 98.4 69 128/81 (97) 92 04/25/19 03:15 40 I&O- Last 24 Hours up to 6 AM 04/25/19 06:00 Intake Total 1750 ml Output Total 1000 ml Balance 750 ml LAZARO GILLESPIE MD Apr 25, 2019 09:32
[2019-04-25] MEDS: SIMVASTATIN 20 MG TAB PO SCH (20:51)
[2019-04-25] MEDS: traZODone 50 MG TAB PO SCH (20:51)
[2019-04-25] MEDS: VITAMIN E 400 INTERNATIONAL UNITS CAP PO SCH (20:51)
[2019-04-25] MEDS: DULoxetine 30 MG CAP (CYMBALTA) PO SCH (20:52)
[2019-04-25] MEDS: VITAMIN D 1,000 INTERNATIONAL UNITS TABLET PO SCH (20:52)
[2019-04-25] MEDS: CYANOCOBALAMIN 500 MCG TAB PO SCH (20:52)
[2019-04-25 22:00] VITALS: BP 117/90
[2019-04-26] VITALS (10 sets, daily range): BP systolic 108–125; BP diastolic 56–79; O2SAT 87–92
[2019-04-26] MEDS: IPRATROPIUM 0.5MG/ALBUTEROL 2.5MG INH SOL UD 3ML (DUONEB)(J7620) NEB SCH ×4 (01:05→20:00)
[2019-04-26] MEDS: LEVOTHYROXINE 100MCG TABLET (0.1MG) PO SCH (05:53)
[2019-04-26] MEDS ORDERED: CLINDAMYCIN 900 MG in IV 1 EA IV SCH (06:00)
[2019-04-26 06:24] LABS: HEMATOCRIT 28.1 % (36.0-47.0); HEMOGLOBIN 8.4 g/dl (12.0-15.5); MEAN CORPUSCULAR HEMOGLOBIN 27.5 pg (27.0-33.0); MEAN CORPUSCULAR HGB CONC 29.9 g/dl (32.0-36.5); MEAN CORPUSCULAR VOLUME 91.8 fl (80.0-96.0); PLATELET COUNT, AUTOMATED 141 10^3/uL (150-450); RED BLOOD COUNT 3.06 10^6/uL (4.00-5.40); WHITE BLOOD COUNT 9.2 10^3/uL (4.0-10.0)
[2019-04-26 06:47] LABS: BLOOD UREA NITROGEN 15 MG/DL (7-18); CALCIUM LEVEL 8.2 MG/DL (8.8-10.2); CARBON DIOXIDE LEVEL 36 MEQ/L (21-32); CHLORIDE LEVEL 103 MEQ/L (98-107); CREATININE FOR GFR 0.46 MG/DL (0.55-1.30); GLOMERULAR FILTRATION RATE > 60.0 (>39); GLUCOSE, FASTING 87 MG/DL (70-100); POTASSIUM SERUM 3.6 MEQ/L (3.5-5.1); SODIUM LEVEL 143 MEQ/L (136-145)
[2019-04-26] MEDS: BUDESONIDE 0.5 MG/2 ML INHALATION SUSPENSION INH SCH ×2 (07:53→20:58)
[2019-04-26] MEDS: ADVAIR HFA 230/21MCG INHALER INH SCH ×2 (07:53→20:58)
[2019-04-26] MEDS: predniSONE 20 MG TAB PO SCH (08:21)
[2019-04-26] MEDS: FUROSEMIDE 40 MG TAB PO SCH ×2 (08:21→17:16)
[2019-04-26] MEDS: ASCORBIC ACID 500 MG TAB PO SCH (08:21)
[2019-04-26] MEDS: CARVedilol 12.5 MG TAB PO SCH ×2 (08:21→21:00)
[2019-04-26] MEDS: POTASSIUM CHLORIDE 10 MEQ SR TABLET PO SCH (08:21)
[2019-04-26] MEDS: FERROUS SULFATE 325MG TAB PO SCH (08:21)
[2019-04-26] MEDS: amLODIPine 5 MG TAB PO SCH (08:22)
[2019-04-26] MEDS: FLUTICASONE PROP 0.05% NASAL SPRAY 16 GM (FLONASE) NARES SCH ×2 (08:22→21:00)
[2019-04-26] MEDS: PANTOPRAZOLE 40MG TAB (PROTONIX) PO SCH (08:22)
[2019-04-26] MEDS ORDERED: propofoL 200 MG/20 ML VIAL As Ordered ONE (08:54)
[2019-04-26] MEDS ORDERED: LIDOCAINE 2% INJ 100 MG/5 ML SDV (FOR ANES.) As Ordered ONE (08:54)
[2019-04-26] MEDS ORDERED: fentaNYL 250 MCG/5 ML INJECTION (J3010) As Ordered ONE (08:54)
[2019-04-26] MEDS ORDERED: ROCURONIUM BROMIDE 50 MG/5 ML VIAL As Ordered ONE (08:54)
[2019-04-26] MEDS ORDERED: MIDAZOLAM INJ 2 MG/2 ML VIAL (J2250) As Ordered ONE ×2 (08:55→10:40)
[2019-04-26] MEDS ORDERED: CLINDAMYCIN 600 MG/50 ML PREMIX BAG As Ordered ONE (09:41)
--- NOTE | 2019-04-26 10:31 | IPN ---
DATE: 04/26/2019 She was seen on [facility]. She is going down to the operating room (OR) for a left ankle fracture. She has a history of, it looks like severe chronic obstructive pulmonary disease (COPD) on chronic supplemental oxygen 5 liter with as needed trilogy chronic steroid therapy. Despite these severe problems, she apparently does not have a branch service leader that she sees. She also has chronic diastolic congestive heart failure, ejection fraction 65%, and seems to be compensated. On exam, she has morbid obesity with body mass index (BMI) over 40 that also complicates her care. Today, she is feeling well. She is no more short of breath than usual. Denies any chest pain, cough, hemoptysis. Blood pressures are well controlled as well, 114/56. Vital signs stable. Lungs decreased breath sounds but clear. Heart regular rhythm. Abdomen soft, nontender. Her left leg is dressed. Labs: White count 9.2, hemoglobin 8.4, platelets 141. Electrolytes unremarkable. IMPRESSION: 1. Left ankle fracture. Going for surgery today. Risk is elevated, but she is optimized. 2. Severe chronic obstructive pulmonary disease. Continue her current regimen. If she has any deterioration, we will ask pulmonary to see her. Probably should be followed by branch service leader. 3. Atrial fibrillation. Rate is controlled. She has a pacemaker. She is on Xarelto as an outpatient, which is held for surgery. Has had unsuccessful ablations and cardioversions in the past. 4. Diastolic congestive heart failure. She seems compensated. 5. History of pulmonary hypertension noted on recent echocardiogram. I suspect her "diastolic heart failure" is really right-sided heart failure, which unfortunately, will lead to hypotension with aggressive diuresis.
[2019-04-26] MEDS ORDERED: CLINDAMYCIN 900 MG/50 ML PREMIX BAG As Ordered ONE (10:33)
[2019-04-26] MEDS ORDERED: fentaNYL 100 MCG/2 ML INJECTION (J3010) As Ordered ONE (10:40)
[2019-04-26] MEDS ORDERED: dexameTHASONE 10 MG/1 ML VIAL PRES.FREE (J1100) ONE (11:30)
[2019-04-26] MEDS ORDERED: EPINEPHrine INJ 1 MG/ML 1ML VIAL ONE (11:30)
[2019-04-26] MEDS ORDERED: LIDOCAINE 1% MDV 20ML VIAL ONE (11:30)
[2019-04-26] MEDS ORDERED: ROPIvacaine 0.5% 30 ML INJECTION (J2795 PER 1MG) ONE (11:30)
[2019-04-26] MEDS ORDERED: PHENYLephrine HCL 500 MCG/5 ML (100MCG/ML) SYRINGE (J2370) As Ordered ONE (11:33)
[2019-04-26] MEDS ORDERED: ePHEDrine SULFATE 25 MG/5 ML(5MG/ML) SYRINGE As Ordered ONE (11:33)
[2019-04-26] MEDS ORDERED: PHENYLEPHRINE INJ 10MG/ML VIAL (J2370) As Ordered ONE (11:46)
[2019-04-26] MEDS ORDERED: BUPIVACAINE HCL 0.5% 30 ML VIAL As Ordered ONE (11:51)
[2019-04-26] MEDS ORDERED: ONDANSETRON 4MG/2ML VIAL (J2405) As Ordered ONE (12:29)
[2019-04-26] MEDS ORDERED: fentaNYL 100 MCG/2 ML INJECTION (J3010) IV PRN (13:00)
[2019-04-26] MEDS ORDERED: LR 1,000 ML IV SCH (13:00)
[2019-04-26] MEDS: SODIUM CHLORIDE 0.9% INJ 10 ML SYR IV SCH (14:28)
[2019-04-26] MEDS: NORCO, ANEXSIA 5/325MG TABLET (HYDROcodone/ACETAMINOPHEN) PO PRN (14:28)
--- NOTE | 2019-04-26 14:55 | REP ---
Ankle series: Six views. History: Intraprocedural imaging. 30 seconds of fluoroscopy time is reported. Findings: A series of six fluoroscopically obtained spot radiographs of the ankle document open reduction internal fixation. No laterality markers are visible. Electronically Signed by Connor Meredith MD 04/26/2019 05:14 P
--- NOTE | 2019-04-26 17:32 | IPN ---
DATE: 04/26/2019 Briseida is seen postoperatively. She has been dropping oxygen saturations into the 70s. Her baseline is around 85% to 90%. She is on chronic steroid therapy, five liters of oxygen nasal cannula. She carries a diagnosis of chronic obstructive pulmonary disease (COPD) but her primary care provider is in [place] and I do not have access to any respiratory or anything to corroborate this. Since she returned from surgery, her oxygen saturations have been falling into the mid 70s. They returned back to the 80s and when I was seeing her in reevaluation, the oxygen saturation was 88% on bilevel positive airway pressure (BiPAP) with five liters. PHYSICAL EXAMINATION: VITAL SIGNS: 88% oxygen saturation on bilevel positive airway pressure (BiPAP) with five liters, afebrile. She is alert and conversant. She says she is not more short of breath than usual. LUNGS: Decreased breath sounds. HEART: Regular rate and rhythm. ABDOMEN: Soft, obese, nontender. IMPRESSION: Hypoxemia. I am going to move her down to the progressive care unit (PCU). I have discussed the case with Dr. Middleton. At this point, I do not think she needs to be seen by pulmonology tonight unless her condition deteriorates. Dr. Middleton is aware of the case. Certainly, this patient should be followed by a punch molder as an outpatient as she is steroid dependent and uses five liters of oxygen nasal cannula continuously, so at a minimum this will establish some ongoing pulmonary care.
[2019-04-26 18:22] LABS: CK-MB VALUE MASS 1.1 NG/ML (<3.6); CPK CREATINE PHOSPHOKINASE 23 U/L (26-192); MB/CK RELATIVE INDEX 4.78 (< OR =4); TROPONIN I < 0.02 NG/ML (< 0.10)
[2019-04-26] MEDS: CLINDAMYCIN 600 MG in IV 1 EA IV SCH (18:31)
[2019-04-27] VITALS (19 sets, daily range): BP systolic 106–145; BP diastolic 58–75; O2SAT 65–100
[2019-04-27] MEDS: IPRATROPIUM 0.5MG/ALBUTEROL 2.5MG INH SOL UD 3ML (DUONEB)(J7620) NEB SCH ×4 (01:20→20:00)
[2019-04-27] MEDS: CLINDAMYCIN 600 MG in IV 1 EA IV SCH ×2 (02:37→11:56)
[2019-04-27] MEDS: NORCO, ANEXSIA 5/325MG TABLET (HYDROcodone/ACETAMINOPHEN) PO PRN ×2 (02:39→09:52)
[2019-04-27] MEDS: SIMVASTATIN 20 MG TAB PO SCH ×2 (02:43→20:40)
[2019-04-27] MEDS: VITAMIN D 1,000 INTERNATIONAL UNITS TABLET PO SCH ×2 (02:43→20:39)
[2019-04-27] MEDS: VITAMIN E 400 INTERNATIONAL UNITS CAP PO SCH ×2 (02:43→20:38)
[2019-04-27] MEDS: DULoxetine 30 MG CAP (CYMBALTA) PO SCH ×2 (02:43→20:40)
[2019-04-27] MEDS: POTASSIUM CHLORIDE 10 MEQ SR TABLET PO SCH ×3 (02:43→20:40)
[2019-04-27] MEDS: traZODone 50 MG TAB PO SCH ×2 (02:43→20:40)
[2019-04-27] MEDS: CYANOCOBALAMIN 500 MCG TAB PO SCH ×2 (02:44→20:40)
[2019-04-27] MEDS: LEVOTHYROXINE 100MCG TABLET (0.1MG) PO SCH (06:52)
[2019-04-27] MEDS: BUDESONIDE 0.5 MG/2 ML INHALATION SUSPENSION INH SCH ×2 (07:47→21:12)
[2019-04-27] MEDS: ADVAIR HFA 230/21MCG INHALER INH SCH ×2 (07:48→21:12)
[2019-04-27 08:02] LABS: HEMOGLOBIN 8.2 g/dl (12.0-15.5); MEAN CORPUSCULAR HEMOGLOBIN 27.3 pg (27.0-33.0); MEAN CORPUSCULAR HGB CONC 29.3 g/dl (32.0-36.5); MEAN CORPUSCULAR VOLUME 93.3 fl (80.0-96.0); PLATELET COUNT, AUTOMATED 148 10^3/uL (150-450); WHITE BLOOD COUNT 9.7 10^3/uL (4.0-10.0)
[2019-04-27 08:44] LABS: BLOOD UREA NITROGEN 20 MG/DL (7-18); CARBON DIOXIDE LEVEL 37 MEQ/L (21-32); CHLORIDE LEVEL 103 MEQ/L (98-107); CK-MB VALUE MASS < 1.0 NG/ML (<3.6); CPK CREATINE PHOSPHOKINASE 20 U/L (26-192); GLOMERULAR FILTRATION RATE > 60.0 (>39); GLUCOSE, FASTING 136 MG/DL (70-100); POTASSIUM SERUM 4.5 MEQ/L (3.5-5.1); SODIUM LEVEL 144 MEQ/L (136-145); TROPONIN I < 0.02 NG/ML (< 0.10)
[2019-04-27] MEDS: FLUTICASONE PROP 0.05% NASAL SPRAY 16 GM (FLONASE) NARES SCH ×2 (09:00→20:38)
[2019-04-27] MEDS: FUROSEMIDE 40 MG TAB PO SCH ×2 (09:22→16:00)
[2019-04-27] MEDS: PANTOPRAZOLE 40MG TAB (PROTONIX) PO SCH (09:22)
[2019-04-27] MEDS: FERROUS SULFATE 325MG TAB PO SCH (09:22)
[2019-04-27] MEDS: CARVedilol 12.5 MG TAB PO SCH ×2 (09:22→20:39)
[2019-04-27] MEDS: amLODIPine 5 MG TAB PO SCH (09:23)
[2019-04-27] MEDS: predniSONE 20 MG TAB PO SCH (09:23)
[2019-04-27] MEDS: ASCORBIC ACID 500 MG TAB PO SCH (09:23)
[2019-04-27] MEDS: MOM 30ML SUSPENSION UDC PO SCH (09:24)
[2019-04-27] MEDS: MIRALAX *UNIT DOSE* 17GM PACKET PO SCH (09:24)
[2019-04-27] MEDS: ALPRAZolam 0.25 MG TAB PO PRN (09:50)
--- NOTE | 2019-04-27 13:20 | IPN ---
DATE: 04/27/2019 Briseida did well overnight. She did not really have any significant hypoxemia problems. When I saw her this morning rounding, she was on nasal cannula, but she said that she was feeling tired and asked to have her BiPAP put back on after I saw her. She denies any chest pain, cough. Her analgesia from the fracture is adequate. She is afebrile at 98 degrees. Blood pressure 145/70, oxygen saturation 97% on 5 liters. PHYSICAL EXAMINATION: GENERAL APPEARANCE: Lying in bed, dyspneic with prolonged discussion. No jugular venous distention (JVD). LUNGS: Decreased breath sounds. HEART: Regular rate and rhythm. ABDOMEN: Soft, nontender. EXTREMITIES: Trace peripheral edema of her right leg. LABORATORIES: White count 9.7, hemoglobin 8.2, platelets 148. Sodium 144, potassium 4.5, BUN 20, creatinine 0.6, glucose 136, troponin negative times two. IMPRESSION: 1. Left ankle fracture, status post operative repair yesterday. 2. Severe chronic obstructive pulmonary disease (COPD), pulmonary has been consulted. The patient is on chronic steroid therapy and uses high flow oxygen at home, has required intermittent BiPAP. Continue current bronchodilator therapy. She does not have an outpatient drafter commercial despite the severity of her lung condition. 3. Atrial fibrillation. Restarted Xarelto yesterday. 4. Hyperlipidemia. Continue current dose of atorvastatin 20 mg daily. 5. Diastolic congestive heart failure (CHF) (more likely cor pulmonale). Seems compensated with no evidence of volume overload.
--- NOTE | 2019-04-27 13:30 | RO ---
DATE OF PROCEDURE: 04/26/2019 PREOPERATIVE DIAGNOSIS: Displaced bimalleolar left ankle fracture. POSTOPERATIVE DIAGNOSIS: Displaced bimalleolar left ankle fracture. PROCEDURE: Open reduction internal fixation (ORIF) left bimalleolar ankle fracture. SURGEON: Tucker Peterson MD BURRING WHEEL OPERATOR: ANESTHESIA: Left popliteal block with a spinal anesthetic. COMPLICATIONS: None. ESTIMATED BLOOD LOSS: 10 mL. SPECIMENS: None. PROCEDURE: Antibiotics were given intravenously preoperatively. Then a successful left popliteal nerve block and then a spinal anesthetic was induced. Tourniquet was placed left upper thigh, not inflated. I used a ChloraPrep initially on all her skin surfaces, and between the toes, and then a formal prep and drape was then performed after I did that. Then after appropriate time out, with the leg elevated, the tourniquet was inflated to 250 mmHg for 67 minutes. I first addressed the medial side of the ankle, then making a small curvilinear longitudinal incision down to the fracture site, irrigated out the hematoma, and irrigated into the joint of all the hematoma as well. The bone was noted to be quite soft. There was some periosteal stripping noted and there was some infolding of the periosteum into the fracture site which was removed from the fracture site and I irrigated out inside the ankle and was able to mobilize the medial malleolar fragment and get it into reasonable anatomic position. There were some comminution however at the edges of the fracture site making the exact anatomic articulation difficult to discern, but once I was satisfied that I could get a reduction, I then turned my attention to the lateral side of the ankle by making a longitudinal incision laterally, exposing the underlying fibular fracture site. I tried not to strip to much of the fracture site, it was a large butterfly comminution in the midportion of the fracture. Using a point reduction forceps distally, I distracted distally to get the fibula out to length and then applied a 10 hole plate laterally and fixed it to the distal portion of the lateral malleolus with a cancellus screw using the 2.5 drill and then clamped the plate to the bone across the fracture site with distraction to bring it out to length. Fluoroscopic image at this point showed we had a good reduction of the fibular fracture. Thus, at this point with the fracture reduced with distraction and indirect reduction technique, I affixed the plate on the proximal portion of the fracture fragment of the fibula using a 2.5 drill and 3.5 cortical screw. It hen filled the remaining distal two holes with two cancellus screws and then the remaining holes were filled with cortical screws, all drilled with the 2.5 drill. The whole directly over the comminuted butterfly fragment was left open. The distal four screws had reasonable purchase there, but more proximally the screw purchases were much better. We then turned our attention to the medial malleolus. I again irrigated out the fracture site and then performed and open anatomic reduction, held it with the pointer reduction forceps and a fluoroscopic image showed that we had good reduction of the medial malleolar fracture. A guidepin from the 4.5 cannulated screw set was then placed across the fracture site under fluoroscopic imaging. It appeared to be in good position and I fixed the medial malleolar fragment with the a 4.5 partially threaded cannulated screw by hand. This provided excellent fixation on the lateral view, however we were a bit posterior in the medial malleolar fragment, thus I elected to place an additional screw more anterior. This would also help with rotational stability of this fracture fragment. Thus a guidepin was placed more anterior and under fluoroscopic imaging we confirmed it was in good position in the AP and lateral planes. The screw guidepin was not parallel with the initial screw, but I do not think it mattered, because I felt I had good purchase and good reduction, thus I placed another partially 4.5 cannulated screw across this anterior pin, by hand. Again had excellent purchase. Fluoroscopic imaging at this point confirmed that the mortise appeared to be well reduced and the fracture seemed to be quite stable and in good position on the AP, mortise and lateral planes. At this point, I copiously irrigated all the fracture site. The skin was closed medially with marta and then laterally, the deep tissues were closed with interrupted #2-0 PDS suture and then marta in the skin. Adaptic, dry sterile bulky dressing was applied followed by cast pinning and then a well padded loosely fitting plast cast was applied over the ankle, and then the tourniquet was released. She was then transferred to the recovery room in stable condition. There were no intraoperative complications.
[2019-04-27] MEDS: SODIUM CHLORIDE 0.9% INJ 10 ML SYR IV SCH (15:55)
[2019-04-27] MEDS: PREGABALIN 100 MG CAP (LYRICA) PO SCH ×2 (15:57→20:40)
[2019-04-27] MEDS: RIVAROXABAN 20 MG TAB (XARELTO) PO SCH (18:32)
[2019-04-28] VITALS (17 sets, daily range): BP systolic 104–149; BP diastolic 55–87; O2SAT 81–100
[2019-04-28] MEDS: IPRATROPIUM 0.5MG/ALBUTEROL 2.5MG INH SOL UD 3ML (DUONEB)(J7620) NEB SCH ×4 (02:14→20:04)
[2019-04-28] MEDS: LEVOTHYROXINE 100MCG TABLET (0.1MG) PO SCH (05:20)
[2019-04-28] MEDS: NORCO, ANEXSIA 5/325MG TABLET (HYDROcodone/ACETAMINOPHEN) PO PRN ×3 (05:21→15:44)
[2019-04-28 06:02] LABS: HEMATOCRIT 29.9 % (36.0-47.0); HEMOGLOBIN 8.6 g/dl (12.0-15.5); MEAN CORPUSCULAR HEMOGLOBIN 27.5 pg (27.0-33.0); MEAN CORPUSCULAR HGB CONC 28.8 g/dl (32.0-36.5); MEAN CORPUSCULAR VOLUME 95.5 fl (80.0-96.0); PLATELET COUNT, AUTOMATED 154 10^3/uL (150-450); RED BLOOD COUNT 3.13 10^6/uL (4.00-5.40); WHITE BLOOD COUNT 9.8 10^3/uL (4.0-10.0)
[2019-04-28 06:29] LABS: BLOOD UREA NITROGEN 22 MG/DL (7-18); CALCIUM LEVEL 8.5 MG/DL (8.8-10.2); CARBON DIOXIDE LEVEL 41 MEQ/L (21-32); CHLORIDE LEVEL 101 MEQ/L (98-107); CREATININE FOR GFR 0.63 MG/DL (0.55-1.30); GLOMERULAR FILTRATION RATE > 60.0 (>39); GLUCOSE, FASTING 120 MG/DL (70-100); POTASSIUM SERUM 4.2 MEQ/L (3.5-5.1); SODIUM LEVEL 144 MEQ/L (136-145)
[2019-04-28] MEDS: BUDESONIDE 0.5 MG/2 ML INHALATION SUSPENSION INH SCH ×2 (07:24→20:04)
[2019-04-28] MEDS: ADVAIR HFA 230/21MCG INHALER INH SCH ×2 (07:24→20:04)
[2019-04-28] MEDS: PREGABALIN 100 MG CAP (LYRICA) PO SCH ×3 (09:39→20:33)
[2019-04-28] MEDS: predniSONE 20 MG TAB PO SCH (09:39)
[2019-04-28] MEDS: PANTOPRAZOLE 40MG TAB (PROTONIX) PO SCH (09:39)
[2019-04-28] MEDS: MOM 30ML SUSPENSION UDC PO SCH (09:39)
[2019-04-28] MEDS: POTASSIUM CHLORIDE 10 MEQ SR TABLET PO SCH ×2 (09:39→20:33)
[2019-04-28] MEDS: MIRALAX *UNIT DOSE* 17GM PACKET PO SCH (09:39)
[2019-04-28] MEDS: amLODIPine 5 MG TAB PO SCH (09:40)
[2019-04-28] MEDS: ASCORBIC ACID 500 MG TAB PO SCH (09:40)
[2019-04-28] MEDS: FERROUS SULFATE 325MG TAB PO SCH (09:40)
[2019-04-28] MEDS: FLUTICASONE PROP 0.05% NASAL SPRAY 16 GM (FLONASE) NARES SCH ×2 (09:40→20:34)
[2019-04-28] MEDS: FUROSEMIDE 40 MG TAB PO SCH ×2 (09:40→17:36)
[2019-04-28] MEDS: CARVedilol 12.5 MG TAB PO SCH ×2 (09:40→20:34)
--- NOTE | 2019-04-28 10:04 | CR ---
DATE OF CONSULTATION: 04/27/2019 REASON FOR CONSULTATION: Asked by Dr. Rivera to evaluate for respiratory recommendations and hypoxemia. HISTORY OF PRESENT ILLNESS Mrs. Meneses is a 73-year-old female who was admitted on 04/23/2019 after having a mechanical fall. She was in her wheelchair and when she stood up, her left leg gave out leading to her falling on that leg and she had a fracture of the distal fibula and ankle. She then underwent an open reduction internal fixation of the left ankle fracture yesterday. I was originally contacted by Dr. Rivera after she required more oxygen postoperatively, but that has resolved overnight. At her baseline Ms. Meneses is on 5 liters of oxygen continuously. She reports starting on oxygen in 2002 and eventually it has been titrated to 5 liters. She does not do much activity. She has had a power chair since 2009 and does little walking. No daily cough but she describes that she "loss of sense of cough 8 years ago." She has a diagnosis obstructive sleep apnea which came about 9 years ago after being investigated when she had atrial fibrillation. She initially was on bilevel therapy until she was "upgraded" to Trilogy about 3 years ago. She has been on prednisone for approximately 7 years. Initially at 10 mg for 5-6 years and then 20 mg the past year. Additional pulmonary history is that she had a pulmonary embolus in 2002. She has been on anticoagulation since that time so we would have to assume that it was an unprovoked blood clot. Ms. Meneses has been diagnosed with bronchitis three to four times per year dating back to about 2002. She reports that she is given that diagnosis three to four times per year for the past 5-6 years. However, it almost always is with a diagnosis of congestive heart failure (CHF) so it not clear that it always has both entities. More than likely there may have been some pneumonic processes, but may also have had CHF without an infective process. She did have one episode in 2009 where she was hospitalized for 2-1/2 weeks in the intensive care in [place]. She is not certain if she was intubated during that time or not. I do not know whether it was respiratory related process or cardiac related process, but she does feel that part of it was infective. She has been seen by pulmonology both at [facility] and [facility] with both evaluations coming 10 to 11 years ago. She stated they told her "there is nothing we can do". In regards to her pulmonary medications she is on Advair 230/21, two puffs twice a day via spacer. In addition, she has been on nebulized Pulmicort for 2 years. She is on DuoNebs. She is not on a LAMA. It sounds as if she tried one, but she is "allergic to any powdered inhalers." When asked to clarify that she states that powders make her feel more short of breath. PAST MEDICAL HISTORY: 1. Chronic obstructive pulmonary disease (COPD) per chart dating back many years. 2. Hypoxemia attributed to COPD. 3. Atrial fibrillation, chronic. A. Anticoagulation. B. Status post pacemaker placement. 4. Diastolic CHF. 5. Pulmonary hypertension, severe. 6. Hypertension. 7. Anxiety/depression/insomnia. 8. GERD. 9. Obesity. 10. Iron deficiency anemia. 11. Hypothyroidism. 12. TMJ with nerve entrapment. 13. Obstructive sleep apnea (JOJO), on Trilogy as outpatient. 14. History of pulmonary emboli in 2002. 15. Status post hysterectomy. 16. Status post appendectomy. 17. Status post right ankle repair. 18. Status post left ankle repair this admission. 19. History of tobacco usage. FAMILY HISTORY Ms. Meneses's father of lung cancer. He was a smoker. Her daughter has been diagnosed with COPD. She is a smoker. She is not aware of any family history of thromboembolic events. SOCIAL HISTORY She lives alone at home. She has previously been to rehabilitation in [place]. She smoked 2 packs per day for 40 years giving her an 80 pack-year history. She quit in 2001. Rare alcohol usage. Her previous employment was as a [employer] REVIEW OF SYSTEMS Per HPI, pertinent review of systems are negative. PHYSICAL EXAMINATION General: Ms. Meneses is lying in bed and completes several word sentences. She is using supraclavicular accessory muscles and at times pursed lip breathing. Vital signs: Temperature with a T-max of 98, pulse 71, respiratory rate 18, blood pressure 145/95 and a MAP of 91%. SPO2 97% on an FIO2 of 5 liters. HEENT: Anicteric, nares patent bilaterally. Moist mucosa. Oropharynx clear, upper plate, edentulous on bottom. Mallampati 4. Facies normal. Neck: Supple, unable to appreciated JVP because of body habitus, trachea is midline. Lymphs: Without cervical or supraclavicular lymphadenopathy. Chest: Mild kyphosis. Lungs: Symmetric excursion, markedly diminished air entry. No wheeze or rhonchi, no crackles. Prolonged expiratory phase. Supraclavicular accessory muscle usage and intermittent pursed-lip breathing. No retractions. Cardiovascular: Distant, irregular regular, normal S1, S2, unable to appreciate any murmur, rub or gallop. Unable to appreciate PMI. Abdomen: Positive bowel sounds, soft, nondistended, nontender, no hepatosplenomegaly or masses appreciated. Extremities: Cast on left lower extremity below the knee. Right lower extremity, trace edema without clubbing, cyanosis. Palpable pedal pulses. LABORATORY DATA CBC from this morning showed a hemoglobin 8.2, hematocrit 28, platelet count 148,000, white blood cell count 9700. Chemistry shows sodium 144, potassium 4.5, chloride 103, bicarbonate 37, anion gap 4, BUN 20, creatinine 0.6, glucose 136, calcium 8.0, CK 20, troponin-I less than 0.02. Arterial blood gas on 04/25 was 7.38/59/68 with a measured saturation 93% and a base excess of 8.1. I am not certain what level oxygen that was drawn on. INR from 04/25 is 1.21. Positive MRSA PCR. I reviewed her chest x-ray as well as the report following 04/23/2019. CT showed significant cardiomegaly. Bilateral basilar opacities. No consolidated regions. Normal appearing inflation. Echocardiogram from 04/25/2019 showed normal systolic function with an EF of 65%. There was severe pulmonary hypertension. There was some distal septal and apical hypokinesia related to right ventricular pacing versus right ventricular pressure overload. IMPRESSION: 1. Acute and chronic hypoxemia. I suspect the acute portion was likely secondary to fluids received intraoperatively and possibly hypoventilation intraoperatively. That has resolved. In regards to her chronic hypoxemia, I suspect that is multifactorial. I suspect that she has underlying emphysema. However, she also has severe pulmonary hypertension which likely contributes as well and in fact may be the largest contributor. Obesity hypoventilation syndrome may also contribute if that is present. 2. Chronic hypercapnic respiratory failure. Again I suspect this may be multifactorial. A portion may be secondary to an underlying obstructive lung process. However obstructive sleep apnea may be contributing and again if she has obesity hypoventilation syndrome that would be contributing as well. 3. Pulmonary hypertension, severe. Etiology of this may also be multifactorial. If she has underlying emphysema that may be contributing. Also obstructive sleep apnea may have contributed before treatment. She has a history of one pulmonary embolism (PE) and if she had chronic PE that may also be a cause. Finally heart failure (question diastolic) may also contribute. 4. COPD. She comes with a diagnosis of COPD and based on her breathing pattern and exam, I suspect she has that entity. I do not have any spirometric numbers. Based on her oxygen content and her history I suspect her COPD would be from emphysema. 5. Pulmonary embolism. Per patient in 2002, likely unprovoked. 6. Hypertension. 7. Diastolic CHF. 8. Hypothyroidism. 9. Chronic atrial fibrillation, status post pacemaker. 10. History of significant tobacco usage. RECOMMENDATIONS 1. At this point, I am not certain that there is anything that I can offer. From an oxygen point of view she is appropriately replaced. 2. Her obstructive sleep apnea is being treated. I have no data as to when she was last evaluated and the severity of her process. 3. In regards to her medications and COPD, there are some changes that could be made. I do not feel she needs 20 of prednisone nor as much inhaled corticosteroids, but she is adamant that she is not going to change any of her regimen. She is adamant she is not going to reintroduce LAMA although there are nonpowdered forms. She is also adamant that she is going to stay on as much prednisone as she wants. 4. As it is clear that she is going to stay on the regimen as she wants to and is not open to any suggestions or recommendations, there is no reason to follow as an outpatient. That may be in part why she did not continue to follow with two other pulmonologists she has seen in the past. Therefore, a pulmonary followup is not needed following this hospitalization. The pulmonary service will sign off at this time. Please reconsult the pulmonary service if there are further pulmonary questions/problems. TOM
[2019-04-28] MEDS: SODIUM CHLORIDE 0.9% INJ 10 ML SYR IV SCH (15:00)
--- NOTE | 2019-04-28 16:06 | IPNPDOC ---
Text Note Date of Service The patient was seen on 04/28/19. NOTE Subjective: -Is doing very well, was up in the chair and had been pivoted into chair by PT, cheerful PHYSICAL: General exam: A&Ox3, NAD, resting comfortably HEENT: NCAT, EOMI, anicteric sclera, MMM, neck supple, poor dentition with mostly missing teeth Cardiac: Heart sounds remain distant, normal S1 & S2, no murmurs heard, paced, regular rhythm Respiratory: CTAB this morning Abdomen: soft, NT, ND, normoactive bowel sounds Extremity: 2+ radial and dorsalis pedis pulses, no edema, WWP Skin: [place], warm, dry. ecchymosis throughout especially on bilateral arms and legs and left Msk: strength 5/5 x4, left foot in cast, dry skin around toes, not swollen, warm, is able to wiggle her toes Neuro: normal speech, no focal deficits, motor & sensation intact throughout Psych: Normal mood and affect LABORATORY DATA, MICROBIOLOGY: Please see below. Reviewed. ASSESSMENT AND PLAN: 73 yo W with diastolic CHF, EF 65%, severe COPD chronically on prednisone 20 and 5 L nasal canula, A. fib on Xarelto, s/p unsuccessful cardioversion, s/p PPM, hx of DVT/PE, JOJO on [facility] trilogy, hx of back fractures with likely radicular sequale per history and left leg weakness with frequent falls who suffered a mechanical fall and presented to the ED where she was found to have R proximal and distal fibular fracture and left ankle bilateral comminuted fracture who is now admitted to medicine with orthopedics consultation s/p L ankle surgery, doing well. Left ankle fracture s/p mechanical fall, as well as R proximal and distal fibular fracture: s/p L ankle fracture surgery on 04/26 - Patient has a history of frequent falls with similar fracture of the right ankle years ago. She lives alone at home and ambulates with a wheelchair. Will likely require assistance vs rehab. PFS consulted - LLE in cast, post surgery, with pain well controlled per ortho pain plan Chronic Diastolic CHF with EF 65% in 11/2018 - compensated on exam. Negative cardiopulmonary assessment and pt reports no sub jective complaints - portable CXR noted cardiomegaly & effusions, but she is clinically at her baseline, and these findings were also noted months ago on imaging - no signs of decompensation clinically, and actually appears dry on exam. - TTE with normal EF - Continue lasix 40 BID with strict 1&Os Chronic A. fib on Xarelto and pacemaker - Reports she follows with cardiology in [place] and with [facility] - S/P unsuccessful cardiac ablation & cardioversion x2 - s/p PPM, ventricularly paced on EKG - no cardiac complaints - continue xarelto Chronic severe COPD on 5L with PRN trilogy - on chronic prednisone 20mg daily & 5L nasal cannula at baseline, continuing - no evidence of exacerbation at this time - continue COPD meds and nebs - On 6L O2 and PRN BiPAP at her home settings at 20/10 for O2 sat >88% Coagulopathy: with elevated INR -Unclear etiology, likely dietary, resolved Morbid obesity - Complicates care with BMI 40 Hypertension - continue coreg, also on loop diuretics Anxiety/depression/insomnia - continue home meds GERD - continue home PPI Iron deficiency anemia - at her baseline Hgb 10-11. No overt bleeding - Monitor daily CBC, continue po iron supplement Hypothyroidism - Continue home synthroid TMJ with nerve entrapment - Continue home Lyrica DVT prophylaxis: continue on Xarelto DISPOSITION: Medsurg with telemetry, with ongoing PT/OT VS,Fishbone, I+O VS, Fishbone, I+O Laboratory Tests 04/28/19 05:32 Vital Signs Date Time Temp Pulse Resp B/P (MAP) Pulse Ox O2 Delivery O2 Flow Rate FiO2 04/28/19 15:44 19 04/28/19 12:00 96.6 80 140/77 (98) 95 NIPPV (BIPAP/CPAP) 5.0 04/25/19 03:15 40 I&O- Last 24 Hours up to 6 AM 04/28/19 06:00 Intake Total 450 ml Output Total 700 ml Balance -250 ml LAZARO GILLESPIE MD Apr 28, 2019 16:06
[2019-04-28] MEDS: RIVAROXABAN 20 MG TAB (XARELTO) PO SCH (17:35)
[2019-04-28] MEDS: SIMVASTATIN 20 MG TAB PO SCH (20:33)
[2019-04-28] MEDS: VITAMIN D 1,000 INTERNATIONAL UNITS TABLET PO SCH (20:33)
[2019-04-28] MEDS: DULoxetine 30 MG CAP (CYMBALTA) PO SCH (20:33)
[2019-04-28] MEDS: ALPRAZolam 0.25 MG TAB PO PRN (20:33)
[2019-04-28] MEDS: traZODone 50 MG TAB PO SCH (20:34)
[2019-04-28] MEDS: CYANOCOBALAMIN 500 MCG TAB PO SCH (20:34)
[2019-04-28] MEDS: VITAMIN E 400 INTERNATIONAL UNITS CAP PO SCH (20:34)
[2019-04-29] VITALS (16 sets, daily range): BP systolic 92–149; BP diastolic 57–87; O2SAT 87–99
[2019-04-29] MEDS: IPRATROPIUM 0.5MG/ALBUTEROL 2.5MG INH SOL UD 3ML (DUONEB)(J7620) NEB SCH ×4 (02:12→20:00)
[2019-04-29] MEDS: NORCO, ANEXSIA 5/325MG TABLET (HYDROcodone/ACETAMINOPHEN) PO PRN ×3 (03:10→17:00)
[2019-04-29] MEDS: LEVOTHYROXINE 100MCG TABLET (0.1MG) PO SCH (06:45)
[2019-04-29] MEDS: ADVAIR HFA 230/21MCG INHALER INH SCH ×2 (07:10→20:36)
[2019-04-29] MEDS: BUDESONIDE 0.5 MG/2 ML INHALATION SUSPENSION INH SCH ×2 (07:10→20:36)
[2019-04-29] MEDS: FLUTICASONE PROP 0.05% NASAL SPRAY 16 GM (FLONASE) NARES SCH ×2 (08:46→21:03)
[2019-04-29] MEDS: MOM 30ML SUSPENSION UDC PO SCH (08:46)
[2019-04-29] MEDS: MIRALAX *UNIT DOSE* 17GM PACKET PO SCH (08:46)
[2019-04-29] MEDS: FERROUS SULFATE 325MG TAB PO SCH (08:47)
[2019-04-29] MEDS: POTASSIUM CHLORIDE 10 MEQ SR TABLET PO SCH ×2 (08:47→21:03)
[2019-04-29] MEDS: CARVedilol 12.5 MG TAB PO SCH ×2 (08:47→21:05)
[2019-04-29] MEDS: amLODIPine 5 MG TAB PO SCH (08:47)
[2019-04-29] MEDS: PANTOPRAZOLE 40MG TAB (PROTONIX) PO SCH (08:47)
[2019-04-29] MEDS: predniSONE 20 MG TAB PO SCH (08:48)
[2019-04-29] MEDS: PREGABALIN 100 MG CAP (LYRICA) PO SCH ×3 (08:48→21:05)
[2019-04-29] MEDS: ASCORBIC ACID 500 MG TAB PO SCH (08:48)
[2019-04-29] MEDS: FUROSEMIDE 40 MG TAB PO SCH ×2 (08:48→17:00)
[2019-04-29] MEDS: LEVALBUTEROL 1.25 MG/0.5 ML CONCENTRATE NEB INH PRN (10:06)
--- NOTE | 2019-04-29 12:18 | IPNPDOC ---
Text Note Date of Service The patient was seen on 04/29/19. NOTE Subjective: -Is doing very well, was up in the chair and on way back to bed cast cracked and is coming apart at heel, awaiting ortho to see it. Otherwise doing well this morning PHYSICAL: General exam: A&Ox3, NAD, resting comfortably HEENT: NCAT, EOMI, anicteric sclera, MMM, neck supple, poor dentition with mostly missing teeth Cardiac: Heart sounds remain distant, normal S1 & S2, no murmurs heard, paced, regular rhythm Respiratory: CTAB this morning Abdomen: soft, NT, ND, normoactive bowel sounds Extremity: 2+ radial and dorsalis pedis pulses, no edema, WWP Skin: [place], warm, dry. ecchymosis throughout especially on bilateral arms and l egs and left Msk: strength 5/5 x4, left foot in cast that is now damaged at heel, dry skin around toes, not swollen, warm, is able to wiggle her toes Neuro: normal speech, no focal deficits, motor & sensation intact throughout Psych: Normal mood and affect LABORATORY DATA, MICROBIOLOGY: Please see below. Reviewed. Stable anemia and Cr at baseline. ASSESSMENT AND PLAN: 73 yo W with diastolic CHF, EF 65%, severe COPD chronically on prednisone 20 and 5 L nasal canula, A. fib on Xarelto, s/p unsuccessful cardioversion, s/p PPM, hx of DVT/PE, JOJO on [facility] trilogy, hx of back fractures with likely radicular sequale per history and left leg weakness with frequent falls who suffered a mechanical fall and presented to the ED where she was found to have R proximal and distal fibular fracture and left ankle bilateral comminuted fracture who is now admitted to medicine with orthopedics consultation s/p L ankle surgery, doing well with course c/b cast damage at the heel pending ortho evaluation. Left ankle fracture s/p mechanical fall, as well as R proximal and distal fibular fracture: s/p L ankle fracture surgery on 04/26 - Patient has a history of frequent falls with similar fracture of the right ankle years ago. She lives alone at home and ambulates with a wheelchair. Will likely require assistance vs rehab. PFS consulted - LLE in cast, post surgery, with pain well controlled per ortho pain plan - Cast damaged, ortho to evaluate and manage Chronic Diastolic CHF with EF 65% in 11/2018 - compensated on exam. Negative cardiopulmonary assessment and pt reports no subjective complaints - portable CXR noted cardiomegaly & effusions, but she is clinically at her baseline, and these findings were also noted months ago on imaging - no signs of decompensation clinically, and actually appears dry on exam. - TTE with normal EF - Continue lasix 40 BID with strict 1&Os Chronic A. fib on Xarelto and pacemaker - Reports she follows with cardiology in [place] and with [facility] - S/P unsuccessful cardiac ablation & cardioversion x2 - s/p PPM, ventricularly paced on EKG - no cardiac complaints - continue xarelto Chronic severe COPD on 5L with PRN trilogy - on chronic prednisone 20mg daily & 5L nasal cannula at baseline, continuing - no evidence of exacerbation at this time - continue COPD meds and nebs - On 6L O2 and PRN BiPAP at her home settings at 20/10 for O2 sat >88% Coagulopathy: with elevated INR -Unclear etiology, likely dietary, resolved Morbid obesity - Complicates care with BMI 40 Hypertension - continue coreg, also on loop diuretics Anxiety/depression/insomnia - continue home meds GERD - continue home PPI Iron deficiency anemia - at her baseline Hgb 10-11. No overt bleeding - Monitor daily CBC, continue po iron supplement Hypothyroidism - Continue home synthroid TMJ with nerve entrapment - Continue home Lyrica DVT prophylaxis: continue on Xarelto DISPOSITION: Medsurg with telemetry, with ongoing PT/OT VS,Fishbone, I+O VS, Fishbone, I+O Vital Signs Date Time Temp Pulse Resp B/P (MAP) Pulse Ox O2 Delivery O2 Flow Rate FiO2 04/29/19 12:00 96.4 70 20 110/66 (81) 93 NIPPV (BIPAP/CPAP) 5.0 04/25/19 03:15 40 I&O- Last 24 Hours up to 6 AM 04/29/19 06:00 Intake Total 750 ml Output Total 1300 ml Balance -550 ml LAZARO GILLESPIE MD Apr 29, 2019 12:18
[2019-04-29] MEDS: SODIUM CHLORIDE 0.9% INJ 10 ML SYR IV SCH (15:00)
[2019-04-29] MEDS: RIVAROXABAN 20 MG TAB (XARELTO) PO SCH (16:59)
[2019-04-29] MEDS: ALPRAZolam 0.25 MG TAB PO PRN (17:00)
[2019-04-29] MEDS: VITAMIN E 400 INTERNATIONAL UNITS CAP PO SCH (21:03)
[2019-04-29] MEDS: VITAMIN D 1,000 INTERNATIONAL UNITS TABLET PO SCH (21:03)
[2019-04-29] MEDS: DULoxetine 30 MG CAP (CYMBALTA) PO SCH (21:03)
[2019-04-29] MEDS: traZODone 50 MG TAB PO SCH (21:03)
[2019-04-29] MEDS: SIMVASTATIN 20 MG TAB PO SCH (21:04)
[2019-04-29] MEDS: CYANOCOBALAMIN 500 MCG TAB PO SCH (21:05)
[2019-04-30] VITALS (24 sets, daily range): BP systolic 97–123; BP diastolic 63–80; O2SAT 84–100
[2019-04-30] MEDS: IPRATROPIUM 0.5MG/ALBUTEROL 2.5MG INH SOL UD 3ML (DUONEB)(J7620) NEB SCH ×4 (01:36→20:00)
[2019-04-30] MEDS: LEVALBUTEROL 1.25 MG/0.5 ML CONCENTRATE NEB INH PRN ×3 (04:59→11:03)
[2019-04-30] MEDS: LEVOTHYROXINE 100MCG TABLET (0.1MG) PO SCH (05:35)
[2019-04-30] MEDS: NORCO, ANEXSIA 5/325MG TABLET (HYDROcodone/ACETAMINOPHEN) PO PRN ×3 (05:36→21:05)
[2019-04-30] MEDS: ADVAIR HFA 230/21MCG INHALER INH SCH ×2 (08:08→20:34)
[2019-04-30] MEDS: BUDESONIDE 0.5 MG/2 ML INHALATION SUSPENSION INH SCH ×2 (08:08→20:34)
[2019-04-30] MEDS: FLUTICASONE PROP 0.05% NASAL SPRAY 16 GM (FLONASE) NARES SCH ×3 (09:00→21:06)
[2019-04-30] MEDS: CARVedilol 12.5 MG TAB PO SCH ×2 (10:27→21:04)
[2019-04-30] MEDS: FERROUS SULFATE 325MG TAB PO SCH (10:28)
[2019-04-30] MEDS: PANTOPRAZOLE 40MG TAB (PROTONIX) PO SCH (10:28)
[2019-04-30] MEDS: ASCORBIC ACID 500 MG TAB PO SCH (10:28)
[2019-04-30] MEDS: FUROSEMIDE 40 MG TAB PO SCH ×2 (10:28→17:20)
[2019-04-30] MEDS: MOM 30ML SUSPENSION UDC PO SCH (10:29)
[2019-04-30] MEDS: POTASSIUM CHLORIDE 10 MEQ SR TABLET PO SCH ×2 (10:29→21:04)
[2019-04-30] MEDS: amLODIPine 5 MG TAB PO SCH (10:29)
[2019-04-30] MEDS: MIRALAX *UNIT DOSE* 17GM PACKET PO SCH (10:29)
[2019-04-30] MEDS: PREGABALIN 100 MG CAP (LYRICA) PO SCH ×3 (10:38→21:04)
[2019-04-30] MEDS: predniSONE 20 MG TAB PO SCH (10:38)
--- NOTE | 2019-04-30 16:53 | IPNPDOC ---
Text Note Date of Service The patient was seen on 04/30/19. NOTE Subjective: -Is doing ok this morning but is frustrated about her collapsed cast and swollen leg -Was concerned about her sputum culture that I told her is still under evaluation but she has no clinical picture of active pneumonia but I will continue to monitor PHYSICAL: General exam: A&Ox3, NAD, resting comfortably HEENT: NCAT, EOMI, anicteric sclera, MMM, neck supple, poor dentition with mostly missing teeth Cardiac: Heart sounds remain distant, normal S1 & S2, no murmurs heard, paced, regular rhythm Respiratory: CTAB with diminished bases without crackles Abdomen: soft, NT, ND, normoactive bowel sounds Extremity: 2+ radial and dorsalis pedis pulses, no edema, WWP Skin: [place], warm, dry. ecchymosis throughout especially on bilateral arms and legs and left Msk: strength 5/5 x4, left foot in cast that is now damaged at heel with some dry blood and swelling, dry skin around toes, not swollen, warm, is able to wiggle her toes Neuro: normal speech, no focal deficits, motor & sensation intact throughout Psych: Normal mood and affect LABORATORY DATA, MICROBIOLOGY: Please see below. Reviewed. Stable anemia and Cr at baseline. ASSESSMENT AND PLAN: 73 yo W with diastolic CHF, EF 65%, severe COPD chronically on prednisone 20 and 5 L nasal canula, A. fib on Xarelto, s/p unsuccessful cardioversion, s/p PPM, hx of DVT/PE, JOJO on Q trilogy, hx of back fractures with likely radicular sequale per history and left leg weakness with frequent falls who suffered a mechanical fall and presented to the ED where she was found to have R proximal and distal fibular fracture and left ankle bilateral comminuted fracture who is now admitted to medicine with orthopedics consultation s/p L ankle surgery, doing well with course c/b cast damage at the heel pending ortho evaluation. Left ankle fracture s/p mechanical fall, as well as R proximal and distal fibular fracture: s/p L ankle fracture surgery on 04/26 - Patient has a history of frequent falls with similar fracture of the right ankle years ago. She lives alone at home and ambulates with a wheelchair. Will likely require assistance vs rehab. PFS consulted - LLE in cast, post surgery, with pain well controlled per ortho pain plan - Cast damaged, ortho to evaluate and manage Chronic Diastolic CHF with EF 65% in 11/2018 - compensated on exam. Negative cardiopulmonary assessment and pt reports no subjective complaints - portable CXR noted cardiomegaly & effusions, but she is clinically at her baseline, and these findings were also noted months ago on imaging - no signs of decompensation clinically, and actually appears dry on exam. - TTE with normal EF - Continue lasix 40 BID with strict 1&Os Chronic A. fib on Xarelto and pacemaker - Reports she follows with cardiology in [place] and with [facility] - S/P unsuccessful cardiac ablation & cardioversion x2 - s/p PPM, ventricularly paced on EKG - no cardiac complaints - continue xarelto Chronic severe COPD on 5L with PRN BiPAP in place of her home trilogy - on chronic prednisone 20mg daily & 5L nasal cannula at baseline, continuing - no evidence of exacerbation at this time - continue COPD meds and nebs - On 6L O2 and PRN BiPAP at her home settings at 20/10 for O2 sat >88% - sputum growing GNRs will follow up, honestly clinically without evidence of active pneumonia without much sputum production, will hold off antibiotics Coagulopathy: with elevated INR -Unclear etiology, likely dietary, resolved Morbid obesity - Complicates care with BMI 40 Hypertension - continue coreg, also on loop diuretics Anxiety/depression/insomnia - continue home meds GERD - continue home PPI Iron deficiency anemia - at her baseline Hgb 10-11. No overt bleeding - Monitor daily CBC, continue po iron supplement Hypothyroidism - Continue home synthroid TMJ with nerve entrapment - Continue home Lyrica DVT prophylaxis: continue on Xarelto DISPOSITION: Medsurg with telemetry, with ongoing PT/OT, limited by cast damage VS,Fishbone, I+O VS, Fishbone, I+O Vital Signs Date Time Temp Pulse Resp B/P (MAP) Pulse Ox O2 Delivery O2 Flow Rate FiO2 04/30/19 16:00 96.2 70 20 123/69 (87) 90 Nasal Cannula 8.0 04/25/19 03:15 40 I&O- Last 24 Hours up to 6 AM 04/30/19 06:00 Intake Total 1755 ml Output Total 1025 ml Balance 730 ml LAZARO GILLESPIE MD Apr 30, 2019 16:53
[2019-04-30] MEDS: RIVAROXABAN 20 MG TAB (XARELTO) PO SCH (17:19)
[2019-04-30] MEDS: SODIUM CHLORIDE 0.9% INJ 10 ML SYR IV SCH (17:20)
[2019-04-30] MEDS: DULoxetine 30 MG CAP (CYMBALTA) PO SCH (21:03)
[2019-04-30] MEDS: VITAMIN E 400 INTERNATIONAL UNITS CAP PO SCH (21:03)
[2019-04-30] MEDS: VITAMIN D 1,000 INTERNATIONAL UNITS TABLET PO SCH (21:03)
[2019-04-30] MEDS: SIMVASTATIN 20 MG TAB PO SCH (21:04)
[2019-04-30] MEDS: CYANOCOBALAMIN 500 MCG TAB PO SCH (21:04)
[2019-04-30] MEDS: traZODone 50 MG TAB PO SCH (21:04)
[2019-04-30] MEDS: AUGMENTIN 875 MG TAB PO SCH (22:17)
[2019-05-01] VITALS (24 sets, daily range): BP systolic 105–141; BP diastolic 60–88; O2SAT 87–100
[2019-05-01] MEDS: IPRATROPIUM 0.5MG/ALBUTEROL 2.5MG INH SOL UD 3ML (DUONEB)(J7620) NEB SCH ×4 (02:26→20:35)
[2019-05-01] MEDS: NORCO, ANEXSIA 5/325MG TABLET (HYDROcodone/ACETAMINOPHEN) PO PRN ×2 (04:41→08:02)
[2019-05-01] MEDS: LEVOTHYROXINE 100MCG TABLET (0.1MG) PO SCH (05:24)
[2019-05-01 06:27] LABS: HEMATOCRIT 32.4 % (36.0-47.0); HEMOGLOBIN 9.3 g/dl (12.0-15.5); MEAN CORPUSCULAR HEMOGLOBIN 27.7 pg (27.0-33.0); MEAN CORPUSCULAR HGB CONC 28.7 g/dl (32.0-36.5); MEAN CORPUSCULAR VOLUME 96.4 fl (80.0-96.0); PLATELET COUNT, AUTOMATED 221 10^3/uL (150-450); RED BLOOD COUNT 3.36 10^6/uL (4.00-5.40); WHITE BLOOD COUNT 11.6 10^3/uL (4.0-10.0)
[2019-05-01 06:59] LABS: BLOOD UREA NITROGEN 22 MG/DL (7-18); CARBON DIOXIDE LEVEL 41 MEQ/L (21-32); CHLORIDE LEVEL 98 MEQ/L (98-107); CREATININE FOR GFR 0.57 MG/DL (0.55-1.30); GLOMERULAR FILTRATION RATE > 60.0 (>39); GLUCOSE, FASTING 126 MG/DL (70-100); POTASSIUM SERUM 4.1 MEQ/L (3.5-5.1); SODIUM LEVEL 141 MEQ/L (136-145)
[2019-05-01] MEDS: BUDESONIDE 0.5 MG/2 ML INHALATION SUSPENSION INH SCH ×2 (07:57→20:34)
[2019-05-01] MEDS: ADVAIR HFA 230/21MCG INHALER INH SCH ×2 (07:58→20:35)
[2019-05-01] MEDS: FLUTICASONE PROP 0.05% NASAL SPRAY 16 GM (FLONASE) NARES SCH ×2 (09:00→21:10)
[2019-05-01] MEDS: predniSONE 20 MG TAB PO SCH (10:02)
[2019-05-01] MEDS: FERROUS SULFATE 325MG TAB PO SCH (10:02)
[2019-05-01] MEDS: CARVedilol 12.5 MG TAB PO SCH ×2 (10:02→21:09)
[2019-05-01] MEDS: AUGMENTIN 875 MG TAB PO SCH ×2 (10:02→21:08)
[2019-05-01] MEDS: POTASSIUM CHLORIDE 10 MEQ SR TABLET PO SCH ×2 (10:03→21:09)
[2019-05-01] MEDS: PREGABALIN 100 MG CAP (LYRICA) PO SCH ×3 (10:03→21:09)
[2019-05-01] MEDS: MOM 30ML SUSPENSION UDC PO SCH (10:03)
[2019-05-01] MEDS: MIRALAX *UNIT DOSE* 17GM PACKET PO SCH (10:03)
[2019-05-01] MEDS: FUROSEMIDE 40 MG TAB PO SCH ×2 (10:03→16:25)
[2019-05-01] MEDS: ASCORBIC ACID 500 MG TAB PO SCH (10:04)
[2019-05-01] MEDS: amLODIPine 5 MG TAB PO SCH (10:04)
[2019-05-01] MEDS: PANTOPRAZOLE 40MG TAB (PROTONIX) PO SCH (10:04)
[2019-05-01] MEDS: SODIUM CHLORIDE 0.9% INJ 10 ML SYR IV SCH (16:24)
[2019-05-01] MEDS: LEVALBUTEROL 1.25 MG/0.5 ML CONCENTRATE NEB INH PRN (16:35)
[2019-05-01] MEDS: RIVAROXABAN 20 MG TAB (XARELTO) PO SCH (17:05)
[2019-05-01] MEDS: CYANOCOBALAMIN 500 MCG TAB PO SCH (21:08)
[2019-05-01] MEDS: VITAMIN D 1,000 INTERNATIONAL UNITS TABLET PO SCH (21:08)
[2019-05-01] MEDS: VITAMIN E 400 INTERNATIONAL UNITS CAP PO SCH (21:08)
[2019-05-01] MEDS: traZODone 50 MG TAB PO SCH (21:08)
[2019-05-01] MEDS: ALPRAZolam 0.25 MG TAB PO PRN (21:08)
[2019-05-01] MEDS: SIMVASTATIN 20 MG TAB PO SCH (21:09)
[2019-05-01] MEDS: DULoxetine 30 MG CAP (CYMBALTA) PO SCH (21:09)
[2019-05-02] VITALS (20 sets, daily range): BP systolic 90–130; BP diastolic 53–82; O2SAT 90–100
--- NOTE | 2019-05-02 01:24 | IPNPDOC ---
Text Note Date of Service The patient was seen on 05/01/19. NOTE Subjective: -No acute complaints. Awaiting surgery team evaluation of her cast because it is limiting her ability to participate in PT and is worried about swelling. Told her that per our conversation with Shabnam (surgery PA) yesterday, the surgeon will see her today -Told her that her sputum grew minimal proteus that at this time I will not treat without brigida signs of active infection and will continue to monitor her for any clinical changes PHYSICAL: General exam: A&Ox3, NAD, resting comfortably HEENT: NCAT, EOMI, anicteric sclera, MMM, neck supple, poor dentition with mostly missing teeth Cardiac: Heart sounds remain distant, normal S1 & S2, no murmurs heard, paced, regular rhythm Respiratory: CTAB with diminished bases without crackles Abdomen: soft, NT, ND, normoactive bowel sounds Extremity: 2+ radial and dorsalis pedis pulses, no edema, WWP Skin: [place], warm, dry. ecchymosis around IV sites Msk: strength 5/5 x4, left foot in cast that as previously mentioned is damaged at the heel with dry blood and swelling, dry skin around toes, warm, is able to wiggle her toes Neuro: normal speech, no focal deficits, motor & sensation intact throughout Psych: Normal mood and affect LABORATORY DATA, MICROBIOLOGY: Please see below. Reviewed. Stable anemia and Cr at baseline. ASSESSMENT AND PLAN: 73 yo W with diastolic CHF, EF 65%, severe COPD chronically on prednisone 20 and 5 L nasal canula, A. fib on Xarelto, s/p unsuccessful cardioversion, s/p PPM, hx of DVT/PE, JOJO on [facility] trilogy, hx of back fractures with likely radicular sequale per history and left leg weakness with frequent falls who suffered a mechanical fall and presented to the ED where she was found to have R proximal and distal fibular fracture and left ankle bilateral comminuted fracture who is now admitted to medicine with orthopedics consultation s/p L ankle surgery, doing well with course c/b cast damage at the heel pending ortho re-evaluation. Left ankle fracture s/p mechanical fall, as well as R proximal and distal fibular fracture: s/p L ankle fracture surgery on 04/26 - Patient has a history of frequent falls with similar fracture of the right ankle years ago. She lives alone at home and ambulates with a wheelchair. Will likely require assistance vs rehab. PFS consulted with [place] pending cast re-evaluation by surgery team - LLE in cast, post surgery, with pain well controlled per ortho pain plan - Cast damaged, ortho to evaluate today and manage Chronic Diastolic CHF with EF 65% in 11/2018 - compensated on exam. Negative cardiopulmonary assessment and pt reports no subjective complaints - portable CXR noted cardiomegaly & effusions, but she is clinically at her baseline, and these findings were also noted months ago on imaging - no signs of decompensation clinically - TTE with normal EF - Continue lasix 40 BID with strict 1&Os Chronic A. fib on Xarelto and pacemaker - Reports she follows with cardiology in [place] and with [facility] - S/P unsuccessful cardiac ablation & cardioversion x2 - s/p PPM, ventricularly paced on EKG - no cardiac complaints - continue xarelto Chronic severe COPD on 5-6L with PRN BiPAP 20/[address] her home trilogy - on chronic prednisone 20mg daily & 5L nasal cannula at baseline, continuing - no evidence of exacerbation at this time - continue COPD meds and nebs - On 6L O2 and PRN BiPAP at her home settings at 20/10 for O2 sat >88% - sputum growing low amounts of Proteus without clinical evidence of active pneumonia or much sputum production, will hold off antibiotics at this time and monitor clinically and for worsening leukocytosis, hypoxemia and fever curve Coagulopathy: with elevated INR -Unclear etiology, likely dietary, resolved Morbid obesity - Complicates care with BMI 40 Hypertension - continue coreg, also on loop diuretics Anxiety/depression/insomnia - continue home meds GERD - continue home PPI Iron deficiency anemia - at her baseline Hgb 10-11. No overt bleeding - Monitor daily CBC, continue po iron supplement Hypothyroidism - Continue home synthroid TMJ with nerve entrapment - Continue home Lyrica DVT prophylaxis: continue on Xarelto DISPOSITION: Medsurg with telemetry, with PT/OT ordered but recently limited by cast damage pending surgery evaluation of her cast VS,Fishbone, I+O VS, Fishbone, I+O Laboratory Tests 05/01/19 06:07 Vital Signs Date Time Temp Pulse Resp B/P (MAP) Pulse Ox O2 Delivery O2 Flow Rate FiO2 05/01/19 06:00 92 Nasal Cannula 6.0 05/01/19 05:11 20 05/01/19 04:00 96.9 73 141/80 (100) 04/25/19 03:15 40 I&O- Last 24 Hours up to 6 AM 05/01/19 06:00 Intake Total 1200 ml Output Total 1475 ml Balance -275 ml LAZARO GILLESPIE MD May 01, 2019 06:57
[2019-05-02] MEDS: IPRATROPIUM 0.5MG/ALBUTEROL 2.5MG INH SOL UD 3ML (DUONEB)(J7620) NEB SCH ×4 (01:53→19:15)
[2019-05-02] MEDS: LEVALBUTEROL 1.25 MG/0.5 ML CONCENTRATE NEB INH PRN ×2 (04:45→10:41)
[2019-05-02] MEDS: LEVOTHYROXINE 100MCG TABLET (0.1MG) PO SCH (05:39)
[2019-05-02 06:00] LABS: HEMATOCRIT 31.5 % (36.0-47.0); MEAN CORPUSCULAR HEMOGLOBIN 27.6 pg (27.0-33.0); MEAN CORPUSCULAR HGB CONC 28.6 g/dl (32.0-36.5); MEAN CORPUSCULAR VOLUME 96.6 fl (80.0-96.0); PLATELET COUNT, AUTOMATED 209 10^3/uL (150-450); RED BLOOD COUNT 3.26 10^6/uL (4.00-5.40); WHITE BLOOD COUNT 9.6 10^3/uL (4.0-10.0)
[2019-05-02 06:26] LABS: BLOOD UREA NITROGEN 21 MG/DL (7-18); CALCIUM LEVEL 8.2 MG/DL (8.8-10.2); CARBON DIOXIDE LEVEL 40 MEQ/L (21-32); CHLORIDE LEVEL 97 MEQ/L (98-107); CREATININE FOR GFR 0.54 MG/DL (0.55-1.30); GLOMERULAR FILTRATION RATE > 60.0 (>39); GLUCOSE, FASTING 92 MG/DL (70-100); SODIUM LEVEL 139 MEQ/L (136-145)
[2019-05-02] MEDS: ADVAIR HFA 230/21MCG INHALER INH SCH ×2 (07:33→19:26)
[2019-05-02] MEDS: BUDESONIDE 0.5 MG/2 ML INHALATION SUSPENSION INH SCH ×2 (07:33→19:15)
--- NOTE | 2019-05-02 07:44 | IPNPDOC ---
Text Note Date of Service The patient was seen on 05/02/19. NOTE Subjective: -No acute complaints. PHYSICAL: General exam: A&Ox3, NAD, resting comfortably HEENT: NCAT, EOMI, anicteric sclera, MMM, neck supple, poor dentition with mostly missing teeth Cardiac: Heart sounds remain distant, normal S1 & S2, no murmurs heard, paced, regular rhythm Respiratory: CTAB with diminished bases without crackles Abdomen: soft, NT, ND, normoactive bowel sounds Extremity: 2+ radial and dorsalis pedis pulses, no edema, WWP Skin: [place], warm, dry. ecchymosis around IV sites Msk: strength 5/5 x4, left foot in replaced new cast. warm, is able to wiggle her toes Neuro: normal speech, no focal deficits, motor & sensation intact throughout Psych: Normal mood and affect LABORATORY DATA, MICROBIOLOGY: Please see below. Reviewed. Stable anemia and Cr at baseline. Sputum grew few proteus, pseudomonas and klebsiella ASSESSMENT AND PLAN: 73 yo W with diastolic CHF, EF 65%, severe COPD chronically on prednisone 20 and 5 L nasal canula, A. fib on Xarelto, s/p unsuccessful cardioversion, s/p PPM, hx of DVT/PE, JOJO on [facility] trilogy, hx of back fractures with likely radicular sequale per history and left leg weakness with frequent falls who suffered a me chanical fall and presented to the ED where she was found to have R proximal and distal fibular fracture and left ankle bilateral comminuted fracture who is now admitted to medicine with orthopedics consultation s/p L ankle surgery, doing well with course c/b cast damage at the heel now replaced, awaiting placement close to her home. Of note also grew few proteus, klebs and pseudomonas in her sputum though she has no clinical PNA at this time. Left ankle fracture s/p mechanical fall, as well as R proximal and distal fibular fracture: s/p L ankle fracture surgery on 04/26 - Patient has a history of frequent falls with similar fracture of the right ankle years ago. She lives alone at home and ambulates with a wheelchair. Will require rehab. PFS consulted with PT ongoing now that cast was replaced - LLE in cast, post surgery, with pain well controlled per ortho pain plan Chronic Diastolic CHF with EF 65% in 11/2018 - compensated on exam. Negative cardiopulmonary assessment and pt reports no subjective complaints - portable CXR noted cardiomegaly & effusions, but she is clinically at her baseline, and these findings were also noted months ago on imaging - no signs of decompensation clinically - TTE with normal EF - Continue lasix 40 BID with strict 1&Os Chronic A. fib on Xarelto and pacemaker - Reports she follows with cardiology in [place] and with [facility] - S/P unsuccessful cardiac ablation & cardioversion x2 - s/p PPM, ventricularly paced on EKG - no cardiac complaints - continue xarelto Chronic severe COPD on 5-6L with PRN BiPAP 20/[address] her home trilogy - on chronic prednisone 20mg daily & 5L nasal cannula at baseline, continuing - no evidence of exacerbation at this time - continue COPD meds and nebs - On 6L O2 and PRN BiPAP at her home settings at 20/10 for O2 sat >88% - sputum growing low amounts of Proteus/Klebs/Pseudomonas without clinical evidence of active pneumonia or much sputum production, will discuss with pharmacy possible PO options for a 5 day empiric course given her low pulmonary reserve and she not grown out these organisms before Coagulopathy: with elevated INR -Unclear etiology, likely dietary, resolved Morbid obesity - Complicates care with BMI 40 Hypertension - continue coreg, also on loop diuretics Anxiety/depression/insomnia - continue home meds GERD - continue home PPI Iron deficiency anemia - at her baseline Hgb 10-11. No overt bleeding - Monitor daily CBC, continue po iron supplement Hypothyroidism - Continue home synthroid TMJ with nerve entrapment - Continue home Lyrica DVT prophylaxis: continue on Xarelto DISPOSITION: Medsurg with telemetry, with PT/OT ongoing, awaiting placement VS,Fishbone, I+O VS, Fishbone, I+O Laboratory Tests 05/02/19 05:26 Vital Signs Date Time Temp Pulse Resp B/P (MAP) Pulse Ox O2 Delivery O2 Flow Rate FiO2 05/02/19 06:00 98 BIPAP/CPAP 6.0 05/02/19 04:00 96.2 71 20 101/63 (76) I&O- Last 24 Hours up to 6 AM 05/02/19 06:00 Intake Total 1080 ml Output Total 1475 ml Balance -395 ml LAZARO GILLESPIE MD May 02, 2019 07:44
[2019-05-02] MEDS: MIRALAX *UNIT DOSE* 17GM PACKET PO SCH (09:11)
[2019-05-02] MEDS: MOM 30ML SUSPENSION UDC PO SCH (09:11)
[2019-05-02] MEDS: PANTOPRAZOLE 40MG TAB (PROTONIX) PO SCH (09:11)
[2019-05-02] MEDS: PREGABALIN 100 MG CAP (LYRICA) PO SCH ×3 (09:11→20:44)
[2019-05-02] MEDS: POTASSIUM CHLORIDE 10 MEQ SR TABLET PO SCH ×2 (09:11→20:45)
[2019-05-02] MEDS: ASCORBIC ACID 500 MG TAB PO SCH (09:12)
[2019-05-02] MEDS: CARVedilol 12.5 MG TAB PO SCH ×2 (09:12→20:47)
[2019-05-02] MEDS: FUROSEMIDE 40 MG TAB PO SCH ×2 (09:14→17:00)
[2019-05-02] MEDS: predniSONE 20 MG TAB PO SCH (09:14)
[2019-05-02] MEDS: FLUTICASONE PROP 0.05% NASAL SPRAY 16 GM (FLONASE) NARES SCH ×2 (09:14→20:51)
[2019-05-02] MEDS: amLODIPine 5 MG TAB PO SCH (09:14)
[2019-05-02] MEDS: NORCO, ANEXSIA 5/325MG TABLET (HYDROcodone/ACETAMINOPHEN) PO PRN ×2 (09:14→20:48)
[2019-05-02] MEDS: FERROUS SULFATE 325MG TAB PO SCH (09:14)
[2019-05-02] MEDS: LevoFLOXacin 750 MG TABLET PO SCH (13:14)
[2019-05-02] MEDS: SODIUM CHLORIDE 0.9% INJ 10 ML SYR IV SCH (15:43)
[2019-05-02] MEDS: RIVAROXABAN 20 MG TAB (XARELTO) PO SCH (17:00)
[2019-05-02] MEDS: SIMVASTATIN 20 MG TAB PO SCH (20:44)
[2019-05-02] MEDS: VITAMIN D 1,000 INTERNATIONAL UNITS TABLET PO SCH (20:44)
[2019-05-02] MEDS: traZODone 50 MG TAB PO SCH (20:44)
[2019-05-02] MEDS: ALPRAZolam 0.25 MG TAB PO PRN (20:44)
[2019-05-02] MEDS: CYANOCOBALAMIN 500 MCG TAB PO SCH (20:44)
[2019-05-02] MEDS: DULoxetine 30 MG CAP (CYMBALTA) PO SCH (20:45)
[2019-05-02] MEDS: VITAMIN E 400 INTERNATIONAL UNITS CAP PO SCH (20:51)
[2019-05-03 01:34] VITALS: O2SAT 92
[2019-05-03] MEDS: IPRATROPIUM 0.5MG/ALBUTEROL 2.5MG INH SOL UD 3ML (DUONEB)(J7620) NEB SCH ×4 (01:34→19:55)
[2019-05-03] MEDS: LevoFLOXacin 750 MG TABLET PO SCH (05:34)
[2019-05-03] MEDS: LEVOTHYROXINE 100MCG TABLET (0.1MG) PO SCH (05:34)
[2019-05-03 06:00] VITALS: BP 96/64
[2019-05-03] MEDS: BUDESONIDE 0.5 MG/2 ML INHALATION SUSPENSION INH SCH ×2 (07:21→19:55)
[2019-05-03] MEDS ORDERED: MOM30SS2 PO (08:21)
[2019-05-03] MEDS ORDERED: HYDR-3715 PO (08:21)
[2019-05-03] MEDS ORDERED: LEVA750T7 PO (08:21)
[2019-05-03] MEDS ORDERED: PEG1POW PO (08:21)
[2019-05-03] MEDS: MIRALAX *UNIT DOSE* 17GM PACKET PO SCH (09:00)
[2019-05-03] MEDS: amLODIPine 5 MG TAB PO SCH (09:00)
[2019-05-03] MEDS: FUROSEMIDE 40 MG TAB PO SCH ×2 (09:00→16:13)
[2019-05-03] MEDS: CARVedilol 12.5 MG TAB PO SCH ×2 (09:00→21:51)
[2019-05-03] MEDS: MOM 30ML SUSPENSION UDC PO SCH (09:00)
[2019-05-03] MEDS: FERROUS SULFATE 325MG TAB PO SCH (09:05)
[2019-05-03] MEDS: POTASSIUM CHLORIDE 10 MEQ SR TABLET PO SCH ×2 (09:05→21:51)
[2019-05-03] MEDS: PREGABALIN 100 MG CAP (LYRICA) PO SCH ×3 (09:05→21:51)
[2019-05-03] MEDS: ASCORBIC ACID 500 MG TAB PO SCH (09:06)
[2019-05-03] MEDS: PANTOPRAZOLE 40MG TAB (PROTONIX) PO SCH (09:07)
[2019-05-03] MEDS: predniSONE 20 MG TAB PO SCH (09:07)
[2019-05-03] MEDS: ADVAIR HFA 230/21MCG INHALER INH SCH ×2 (09:31→19:55)
[2019-05-03] MEDS: FLUTICASONE PROP 0.05% NASAL SPRAY 16 GM (FLONASE) NARES SCH ×2 (13:01→21:52)
[2019-05-03 13:50] VITALS: O2SAT 98
[2019-05-03 14:00] VITALS: BP 107/65
[2019-05-03] MEDS: NORCO, ANEXSIA 5/325MG TABLET (HYDROcodone/ACETAMINOPHEN) PO PRN (14:26)
[2019-05-03] MEDS: SODIUM CHLORIDE 0.9% INJ 10 ML SYR IV SCH (15:00)
[2019-05-03] MEDS: RIVAROXABAN 20 MG TAB (XARELTO) PO SCH (16:13)
--- NOTE | 2019-05-03 20:39 | IPNPDOC ---
Text Note Date of Service The patient was seen on 05/03/19. NOTE Subjective: -No acute complaints, cast is leaking again on the PHYSICAL: General exam: A&Ox3, NAD, resting comfortably HEENT: NCAT, EOMI, anicteric sclera, MMM, neck supple, poor dentition with mostly missing teeth Cardiac: Heart sounds remain distant, normal S1 & S2, no murmurs heard, paced, regular rhythm Respiratory: CTAB with diminished bases without crackles Abdomen: soft, NT, ND, normoactive bowel sounds Extremity: 2+ radial and dorsalis pedis pulses, no edema, WWP Skin: [place], warm, dry. ecchymosis around IV sites Msk: strength 5/5 x4, left foot in cast, unfortunately with elements of leakage at the heel again. warm, is able to wiggle her toes Neuro: normal speech, no focal deficits, motor & sensation intact throughout Psych: Normal mood and affect LABORATORY DATA, MICROBIOLOGY: Please see below. Reviewed. Stable anemia and Cr at baseline. Sputum grew few proteus, pseudomonas and klebsiella ASSESSMENT AND PLAN: 73 yo W with diastolic CHF, EF 65%, severe COPD chronically on prednisone 20 and 5 L nasal canula, A. fib on Xarelto, s/p unsuccessful cardioversion, s/p PPM, hx of DVT/PE, JOJO on [facility] trilogy, hx of back fractures with likely radicular sequale per history and left leg weakness with frequent falls who suffered a mechanical fall and presented to the ED where she was found to have R proximal and distal fibular fracture and left ankle bilateral comminuted fracture who is now admitted to medicine with orthopedics consultation s/p L ankle surgery, doing well with course c/b cast damage x 2 now, awaiting placement close to her home. Of note also grew few proteus, klebs and pseudomonas in her sputum though she has no clinical PNA at this time and decided to treat with short course given her poor pulmonary reserve. Left ankle fracture s/p mechanical fall, as well as R proximal and distal fibular fracture: s/p L ankle fracture surgery on 04/26 - Patient has a history of frequent falls with similar fracture of the right ankle years ago. She lives alone at home and ambulates with a wheelchair. Will require rehab pending STR placement. - LLE in cast, post surgery, with pain well controlled per ortho pain plan -Cast damaged again after replacement yesterday. Called ortho, will see her tomorrow. Chronic Diastolic CHF with EF 65% in 11/2018 - compensated on exam. Negative cardiopulmonary assessment and pt reports no subjective complaints - portable CXR noted cardiomegaly & effusions, but she is clinically at her baseline, and these findings were also noted months ago on imaging - no signs of decompensation clinically - TTE with normal EF - Continue lasix 40 BID with strict 1&Os Chronic A. fib on Xarelto and pacemaker - Reports she follows with cardiology in [place] and with [facility] - S/P unsuccessful cardiac ablation & cardioversion x2 - s/p PPM, ventricularly paced on EKG - no cardiac complaints - continue xarelto Chronic severe COPD on 5-6L with PRN BiPAP 20/[address] her home trilogy - on chronic prednisone 20mg daily & 5L nasal cannula at baseline, continuing - no evidence of exacerbation at this time - continue COPD meds and nebs - On 6L O2 and PRN BiPAP at her home settings at 20/10 for O2 sat >88% - sputum growing low amounts of Proteus/Klebs/Pseudomonas without clinical evidence of active pneumonia or much sputum production, but after 3d of a ugmentin that covers her proteus, and discussing with pharmacy, 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 Coagulopathy: with elevated INR -Unclear etiology, likely dietary, resolved Morbid obesity - Complicates care with BMI 40 Hypertension - continue coreg, also on loop diuretics Anxiety/depression/insomnia - continue home meds GERD - continue home PPI Iron deficiency anemia - at her baseline Hgb 10-11. No overt bleeding - Monitor daily CBC, continue po iron supplement Hypothyroidism - Continue home synthroid TMJ with nerve entrapment - Continue home Lyrica DVT prophylaxis: continue on Xarelto DISPOSITION: Medsurg with telemetry, with PT/OT ongoing, awaiting placement and cast replacement VS,Fishbone, I+O VS, Fishbone, I+O Vital Signs Date Time Temp Pulse Resp B/P (MAP) Pulse Ox O2 Delivery O2 Flow Rate FiO2 05/03/19 14:56 20 05/03/19 14:00 97.7 76 107/65 (79) 87 NIPPV (BIPAP/CPAP) 6.0 05/03/19 01:34 44 I&O- Last 24 Hours up to 6 AM 05/03/19 06:00 Intake Total 1100 ml Output Total 550 ml Balance 550 ml LAZARO GILLESPIE MD May 03, 2019 20:39
[2019-05-03 21:51] VITALS: BP 135/92
[2019-05-03] MEDS: SIMVASTATIN 20 MG TAB PO SCH (21:51)
[2019-05-03] MEDS: VITAMIN D 1,000 INTERNATIONAL UNITS TABLET PO SCH (21:51)
[2019-05-03] MEDS: VITAMIN E 400 INTERNATIONAL UNITS CAP PO SCH (21:51)
[2019-05-03] MEDS: DULoxetine 30 MG CAP (CYMBALTA) PO SCH (21:51)
[2019-05-03] MEDS: CYANOCOBALAMIN 500 MCG TAB PO SCH (21:51)
[2019-05-03] MEDS: traZODone 50 MG TAB PO SCH (21:51)
[2019-05-03 22:00] VITALS: BP 135/92; O2SAT 97
[2019-05-04] MEDS: LEVOTHYROXINE 100MCG TABLET (0.1MG) PO SCH (05:33)
[2019-05-04] MEDS: LevoFLOXacin 750 MG TABLET PO SCH (05:33)
[2019-05-04 06:00] VITALS: BP 129/85
[2019-05-04] MEDS: IPRATROPIUM 0.5MG/ALBUTEROL 2.5MG INH SOL UD 3ML (DUONEB)(J7620) NEB SCH (07:44)
[2019-05-04] MEDS: BUDESONIDE 0.5 MG/2 ML INHALATION SUSPENSION INH SCH (07:44)
--- NOTE | 2019-05-04 07:45 | IPNPDOC ---
Text Note Date of Service The patient was seen on 05/04/19. NOTE PLEASE REFER TO THE DISCHARGE SUMMARY I BEGAN ON 05/03 AND COMPLETED THIS MORNING BEFORE DISCHARGE. VS,Fishbone, I+O VS, Fishbone, I+O Vital Signs Date Time Temp Pulse Resp B/P (MAP) Pulse Ox O2 Delivery O2 Flow Rate FiO2 05/04/19 06:00 97.4 112 22 129/85 (100) 96 Nasal Cannula 6.0 05/03/19 01:34 44 I&O- Last 24 Hours up to 6 AM 05/04/19 06:00 Intake Total 1020 ml Output Total 425 ml Balance 595 ml LAZARO GILLESPIE MD May 04, 2019 07:45
--- NOTE | 2019-05-04 07:45 | DS.PDOC ---
Discharge Summary General Date of Admission Apr 23, 2019 at 17:17 Date of Discharge 05/04/2019 Attending Physician: LAZARO GILLESPIE MD Specialist/Consultants Involve: A Discharge Summary PROCEDURES PERFORMED DURING STAY: Open reduction internal fixation (ORIF) left bimalleolar ankle fracture on 04/26/2019 ADMITTING DIAGNOSES: 1. Mechanical fall 2. L proximal and distal fibular fracture and left ankle bilateral comminuted fracture DISCHARGE DIAGNOSES: 1. Mechanical fall 2. L proximal and distal fibular fracture and left ankle bilateral comminuted fracture 3. Presumed CAP 4. Chronic diastolic CHF with EF 65% 5. Severe COPD on chronic prednisone at 5 L nasal cannula at baseline and PRN trilogy use 6. Chronic Hypertension 7. Anxiety/depression/insomnia 8. GERD 9. Morbid obesity 10. Chronic anemia 11. Hypothyroidism 12. History of Chronic A. fib on Xarelto and pacemaker COMPLICATIONS/CHIEF COMPLAINT: Ankle Fracture, Left. HISTORY OF PRESENT ILLNESS: 73-year-old W with extensive past medical history including likely diastolic CHF with EF 65%, severe COPD chronically on prednisone and 5 L nasal cannula with intermittent use of her trilogy, persistent A. fib chronically on Xarelto, S/P cardioversion x2 and unsuccessful cardiac ablation, with pacemaker in place who presented to the ED after sustaining a mechanical fall when she stood up to reach her wheelchair and felt her left leg gave out, leading to her falling on that left leg. HOSPITAL COURSE: Imaging in the ER revealed R proximal and distal fibular fracture and left ankle bilateral comminuted fracture and she was admitted to medicine with orthopedics consultation. Medicine found her debilitated but at her baseline and cleared her for the medium risk L ankle surgery that occurred on 04/[address] Hatch. Her operation went well and her course was c/b post op cast damage at the heel that was replaced, as well as growth of a few proteus, klebs and pseudomonas in her sputum without clinical PNA. Ultimately, she received 3 days of augmentin, and I am also treating her with 5d of levaquin given the debility of her pulmonary reserve. She otherwise is now being discharged to [facility] close to home as she is from [place]. DISCHARGE MEDICATIONS: Please see below. ALLERGIES: Please see below. PHYSICAL EXAMINATION ON DISCHARGE: VITAL SIGNS: Please see below. Hemodynamically stable, afebrile, with stable baseline hypoxemia General exam: A&Ox3, NAD, resting comfortably HEENT: NCAT, EOMI, anicteric sclera, MMM, neck supple, poor dentition with mostl y missing teeth Cardiac: Heart sounds remain distant, normal S1 & S2, no murmurs heard, paced, regular rhythm Respiratory: CTAB with diminished bases without crackles Abdomen: soft, NT, ND, normoactive bowel sounds Extremity: 2+ radial and dorsalis pedis pulses, no edema, WWP Skin: [place], warm, dry. ecchymosis around IV sites Msk: strength 5/5 x4, left foot in replaced new cast. warm, is able to wiggle her toes Neuro: normal speech, no focal deficits, motor & sensation intact throughout Psych: Normal mood and affect LABORATORY DATA: Please see below. IMAGING: XR Tib/fib on admission: Proximal and distal fibular fractures are noted. No tibial fracture is seen. Question denervation myopathy. Diffuse subcutaneous soft tissue swelling. Vascular calcification. noncon head CT at admission: No acute intracranial abnormality. Vascular calcification and mild small vessel changes. There is paranasal sinus filling affecting the right mastoid sinus. No skull base fracture is seen. L ankle XR at admission: Comminuted bilateral fracture dislocation. CT of C-spine at admission: Mild degenerative spondylosis changes. Dextroconvex curvature in the cervical spine. Otherwise negative CT study of the cervical spine without contrast. No fracture seen. XR of R tib/fib at admission: No obvious acute fracture or dislocation Bilateral femur XR at admission: Examination is limited by positioning. No obvious acute fracture dislocation is appreciated. Lateral view demonstrates soft tissue swelling and effusion at the left knee and possible fracture involving the proximal fibula. CXR at admission: Cardiomegaly (cannot exclude pericardial effusion) Bibasilar opacities suggesting infiltrates/atelectasis and layering right effusion. TTE: EF: 65% RVSP 59 mmHg COMMENTS: Underlying atrial fibrillation with consistent ventricular paced rhythm. Paced QRS complexes with LBBB configuration. Normal left ventricular size with symmetrical borderline LV hypertrophy. Distal septal and apical hypokinesis related to right ventricular pacing versus right ventricular pressure overload. Preserved global resting left ventricular systolic function. Prominently dilated left atrium with Doppler evidence of an elevated mean left atrial pressure. At least mildly dilated right ventricle with slight right ventricular free wall hypokinesis and Doppler evidence of severe pulmonary hypertension. Prominently dilated right atrium and at least mildly dilated inferior vena cava with reduced respiratory collapse in keeping with an elevated central venous p ressure/ right heart failure. Mild aortic valvular sclerosis without stenosis and only very mild insufficiency. Normal aortic root and ascending aortic diameters. Degenerative changes of the mitral valvular apparatus without evidence of LV inflow tract obstruction and only mild insufficiency. Normal appearing tricuspid valve with severe tricuspid insufficiency. Pacing lead could be visualized traversing right heart structures but no separate intracardiac mass. No pericardial effusion. PROGNOSIS: Good ACTIVITY: As tolerated. DIET: 2g sodium DISCHARGE PLAN: STR with 4 more days of levaquin DISPOSITION: STR DISCHARGE INSTRUCTIONS: 1. 4 more days of levaquin ITEMS TO FOLLOWUP ON ON OUTPATIENT: 1. ortho follow up 2. pulm follow up 3. PCP follow up DISCHARGE CONDITION: Stable TIME SPENT ON DISCHARGE: 56 minutes. Vital Signs/I&Os Vital Signs Date Time Temp Pulse Resp B/P (MAP) Pulse Ox O2 Delivery O2 Flow Rate FiO2 05/03/19 07:20 72 05/03/19 06:00 97.3 22 96/64 (75) 97 NIPPV (BIPAP/CPAP) 05/03/19 01:34 44 05/03/19 01:34 6.0 I&O- Last 24 Hours up to 6 AM 05/03/19 05:59 Intake Total 980 ml Balance 980 ml Microbiology Microbiology 04/28/19 Gram Stain - Final, Complete 04/28/19 Sputum Culture - Final, Complete Proteus Mirabilis Klebsiella Pneumoniae Pseudomonas Aeruginosa Discharge Medications Scheduled Amlodipine Besylate (Amlodipine Besylate) 5 Mg Tablet, 5 MG PO DAILY, (Reported) Ascorbic Acid (Vitamin C) 1,000 Mg Tablet, 1,000 MG PO QHS, (Reported) Budesonide (Pulmicort) 0.5 Mg/2 Ml Ampul.neb, 1 VIAL INH BID, (Reported) Carvedilol (Carvedilol) 12.5 Mg Tablet, 12.5 MG PO BID, (Reported) Cholecalciferol (Vitamin D3) (Vitamin D3) 1,000 Unit Capsule, 1,000 UNIT PO QHS, (Reported) Cyanocobalamin (Vitamin B-12) (Vitamin B-12) 500 Mcg Tab, 500 MCG PO QHS, (Reported) Duloxetine HCl (Duloxetine HCl) 60 Mg Capsule.dr, 60 MG PO QHS, (Reported) Esomeprazole Magnesium (Nexium) 40 Mg Cap, 40 MG PO DAILY, (Reported) Ferrous Sulfate (Ferrous Sulfate) 325 Mg Tablet, 325 MG PO DAILY, (Reported) Fluticasone Propion/Salmeterol (Advair Hfa 230-21 Mcg Inhaler) 1 Aer Aer, 2 PUFF INH BID, (Reported) Fluticasone Propionate (Flonase Allergy Relief) 9.9 Ml [place].susp, 1 SPRAY NARES BID, (Reported) Furosemide (Furosemide) 40 Mg Tablet, 40 MG PO DAILY, (Reported) Hydrocortisone Valerate (Hydrocortisone Valerate) 60 Gm Oint...g., 1 APPLIC TOP QHS, (Reported) APPLY TO RASH ON ELBOWS Levofloxacin (Levaquin) 750 Mg Tablet, 750 MG PO DAILY@0600 Levothyroxine Sodium (Synthroid) 100 Mcg Tab, 100 MCG PO DAILY, (Reported) Magnesium Hydroxide (Milk of Magnesia) 400 Mg/5 Ml Oral.susp, 30 ML PO DAILY Polyethylene Glycol 3350 (Polyethylene Glycol 3350) 17 Gm Powd.pack, 1 PKT PO DAILY Potassium Chloride (Klor-Con M20) 20 Meq Tabcr, 20 MEQ PO BID, (Reported) Prednisone (Prednisone) 20 Mg Tablet, 20 MG PO DAILY, (Reported) Pregabalin (Lyrica) 100 Mg Cap, 100 MG PO TID, (Reported) Rivaroxaban (Xarelto) 20 Mg Tab, 20 MG PO DAILY, (Reported) Simvastatin (Zocor) 40 Mg Tab, 20 MG PO QHS, (Reported) Trazodone HCl (Trazodone HCl) 50 Mg Tab, 50 MG PO QHS, (Reported) Vitamin E (Vitamin E) 400 Unit Capsule, 400 UNIT PO QHS, (Reported) Scheduled PRN Acetaminophen (Acetaminophen) 500 Mg Tablet, 500 MG PO Q6H PRN for PAIN, (Reported) Albuterol Sulfate (Proair Hfa) 8.5 Gm Hfa.aer.ad, 2 PUFFS INH Q4-6HP PRN for WHEEZING, (Reported) Alprazolam (Xanax) 0.25 Mg Tablet, 0.25 MG PO BID PRN for ANXIETY, (Reported) Hydrocodone/Acetaminophen (Hydrocodone-Acetamin 5-325 mg) 1 Each Tablet, 1 TAB PO Q4HP PRN for MILD/MODERATE PAIN (PS 1-7) Hydrocodone/Acetaminophen (Hydrocodone-Acetamin 5-325 mg) 1 Each Tablet, 2 TAB PO Q4HP PRN for SEVERE PAIN (PS 8-10) Ipratropium/Albuterol Sulfate (Combivent Respimat 20-100 Mcg) 1 Aer Aer, 1 PUFF INH QID PRN for SHORTNESS OF BREATH, (Reported) Ipratropium/Albuterol Sulfate (Iprat-Albut 0.5-3(2.5) mg/3 ml) 3 Ml Ampul.neb, 1 VIAL NEB Q6H PRN for SHORTNESS OF BREATH, (Reported) Levalbuterol Hydrochloride (Xopenex Hfa) 15 Gm Hfa.aer.ad, 2 PUFF INH Q4-6HP PRN for wheezing, (Reported) Allergies Coded Allergies: amiodarone (Verified Allergy, Severe, HEART RACING, DIFFICULTY BREATHING, 04/23/19) celecoxib (Verified Allergy, Severe, DIFFICULTY BREATHING, 04/23/19) ciprofloxacin (Verified Allergy, Severe, DIFFICULTY BREATHING- CAN TAKE LEVAQUIN, 05/02/19) fluticasone furoate (Verified Allergy, Severe, POWDER CAUSED DIFFICULTY B REATHING, 04/23/19) guaifenesin (Verified Allergy, Severe, DIFFICULTY BREATHING, 04/23/19) moxifloxacin (Verified Allergy, Severe, DIFFICULTY BREATHING/ CAN TAKE LEVAQUIN, 05/02/19) naproxen (Unverified Allergy, Severe, DIFFICULTY BREATHING, 04/23/19) tiotropium (Unverified Allergy, Severe, DIFFICULTY BREATHING, 04/23/19) umeclidinium (Verified Allergy, Severe, POWDER CAUSED DIFFICULTY BREATHING, 04/23/19) vilanterol (Verified Allergy, Severe, POWDER CAUSED DIFFICULTY BREATHING, 04/23/19) hydroxyzine (Verified Allergy, Mild, ITCHING, 04/23/19) atorvastatin (Verified Adverse Reaction, Intermediate, JOINT PAIN SWELLING, 04/23/19) cephalexin (Unverified Adverse Reaction, Mild, STOMACHE PAIN, 04/23/19) Uncoded Allergies: PURELL (Allergy, Severe, DIFFICULTY BREATHING, 04/23/19) LAZARO JENKINS MD May 03, 2019 08:12
[2019-05-04] MEDS: MOM 30ML SUSPENSION UDC PO SCH ×2 (09:00→09:19)
[2019-05-04] MEDS: MIRALAX *UNIT DOSE* 17GM PACKET PO SCH (09:00)
[2019-05-04] MEDS: FUROSEMIDE 40 MG TAB PO SCH ×2 (09:00→09:20)
[2019-05-04] MEDS: ASCORBIC ACID 500 MG TAB PO SCH (09:21)
[2019-05-04] MEDS: predniSONE 20 MG TAB PO SCH (09:22)
[2019-05-04] MEDS: amLODIPine 5 MG TAB PO SCH (09:22)
[2019-05-04] MEDS: FERROUS SULFATE 325MG TAB PO SCH (09:22)
[2019-05-04] MEDS: PREGABALIN 100 MG CAP (LYRICA) PO SCH (09:22)
[2019-05-04] MEDS: POTASSIUM CHLORIDE 10 MEQ SR TABLET PO SCH (09:22)
[2019-05-04] MEDS: PANTOPRAZOLE 40MG TAB (PROTONIX) PO SCH (09:23)
[2019-05-04] MEDS: FLUTICASONE PROP 0.05% NASAL SPRAY 16 GM (FLONASE) NARES SCH (09:23)
[2019-05-04] MEDS: CARVedilol 12.5 MG TAB PO SCH (09:23)
[2019-05-04] MEDS: ADVAIR HFA 230/21MCG INHALER INH SCH (11:15)
== END 2019-05-04 13:13 | DRG 493 ==
LOC: M ED 12:05 → EDBD 12:05 → M ED INP 17:17 → ENRESERV 19:17 → M MSPAV 20:38 → M PCU 04-26 18:50 → M MSPAV 05-02 18:02
PROVIDERS: ADMIT Internal Medicine; ATTEND Internal Medicine
PROC: 05H Upper Veins, Insertion (ICD-10-PCS; 2019-04-24)
PROC: 0QSH0ZZ Reposition Left Tibia, Open Approach (ICD-10-PCS; 2019-04-26)
PROC: 0QSK04Z Reposition Left Fibula with Internal Fixation Device, Open Approach (ICD-10-PCS; principal; 2019-04-26 09:00)
DX: S82.842A Displaced bimalleolar fracture of left lower leg, initial encounter for closed fracture (principal); I50.32 Chronic diastolic (congestive) heart failure; I48.19 Other persistent atrial fibrillation; Z68.41 Body mass index [BMI] 40.0-44.9, adult; J96.12 Chronic respiratory failure with hypercapnia; J44.9 Chronic obstructive pulmonary disease, unspecified; W18.30XA Fall on same level, unspecified, initial encounter; E03.9 Hypothyroidism, unspecified; Y92.009 Unspecified place in unspecified non-institutional (private) residence as the place of occurrence of the external cause; I11.0 Hypertensive heart disease with heart failure; Z66 Do not resuscitate; F41.9 Anxiety disorder, unspecified; F32.9 Major depressive disorder, single episode, unspecified; R09.02 Hypoxemia; G47.00 Insomnia, unspecified; K21.9 Gastro-esophageal reflux disease without esophagitis; E66.01 Morbid (severe) obesity due to excess calories; D50.9 Iron deficiency anemia, unspecified; Z95.0 Presence of cardiac pacemaker; Z99.81 Dependence on supplemental oxygen; Z79.52 Long term (current) use of systemic steroids; Z87.891 Personal history of nicotine dependence; Z79.899 Other long term (current) drug therapy; Z88.1 Allergy status to other antibiotic agents; Z79.01 Long term (current) use of anticoagulants; Z88.6 Allergy status to analgesic agent; Z88.8 Allergy status to other drugs, medicaments and biological substances; Z91.048 Other nonmedicinal substance allergy status; Z98.41 Cataract extraction status, right eye; Z86.711 Personal history of pulmonary embolism; I27.20 Pulmonary hypertension, unspecified; G47.33 Obstructive sleep apnea (adult) (pediatric)